=== PATIENT | female | born 1970 | race Caucasian/White ===

== ENCOUNTER → 2021-09-03 13:50 | Outpatient (BNVA) | payer SELFPAY | PROVIDERS: PCP Nurse Practitioner Family; Visit Provider Nurse Practitioner Family | DX: J45.909 Unspecified asthma, uncomplicated (principal); R06.02 Shortness of breath; R60.9 Edema, unspecified | CPT/HCPCS: 71046; 80053; 80061; 83880; 84443 ==

== ENCOUNTER → 2022-01-08 08:04 | Outpatient (BNVA) | payer MEDICAID, SELFPAY | PROVIDERS: PCP Nurse Practitioner Family; Visit Provider Nurse Practitioner Family | DX: I10 Essential (primary) hypertension (principal); E03.9 Hypothyroidism, unspecified; J45.909 Unspecified asthma, uncomplicated; E06.3 Autoimmune thyroiditis; E78.2 Mixed hyperlipidemia; R60.9 Edema, unspecified; H10.9 Unspecified conjunctivitis; J44.9 Chronic obstructive pulmonary disease, unspecified; R05.9 Cough, unspecified; N81.89 Other female genital prolapse; N39.3 Stress incontinence (female) (male) | CPT/HCPCS: 80053; 80061; 84443; 85025 ==

== ENCOUNTER → 2022-02-10 12:23 | Outpatient (BNVA) | payer MEDICAID, SELFPAY | PROVIDERS: PCP Nurse Practitioner Family; Visit Provider Nurse Practitioner Family | DX: I10 Essential (primary) hypertension (principal); E03.9 Hypothyroidism, unspecified; R53.83 Other fatigue; R73.9 Hyperglycemia, unspecified; M25.50 Pain in unspecified joint; M79.10 Myalgia, unspecified site; E06.3 Autoimmune thyroiditis; R05.9 Cough, unspecified; R40.0 Somnolence; G45.9 Transient cerebral ischemic attack, unspecified; W19.XXXA Unspecified fall, initial encounter; Y92.009 Unspecified place in unspecified non-institutional (private) residence as the place of occurrence of the external cause; G47.33 Obstructive sleep apnea (adult) (pediatric); E66.01 Morbid (severe) obesity due to excess calories | CPT/HCPCS: 80053; 82306; 82607; 83036; 84443; 85651; 86038; 86140; 86200 ==

== ENCOUNTER 2022-04-17 12:29 | Outpatient (CLI) | payer MEDICAID, SELFPAY ==
--- NOTE | 2022-04-17 12:00 | CT_ITS ---
WS: [id number] CT HEAD TECHNIQUE: Noncontrast CT of the head obtained from the skullbase to the vertex. CLINICAL INFORMATION: HX TIA, slurred speech, frequent fall at home somulence COMPARISON: None. DLP: 1145.[address] scans at [facility] use at least one of these dose optimization techniques: automated e xposure control; mA and/or kV adjustment per patient size (includes targeted exams where dose is matc hed to clinical indication); or iterative reconstruction. FINDINGS: No evidence of intracranial hemorrhage or mass effect. Ventricular system and basal cisterns are isaac nt. No extra-axial fluid collections. No evidence of mass or mass effect. Normal whiting-white different iation. Paranasal sinuses and mastoid air cells are well aerated. .Normal visualized soft tissues. CT/CT head wo con* [id number] IMPRESSION: 1. No evidence of intracranial hemorrhage or mass effect. 2. Normal whiting-white differentiation. 3. No acute intracranial findings.
== END 2022-04-17 12:30 | disposition home or self-care (01) ==
LOC: RAD 12:30
PROVIDERS: PCP Nurse Practitioner Family; Visit Provider Nurse Practitioner Family
DX: G45.9 Transient cerebral ischemic attack, unspecified (principal); R40.0 Somnolence; W19.XXXA Unspecified fall, initial encounter; L03.90 Cellulitis, unspecified; I10 Essential (primary) hypertension; R60.9 Edema, unspecified; E03.9 Hypothyroidism, unspecified
CPT/HCPCS: 70450; 80053; 83880; 84443

== ENCOUNTER 2022-04-24 09:31 | Outpatient (CLI) | payer MEDICAID, SELFPAY ==
--- NOTE | 2022-04-24 09:30 | USCV_ITS ---
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
== END 2022-04-24 09:32 | disposition home or self-care (01) ==
PROVIDERS: PCP Nurse Practitioner Family; Visit Provider Nurse Practitioner Family
DX: R60.9 Edema, unspecified (principal); E66.9 Obesity, unspecified; I89.0 Lymphedema, not elsewhere classified; L03.90 Cellulitis, unspecified
CPT/HCPCS: 93922

== ENCOUNTER 2022-05-06 10:00 | Outpatient (CLI) | payer MEDICAID, SELFPAY | END 2022-05-06 10:01 | disposition home or self-care (01) | LOC: SLEEP 05-11 07:25 | PROVIDERS: PCP Nurse Practitioner Family; Visit Provider Nurse Practitioner Family | DX: G47.33 Obstructive sleep apnea (adult) (pediatric) (principal) | CPT/HCPCS: 94762 ==

== ENCOUNTER → 2022-06-17 10:51 | Outpatient (BNVA) | payer MEDICAID, SELFPAY | PROVIDERS: PCP Nurse Practitioner Family; Visit Provider Nurse Practitioner Family | DX: E03.9 Hypothyroidism, unspecified (principal); E78.2 Mixed hyperlipidemia; I10 Essential (primary) hypertension; R73.9 Hyperglycemia, unspecified | CPT/HCPCS: 80053; 80061; 83036; 84443 ==

== ENCOUNTER → 2022-09-22 13:47 | Outpatient (BNVA) | payer MEDICAID, SELFPAY | PROVIDERS: PCP Nurse Practitioner Family; Visit Provider Internal Medicine Pulmonary Disease | DX: J30.2 Other seasonal allergic rhinitis (principal); J44.1 Chronic obstructive pulmonary disease with (acute) exacerbation; J45.909 Unspecified asthma, uncomplicated; Z87.01 Personal history of pneumonia (recurrent); G47.33 Obstructive sleep apnea (adult) (pediatric); R53.1 Weakness; R06.02 Shortness of breath; J84.9 Interstitial pulmonary disease, unspecified | CPT/HCPCS: 36415; 82785; 85651; 86003; 86140; 86160; 86162; 86235; 86255; 86331; 86376; 86606; 86609 ==

== ENCOUNTER 2022-10-08 13:46 | Outpatient (CLI) | payer MEDICAID, SELFPAY ==
--- NOTE | 2022-10-08 14:00 | CT_ITS ---
WS: [id number] CT CHEST CT-HIGH RESOLUTION, NONCONTRAST. HISTORY: Interstitial lung disease. Technique: High-resolution chest CT is performed in inspiration, expiration, supine and prone positio thalia. All CT scans at [facility] use at least one of these dose optimization techniques: automated exposure control; mA and/or kV adjustment per patient size (includes targeted exams where dose is mat ched to clinical indication); or iterative reconstruction. DLP: 2156.45 mGy.cm COMPARISON: None. Findings: Bilateral mosaic attenuation throughout both lungs. Patchy areas of groundglass opacificati on. No dense areas of consolidation. No bronchiectasis or honeycombing. During expiration there is mi ld volume loss in the mosaic attenuation becomes more prominent. No pericardial or pleural effusion. Heart is enlarged. There is dilated pulmonary artery measuring up to 4.7 cm. Small mediastinal and hi lar lymph nodes. Number of lymph nodes is slightly increased than typically seen. Could be reactive i n etiology. Prior cholecystectomy. Hepatic steatosis. Enlarged heart. Prior cholecystectomy. CT/CT chest wo con [id number] Impression: 1. Groundglass opacifications throughout both lungs. Differential includes hyp ersensitivity pneumonitis, pulmonary edema and chronic PE. 2. Significantly enlarged pulmonary artery. Correlate for possible pulmonary h ypertension. 3. No pulmonary fibrosis.
== END 2022-10-08 13:47 | disposition home or self-care (01) ==
PROVIDERS: PCP Nurse Practitioner Family; Visit Provider Internal Medicine Pulmonary Disease
DX: J84.9 Interstitial pulmonary disease, unspecified (principal)
CPT/HCPCS: 71250

== ENCOUNTER 2022-10-20 08:00 | Day surgery (SDC) | payer MEDICAID, SELFPAY ==
[2022-10-16 16:12] VITALS: BMI 61.9
[2022-10-20] VITALS (13 sets, daily range): BP systolic 80–160; BP diastolic 63–99; PULSE 87–109; RESP 18–25; TEMP 36.2–36.4; O2SAT 89–99
[2022-10-20] MEDS: sodium chloride 0.9% 1,000 ML 30 ML IV (08:39)
[2022-10-20 09:13] LABS: OR HCG Qualitative Urine Negative (Negative)
--- NOTE | 2022-10-20 09:18 | W.PM.OPSUD ---
Surgery/Procedure H&P Update DATE OF PROCEDURE: October 20, 2022 DATE H&P PERFORMED: 09/22/22 H&P UPDATE INFORMATION: I have reviewed H&P completed within last 30 days, I have examined patient prior to procedure, No changes to prior documentation and Changes to prior documentation as noted here CHANGES TO PREVIOUS DOCUMENTATION: HRCT showed Groundglass opacifications throughout both lungs. Differential includes hypersensitivity pneumonitis, pulmonary edema and chronic PE. ? Significantly enlarged pulmonary artery. Correlate for possible pulmonary hypertension. ? No pulmonary fibrosis. ? PRIMARY INDICATION FOR PROCEDURE: bronchoscopy with bronchoalveolar lavage PLANNED PROCEDURE: Operation Date: 10/20/22 08:50 Proposed Procedures p Bronch 20285, 17733, 23826,R91.8(Not Applicable) - Karthik Seth DatarMD
--- NOTE | 2022-10-20 09:58 | ANES.PREANE2 ---
Pre-Anesthetic Assessment Height/Weight: Height 1.6 m Weight 158.757 kg Temp Pulse Resp BP Pulse Ox O2 Del Method 97.4 F L 87 20 H 160/99 89 L Room Air 10/20/22 08:14 10/20/22 08:14 10/20/22 08:14 10/20/22 08:14 10/20/22 08:14 10/20/22 08:14 Operation Date: 10/20/22 08:50 Proposed Procedures p Bronch 70548, 76220, 11225,R91.8(Not Applicable) - Karthik Seth DatarMD Familial anesthetic complications: none Was Beta Marcella taken within 24 hours: N/A Was Clonidine taken within 24 hours: N/A Last intake: Intake Last Liquid Date 10/19/22 Last Liquid Time 23:55 Last Solid Date 10/19/22 Last Solid Time 20:00 Social No alcohol and No tobacco (h/o smoking) occasionally smokes soha Exam alert, oriented x 3, clear to auscultation bilaterally and regular rate & rhythm Airway Submandibular: within normal limits Cervical ROM: within normal limits Mallampati: Class II Dentition: full Pulmonary Asthma, Chronic Obstructive Pulmonary Disease, Sleep Apnea and Shortness of Breath Interstitial lung dz Metabolic Morbid Obesity and Thyroid Disease Neuropsych Transient Ischemic Attack Anesthetic Plan ASA status: 3 Anesthesia: General Medications/Allergies Home Medications Medication Instructions Recorded Confirmed Last Taken Type thyroid (pork) 120 mg tablet 120 mg PO DAILY 90 days #90 tabs 04/20/22 10/16/22 10/20/22 Rx ([place] Thyroid) albuterol sulfate 2.5 mg/3 mL 2.5 mg (3 mL) inhalation Q4H #180 06/17/22 10/16/22 Unknown Rx (0.083 %) solution for nebulization mL albuterol sulfate 90 mcg/actuation 2 puff inhalation QID PRN 06/17/22 10/16/22 Unknown Rx aerosol inhaler (ProAir HFA) shortness of breath or wheezing #8.5 grams montelukast 10 mg tablet 10 mg PO DAILY 90 days #90 tabs 06/17/22 10/16/22 10/17/22 Rx (Singulair) cetirizine 10 mg capsule (Zyrtec) 10 mg PO DAILY PRN cough 09/22/22 10/16/22 10/18/22 History tiotropium bromide 18 mcg capsule 1 cap inhalation DAILY #60 09/22/22 10/16/22 10/20/22 Rx with inhalation device (Spiriva inhalations with HandiHaler) fluticasone 100 mcg-salmeterol 50 1 inh inhalation BID #60 ea 10/06/22 10/16/22 10/20/22 Rx mcg/dose blistr powdr for inhalation (Advair Diskus) Allergies Allergy/AdvReac Type Severity Reaction Status Date / Time Penicillins Allergy Severe ALGY-Difficulty Verified 10/16/22 16:09 Swallowing Sulfa (Sulfonamide Allergy Severe ALGY-Difficulty Verified 10/16/22 16:09 Antibiotics) Breathing zolpidem [From Ambien] Allergy Severe ALGY-Difficulty Verified 10/16/22 16:09 Swallowing levothyroxine sodium Allergy narcolepsy Verified 10/16/22 16:09 [From Synthroid] Current Medications Generic Name Dose Route Start Last Admin Trade Name Freq PRN Reason Stop Dose Admin Sodium Chloride 1,000 mls @ 30 mls/hr 10/20/22 08:15 10/20/22 08:39 Sodium Chloride 0.9% IV 10/21/22 08:14 30 mls/hr .Q24H JODY Administration PFSH Anesthesia Medical History (Updated 09/25/22 @ 18:16 by Karthik Beck MD) Asthma Former smoker (~2014) Magaly's disease History of pneumonia Lymphedema associated with obesity TIA (transient ischemic attack) Tilted uterus Family History Other CAD (coronary artery disease) CHF (congestive heart failure) Diabetes Hypertension Hypothyroidism Social History Smoking and tobacco status: former smoker Quit status (tobacco): has quit using tobacco Year quit tobacco: 2014 Former quit date comment: 0.5 ppd X 20 years Female Reproductive History Date of last menstrual period: 09/01/22 Data Anesthesia Cardiac Studies: No Data to Display
--- NOTE | 2022-10-20 10:16 | P.OP_ITS ---
Operative Report Date of procedure: October 20, 2022 Pre-op diagnosis: Suspected hypersensitivity pneumonitis Procedure done: Procedure : 79381 Dx Bronchoscope w/Washings or airway inspection 14460 Dx Bronchoscope w/BAL 86475 Bronchoscopy w/ therapeutic aspiration of the tracheobronchial tree (clearance of airway secretions, removal of mucus plugs) Surgeon: Karthik Beck MD [facility] Brief History: Ms. Alina olivares is a 52-year-old female with past medical history of COPD, TONIO, morbid obesity with BMI 62, hypertension, hypothyroidism, hyperlipidemia, Magaly's disease, ex-smoker [id number] history quit 2015 came to clinic for evaluation of shortness of breath on exertion. Patient previous chest x-rays in August 2021 showed chronic interstitial lung disease with reticular opacities-subsequently CT chest was performed recently 10/08/2022 which showed bilateral mosaic attenuation, patchy groundglass opacification, and so differential included hypersensitivity pneumonitis or pulmonary edema. There is significantly enlarged pulmonary artery which correlated for possible pulmonary hypertension. Today scheduled for bronchoscopy inspection of airways and obtaining BAL sample for cell count differential as well as rule out hypersensitivity pneumonitis and cultures Procedure: Procedure : 12128 Dx Bronchoscope w/Washings or airway inspection 83949 Dx Bronchoscope w/BAL 73630 Bronchoscopy w/ therapeutic aspiration of the tracheobronchial tree (clearance of airway secretions, removal of mucus plugs) Pre-Operative Diagnosis: Hypersensitivity pneumonitis Post-Operative Diagnosis: Awaiting results Indication: HRCT with bilateral mosaic attenuation throughout both lungs with patchy areas of groundglass opacification. Consent: Consents were obtained from patient and placed in the chart Time out: Performed by the procedure team and nursing staff. Vent support m aintained on Fio2 100. Anesthesia: Managed as per anesthesia. Patient underwent general anesthesia and endotracheal tube placement. Local anesthesia: The beverly in the right and left mainstem bronchi were anesthetized with 1% lidocaine, 6 mL. Summary of Significant Findings: -Bronchoscope passed through ET tube used for initial inspection (93492) and airway clearance. The scope was advanced through the ET tube. The lower trachea mucosa appeared normal, no endotracheal lesion was seen. The beverly was sharp. The beverly, the right and left mainstem bronchi are anesthetized with 1% li docaine. In a systematic manner bilateral bronchial tree was then examined. The bronchoscope was advanced into the left mainstem bronchus. The mucosa appeared normal with no endobronchial lesions. The left upper lobe, lingula and left lower lobe bronchi were examined up to the third subsegmental level and no abnormalities were identified. Mucosa appeared normal with no endobronchial lesion, active bleeding or mucous plug. There were copious clear secretions in lower lobe-which were suctioned right away 72460. The bronchoscope was then introduced into the right mainstem bronchus. The right upper lobe, right middle lobe and right lower lobe bronchi were examined up to the third subsegmental level and no abnormalities were identified. The mucosa appeared normal with no endobronchial lesions, active bleeding. There were copious secretions which were suctioned right away 31157. Bronchoscope was wedged in the medial segment of right middle lobe, 60 cc normal saline instilled and aspirated 25 cc bronchoalveolar lavage (65918). Bronchoscope was removed and procedure terminated. Estimated Blood Loss: None Specimens: Bronchoalveolar lavage (56858) from right middle lobe sent for cultures, fluid analysis, flow cytometry Complications:None; patient tolerated the procedure well. Disposition: Patient extubated and transferred to postop area. She is stable and discharged home. Surgeon: Karthik Beck MD, [facility] Pulmonary critical Care Medicine [facility]
[2022-10-20] MEDS: lidocaine 1% INJ 10 mL (per mL) XX (10:20)
[2022-10-20] MEDS: lidocaine 4% PF 5 mL INJ INHALATION (10:39)
[2022-10-20] MEDS: albuterol 2.5 mg/3 mL Neb INHALATION (10:39)
[2022-10-20 10:42] LABS: Cyto Order Verification No Order
[2022-10-20 11:40] LABS: Apprearance, Bronch Wash Bloody (CLEAR); Bronch Source Right Middle Lobe; Color, Bronc Wash Red
--- NOTE | 2022-10-20 11:41 | SUR.PHASEII ---
Dr. Lund discharge orders weren't saved, therefore chief underwriter is unable to print discharge paperwork. Dr. Beck aware, currently in a procedure and will complete discharge instructions when finished. pt is aware. pt is a/ox3. no distress, visiting in room with friend.
[2022-10-20 11:43] LABS: PATH Referral Yes
[2022-10-20 13:31] LABS: Total Cells Counted Bronch 200
--- NOTE | 2022-10-20 15:21 | ANE.PACU2 ---
Inpatient post-anesthesia follow up: Airway intact: Yes Vital signs: Temperature 97.2 F Pulse Rate 91 Respiratory Rate 20 Blood Pressure 128/79 Pulse Oximetry 93 Oxygen Delivery Me thod Room Air Oxygen Flow Rate 6 Fraction of Inspir ed Oxygen Hydration adequate: Yes Nausea and vomiting: No Pain level: 2 Mental status: Baseline
[2022-10-21 14:20] LABS: Lymphoma Profile (BBPL) See Report
[2022-10-24 17:00] LABS: Aspergillus AG,EIA NOT DETECTED; Aspergillus AG,EIA, Index <0.50
== END 2022-10-20 12:45 | disposition home or self-care (01) ==
PROVIDERS: Anesthesiology; PCP Nurse Practitioner Family; Visit Provider Internal Medicine Pulmonary Disease
PROC: 0BJ08ZZ Inspection of Tracheobronchial Tree, Via Natural or Artificial Opening Endoscopic (ICD-10-PCS; CPT 31622; principal; 2022-10-20 08:40)
DX: J84.9 Interstitial pulmonary disease, unspecified (principal); R91.8 Other nonspecific abnormal finding of lung field; J44.9 Chronic obstructive pulmonary disease, unspecified; G47.30 Sleep apnea, unspecified; E66.01 Morbid (severe) obesity due to excess calories; Z68.44 Body mass index [BMI] 60.0-69.9, adult; E03.9 Hypothyroidism, unspecified; Z87.891 Personal history of nicotine dependence
CPT/HCPCS: 31624; 31645; 80503; 81025; 84703; 87070; 87102; 87205; 87206; 87305; 88184; 88185; 89050; 94640; J2704; J3010; J3535; J7030; J7613

== ENCOUNTER → 2022-11-02 09:46 | Outpatient (BNVA) | payer MEDICAID, SELFPAY | PROVIDERS: PCP Nurse Practitioner Family; Visit Provider Nurse Practitioner Family | DX: J44.9 Chronic obstructive pulmonary disease, unspecified (principal); E78.2 Mixed hyperlipidemia; I10 Essential (primary) hypertension; E03.9 Hypothyroidism, unspecified; J45.909 Unspecified asthma, uncomplicated; R73.9 Hyperglycemia, unspecified; E06.3 Autoimmune thyroiditis; R60.9 Edema, unspecified | CPT/HCPCS: 80053; 80061; 83036; 84443 ==

== ENCOUNTER → 2022-12-09 11:31 | Outpatient (BNVA) | payer MEDICAID, SELFPAY | PROVIDERS: PCP Nurse Practitioner Family; Visit Provider Nurse Practitioner Family | DX: R05.9 Cough, unspecified (principal); J02.9 Acute pharyngitis, unspecified | CPT/HCPCS: 87071; 87400; 87426; 87880 ==

== ENCOUNTER 2022-12-22 18:17 | Inpatient (IN) | payer MEDICAID, SELFPAY ==
[2022-12-22 18:18] VITALS: BP 100/66; PULSE 101; RESP 21; TEMP 36.9; O2SAT 93; BMI 63.8
--- NOTE | 2022-12-22 18:23 | XRR_ITS ---
PROCEDURE INFORMATION: Exam: XR Chest Exam date and time: 12/22/2022 6:34 PM Age: 52 years old Clinical indication: Pain; Chest pressure; Additional info: Cp TECHNIQUE: Imaging protocol: Radiologic exam of the chest. Views: 1 view. COMPARISON: CT chest keely alex [id number] 10/08/2022 1:54 PM FINDINGS: Lungs: Interval development of soft tissue density in the right hilar region measuring approximately 5.3 x 3.8 cm concerning for a possible perihilar mass or lymphadenopathy. There is also interval development of opacification in the right upper lobe concerning for a postobstructive process. Pleural spaces: Interval development of a small right pleural effusion. No pneumothorax. Heart/Mediastinum: Stable moderate enlargement of the cardiac silhouette. Bones/joints: Unremarkable for age. XR/XR chest 1V portable [id number] IMPRESSION: 1. Interval development of soft tissue density in the right hilar region measuring approximately 5.3 x 3.8 cm concerning for a possible perihilar mass or lymphadenopathy. There is also interval development of opacification in the right upper lobe concerning for a postobstructive process. CT scan of the chest with contrast is recommended for further evaluation. 2. Interval development of a small right pleural effusion.
--- NOTE | 2022-12-22 19:22 | CTR_ITS ---
PROCEDURE INFORMATION: Exam: CTA Chest With Contrast Exam date and time: 12/22/2022 9:02 PM Age: 52 years old Clinical indication: Shortness of breath; Additional info: SOB TECHNIQUE: Imaging protocol: Computed tomographic angiography of the chest with contrast. Exam focused on the arteries. 3D rendering (Not supervised by radiologist): MIP and/or 3D reconstructed images were created by the technologist. Radiation optimization: All CT scans at this facility use at least one of these dose optimization techniques: automated exposure control; mA and/or kV adjustment per patient size (includes targeted exams where dose is matched to clinical indication); or iterative reconstruction. Contrast material: OMNI 350; Contrast volume: 100 ml; Contrast route: INTRAVENOUS (IV); REPORTING DATA: Count of CT and Cardiac NM exams in prior 12 months: This patient has received 2 known CTs and 0 known cardiac nuclear medicine studies in the 12 months prior to the current study. COMPARISON: CT chest wo con [id number] 10/08/2022 1:54 PM RADIATION DOSE METRICS: Total DLP (mGy-cm): 610 FINDINGS: Pulmonary arteries: Stable enlargement of the central pulmonary arteries, the main pulmonary artery measures 4.4 cm (series 6, image 178). Findings may suggest pulmonary hypertension. No filling defects in the pulmonary arteries to suggest pulmonary embolism. Aorta: Mild atherosclerotic changes in the visualized arteries. No evidence for aortic aneurysm or aortic dissection. Trachea: Tracheobronchial structures are patent. Lungs: Interval development of dense opacification with air bronchograms in the lower right upper lobe. No pulmonary parenchymal nodules or masses. Pleural spaces: Interval development of a trace right pleural effusion. No pneumothorax. Heart: Stable moderate enlargement of the heart. Esophagus: The esophagus is unremarkable. Mediastinal space: No mediastinal hematoma. No pneumomediastinum. No abnormal right hilar mass. Findings on the prior chest radiograph were likely due to alveolar airspace disease. Lymph nodes: Interval development of enlarged mediastinal lymph nodes. The largest pretracheal lymph node measures 2.4 cm in short axis (series 6, image 154). Liver: The visualized liver is unremarkable. Gallbladder and bile ducts: Patient has had a previous cholecystectomy. No biliary ductal dilatation. Pancreas: The pancreas is unremarkable. No pancreatic ductal dilatation. Spleen: The spleen is unremarkable. Adrenal glands: The right and left adrenal glands are unremarkable. Kidneys and ureters: The visualized right and left kidneys are unremarkable. Bones/joints: No acute fracture. No dislocation. Soft tissues: No acute abnormality in the extrathoracic soft tissues. CT/CT angio chest PE protcl [id number] IMPRESSION: 1. Interval development of dense opacification with air bronchograms in the lower right upper lobe. Findings are suspicious for pneumonia. Recommend followup chest imaging to insure resolution of these findings. 2. Interval development of a trace right pleural effusion. 3. No evidence for pulmonary embolism. 4. Interval development of mediastinal lymphadenopathy. This could be reactive in nature. However, followup imaging is recommended to ensure stability/resolution. 5. Incidental/nonacute findings are listed in the report.
[2022-12-22 19:36] VITALS: BP 148/74; PULSE 96; RESP 16; O2SAT 90
--- NOTE | 2022-12-22 19:41 | ED_ITS ---
HPI - Chest Pain General: Chief Complaint: Chest Pain Stated Complaint: chest pain Time Seen by Provider: 12/22/22 19:15 Source: patient Mode of arrival: ambulatory Limitations: no limitations History of Present Illness: 52-year-old female states over the last 2 days she has had cough along with shortness of breath she states she also had some sharp chest pains. States pain is mainly over the right side of her chest she denies any vomiting or diarrhea had some subjective fevers at home. Denies any worsening proving factors Associated symptoms: Reports dyspnea; Deny abdominal pain, fever(s), nausea or vomiting Review of Systems Const: Denies: fever(s), chills, body aches or change in appetite ENMT: Denies: throat pain or dental pain Card: Reports: chest pain Resp: Reports: dyspnea and productive cough GI: Denies: abdominal pain, nausea, vomiting or diarrhea : Denies: dysuria Musc: Denies: neck pain or back pain Skin/Breast: Denies: rash Neuro: Denies: headache(s) PFSH ED PFSH: Medical History Asthma Former smoker (~2014) Magaly's disease History of pneumonia Lymphedema associated with obesity TIA (transient ischemic attack) Tilted uterus Family History Other CAD (coronary artery disease) CHF (congestive heart failure) Diabetes Hypertension Hypothyroidism Social History Smoking and tobacco/nicotine status: former use of tobacco/nicotine Quit status (tobacco/nicotine): has quit using Year quit tobacco: 2014 Former quit date comment: 0.5 ppd X 20 years Physical Exam Const: COMMON NORMALS: patient oriented x3 GENERAL APPEARANCE: ill appearing HENMT: COMMON NORMALS: normocephalic and atraumatic HEAD & SCALP: normocephalic and atraumatic Eye: COMMON NORMALS: Equal, round and reactive pupils present and EOMs intact bilaterally PUPIL: Yes Equal, round and reactive pupils present Neck/C-Spine: COMMON NORMALS: full ROM and supple Chest: COMMONS NORMALS: normal inspection of the chest and normal palpation of entire chest wall Resp: COMMON NORMALS: No retractions and No use of accessory muscles AUSCULTATION: rales on the right Cardio: COMMON NORMALS: regular rate, regular rhythm and No murmurs present (Cardio) RATE: regular rate RHYTHM: regular rhythm GI: COMMON NORMALS: Normal to inspection, nondistended, normoactive bowel sounds present, Soft to palpation, non-tender and no masses PALPATION: Yes Soft to palpation Extremity: COMMON NORMALS: normal to inspection and full ROM Neuro: COMMON NORMALS: patient oriented x3, moves all extremities and no focal motor deficits Psych: COMMON NORMALS: mental status grossly normal, Normal thought process present and cooperative THOUGHT PROCESS: Normal thought process present Skin: COMMON NORMALS: no rashes or lesions noted and no wounds GENERAL SKIN EXAM: no rashes or lesions noted Course Vital Signs: Vital signs: Vital Signs Temperature 98.4 F 12/22/22 18:18 Pulse Rate 104 H 12/22/22 21:51 Respiratory Rate 16 12/22/22 21:51 Blood Pressure 125/79 12/22/22 21:51 Pulse Oximetry 92 12/22/22 21:51 Oxygen Delivery Me thod Room Air 12/22/22 18:18 MDM - Chest Pain Medical Decision Making Patient presents with cough along with chest pain she is found to have a large pneumonia on the right side on x-ray along with CT we will start IV antibiotics I spoke to the hospitalist will admit at this time. Medical Records I reviewed the patient's medical records. Lab Data I reviewed the patient's lab results. 12/22/22 19:20 12/22/22 19:20 Radiology Impressions Chest X-Ray 12/22/22 18:23 IMPRESSION: 1. Interval development of soft tissue density in the right hilar region measuring approximately 5.3 x 3.8 cm concerning for a possible perihilar mass or lymphadenopathy. There is also interval development of opacification in the right upper lobe concerning for a postobstructive process. CT scan of the chest with contrast is recommended for further evaluation. 2. Interval development of a small right pleural effusion. ADDENDUM: 12/22/221912 Urgent results were discussed with TALI Marquez on 12/22/2022 at 7:11 PM CDT. Chest CTA 12/22/22 19:22 IMPRESSION: 1. Interval development of dense opacification with air bronchograms in the lower right upper lobe. Findings are suspicious for pneumonia. Recommend followup chest imaging to insure resolution of these findings. 2. Interval development of a trace right pleural effusion. 3. No evidence for pulmonary embolism. 4. Interval development of mediastinal lymphadenopathy. This could be reactive in nature. However, followup imaging is recommended to ensure stability/resolution. 5. Incidental/nonacute findings are listed in the report. ADDENDUM: 12/22/222151 THIS REPORT CONTAINS FINDINGS THAT MAY BE CRITICAL TO PATIENT CARE. The findings were verbally communicated via telephone conference with TALI Marquez at 9:50 PM CDT on 12/22/2022. The findings were acknowledged and understood. Laboratory Results WBC 27.08 10^3/uL (3.29-11.43) H 12/22/22 19:20 RBC 4.74 10^6/uL (3.85-5.65) 12/22/22 19:20 Hgb 13.10 g/dL (11.27-16.99) 12/22/22 19:20 Hct 42.8 % (36-47) 12/22/22 19:20 MCV 90.3 fl (85-98) 12/22/22 19:20 MCH 27.6 pg (27-33) 12/22/22 19:20 MCHC 30.6 g/dL (30-55) 12/22/22 19:20 RDW 15.4 % (12.1-15.1) H 12/22/22 19:20 Plt Count 250 10^3/cmm (157-399) 12/22/22 19:20 MPV 9.6 fL (7.4-10.4) 12/22/22 19:20 Neut % (Auto) 81.7 % 12/22/22 19:20 Lymph % (Auto) 3.5 % 12/22/22 19:20 [place] % (Auto) 8.7 % 12/22/22 19:20 Eos % (Auto) 0.0 % 12/22/22 19:20 Baso % (Auto) 0.3 % 12/22/22 19:20 Neut # (Auto) 22.12 10^3/uL (1.8-7.7) H 12/22/22 19:20 Lymph # (Auto) 0.9 10^3/uL (0.8-4.8) 12/22/22 19:20 [place] # (Auto) 2.4 10^3/uL (0.2-0.9) H 12/22/22 19:20 Eos # (Auto) 0.0 10^3/uL (0.0-0.8) 12/22/22 19:20 Baso # (Auto) 0.1 10^3/uL (0.0-0.1) 12/22/22 19:20 Nucleated RBC % (auto) 0 % 12/22/22 19:20 Nucleated RBCs # 0.0 /100WBC 12/22/22 19:20 PT 18.30 SECONDS (12.1-14.9) H 12/22/22 19:20 INR 1.47 (0.8-1.2) H 12/22/22 19:20 Sodium 134 mmol/L (136-145) L 12/22/22 19:20 Potassium 4.2 mmol/L (3.5-5.1) 12/22/22 19:20 Chloride 97 mmol/L (98-107) L 12/22/22 19:20 Carbon Dioxide 27 mmol/L (22-29) 12/22/22 19:20 Anion Gap 14.2 (5-19) 12/22/22 19:20 BUN 12 mg/dL (6-20) 12/22/22 19:20 Creatinine 0.6 mg/dL (0.5-0.9) 12/22/22 19:20 GFR Calculation 105.0 mL/min (90-130) 12/22/22 19:20 Glucose 130 mg/dL (65-115) H 12/22/22 19:20 Calculated Osmolality 280 mOsm/kg (285-295) L 12/22/22 19:20 Calcium 8.7 mg/dL (8.5-10.5) 12/22/22 19:20 Total Bilirubin 2.5 mg/dL (0.15-1.2) H 12/22/22 19:20 AST 21 U/L (0-32) 12/22/22 19:20 ALT 18 U/L (0-33) 12/22/22 19:20 Alkaline Phosphatase 143 U/L (35-105) H 12/22/22 19:20 Troponin T Baseline 15 ng/L (0-10) H 12/22/22 19:20 Total Protein 6.2 g/dL (6.6-8.7) L 12/22/22 19:20 Albumin 3.5 g/dL (3.5-5.2) 12/22/22 19:20 Globulin 2.7 g/dL (1.3-4.6) 12/22/22 19:20 Lipase 61 U/L (13-60) H 12/22/22 19:20 All radiology interpretation(s) finalized by discharge EKG Data EKG 1: I personally reviewed and interpreted this EKG as follows: EKG interpretation date: 12/22/22 EKG interpretation time: 18:24 Interpretation: sinus tach hr [address] or t wave abnormalities qrs 81 qtc 386 Discharge Plan Discharge Patient Disposition: Admitted As Inpatient Clinical Impression: Pneumonia, Hypoxia Condition: Stable Prescriptions: No Action albuterol sulfate 2.5 mg /3 mL (0.083 %) solution for nebulization 2.5 mg inhalation Q4H Qty: 180 11RF albuterol sulfate [ProAir HFA] 90 mcg/actuation HFA aerosol inhaler 2 puff inhalation QID PRN (Reason: shortness of breath or wheezing) Qty: 8.5 11RF Zyrtec 10 mg capsule 10 mg PO DAILY PRN (Reason: cough) Spiriva with HandiHaler 18 mcg capsule, w/inhalation device 1 cap inhalation DAILY Qty: 60 6RF Rx Instructions: puncture 1 cap using device; one dose = 2 inhalations montelukast [Singulair] 10 mg tablet 10 mg PO DAILY 90 Days Qty: 90 1RF [place] Thyroid 120 mg tablet 120 mg PO DAILY 30 Days Qty: 30 4RF Paxlovid 300 mg (150 mg x 2)-100 mg tablets,dose pack See Rx Instructions PO .COMPLEX Qty: 30 0RF Rx Instructions: take TWO 150 mg tablets of nirmatrelvir with ONE 100 mg tablet of ritonavir twice daily for 5 days PO azithromycin 250 mg tablet See Rx Instructions PO .COMPLEX Qty: 6 0RF Rx Instructions: For 250 mg dose pack: take 500 mg today (day 1), then 250 mg for 4 days (days 2-5) PO methylprednisolone [Medrol ([place])] 4 mg tablets,dose pack See Rx Instructions PO PER PKG DIR Qty: 21 0RF Rx Instructions: PO PER PKG DIR Advair Diskus 250-50 mcg/dose blister with device 1 inh inhalation Q12H Qty: 60 3RF Referrals: Iris Zhou NP [Primary Care Provider] - Coding Level of Care Code ED Blanching Machine Operator for Chg Chey
[2022-12-22] MEDS: cefTRIAXone 1,000 MG in sodium chloride 0.9% (plus) 50 ML 100 MG IV (19:47)
[2022-12-22] MEDS: azithromycin 500 MG in sodium chloride 0.9% 250 ML 250 MG IV (19:51)
[2022-12-22 19:54] LABS: Basophils # 0.1 10^3/uL (0.0-0.1); Basophils % 0.3 %; Hematocrit 42.8 % (36-47); Lymphocytes # 0.9 10^3/uL (0.8-4.8); Lymphocytes % 3.5 %; Mean Corpuscular HGB Conc 30.6 g/dL (30-55); Mean Corpuscular Hemoglobin 27.6 pg (27-33); Mean Corpuscular Volume 90.3 fl (85-98); Mean Platelet Volume 9.6 fL (7.4-10.4); Monocytes # 2.4 10^3/uL (0.2-0.9); Monocytes % 8.7 %; Neutrophils # 22.12 10^3/uL (1.8-7.7); Neutrophils % 81.7 %; Nucleated Red Blood Cells % 0 %; Platelet Count 250 10^3/cmm (157-399); Red Blood Count 4.74 10^6/uL (3.85-5.65); Red Cell Distribution Width 15.4 % (12.1-15.1); White Blood Count 27.08 10^3/uL (3.29-11.43)
[2022-12-22 20:03] LABS: INR 1.47 (0.8-1.2)
[2022-12-22 20:09] LABS: Troponin(5th) Baseline 15 ng/L (0-10)
[2022-12-22 20:10] VITALS: BP 159/94; PULSE 102; RESP 16; O2SAT 96
[2022-12-22 20:11] LABS: Alanine Aminotransferase 18 U/L (0-33); Albumin Level 3.5 g/dL (3.5-5.2); Alkaline Phosphatase 143 U/L (35-105); Anion Gap 14.2 (5-19); Aspartate Amino Transferase 21 U/L (0-32); Blood Urea Nitrogen 12 mg/dL (6-20); Calcium 8.7 mg/dL (8.5-10.5); Carbon Dioxide 27 mmol/L (22-29); Chloride 97 mmol/L (98-107); Globulin 2.7 g/dL (1.3-4.6); Glucose 130 mg/dL (65-115); Lipase 61 U/L (13-60); Osmolality Calculated 280 mOsm/kg (285-295); Potassium 4.2 mmol/L (3.5-5.1); Sodium 134 mmol/L (136-145); Total Bilirubin 2.5 mg/dL (0.15-1.2); Total Protein 6.2 g/dL (6.6-8.7)
[2022-12-22 20:24] LABS: Slide Review Slide Review Perform
[2022-12-22] MEDS: iohexol 350 mg/mL 500 mL Btl (per mL) IV (21:15)
--- NOTE | 2022-12-22 21:15 | ECG_ITS ---
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 Measurements Intervals [place] Rate: 101 P: 37 VA: 163 QRS: 95 QRSD: 84 T: 34 QT: 314 QTc: 407 Interpretive Statements SINUS TACHYCARDIA BORDERLINE RIGHT AXIS DEVIATION [QRS AXIS > 90] LOW QRS VOLTAGE IN PRECORDIAL LEADS [QRS DEFLECTION < 1.0 mV IN CHEST LEADS] PATTERN CONSISTENT WITH PULMONARY DISEASE No previous ECG available for comparison Electronically Signed On 12-22-2022 22:08:03 CDT by Chiara Park M.D. [id number]
[2022-12-22 21:51] VITALS: BP 125/79; PULSE 104; RESP 16; O2SAT 92
[2022-12-22 21:52] LABS: Troponin 5 2HR 15.38 ng/L (0-10)
[2022-12-22 21:59] LABS: Troponin 5 2HR Delta 0.38 ABS# (0-10)
[2022-12-22 22:38] VITALS: BP 114/76; PULSE 107; RESP 16; TEMP 36.9; O2SAT 92
[2022-12-23] VITALS (16 sets, daily range): BP systolic 101–141; BP diastolic 71–86; PULSE 69–109; RESP 16–35; TEMP 36.6–37.7; O2SAT 89–96
--- NOTE | 2022-12-23 00:23 | ECG_ITS ---
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 Measurements Intervals [place] Rate: 106 P: 52 AL: 170 QRS: 90 QRSD: 89 T: 33 QT: 321 QTc: 427 Interpretive Statements SINUS TACHYCARDIA WITH FREQUENT VENTRICULAR PREMATURE COMPLEXES ABNORMAL RHYTHM ECG Compared to ECG 12/22/2022 21:15:15 Ventricular premature complex(es) now present Electronically Signed On 12-23-2022 19:42:27 CDT by Bethany Mari M.D. [id number]
[2022-12-23 01:11] LABS: Troponin 5 6HR 16.58 ng/L (0-10)
[2022-12-23 01:19] LABS: Troponin 5 6HR Delta 1.58 ng/L (0-12)
--- NOTE | 2022-12-23 01:27 | PM.HP ---
Providers/Chief Complaint Admitting Physician: Marisa Padron MD Primary Care Provider: Iris Zhou NP Chief Complaint: chest pain History of Present Illness Alina Pascual is a 52 year old female morbidly obese with history of severe asthma, possible sleep apnea, bilateral lower extremity lymphedema presented with complaint of shortness of breath chest pain and cough productive of dark green sputum mixed with blood. As per the patient she was tested positive for COVID-19 infection 2 weeks ago and was prescribed Medrol pack and Z-Troy at that time. She is usually short of breath at baseline limiting her routine activities, but shortness of breath is gradually worsening since last 2 weeks. This is associated with substernal chest pain associated with coughing green sputum mixed with blood. She denied any fever dizziness abdominal pain nausea vomiting or urinary complaints. Review of Systems Narrative: As per HPI Medications/Allergies Home Medications Medication Instructions Recorded Confirmed Last Taken Type albuterol sulfate 2.5 mg/3 mL 2.5 mg (3 mL) inhalation Q4H #180 06/17/22 12/09/22 Unknown Rx (0.083 %) solution for nebulization mL albuterol sulfate 90 mcg/actuation 2 puff inhalation QID PRN 06/17/22 12/09/22 Unknown Rx aerosol inhaler (ProAir HFA) shortness of breath or wheezing #8.5 grams cetirizine 10 mg capsule (Zyrtec) 10 mg PO DAILY PRN cough 09/22/22 12/09/22 10/18/22 History tiotropium bromide 18 mcg capsule 1 cap inhalation DAILY #60 09/22/22 12/09/22 10/20/22 Rx with inhalation device (Spiriva inhalations with HandiHaler) fluticasone 250 mcg-salmeterol 50 1 inh inhalation Q12H #60 ea 10/20/22 12/09/22 Unknown Rx mcg/dose blistr powdr for inhalation (Advair Diskus) montelukast 10 mg tablet 10 mg PO DAILY 90 days #90 tabs 11/02/22 12/09/22 Unknown Rx (Singulair) thyroid (pork) 120 mg tablet 120 mg PO DAILY 30 days #30 tabs 11/02/22 12/09/22 Unknown Rx ([place] Thyroid) azithromycin 250 mg tablet See Rx Instructions PO .COMPLEX #6 12/09/22 12/09/22 Unknown Rx tabs methylprednisolone 4 mg tablets in See Rx Instructions PO PER PKG DIR 12/09/22 12/09/22 Unknown Rx a dose pack (Medrol ([place])) #21 ea nirmatrelvir 300 mg (150 mg See Rx Instructions PO .COMPLEX 12/09/22 12/09/22 Unknown Rx x2)-ritonavir 100 mg tablet,dose #30 ea pack (Paxlovid) Allergies Allergy/AdvReac Type Severity Reaction Status Date / Time Penicillins Allergy Severe ALGY-Difficulty Verified 12/09/22 11:08 Swallowing Sulfa (Sulfonamide Allergy Severe ALGY-Difficulty Verified 12/09/22 11:08 Antibiotics) Breathing zolpidem [From Ambien] Allergy Severe ALGY-Difficulty Verified 12/09/22 11:08 Swallowing levothyroxine sodium Allergy narcolepsy Verified 12/09/22 11:08 [From Synthroid] PFSH Acute PFSH: Medical History Asthma Former smoker (~2014) Magaly's disease History of pneumonia Lymphedema associated with obesity TIA (transient ischemic attack) Tilted uterus Family History Other CAD (coronary artery disease) CHF (congestive heart failure) Diabetes Hypertension Hypothyroidism Social History Smoking and tobacco/nicotine status: former use of tobacco/nicotine Quit status (tobacco/nicotine): has quit using Year quit tobacco: 2014 Former quit date comment: 0.5 ppd X 20 years Vitals/I&O/Wt Last Vital Signs Temp 98.4 F 12/22/22 22:38 Pulse 102 H 12/23/22 00:46 Resp 16 12/22/22 22:38 BP 114/76 12/22/22 22:38 Pulse Ox 95 12/23/22 00:46 O2 Del Method Nasal Cannula 12/23/22 00:46 O2 Flow Rate 2 12/22/22 22:38 12/22/22 12/22/22 12/23/22 14:59 22:59 06:59 Intake Total 300 / 300 Balance 300 / 300 Weight last 48 hrs Weight 163.293 kg Physical Exam Narrative: She is alert awake oriented x3 in severe respiratory distress due to shortness of breath and coughing, but able to speak in full sentences, she is morbidly obese Chest decreased air entry bilateral mid and upper lobes lobes, absent breath sounds bilateral lower lobes, no wheezing present no rhonchi Cardiovascular normal heart sounds no murmurs Abdomen soft nontender nondistended normal bowel sounds Extremities bilateral 4+ nonpitting lower extremity edema present Data 12/22/22 19:20 12/22/22 19:20 Micro: Microbiology 12/22/22 19:44 Blood Culture - Preliminary Blood SPECIMEN COLLECTED 12/22/22 19:44 Blood Culture - Preliminary Blood SPECIMEN COLLECTED CXR: Radiologist's impression: 1. ? Interval development of soft tissue density in the right hilar region measuring approximately 5.3 x 3.8 cm concerning for a possible perihilar mass or lymphadenopathy. There is also interval development of opacification in the right upper lobe concerning for a postobstructive process. CT scan of the chest with contrast is recommended for further evaluation. 2. ? Interval development of a small right pleural effusion. CTA Chest: Radiologist's impression: IMPRESSION: 1. ? Interval development of dense opacification with air bronchograms in the lower right upper lobe. Findings are suspicious for pneumonia. Recommend followup chest imaging to insure resolution of these findings. 2. ? Interval development of a trace right pleural effusion. 3. ? No evidence for pulmonary embolism. 4. ? Interval development of mediastinal lymphadenopathy. This could be reactive in nature. However, followup imaging is recommended to ensure stability/resolution. 5. ? Incidental/nonacute findings are listed in the report. ? EKG 1: My Interpretation: Sinus tachycardia at 106 bpm Occasional PVCs No acute ST-T changes A&P Assessment and plan (1) Pneumonia: (2) Hypoxia: (3) COVID-19: (4) Asthma exacerbation: Plan 52 year old female morbidly obese with history of severe asthma, possible sleep apnea, bilateral lower extremity lymphedema presented with complaint of shortness of breath chest pain and cough productive of dark green sputum mixed with blood , leukocytosis 25 K, hypoxia with oxygen saturation in 80s and chest x-ray consistent with right upper lobe pneumonia Right upper lobe pneumonia, acute asthma exacerbation and COVID-19 infection. We will continue IV antibiotics, IV ceftriaxone 1 g daily IV azithromycin 500 mg daily IV methylprednisolone 80 mg every 8 hours Isolation precautions for COVID-19, repeat COVID-19 swab test DuoNebs every 6 hours Continue supplemental oxygen to keep saturations more than 90% Continue Spiriva Singulair P.o. Mucinex 600 mg twice a day IV morphine 2 mg every 4 hours as needed for chest pain P.o. Tylenol 650 mg every 6 hours as needed for pain/fever Resume home medications Carb consistent diet for now IV Pepcid 20 mg twice a day for stress ulcer prophylaxis Subcutaneous Lovenox 40 mg daily for DVT prophylaxis She is full code as per discussion. Attestations Medical Necessity Statement*: She needs continued hospitalization for more than 2 days for IV antibiotics for pneumonia and IV steroids nebulizer for acute exacerbation of asthma Time Spent in Patient Care: 35 minutes Coding Level of Care Code Critical Care >/= 30 minutes Diagnoses Pneumonia J18.9 Hypoxia R09.02 COVID-19 U07.1 Asthma exacerbation J45.901 Time Spent (min) 35
[2022-12-23] MEDS: enoxaparin 40 mg/0.4 mL Syringe SUBCUT (02:34)
[2022-12-23] MEDS: sodium chloride 0.9% 1,000 ML 75 ML IV (02:34)
[2022-12-23] MEDS: ipratropium-albuterol 3 mL Neb INHALATION (02:51)
[2022-12-23] MEDS: famotidine 20 mg/2 mL INJ IVP (02:56)
[2022-12-23 05:51] LABS: Adenovirus Not Detected (NOT DETECT); Chlamydia Pneumoniae Not Detected (NOT DETECT); Coronavirus 229E,HKU1,NL63,OC4 Not Detected (NOT DETECT); Human Metapneumovirus Not Detected (NOT DETECT); Human Rhinovirus/Enterovirus Not Detected (NOT DETECT); Influenza A Not Detected (NOT DETECT); Influenza A H1 Not Detected (NOT DETECT); Influenza A H1-2009 Not Detected (NOT DETECT); Influenza A H3 Not Detected (NOT DETECT); Influenza B Not Detected (NOT DETECT); Mycoplasma Pneumoniae Not Detected (NOT DETECT); Parainfluenza Virus Type 1 Not Detected (NOT DETECT); Parainfluenza Virus Type 2 Not Detected (NOT DETECT); Parainfluenza Virus Type 3 Not Detected (NOT DETECT); Parainfluenza Virus Type 4 Not Detected (NOT DETECT); Respiratory Syncytial Virus A Not Detected (NOT DETECT); Respiratory Syncytial Virus B Not Detected (NOT DETECT)
[2022-12-23 06:03] LABS: SARS-COV-2 Detected (NOT DETECT)
[2022-12-23] MEDS: guaiFENesin 600 mg Tablet PO ×2 (08:17→17:30)
[2022-12-23] MEDS: montelukast sodium 10 mg Tablet PO (08:17)
[2022-12-23] MEDS: thyroid 60 mg Tablet 120 MG PO (08:53)
[2022-12-23 09:02] LABS: ABG PCO2 55.1 mmHg (35-45); ABG PH Result 7.34 (7.35-7.45); Alveolar-Arterial Oxygen Gradi 9.9 mmHg (5-10); Blood Gas Allen Test Pos; Blood Gas Operator Identificat MONRO; Blood Gas Sample Site Brachial, left; Blood Gas Sample Type Arterial; Carboxyhemoglobin 2.7 %THgb (0.4-20.1); HCO3 ABG 29.9 mmol/L (22-26); HGB O2 Sat 87.3 % (95-100); Ionized Calcium Level - ABG 1.2 mmol/L (1.1-1.4); Methemoglobin 0.6 % (0.4-1.5); Oxygen Device NC; Oxygen Saturation ABG 90.2; PO2 ABG 56.4 mmHg (80.0-100.0); Potassium Level - ABG 4.2 mmol/L (3.5-5.0); Total Hemoglobin 13.1 g/dL (12-16)
--- NOTE | 2022-12-23 10:23 | P.MISC_ITS ---
Miscellaneous Note Note: Patient was pleasant and cooperative Was on 2 L However drowsy I requested ABG which showed low normal compensated pH I have requested RT to put her on BiPAP until noon and then recheck and reevaluate Patient was able to tell me that she suffered from lymphedema roughly around 1999 when she was hiking in [place] she has not been given the etiology for lymphedema She uses compression stockings at home For now I would use BiPAP Awake and alert Drowsy Currently on 2 L Morbidly obese Chronic lymphedema Start remdesivir and Decadron, continue BiPAP, patient is full code Please note she was diagnosed with COVID-19 2 weeks ago
[2022-12-23 11:09] LABS: Estmated Average Glucose 120; Hemoglobin A1C 5.8 % (4.0-6.0)
[2022-12-23 11:11] LABS: Glucose Point of Care 152 mg/dL (70-110)
[2022-12-23] MEDS: enoxaparin 30 mg/0.3 mL Syringe SUBCUT (15:58)
[2022-12-23 21:25] LABS: Glucose Point of Care 185 mg/dL (70-110)
[2022-12-23 21:25] LABS: Glucose Point of Care 144 mg/dL (70-110)
[2022-12-23] MEDS: cefTRIAXone 1,000 MG in sodium chloride 0.9% (plus) 50 ML 100 MG IV (23:21)
[2022-12-24] VITALS (13 sets, daily range): BP systolic 119–138; BP diastolic 75–83; PULSE 69–87; RESP 16–24; TEMP 36.5–36.8; O2SAT 90–98
[2022-12-24] MEDS: enoxaparin 30 mg/0.3 mL Syringe SUBCUT ×2 (01:38→17:48)
[2022-12-24] MEDS: LORazepam 2 mg/mL INJ 1 mL 0.5 MG IM (01:38)
[2022-12-24 05:06] LABS: Basophils % 0.3 %; Eosinophils # 0.1 10^3/uL (0.0-0.8); Eosinophils % 0.4 %; Hematocrit 39.5 % (36-47); Lymphocytes # 0.7 10^3/uL (0.8-4.8); Lymphocytes % 4.6 %; Mean Corpuscular HGB Conc 30.4 g/dL (30-55); Mean Corpuscular Hemoglobin 27.5 pg (27-33); Mean Corpuscular Volume 90.6 fl (85-98); Mean Platelet Volume 10.3 fL (7.4-10.4); Monocytes # 0.9 10^3/uL (0.2-0.9); Neutrophils % 87.2 %; Nucleated Red Blood Cells % 0 %; Platelet Count 237 10^3/cmm (157-399); Red Blood Count 4.36 10^6/uL (3.85-5.65); Red Cell Distribution Width 14.9 % (12.1-15.1); White Blood Count 15.13 10^3/uL (3.29-11.43)
[2022-12-24 05:34] LABS: Alanine Aminotransferase 22 U/L (0-33); Albumin Level 2.6 g/dL (3.5-5.2); Alkaline Phosphatase 86 U/L (35-105); Anion Gap 14.4 (5-19); Aspartate Amino Transferase 17 U/L (0-32); Blood Urea Nitrogen 17 mg/dL (6-20); Calcium 8.8 mg/dL (8.5-10.5); Carbon Dioxide 25 mmol/L (22-29); Chloride 98 mmol/L (98-107); Globulin 3.8 g/dL (1.3-4.6); Glomerular Filtration Rate 167.6 mL/min (90-130); Glucose 162 mg/dL (65-115); Magnesium 2.3 mg/dL (1.7-2.3); Osmolality Calculated 281 mOsm/kg (285-295); Potassium 4.4 mmol/L (3.5-5.1); Sodium 133 mmol/L (136-145); Total Bilirubin 0.4 mg/dL (0.15-1.2); Total Protein 6.4 g/dL (6.6-8.7)
[2022-12-24 05:37] LABS: ABG PCO2 50.5 mmHg (35-45); ABG PH Result 7.38 (7.35-7.45); Arterial Blood Gas Hematocrit 41.4 % (37-47); Base Excess ABG 3.6 mmol/L (-2.0-2.0); Blood Gas Allen Test Pos; Blood Gas Operator Identificat JB; Blood Gas Sample Site Radial, right; Blood Gas Sample Type Arterial; Blood Gas Tidal Volume 0.45; HCO3 ABG 29.8 mmol/L (22-26); Oxygen Device BIPAP; PO2 ABG 80.6 mmHg (80.0-100.0)
[2022-12-24 06:40] LABS: Glucose Point of Care 170 mg/dL (70-110)
[2022-12-24] MEDS: thyroid 60 mg Tablet 120 MG PO (09:45)
[2022-12-24] MEDS: guaiFENesin 600 mg Tablet PO ×2 (09:45→17:49)
[2022-12-24] MEDS: montelukast sodium 10 mg Tablet PO (09:46)
[2022-12-24] MEDS: dexamethasone 4 mg Tablet 6 MG PO (09:46)
--- NOTE | 2022-12-24 10:10 | P.PN_ITS ---
Subjective Subjective: Patient is on 3 L Had a bowel movement today Eating breakfast Patient stating that she had good night sleep She used BiPAP overnight Required Ativan as well Vitals/I&O/Wt Last Vital Signs Temp 97.7 F 12/24/22 07:34 Pulse 78 12/24/22 08:31 Resp 18 12/24/22 08:31 BP 133/83 12/24/22 07:34 Pulse Ox 95 12/24/22 08:31 O2 Del Method Nasal Cannula 12/24/22 08:31 O2 Flow Rate 2 12/24/22 08:31 FiO2 30 12/24/22 05:31 12/23/22 12/24/22 12/24/22 22:59 06:59 14:59 Intake Total 1480 / 1720 50 / 1770 360 / 360 Output Total 300 / 300 Balance 1480 / 1720 -250 / 1470 360 / 360 Weight last 48 hrs Weight 163.293 kg Physical Exam Narrative: Awake and alert Lymphedema of legs GCS 15 Currently on 3 L Pleasant and cooperative Complaining of right-sided pleuritic pain No acute distress S1, S2 Data 12/24/22 04:43 12/24/22 04:43 Micro: Microbiology 12/22/22 19:44 Blood Culture - Preliminary Blood NEGATIVE TO DATE 12/22/22 19:44 Blood Culture - Preliminary Blood NEGATIVE TO DATE A&P Assessment and plan (1) Pneumonia: (2) Hypoxia: (3) COVID-19: (4) Exertional shortness of breath: (5) Chronic interstitial lung disease: (6) Lymphedema: Plan Acute hypoxia with underlying interstitial lung disease and COPD Patient has untreated sleep apnea as well Will need sleep study outpatient Currently on 3 L Plan to discharge her tomorrow Decadron and remdesivir for COVID-19 No active fever She is getting antibiotics for superimposed bacterial infection as well Full code Patient is not diabetic She would definitely benefit from lymphedema wraps ABG reviewed from yesterday, patient required BiPAP overnight which showed significant improvement Continue IV ceftriaxone Her DVT prophylaxis has been changed to every 12 hours according to her BMI We will request physical therapy for lymphedema wraps Attestations Medical Necessity Statement*: Continue medical management current discharge tomorrow Coding Level of Care Code 35663 Moderate MDM includes number and complexity of problems actively addressed during encounter, amount and/or complexity of data reviewed/ordered and described risk of complication, morbidity or mortality of management as docu mented Diagnoses Pneumonia J18.9 Hypoxia R09.02 COVID-19 U07.1 Exertional shortness of breath R06.02 Chronic interstitial lung disease J84.9 Lymphedema I89.0
--- NOTE | 2022-12-24 10:22 | PC.CHAP ---
Pastoral Care Encounter/Spiritual Assessment Type of Contact [] Declined it network architect visit [] Patient/Family/Request visit [] Outpatient visit [] Follow-up visit [] Physician referral [] Code/Alert [x] Routine visit [] Staff referral [] Actively dying [] Patient sleeping [] Family support [] [] Out of room [] Palliative care [] [x] Receiving care in room [] Pre-surgical visit [] Trauma [] Long length of stay [] ICU visit [x] Other: Isalation Relational/Emotional Strength [] Patient feels connected with others/family/visitors/staff [] Distress [] Loneliness/isolation [] Abandonment Spirituality of Patient [] Person of Luly [] Attends Yarsanism of their Luly [] Believes in Prayer [] Reads Bible or Orthodox materials [] There are Spiritual issues to be addressed Associate Embalmer/Funeral Director Interventions [] Prayer [] Active listening [] Non-anxious presence [] Spiritual/emotional support [] Crisis/trauma care [] Spiritual counseling [] Bereavement support [] Provided bereavement packet [] Provided Bible/devotional materials [] Provided toy/stuffed animal, coloring book to patient or family member [] Provided Communion [] Anointing/[place] [] Salvation [] Completed spiritual assessment [] Other: Impact on Illness or Injury [] Angry [] Fearful [] Anxious [] Often cries [] Exhaustion [] Unable to work [] Unable to attend episcopalian [] Unable to walk/stand [] Unable to read [] Unable to drive [] Unable to eat/drink [] Unable to sleep [] Unable to be with family [] Patient intubated [] Other: Summary Isolation Time spent with patient
[2022-12-24 10:58] LABS: Glucose Point of Care 141 mg/dL (70-110)
[2022-12-24] MEDS: ketorolac 30 mg/mL INJ 15 MG IVP (12:54)
[2022-12-24 17:04] LABS: Glucose Point of Care 121 mg/dL (70-110)
[2022-12-24 20:12] LABS: Glucose Point of Care 150 mg/dL (70-110)
[2022-12-24] MEDS: cefTRIAXone 1,000 MG in sodium chloride 0.9% (plus) 50 ML 100 MG IV (23:14)
[2022-12-25] VITALS (9 sets, daily range): BP systolic 125–144; BP diastolic 63–85; PULSE 62–83; RESP 16–21; TEMP 36.5–36.6; O2SAT 90–98
[2022-12-25] MEDS: LORazepam 2 mg/mL INJ 1 mL 0.5 MG IM (01:10)
[2022-12-25] MEDS: enoxaparin 30 mg/0.3 mL Syringe SUBCUT (01:11)
[2022-12-25 05:43] LABS: Basophils % 0.3 %; Eosinophils # 0.1 10^3/uL (0.0-0.8); Eosinophils % 0.4 %; Hematocrit 40.9 % (36-47); Lymphocytes # 0.8 10^3/uL (0.8-4.8); Mean Corpuscular HGB Conc 30.1 g/dL (30-55); Mean Corpuscular Hemoglobin 27.4 pg (27-33); Mean Corpuscular Volume 91.1 fl (85-98); Mean Platelet Volume 9.9 fL (7.4-10.4); Monocytes # 1.1 10^3/uL (0.2-0.9); Monocytes % 8.4 %; Neutrophils # 11.19 10^3/uL (1.8-7.7); Neutrophils % 83.6 %; Nucleated Red Blood Cells % 0 %; Platelet Count 259 10^3/cmm (157-399); Red Blood Count 4.49 10^6/uL (3.85-5.65); White Blood Count 13.38 10^3/uL (3.29-11.43)
[2022-12-25 06:24] LABS: Glucose Point of Care 121 mg/dL (70-110)
[2022-12-25] MEDS: thyroid 60 mg Tablet 120 MG PO (07:41)
[2022-12-25] MEDS: dexamethasone 4 mg Tablet 6 MG PO (07:42)
[2022-12-25] MEDS: guaiFENesin 600 mg Tablet PO (07:42)
[2022-12-25] MEDS: montelukast sodium 10 mg Tablet PO (07:42)
--- NOTE | 2022-12-25 08:35 | PM.DCS ---
Discharge Providers Date of Admission: 12/23/22 01:45 Date of Discharge: December 25, 2022 Attending Provider at Admission: Marisa Padron MD Attending Provider at Discharge: Manoj Purdy MD Primary Care Provider: Iris Zhou NP Diagnoses at Discharge Discharge Diagnosis (1) Pneumonia: Status: Acute (2) Hypoxia: Status: Acute (3) COVID-19: Status: Acute (4) Exertional shortness of breath: Status: Acute (5) Chronic interstitial lung disease: Status: Acute (6) Lymphedema: Status: Acute Reason for Visit Reason for Visit: chest pain Hospital Course Hospital Course 52-year-old female who was diagnosed with COVID-19 2 weeks ago before her admission to the hospital, patient has untreated sleep apnea, she has history of lymphedema, she was admitted to the hospital for management evaluation of hypoxic respiratory failure, she required 2 to 3 L of oxygen however we were able to wean off to room air with use of ceftriaxone DuoNeb treatment steroids and remdesivir, she remained afebrile, no significant leukocytosis, at the time of discharge she does not need any inhalers she does use Spiriva and Advair prescribed by Dr. Beck, she is endorsing significant improvement with use of lymphedema wraps and motivated to use in future Physical Exam Narrative: Awake and alert GCS 15 Lymphedema of lower extremities No active signs of cellulitis Currently on room air Full code Pleasant and cooperative No active wheezing or crackles Discharge Data Studies Completed and Pending Completed Studies During Hospitalization Category Date Time Status CTA chest [CT angio chest PE protcl [id number]] Stat Cat Scan 12/22/22 19:22 Completed XR chest 1V portable [id number] Stat Exams 12/22/22 18:23 Completed Pending at discharge Category Date Time Status Blood Culture Stat Lab 12/22/22 19:44 Results Radiology Impressions Chest X-Ray 12/22/22 18:23 IMPRESSION: 1. Interval development of soft tissue density in the right hilar region measuring approximately 5.3 x 3.8 cm concerning for a possible perihilar mass or lymphadenopathy. There is also interval development of opacification in the right upper lobe concerning for a postobstructive process. CT scan of the chest with contrast is recommended for further evaluation. 2. Interval development of a small right pleural effusion. ADDENDUM: 10/17/23 1913 Urgent results were discussed with TALI Marquez on 12/22/2022 at 7:11 PM CDT. Chest CTA 12/22/22 19:22 IMPRESSION: 1. Interval development of dense opacification with air bronchograms in the lower right upper lobe. Findings are suspicious for pneumonia. Recommend followup chest imaging to insure resolution of these findings. 2. Interval development of a trace right pleural effusion. 3. No evidence for pulmonary embolism. 4. Interval development of mediastinal lymphadenopathy. This could be reactive in nature. However, followup imaging is recommended to ensure stability/resolution. 5. Incidental/nonacute findings are listed in the report. ADDENDUM: 12/22/22 [id number] THIS REPORT CONTAINS FINDINGS THAT MAY BE CRITICAL TO PATIENT CARE. The findings were verbally communicated via telephone conference with TALI Marquez at 9:50 PM CDT on 12/22/2022. The findings were acknowledged and understood. Laboratory Results WBC 13.38 10^3/uL (3.29-11.43) H 12/25/22 05:26 RBC 4.49 10^6/uL (3.85-5.65) 12/25/22 05:26 Hgb 12.30 g/dL (11.27-16.99) 12/25/22 05:26 Hct 40.9 % (36-47) 12/25/22 05:26 MCV 91.1 fl (85-98) 12/25/22 05:26 MCH 27.4 pg (27-33) 12/25/22 05:26 MCHC 30.1 g/dL (30-55) 12/25/22 05:26 RDW 15.0 % (12.1-15.1) 12/25/22 05:26 Plt Count 259 10^3/cmm (157-399) 12/25/22 05:26 MPV 9.9 fL (7.4-10.4) 12/25/22 05:26 Neut % (Auto) 83.6 % 12/25/22 05:26 Lymph % (Auto) 6.0 % 12/25/22 05:26 Glynn % (Auto) 8.4 % 12/25/22 05:26 Eos % (Auto) 0.4 % 12/25/22 05:26 Baso % (Auto) 0.3 % 12/25/22 05:26 Neut # (Auto) 11.19 10^3/uL (1.8-7.7) H 12/25/22 05:26 Lymph # (Auto) 0.8 10^3/uL (0.8-4.8) 12/25/22 05:26 Glynn # (Auto) 1.1 10^3/uL (0.2-0.9) H 12/25/22 05:26 Eos # (Auto) 0.1 10^3/uL (0.0-0.8) 12/25/22 05:26 Baso # (Auto) 0.0 10^3/uL (0.0-0.1) 12/25/22 05:26 Nucleated RBC % (auto) 0 % 12/25/22 05: Nucleated RBCs # 0.0 /100WBC 12/25/22 05:26 PT 18.30 SECONDS (12.1-14.9) H 12/22/22 19:20 INR 1.47 (0.8-1.2) H 12/22/22 19:20 Specimen Type Arterial 12/24/22 05:23 Sample Site Radial, right 12/24/22 05:23 ABG pH 7.38 (7.35-7.45) 12/24/22 05:23 ABG pCO2 50.5 mmHg (35-45) H 12/24/22 05:23 ABG pO2 80.6 mmHg (80.0-100.0) 12/24/22 05:23 ABG HCO3 29.8 mmol/L (22-26) H 12/24/22 05:23 ABG O2 Saturation 90.2 12/23/22 08:50 ABG Base Excess 3.6 mmol/L (-2.0-2.0) H 12/24/22 05:23 Glen Test Pos 12/24/22 05:23 A-a O2 Gradient 9.9 mmHg (5-10) 12/23/22 08:50 Hematocrit 41.4 % (37-47) 12/24/22 05:23 Hgb O2 Saturation 87.3 % (95-100) L 12/23/22 08:50 Carboxyhemoglobin 2.7 %THgb (0.4-20.1) 12/23/22 08:50 Methemoglobin 0.6 % (0.4-1.5) 12/23/22 08:50 Total Hemoglobin 13.1 g/dL (12-16) 12/23/22 08:50 Sodium 134.0 mmol/L (131-143) 12/23/22 08:50 Potassium 4.2 mmol/L (3.5-5.0) 12/23/22 08:50 Glucose 153.0 mg/dL (70-115) H 12/23/22 08:50 Ionized Calcium 1.2 mmol/L (1.1-1.4) 12/23/22 08:50 O2 Delivery Device Bipap 12/24/22 05:23 O2 Liters/Min 2.0 % 12/23/22 08:50 FiO2 30.0 % 12/24/22 05:23 Tidal Volume 0.45 12/24/22 05:23 PEEP 10.0 cmH20 12/24/22 05:23 [employer] ID Mustapha 12/24/22 05:23 Sodium 133 mmol/L (136-145) L 12/24/22 04:43 Potassium 4.4 mmol/L (3.5-5.1) 12/24/22 04:43 Chloride 98 mmol/L (98-107) 12/24/22 04:43 Carbon Dioxide 25 mmol/L (22-29) 12/24/22 04:43 Anion Gap 14.4 (5-19) 12/24/22 04:43 BUN 17 mg/dL (6-20) 12/24/22 04:43 Creatinine 0.4 mg/dL (0.5-0.9) L 12/24/22 04:43 GFR Calculation 167.6 mL/min (90-130) H 12/24/22 04:43 Glucose 162 mg/dL (65-115) H 12/24/22 04:43 POC Glucose 121 mg/dL (70-110) H 12/25/22 06:16 Estimat Average Glucose 120 12/23/22 00:45 Hemoglobin A1c 5.8 % (4.0-6.0) 12/23/22 00:45 Calculated Osmolality 281 mOsm/kg (285-295) L 12/24/22 04:43 Calcium 8.8 mg/dL (8.5-10.5) 12/24/22 04:43 Magnesium 2.3 mg/dL (1.7-2.3) 12/24/22 04:43 Total Bilirubin 0.4 mg/dL (0.15-1.2) 12/24/22 04:43 AST 17 U/L (0-32) 12/24/22 04:43 ALT 22 U/L (0-33) 12/24/22 04:43 Alkaline Phosphatase 86 U/L (35-105) 12/24/22 04:43 Troponin T Baseline 15 ng/L (0-10) H 12/22/22 19:20 Troponin T 120 Minute 15.38 ng/L (0-10) H 12/22/22 21:31 Delta Troponin T 0.38 ABS# (0-10) 12/22/22 21:31 Troponin T Hi Sens 6Hr 16.58 ng/L (0-10) H 12/23/22 00:45 Troponin T Hi Sens 6Hr Delta 1.58 ng/L (0-12) 12/23/22 00:45 Total Protein 6.4 g/dL (6.6-8.7) L 12/24/22 04:43 Albumin 2.6 g/dL (3.5-5.2) L 12/24/22 04:43 Globulin 3.8 g/dL (1.3-4.6) 12/24/22 04:43 Lipase 61 U/L (13-60) H 12/22/22 19:20 Nasal Influ A H1 2008 PCR Not detected (NOT DETECT) 12/23/22 02:15 Adenovirus (PCR) Not detected (NOT DETECT) 12/23/22 02:15 C. pneumoniae DNA (PCR) Not detected (NOT DETECT) 12/23/22 02:15 Coronavirus 229E (PCR) Not detected (NOT DETECT) 12/23/22 02:15 Human Metapneumovir PCR Not detected (NOT DETECT) 12/23/22 02:15 Influenza A (H1) PCR Not detected (NOT DETECT) 12/23/22 02:15 Influenza A (H3) PCR Not detected (NOT DETECT) 12/23/22 02:15 Influenza Type A (PCR) Not detected (NOT DETECT) 12/23/22 02:15 Influenza Type B (PCR) Not detected (NOT DETECT) 12/23/22 02:15 M. pneumoniae (PCR) Not detected (NOT DETECT) 12/23/22 02:15 Parainfluenza 1 (PCR) Not detected (NOT DETECT) 12/23/22 02:15 Parainfluenza 2 (PCR) Not detected (NOT DETECT) 12/23/22 02:15 Parainfluenza 3 (PCR) Not detected (NOT DETECT) 12/23/22 02:15 Parainfluenza 4 (PCR) Not detected (NOT DETECT) 12/23/22 02:15 RSV Type A (PCR) Not detected (NOT DETECT) 12/23/22 02:15 RSV Type B (PCR) Not detected (NOT DETECT) 12/23/22 02:15 Entero/Rhino (PCR) Not detected (NOT DETECT) 12/23/22 02:15 SARS-CoV-2 (PCR) Detected (NOT DETECT) A 12/23/22 02:15 Vitals Last Vital Signs Temp 97.9 F 12/25/22 07:57 Pulse 79 12/25/22 07:57 Resp 17 12/25/22 07:57 BP 144/63 12/25/22 07:57 Pulse Ox 92 12/25/22 07:57 O2 Del Method BiPAP 12/25/22 04:00 O2 Flow Rate 3 12/24/22 23:26 FiO2 30 12/25/22 05:19 Discharge Plan Discharge Patient Disposition: Home Condition: Stable Prescriptions: New (DME) compression socks, x-large Misc See Rx Instructions .Route Qty: 2 0RF Rx Instructions: As directed furosemide [Lasix] 20 mg tablet 20 mg PO DAILY PRN (Reason: Weight gain greater than 3 pounds in 1 day) Qty: 30 0RF levofloxacin 750 mg tablet 750 mg PO DAILY 5 Days Qty: 5 0RF potassium chloride 10 mEq tablet extended release 10 meq PO DAILY Qty: 30 0RF Rx Instructions: Only take with Lasix Continued albuterol sulfate 2.5 mg /3 mL (0.083 %) solution for nebulization 2.5 mg inhalation Q4H Qty: 180 11RF albuterol sulfate [ProAir HFA] 90 mcg/actuation HFA aerosol inhaler 2 puff inhalation QID PRN (Reason: shortness of breath or wheezing) Qty: 8.5 11RF Zyrtec 10 mg capsule 10 mg PO DAILY PRN (Reason: cough) Spiriva with HandiHaler 18 mcg capsule, w/inhalation device 1 cap inhalation DAILY Qty: 60 6RF Rx Instructions: puncture 1 cap using device; one dose = 2 inhalations montelukast [Singulair] 10 mg tablet 10 mg PO DAILY 90 Days Qty: 90 1RF [place] Thyroid 120 mg tablet 120 mg PO DAILY 30 Days Qty: 30 4RF fluticasone propion-salmeterol [Advair Diskus] 250-50 mcg/dose blister with device 1 inh inhalation Q12H Qty: 60 3RF Discharge Orders: Discharge Order (Routine); Ordered 12/25/22 Ordered By: Manoj Purdy Other Ambulatory Orders: Occupational Therapy Eval and Treat Outpatient (Order) Timeframe: 1 Month Facility: [facility] - Location: Occupational Therapy Ordered By: Manoj Purdy Sleep Study/Titration (Routine) Timeframe: 1 Week Facility: [facility] - Location: [facility] Ordered By: Manoj Purdy Referrals: Iris Zhou NP [Primary Care Provider] - Patient Instructions: Opioid Safety Discharge Attestations Time Spent in Discharge Care*: greater than 30 min Quality Metrics Clinical Quality Measures [ No reported AMI, CVA or VTE this stay] Coding Level of Care Code Acute Code for g Fwd Diagnoses Pneumonia J18.9 Hypoxia R09.02 COVID-19 U07.1 Exertional shortness of breath R06.02 Chronic interstitial lung disease J84.9 Lymphedema I89.0
[2022-12-25 11:51] LABS: Glucose Point of Care 106 mg/dL (70-110)
== END 2022-12-25 12:15 | disposition home or self-care (01) | DRG 177 ==
LOC: ER 21:57 → MEDSURG 12-23 02:26
PROVIDERS: Admitting Provider Internal Medicine; Emergency Provider Emergency Medicine; PCP Nurse Practitioner Family; Visit Provider Internal Medicine
DX: U07.1 COVID-19 (principal); J18.9 Pneumonia, unspecified organism; Z68.44 Body mass index [BMI] 60.0-69.9, adult; J44.0 Chronic obstructive pulmonary disease with (acute) lower respiratory infection; J45.901 Unspecified asthma with (acute) exacerbation; G47.30 Sleep apnea, unspecified; I89.0 Lymphedema, not elsewhere classified; E66.01 Morbid (severe) obesity due to excess calories; Z87.891 Personal history of nicotine dependence; Z86.73 Personal history of transient ischemic attack (TIA), and cerebral infarction without residual deficits
CPT/HCPCS: 36415; 36416; 36600; 71045; 71275; 80051; 80053; 82330; 82803; 82805; 82962; 83036; 83690; 83735; 84484; 85025; 85610; 87040; 87486; 87581; 87633; 93005; 94640; 94660; 94664; 94760; 94762; 96365; 96367; 96372; 97124; 97167; 99285; J0456; J0696; J1650; J1885; J2060; J2930; J3490; J7030; J7050; J8540; Q9967

== ENCOUNTER → 2023-01-14 11:30 | Outpatient (BNVA) | payer MEDICAID, SELFPAY | PROVIDERS: PCP Nurse Practitioner Family; Visit Provider Family Medicine | DX: R06.00 Dyspnea, unspecified (principal); R06.01 Orthopnea | CPT/HCPCS: 71045 ==

== ENCOUNTER 2023-01-16 11:41 | Inpatient (IN) | payer MEDICAID, SELFPAY ==
[2023-01-16] VITALS (12 sets, daily range): BP systolic 116–195; BP diastolic 87–100; PULSE 83–97; RESP 16–24; TEMP 36.6–37.2; O2SAT 91–97; BMI 61.9
--- NOTE | 2023-01-16 12:35 | XRR_ITS ---
PROCEDURE INFORMATION: Exam: XR Chest Exam date and time: 01/16/2023 12:44 PM Age: 52 years old Clinical indication: Shortness of breath; Additional info: SOB TECHNIQUE: Imaging protocol: Radiologic exam of the chest. Views: 1 view. COMPARISON: CR XR chest 1V [id number] 01/14/2023 11:36 AM FINDINGS: Lungs: Unremarkable. No consolidation. Pleural spaces: Unremarkable. No pleural effusion. No pneumothorax. Heart/Mediastinum: Prominent right pulmonary artery stable since prior. otherwise no additional abnormalities. No cardiomegaly. Bones/joints: Unremarkable. Other findings: This finding is normal variation. XR/XR chest 1V portable [id number] IMPRESSION: 1. No acute cardiac or pulmonary disease. 2. Stable prominent right pulmonary artery.
[2023-01-16 13:09] LABS: Basophils % 0.6 %; Eosinophils # 0.5 10^3/uL (0.0-0.8); Eosinophils % 7.1 %; Hematocrit 46.3 % (36-47); Lymphocytes # 1.1 10^3/uL (0.8-4.8); Lymphocytes % 15.1 %; Mean Corpuscular HGB Conc 29.4 g/dL (30-55); Mean Corpuscular Hemoglobin 27.7 pg (27-33); Mean Corpuscular Volume 94.3 fl (85-98); Mean Platelet Volume 9.2 fL (7.4-10.4); Monocytes # 0.9 10^3/uL (0.2-0.9); Monocytes % 12.6 %; Neutrophils # 4.53 10^3/uL (1.8-7.7); Neutrophils % 63.8 %; Nucleated Red Blood Cells % 0 %; Platelet Count 196 10^3/cmm (157-399); Red Blood Count 4.91 10^6/uL (3.85-5.65); Red Cell Distribution Width 16.2 % (12.1-15.1); White Blood Count 7.09 10^3/uL (3.29-11.43)
[2023-01-16 13:23] LABS: D Dimer 1.22 ug/mLFEU (0-0.59)
[2023-01-16 13:37] LABS: Alanine Aminotransferase 11 U/L (0-33); Albumin Level 3.6 g/dL (3.5-5.2); Alkaline Phosphatase 73 U/L (35-105); Aspartate Amino Transferase 15 U/L (0-32); Blood Urea Nitrogen 12 mg/dL (6-20); Calcium 8.7 mg/dL (8.5-10.5); Carbon Dioxide 29 mmol/L (22-29); Chloride 101 mmol/L (98-107); Globulin 3.1 g/dL (1.3-4.6); Glomerular Filtration Rate 129.6 mL/min (90-130); Glucose 112 mg/dL (65-115); NT Pro B Type Natriuretic Pept 198 pg/mL (0-125); Osmolality Calculated 285 mOsm/kg (285-295); Sodium 137 mmol/L (136-145); Total Bilirubin 0.3 mg/dL (0.15-1.2); Total Protein 6.7 g/dL (6.6-8.7)
--- NOTE | 2023-01-16 14:28 | CTR_ITS ---
PROCEDURE INFORMATION: Exam: CTA Chest With Contrast Exam date and time: 01/16/2023 2:55 PM Age: 52 years old Clinical indication: Shortness of breath; Additional info: SOB with elevated d-dimer TECHNIQUE: Imaging protocol: Computed tomographic angiography of the chest with contrast. Exam focused on the arteries. 3D rendering (Not supervised by radiologist): MIP and/or 3D reconstructed images were created by the technologist. Radiation optimization: All CT scans at this facility use at least one of these dose optimization techniques: automated exposure control; mA and/or kV adjustment per patient size (includes targeted exams where dose is matched to clinical indication); or iterative reconstruction. Contrast material: OMNI 350; Contrast volume: 100 ml; Contrast route: INTRAVENOUS (IV); REPORTING DATA: Count of CT and Cardiac NM exams in prior 12 months: This patient has received 3 known CTs and 0 known cardiac nuclear medicine studies in the 12 months prior to the current study. COMPARISON: CT angio chest PE protcl [id number] 12/22/2022 9:02 PM RADIATION DOSE METRICS: Total DLP (mGy-cm): 581.31 FINDINGS: Pulmonary arteries: Normal. No pulmonary emboli. Aorta: Unremarkable. No aortic aneurysm. No aortic dissection. Lungs: There is scattered ground-glass type interstitial densities throughout both lungs with a large volume in the right lung. Prior exam showed a right upper lobe parenchymal density which is no longer visible. No consolidation. No masses. Pleural spaces: Right lower lobe pleural thickening No pneumothorax. No pleural effusion. Heart: Negative for right heart strain. No cardiomegaly. No pericardial effusion. Lymph nodes: Stable Multiple enlarged mediastinal lymph nodes. Bones/joints: Severe osteoarthritis of the dorsolumbar spine. No acute fracture. Soft tissues: Cholecystectomy CT/CT angio chest PE protcl [id number] IMPRESSION: 1. Negative for pulmonary embolism. 2. Negative for right heart strain. 3. Stable mediastinal enlarged lymph nodes. 4. Stable dorsolumbar spine osteoarthritis. 5. Right upper lobe parenchymal density on prior examination is no longer visualized. 6. Severe dorsolumbar spine osteoarthritis. 7. Cholecystectomy 8. Negative for thoracic aortic aneurysm or dissection
[2023-01-16] MEDS: iohexol 350 mg/mL 500 mL Btl (per mL) IV (15:01)
--- NOTE | 2023-01-16 16:55 | ED_ITS ---
HPI - SOB/Dyspnea General: Chief Complaint: Shortness of Breath/Dyspnea Stated Complaint: sob Time Seen by Provider: 01/16/23 12:34 History of Present Illness: HPI Narrative: 52-year-old female with complex medical history including asthma, COPD, thyroid disorder, chronic lymphedema and TIA. Patient presents emergency room with shortness of breath since Wednesday of last week. Patient was seen and evaluated by physician and had x-ray done that showed possible vascular congestion. He was started on Lasix. Patient reveals she took the Lasix as recommended but noticed increased difficulty breathing. Patient revealed some cough and described the cough as nonproductive cough. Patient further reveals that about 2 weeks ago she was admitted for pneumonia for 3 days and a week prior patient was diagnosed with COVID. Patient denies any sick contact or recent foreign travel. Denies any coughing up blood or vomiting blood. Again patient with chronically swelling bilateral legs and chronic leg pain. Associated symptoms: Deny chest congestion, fever(s) or hemoptysis Review of Systems General: Reports: 10 or more systems reviewed and unremarkable except in HPI and below Const: Denies: fever(s), chills, body aches, change in weight, fatigue, malaise or night sweats Card: Reports: swelling of feet/ankles (Chronic lymphedema) Resp: Reports: dyspnea and non-productive cough; Denies: wheezing, stridor, pain on inspiration, change in phlegm color, hemoptysis or chest congestion Skin/Breast: Reports: erythema (Extremity) and skin swelling (Both legs.) [facility] ED PFSH: Medical History Arthralgia Asthma Cellulitis Chronic interstitial lung disease COPD (chronic obstructive pulmonary disease) COVID-19 Dyspnea Elevated brain natriuretic peptide (BNP) level Exertional shortness of breath Former smoker (~2014) Magaly's disease History of pneumonia Hyperglycemia Hypoxia Lymphedema associated with obesity Mixed hyperlipidemia Myalgia Obesity, morbid, BMI 50 or higher Open wound of left lower extremity Orthopnea 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 Pulmonary edema SOB (shortness of breath) Stiffness of joints of both hands Stress incontinence TIA (transient ischemic attack) Tilted uterus Family History Other CAD (coronary artery disease) CHF (congestive heart failure) Diabetes Former smoker Hypertension Hypothyroidism Social History Smoking and tobacco/nicotine status: former use of tobacco/nicotine Quit status (tobacco/nicotine): has quit using Year quit tobacco: 2014 Former quit date comment: 0.5 ppd X 20 years Physical Exam Const: COMMON NORMALS: no acute distress, average body habitus, patient oriented x3, no limitations, healthy appearing, alert and well nourished HENMT: COMMON NORMALS: normocephalic, atraumatic, hearing grossly normal bilaterally, external ears normal, EAC's normal, TM's normal bilaterally, Normal external nose present, Normal nasal mucous membranes and turbinates present, moist oral mucous membranes, oropharynx normal, dentition normal and gingiva normal HEAD & SCALP: normocephalic and atraumatic NOSE: Normal external nose present and Normal nasal mucous membranes and turbinates present APPLICATIONS DEVELOPER AL EAR: Yes external ears normal EXTERNAL AUDITORY CANAL: EAC's normal TYMPANIC MEMBRANE: TM's normal bilaterally Neck/C-Spine: COMMON NORMALS: full ROM, no lymphadenopathy, supple, no meningeal signs, no JVD, Thyroid normal and No carotid bruits THYROID: Thyroid normal Resp: EFFORT & INSPECTION: Yes tachypneic, No respiratory distress, No decreased respiratory effort, No labored, No grunting, No stridor, No retractions, No uses accessory muscles and No paradoxical thoraco-abdominal movements AUSCULTATION: no crackles, no rales, no rhonchi, no wheezes and diminished lung sounds Cardio: COMMON NORMALS: no JVD, regular rate, regular rhythm, S1 normal heart sound present, S2 normal heart sound present, No gallops present (Cardio), No clicks present (Cardio), No murmurs present (Cardio), No rub (Cardio) and Per ipheral pulses 2+ throughout JUGULAR VENOUS DISTENTION: no JVD PALPATION: normal PMI RATE: regular rate RHYTHM: regular rhythm HEART SOUNDS: S1 normal heart sound present and S2 normal heart sound present PERIPHERAL PULSES: Peripheral pulses 2+ throughout Extremity: OTHER: Severely swelling lower extremities. Diffuse redness consistent with chronic stasis dermatitis. Patient with diffuse tenderness upon palpation no localized tenderness. No palpable cords. Neuro: COMMON NORMALS: patient oriented x3 SENSORIUM/ORIENTATION: Yes alert MENINGEAL SIGNS: Yes no meningeal signs Skin: OTHER: Lower extremity with skin changes consistent with chronic stasis dermatitis. Course Reevaluation(s): Reevaluation #1: Upon reassessment patient was sleeping this make but stable without any acute distress. Consultations: Consultation #1: I discussed patient with Dr. Zhou the hospitalist. Patient accepted for observation. Vital Signs: Vital signs: Vital Signs Temperature 97.7 F 01/17/23 08:00 Pulse Rate 85 01/17/23 11:48 Respiratory Rate 18 01/17/23 11:48 Blood Pressure 148/92 01/17/23 08:00 Pulse Oximetry 94 01/17/23 11:48 Oxygen Delivery Me thod Nasal Cannula 01/17/23 11:48 Oxygen Flow Rate 3 01/17/23 11:48 Fraction of Inspir ed Oxygen 45 01/17/23 02:31 MDM - SOB/Dyspnea Medical Decision Making Patient made comfortable emergency room. Patient extensive work-up with CBC, CMP, D-dimer, BNP and CT scan. I discussed the CT scan with the patient. Discussed patient with the hospitalist. Will admit for further evaluation and treatment. Differential Diagnosis Likely acute exacerbation of chronic obstructive airways disease, congestive heart failure, community acquired pneumonia, asthma with exacerbation and pulmonary embolism Lab Data 01/16/23 12:49 01/17/23 02:28 Labs/Radiology: Radiology Impressions Chest X-Ray 01/16/23 12:35 IMPRESSION: 1. No acute cardiac or pulmonary disease. 2. Stable prominent right pulmonary artery. Chest CTA 01/16/23 14:28 IMPRESSION: 1. Negative for pulmonary embolism. 2. Negative for right heart strain. 3. Stable mediastinal enlarged lymph nodes. 4. Stable dorsolumbar spine osteoarthritis. 5. Right upper lobe parenchymal density on prior examination is no longer visualized. 6. Severe dorsolumbar spine osteoarthritis. 7. Cholecystectomy 8. Negative for thoracic aortic aneurysm or dissection Laboratory Results WBC 7.09 10^3/uL (3.29-11.43) 01/16/23 12:49 RBC 4.91 10^6/uL (3.85-5.65) 01/16/23 12:49 Hgb 13.60 g/dL (11.27-16.99) 01/16/23 12:49 Hct 46.3 % (36-47) 01/16/23 12:49 MCV 94.3 fl (85-98) 01/16/23 12:49 MCH 27.7 pg (27-33) 01/16/23 12:49 MCHC 29.4 g/dL (30-55) L 01/16/23 12:49 RDW 16.2 % (12.1-15.1) H 01/16/23 12:49 Plt Count 196 10^3/cmm (157-399) 01/16/23 12:49 MPV 9.2 fL (7.4-10.4) 01/16/23 12:49 Neut % (Auto) 63.8 % 01/16/23 12:49 Lymph % (Auto) 15.1 % 01/16/23 12:49 [place] % (Auto) 12.6 % 01/16/23 12:49 Eos % (Auto) 7.1 % 01/16/23 12:49 Baso % (Auto) 0.6 % 01/16/23 12:49 Neut # (Auto) 4.53 10^3/uL (1.8-7.7) 01/16/23 12:49 Lymph # (Auto) 1.1 10^3/uL (0.8-4.8) 01/16/23 12:49 [place] # (Auto) 0.9 10^3/uL (0.2-0.9) 01/16/23 12:49 Eos # (Auto) 0.5 10^3/uL (0.0-0.8) 01/16/23 12:49 Baso # (Auto) 0.0 10^3/uL (0.0-0.1) 01/16/23 12:49 Nucleated RBC % (auto) 0 % 01/16/23 12:49 Nucleated RBCs # 0.0 /100WBC 01/16/23 12:49 D-Dimer 1.22 ug/mLFEU (0-0.59) H 01/16/23 12:49 Specimen Type Arterial 01/16/23 17:10 Sample Site Brachial, right 01/16/23 17:10 ABG pH 7.40 (7.35-7.45) 01/16/23 17:10 ABG pCO2 48.2 mmHg (35-45) H 01/16/23 17:10 ABG pO2 61.2 mmHg (80.0-100.0) L 01/16/23 17:10 ABG PO2/FiO2 Ratio 0 01/16/23 17:10 ABG HCO3 29.6 mmol/L (22-26) H 01/16/23 17:10 ABG O2 Saturation 93.2 01/16/23 17:10 ABG Base Excess 3.9 mmol/L (-2.0-2.0) H 01/16/23 17:10 Glen Test N/a 01/16/23 17:10 A-a O2 Gradient 4.0 mmHg (5-10) L 01/16/23 17:10 Hematocrit 40.5 % (37-47) 01/16/23 17:10 Hgb O2 Saturation 91.0 % (95-100) L 01/16/23 17:10 Carboxyhemoglobin 2.0 %THgb (0.4-20.1) 01/16/23 17:10 Methemoglobin 0.3 % (0.4-1.5) L 01/16/23 17:10 Total Hemoglobin 13.2 g/dL (12-16) 01/16/23 17:10 Sodium 139.0 mmol/L (131-143) 01/16/23 17:10 Potassium 3.8 mmol/L (3.5-5.0) 01/16/23 17:10 Glucose 90.0 mg/dL (70-115) 01/16/23 17:10 Ionized Calcium 1.2 mmol/L (1.1-1.4) 01/16/23 17:10 O2 Delivery Device Room air 01/16/23 17:10 FiO2 21.0 % 01/16/23 17:10 Packaging Operator ID [email or web address] 01/16/23 17:10 Sodium 137 mmol/L (136-145) 01/16/23 12:49 Potassium 4.0 mmol/L (3.5-5.1) 01/16/23 12:49 Chloride 101 mmol/L (98-107) 01/16/23 12:49 Carbon Dioxide 29 mmol/L (22-29) 01/16/23 12:49 Anion Gap 11.0 (5-19) 01/16/23 12:49 BUN 12 mg/dL (6-20) 01/16/23 12:49 Creatinine 0.5 mg/dL (0.5-0.9) 01/16/23 12:49 GFR Calculation 129.6 mL/min (90-130) 01/16/23 12:49 Glucose 112 mg/dL (65-115) 01/16/23 12:49 Calculated Osmolality 285 mOsm/kg (285-295) 01/16/23 12:49 Calcium 8.7 mg/dL (8.5-10.5) 01/16/23 12:49 Total Bilirubin 0.3 mg/dL (0.15-1.2) 01/16/23 12:49 AST 15 U/L (0-32) 01/16/23 12:49 ALT 11 U/L (0-33) 01/16/23 12:49 Alkaline Phosphatase 73 U/L (35-105) 01/16/23 12:49 C-Reactive Protein 15.8 mg/L (0.0-4.9) H 01/16/23 12:49 NT-Pro-B Natriuret Pep 198 pg/mL (0-125) H 01/16/23 12:49 Total Protein 6.7 g/dL (6.6-8.7) 01/16/23 12:49 Albumin 3.6 g/dL (3.5-5.2) 01/16/23 12:49 Globulin 3.1 g/dL (1.3-4.6) 01/16/23 12:49 Procalcitonin 0.04 ng/mL (0-0.5) 01/16/23 12:49 XR interpretation done by ED provider, pending radiology final review Discharge Plan Discharge Patient Disposition: Placed in Observation Admit Provider: James Zhou Clinical Impression: Dyspnea, Obesity, morbid, BMI 50 or higher, Lymphedema, Hypoxia Coding Level of Care Code ED Senior [employer] Developer for Mehreeng Chey
[2023-01-16 17:21] LABS: ABG PCO2 48.2 mmHg (35-45); Arterial Blood Gas Hematocrit 40.5 % (37-47); Base Excess ABG 3.9 mmol/L (-2.0-2.0); Blood Gas Operator Identificat AMH; Blood Gas Sample Site Brachial, right; Blood Gas Sample Type Arterial; HCO3 ABG 29.6 mmol/L (22-26); Ionized Calcium Level - ABG 1.2 mmol/L (1.1-1.4); Methemoglobin 0.3 % (0.4-1.5); Oxygen Device ROOM AIR; Oxygen Saturation ABG 93.2; PO2 ABG 61.2 mmHg (80.0-100.0); PO2 FiO2 Ratio Arterial Blood 0; Potassium Level - ABG 3.8 mmol/L (3.5-5.0); Total Hemoglobin 13.2 g/dL (12-16)
--- NOTE | 2023-01-16 17:42 | PM.HP ---
Providers/Chief Complaint Admitting Physician: James Zhou MD Primary Care Provider: Iris Zhou NP Chief Complaint: sob History of Present Illness Alina Pascual is a 52 year old female with a past medical history significant for lymphedema, asthma, tobacco use disorder in remission, untreated sleep apnea, and hyperlipidemia who presents to the emergency department with shortness of breath. Of note, patient was admitted from around 12/22 to 12/25 for pneumonia complicated by hypoxia following COVID-19 infection. Patient reports she improved with this admission and did great for a about a week after discharge. She developed recurrent symptoms on Wednesday with shortness of breath followed by dizziness / lightheadedness for the past couple of days. She was seen in primary care clinic on 01/14 for dyspnea and prescribed Lasix due to concern for pulmonary edema. Patient reports excellent urinary output following Lasix but no change in respiratory symptoms. She reports exertion worsens symptoms; rest improves. Denies fevers. Endorses associated chills and wheezing. Patient follows with Dr Beck. She has plans for pulmonary function testing which have been delayed due to acute illnesses. She also plans on having a sleep study performed to facilitate obtaining BiPAP. She notes she felt much better after using the hospital BIPAP during the prior admission. Spouse is bedside and very supportive. He notes her oxygen level drops when she sleeps. Review of Systems Narrative: A complete review of systems was obtained and is negative except as stated in HPI. Medications/Allergies Home Medications Medication Instructions Recorded Confirmed Last Taken Type albuterol sulfate 2.5 mg/3 mL 2.5 mg (3 mL) inhalation Q4H #180 06/17/22 01/16/23 Unknown Rx (0.083 %) solution for nebulization mL albuterol sulfate 90 mcg/actuation 2 puff inhalation QID PRN 06/17/22 01/16/23 Unknown Rx aerosol inhaler (ProAir HFA) shortness of breath or wheezing #8.5 grams cetirizine 10 mg capsule (Zyrtec) 10 mg PO DAILY PRN cough 09/22/22 01/16/23 01/16/23 History tiotropium bromide 18 mcg capsule 1 cap inhalation DAILY #60 09/22/22 01/16/23 01/16/23 Rx with inhalation device (Spiriva inhalations with HandiHaler) fluticasone 250 mcg-salmeterol 50 1 inh inhalation Q12H #60 ea 10/20/22 01/16/23 01/16/23 Rx mcg/dose blistr powdr for inhalation (Advair Diskus) thyroid (pork) 120 mg tablet 120 mg PO DAILY 30 days #30 tabs 11/02/22 01/16/23 01/16/23 Rx ([place] Thyroid) compression socks, x-large #2 ea 12/25/22 01/16/23 Unknown Rx potassium chloride 10 mEq 10 meq PO DAILY #60 tabs 01/14/23 01/16/23 01/16/23 Rx tablet,extended release furosemide 20 mg tablet (Lasix) 40 mg PO DAILY 01/16/23 01/16/23 01/16/23 History Allergies Allergy/AdvReac Type Severity Reaction Status Date / Time Penicillins Allergy Severe ALGY-Difficulty Verified 01/16/23 14:13 Swallowing Sulfa (Sulfonamide Allergy Severe ALGY-Difficulty Verified 01/16/23 14:13 Antibiotics) Breathing zolpidem [From Ambien] Allergy Severe ALGY-Difficulty Verified 01/16/23 14:13 Swallowing levothyroxine sodium Allergy narcolepsy Verified 01/16/23 14:13 [From Synthroid] PFSH Acute PFSH: Medical History Arthralgia Asthma Cellulitis Chronic interstitial lung disease COPD (chronic obstructive pulmonary disease) COVID-19 Dyspnea Elevated brain natriuretic peptide (BNP) level Exertional shortness of breath Former smoker (~2014) Magaly's disease History of pneumonia Hyperglycemia Hypoxia Lymphedema associated with obesity Mixed hyperlipidemia Myalgia Obesity, morbid, BMI 50 or higher Open wound of left lower extremity Orthopnea 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 Pulmonary edema SOB (shortness of breath) Stiffness of joints of both hands Stress incontinence TIA (transient ischemic attack) Tilted uterus Family History Other CAD (coronary artery disease) CHF (congestive heart failure) Diabetes Former smoker Hypertension Hypothyroidism Social History Smoking and tobacco/nicotine status: former use of tobacco/nicotine Quit status (tobacco/nicotine): has quit using Year quit tobacco: 2014 Former quit date comment: 0.5 ppd X 20 years Vitals/I&O/Wt Last Vital Signs Temp 98.9 F 01/16/23 11:52 Pulse 88 01/16/23 11:52 Resp 16 01/16/23 11:52 BP 116/87 01/16/23 11:52 Pulse Ox 95 01/16/23 11:52 O2 Del Method Room Air 01/16/23 11:52 Weight last 48 hrs Weight 158.757 kg Physical Exam Narrative: General: Patient is awake and alert. Very pleasant. Head: Normocephalic. Atraumatic. EOM intact. Neck: No JVD. Cardiovascular: RRR. No gallops. No murmurs. Lungs: Breath sounds are mildly coarse. Air movement overall is moderate. Very faint end expiratory wheezing. No respiratory distress. Tachypnea with increased work of breathing when speaking. Skin: No jaundice. No rashes. Abdomen: Normal bowel sounds, abdomen soft and nontender. Genito Urinary: Genital exam not performed since complaints not related. Rectal: Rectal exam not performed since no symptoms indicated blood loss. Extremities: No cyanosis or clubbing. Lymphedema of bilateral lower extremities. Musculoskeletal: No erythematous joints. Neurological: Moves all 4 extremities. No myoclonus. Data 01/16/23 12:49 01/16/23 12:49 A&P Assessment and plan (1) Asthma: Acute asthma exacerbation CT imaging reviewed, bilateral ground glass opacities noted Check for viral illness w/ respiratory pathogen panel Start steroids Hold home inhaler regimen Start breathing treatments w/ pulmicort and scheduled DuoNebs Check CRP, procal Supplemental oxygen as needed Hold further diuresis for now Telemetry w/ continuous pulse oximetry (2) Lymphedema: Patient reports positive response to wraps previously (3) Hypothyroidism: Continue home thyroid replacement (4) HTN (hypertension): Monitor BP (5) TONIO (obstructive sleep apnea): She will need to complete outpt sleep study, patient is aware Ok with BiPAP while admitted Plan DVT ppx: Lovenox Code: Full Attestations Medical Necessity Statement*: Patient presents w/ shortness of breath, found to have hypoxia with asthma exacerbation with expected hospitalization not to cross two midnights for viral pathogen testing, steroid initiation, breathing treatments, supplemental oxygen, and supportive. Coding Level of Care Code Acute Code for Chg Fwd Diagnoses Asthma J45.909 Lymphedema I89.0 Hypothyroidism E03.9 HTN (hypertension) I10 TONIO (obstructive sleep apnea) G47.33
[2023-01-16] MEDS: cloNIDine 0.1 mg Tablet PO (19:58)
[2023-01-16 21:03] LABS: C Reactive Protein 15.8 mg/L (0.0-4.9)
[2023-01-16 21:10] LABS: Procalcitonin 0.04 ng/mL (0-0.5)
[2023-01-16] MEDS: ipratropium-albuterol 3 mL Neb INHALATION (21:47)
[2023-01-16] MEDS: budesonide 0.5 mg/2 mL Neb INHALATION (21:47)
[2023-01-16] MEDS: enoxaparin 40 mg/0.4 mL Syringe SUBCUT (22:57)
[2023-01-17] VITALS (16 sets, daily range): BP systolic 146–160; BP diastolic 82–92; PULSE 72–116; RESP 14–26; TEMP 36.2–36.5; O2SAT 93–97
[2023-01-17 02:59] LABS: Adenovirus Not Detected (NOT DETECT); Chlamydia Pneumoniae Not Detected (NOT DETECT); Coronavirus 229E,HKU1,NL63,OC4 Not Detected (NOT DETECT); Human Metapneumovirus Not Detected (NOT DETECT); Human Rhinovirus/Enterovirus Not Detected (NOT DETECT); Influenza A Not Detected (NOT DETECT); Influenza A H1 Not Detected (NOT DETECT); Influenza A H1-2009 Not Detected (NOT DETECT); Influenza A H3 Not Detected (NOT DETECT); Influenza B Not Detected (NOT DETECT); Mycoplasma Pneumoniae Not Detected (NOT DETECT); Parainfluenza Virus Type 1 Not Detected (NOT DETECT); Parainfluenza Virus Type 2 Not Detected (NOT DETECT); Parainfluenza Virus Type 3 Not Detected (NOT DETECT); Parainfluenza Virus Type 4 Not Detected (NOT DETECT); Respiratory Syncytial Virus A Not Detected (NOT DETECT); Respiratory Syncytial Virus B Not Detected (NOT DETECT); SARS-COV-2 Not Detected (NOT DETECT)
[2023-01-17 05:08] LABS: Anion Gap 14.2 (5-19); Blood Urea Nitrogen 12 mg/dL (6-20); Carbon Dioxide 27 mmol/L (22-29); Chloride 102 mmol/L (98-107); Glomerular Filtration Rate 129.6 mL/min (90-130); Glucose 141 mg/dL (65-115); Magnesium 2.4 mg/dL (1.7-2.3); Osmolality Calculated 290 mOsm/kg (285-295); Potassium 4.2 mmol/L (3.5-5.1); Sodium 139 mmol/L (136-145)
[2023-01-17] MEDS: ipratropium-albuterol 3 mL Neb INHALATION ×4 (07:39→20:35)
[2023-01-17] MEDS: budesonide 0.5 mg/2 mL Neb INHALATION ×2 (07:40→20:35)
[2023-01-17] MEDS: thyroid 60 mg Tablet 120 MG PO (09:05)
--- NOTE | 2023-01-17 09:52 | USCV_ITS ---
Alina Pascual Age: 52 Gender: F : 1970 Exam Date: 01/17/2023 17:02 Ordering Phys: James Zhou MD Technologist: Jorge Hooper Exam Location: [facility] – [place] Indication: HYPOXIA BP: 146 / 89 HR: 73 Rhythm: Sinus Technical Quality: Adequate MEASUREMENTS (Male / Female) Normal Values 2D ECHO LVOT Diameter 2.0 cm LV Ejection Fraction MOD 2C 77.0 % LV Ejection Fraction 2C AL 76.8 % LA Diameter 4.5 cm LA Width 3.5 cm LA Height 4.7 cm RA Width 3.3 cm RA Height 4.9 cm Aorta at Sinotubular Diameter 2.5 cm IVC Diameter 2.6 cm M-MODE Aortic Annulus Diameter 2.7 cm LA Ao Ratio MM 1.8 MV E Point Septal Separation 0.6 cm DOPPLER AV Peak Velocity 161.0 cm/s LVOT Peak Velocity 90.0 cm/s AV Area Cont Eq vti 2.3 cm squared AV Area Cont Eq pk 1.8 cm squared MV Peak Velocity 153.0 cm/s MV Area PHT 4.6 cm squared Mitral E to A Ratio 0.9 MV E' Velocity 62.0 cm/s Mitral E to MV E' Ratio 10.8 Mitral E to LV E' Lateral Ratio 10.2 Mitral E to LV E' Septal Ratio 11.6 TR Peak Velocity 199.3 cm/s TR Peak Gradient 15.9 mmHg TR Mean Velocity 141.5 cm/s TR Mean Gradient 8.5 mmHg TR Velocity Time Integral 41.9 cm Right Atrial Pressure 8.0 mmHg Pulmonary Artery Systolic Pressu 23.9 mmHg PV Peak Velocity 110.0 cm/s RV Acceleration Time 0.1 s RV Ejection Time 0.3 s RV AcT/ET 0.4 FINDINGS Left Ventricle Normal left ventricular size and systolic function, EF 70 %. No regional wall motion abnormalities. Grade I/IV diastolic dysfunction (abnormal relaxation filling pattern), normal to mildly elevated filling pressures. Right Ventricle The right ventricle is normal in size and function. Right Atrium The right atrium is normal in size. Left Atrium Mildly increased left atrial size. Mitral Valve No gross abnormalities noted Aortic Valve No gross abnormalities noted Tricuspid Valve Trace tricuspid valve regurgitation. Pulmonic Valve Pulmonic valve not well visualized. Pericardium Normal pericardium without effusion. Aorta Normal ascending aorta dimension. IVC Dilated IVC with normal respiratory variation. CONCLUSIONS Normal left ventricular size and systolic function, EF 70 %. No regional wall motion abnormalities. Grade I/IV diastolic dysfunction (abnormal relaxation filling pattern), normal to mildly elevated filling . Mildly increased left atrial size. Trace tricuspid valve regurgitation. Estimated pulmonary artery peak systolic pressure 23 mm of Hg. There is no pericardial effusion. No similar previous studies are available for comparison Dr Bethany Mari MD [facility] (Electronically Signed) Final Date: 18 January 2023 12:22 S
--- NOTE | 2023-01-17 15:09 | PM.PN ---
Subjective Subjective: Patient required BiPAP overnight, 16/8/0.45. This morning, she endorses continued shortness of breath. Reports the oxygen via [place] significantly improves her symptoms. She states with the oxygen off, she becomes extremely symptomatic quickly. She notes some difficulty with the BiPAP mask and notes insomnia with breathing difficulties. Reports she was treated with either xanax or ativan with positive response last time. Agreeable to trial tonight. Vitals/I&O/Wt Last Vital Signs Temp 97.6 F 01/17/23 12:00 Pulse 85 01/17/23 12:00 Resp 20 H 01/17/23 12:00 BP 146/89 01/17/23 12:00 Pulse Ox 93 01/17/23 12:00 O2 Del Method Nasal Cannula 01/17/23 11:48 O2 Flow Rate 3 01/17/23 11:48 FiO2 45 01/17/23 02:31 01/17/23 01/17/23 01/17/23 06:59 14:59 22:59 Intake Total 481.92 / 483.20 240.96 / 240.96 Balance 481.92 / 483.20 240.96 / 240.96 Weight last 48 hrs Weight 158.757 kg Physical Exam Narrative: General: Patient is awake. Sitting on edge of bed. Appears fatigue, but very pleasant. Difficulty talking in full sentences due to respiratory status. Head: Normocephalic. Atraumatic. EOM intact. Neck: No JVD. Cardiovascular: RRR. No gallops. Lungs: Breath sounds are remain coarse. Air movement overall is still moderate. Very faint end expiratory wheezing. Tachypnea with increased work of breathing when speaking. Skin: No jaundice. No rashes. Abdomen: Normal bowel sounds, abdomen soft and nontender. Extremities: No cyanosis or clubbing. Lymphedema of bilateral lower extremities. Musculoskeletal: No erythematous joints. Neurological: Moves all 4 extremities. No myoclonus. Data 01/16/23 12:49 01/17/23 02:28 A&P Assessment and plan (1) Asthma: Acute asthma exacerbation c/b acute hypoxic respiratory failure Required BiPAP overnight Respiratory pathogen panel is negative Continue IV steroids Continue nebulizing treatments w/ pulmicort and scheduled DuoNebs Suspected viral insult, no evidence of bacterial infection Continue supplemental oxygen Restart oral Lasix for neg negative I&O goal Transthoracic echocardiogram to evaluate cardiac function and screen for pHTN Telemetry w/ continuous pulse oximetry Follows with child day care provider, Datar (2) Lymphedema: Patient reports positive response to wraps previously, consult pending (3) Hypothyroidism: Continue home thyroid replacement (4) HTN (hypertension): Monitor BP (5) TONIO (obstructive sleep apnea): She will need to complete outpt sleep study, patient is aware Continue BiPAP while sleeping, anxiolytic ordered Plan DVT ppx: Lovenox Code: Full Attestations Medical Necessity Statement*: Patient remains in persistent respiratory failure secondary to asthma with radiographic bilateral ground glass opacities throughout lung sanchez consistent with inflammation suspected secondary to possibly viral, edema or other pathology requiring ongoing supplemental oxygen support, IV steroids, breathing treatments, echocardiogram, and supportive care. Coding Level of Care Code Acute Code for g Fwd Diagnoses Asthma J45.909 Lymphedema I89.0 Hypothyroidism E03.9 HTN (hypertension) I10 TONIO (obstructive sleep apnea) G47.33
[2023-01-17] MEDS: enoxaparin 40 mg/0.4 mL Syringe SUBCUT (20:20)
[2023-01-17] MEDS: ALPRAZolam 0.5 mg Tablet PO (22:43)
[2023-01-18] VITALS (14 sets, daily range): BP systolic 131–161; BP diastolic 69–94; PULSE 66–91; RESP 17–25; TEMP 36.3–36.9; O2SAT 86–97
[2023-01-18 04:40] LABS: Basophils % 0.1 %; Hematocrit 43.7 % (36-47); Lymphocytes # 0.7 10^3/uL (0.8-4.8); Mean Corpuscular HGB Conc 29.5 g/dL (30-55); Mean Corpuscular Hemoglobin 27.3 pg (27-33); Mean Corpuscular Volume 92.4 fl (85-98); Mean Platelet Volume 9.5 fL (7.4-10.4); Monocytes # 0.5 10^3/uL (0.2-0.9); Monocytes % 3.6 %; Neutrophils % 90.2 %; Nucleated Red Blood Cells % 0 %; Platelet Count 287 10^3/cmm (157-399); Red Blood Count 4.73 10^6/uL (3.85-5.65); Red Cell Distribution Width 15.7 % (12.1-15.1); White Blood Count 13.98 10^3/uL (3.29-11.43)
[2023-01-18 05:15] LABS: Albumin Level 3.7 g/dL (3.5-5.2); Anion Gap 13.4 (5-19); Blood Urea Nitrogen 12 mg/dL (6-20); Calcium 8.8 mg/dL (8.5-10.5); Carbon Dioxide 28 mmol/L (22-29); Chloride 104 mmol/L (98-107); Glucose 144 mg/dL (65-115); Phosphorus 3.6 mg/dL (2.5-4.5); Potassium 4.4 mmol/L (3.5-5.1); Sodium 141 mmol/L (136-145)
[2023-01-18] MEDS: ipratropium-albuterol 3 mL Neb INHALATION ×3 (08:02→15:33)
[2023-01-18] MEDS: budesonide 0.5 mg/2 mL Neb INHALATION (08:02)
[2023-01-18] MEDS: FUROsemide 40 mg Tablet PO (09:12)
[2023-01-18] MEDS: thyroid 60 mg Tablet 120 MG PO (09:12)
--- NOTE | 2023-01-18 12:42 | P.DS_ITS ---
Discharge Providers Date of Admission: 01/17/23 15:07 Date of Discharge: January 18, 2023 Attending Provider at Admission: James Zhou MD Attending Provider at Discharge: Manoj Purdy MD Primary Care Provider: Iris Zhou NP Diagnoses at Discharge Discharge Diagnosis (1) Asthma: Status: Acute (2) Lymphedema: Status: Acute (3) Hypothyroidism: Status: Acute (4) HTN (hypertension): Status: Acute (5) TONIO (obstructive sleep apnea): Status: Acute Reason for Visit Reason for Visit: sob Hospital Course Hospital Course 52-year-old female who was recently discharged from the hospital after management of COVID-19 related sequelae, she did not qualify for oxygen last t soy, she was given outpatient sleep study referral, presented back with chief plaint of dyspnea on exertion this time she is requiring 2 L of oxygen and qualified for 2 L as well with home oxygen evaluation, echo showing diastolic dysfunction likely related to underlying sleep apnea, patient is happy with the progress related to lymphedema and compression wraps. She does not have any signs of PE, right upper lobe parenchymal density improving, patient carries history of asthma she was given steroids along antibiotics during this admission which seem to improved her symptoms of wheezing. She does have Spiriva and Advair at home, she will need pulmonary function test to differentiate restrictive versus obstructive disease. Physical Exam 2 Narrative: Morbidly obese Lymphedema Currently on 2 L GCS 15 Pleasant Nonfocal neuro exam Discharge Data Studies Completed and Pending Completed Studies During Hospitalization Category Date Time Status CTA chest [CT angio chest PE protcl [id number]] Stat Cat Scan 01/16/23 14:28 Completed XR chest 1V portable [id number] Stat Exams 01/16/23 12:35 Completed CV. echo complete* [id number] Routine Ultrasound 01/17/23 09:52 Completed Radiology Impressions Chest X-Ray 01/16/23 12:35 IMPRESSION: 1. No acute cardiac or pulmonary disease. 2. Stable prominent right pulmonary artery. Chest CTA 01/16/23 14:28 IMPRESSION: 1. Negative for pulmonary embolism. 2. Negative for right heart strain. 3. Stable mediastinal enlarged lymph nodes. 4. Stable dorsolumbar spine osteoarthritis. 5. Right upper lobe parenchymal density on prior examination is no longer visualized. 6. Severe dorsolumbar spine osteoarthritis. 7. Cholecystectomy 8. Negative for thoracic aortic aneurysm or dissection Laboratory Results WBC 13.98 10^3/uL (3.29-11.43) H 01/18/23 03:27 RBC 4.73 10^6/uL (3.85-5.65) 01/18/23 03:27 Hgb 12.90 g/dL (11.27-16.99) 01/18/23 03:27 Hct 43.7 % (36-47) 01/18/23 03:27 MCV 92.4 fl (85-98) 01/18/23 03:27 MCH 27.3 pg (27-33) 01/18/23 03:27 MCHC 29.5 g/dL (30-55) L 01/18/23 03:27 RDW 15.7 % (12.1-15.1) H 01/18/23 03:27 Plt Count 287 10^3/cmm (157-399) 01/18/23 03:27 MPV 9.5 fL (7.4-10.4) 01/18/23 03:27 Neut % (Auto) 90.2 % 01/18/23 03:27 Lymph % (Auto) 5.0 % 01/18/23 03:27 Boyle % (Auto) 3.6 % 01/18/23 03:27 Eos % (Auto) 0.0 % 01/18/23 03:27 Baso % (Auto) 0.1 % 01/18/23 03:27 Neut # (Auto) 12.60 10^3/uL (1.8-7.7) H 01/18/23 03:27 Lymph # (Auto) 0.7 10^3/uL (0.8-4.8) L 01/18/23 03:27 Boyle # (Auto) 0.5 10^3/uL (0.2-0.9) 01/18/23 03:27 Eos # (Auto) 0.0 10^3/uL (0.0-0.8) 01/18/23 03:27 Baso # (Auto) 0.0 10^3/uL (0.0-0.1) 01/18/23 03:27 Nucleated RBC % (auto) 0 % 01/18/23 03:27 Nucleated RBCs # 0.0 /100WBC 01/18/23 03:27 D-Dimer 1.22 ug/mLFEU (0-0.59) H 01/16/23 12:49 Specimen Type Arterial 01/16/23 17:10 Sample Site Brachial, right 01/16/23 17:10 ABG pH 7.40 (7.35-7.45) 01/16/23 17:10 ABG pCO2 48.2 mmHg (35-45) H 01/16/23 17:10 ABG pO2 61.2 mmHg (80.0-100.0) L 01/16/23 17:10 ABG PO2/FiO2 Ratio 0 01/16/23 17:10 ABG HCO3 29.6 mmol/L (22-26) H 01/16/23 17:10 ABG O2 Saturation 93.2 01/16/23 17:10 ABG Base Excess 3.9 mmol/L (-2.0-2.0) H 01/16/23 17:10 Glen Test N/a 01/16/23 17:10 A-a O2 Gradient 4.0 mmHg (5-10) L 01/16/23 17:10 Hematocrit 40.5 % (37-47) 01/16/23 17:10 Hgb O2 Saturation 91.0 % (95-100) L 01/16/23 17:10 Carboxyhemoglobin 2.0 %THgb (0.4-20.1) 01/16/23 17:10 Methemoglobin 0.3 % (0.4-1.5) L 01/16/23 17:10 Total Hemoglobin 13.2 g/dL (12-16) 01/16/23 17:10 Sodium 139.0 mmol/L (131-143) 01/16/23 17:10 Potassium 3.8 mmol/L (3.5-5.0) 01/16/23 17:10 Glucose 90.0 mg/dL (70-115) 01/16/23 17:10 Ionized Calcium 1.2 mmol/L (1.1-1.4) 01/16/23 17:10 O2 Delivery Device Room air 01/16/23 17:10 FiO2 21.0 % 01/16/23 17:10 [employer] ID Amh 01/16/23 17:10 Sodium 141 mmol/L (136-145) 01/18/23 03:27 Potassium 4.4 mmol/L (3.5-5.1) 01/18/23 03:27 Chloride 104 mmol/L (98-107) 01/18/23 03:27 Carbon Dioxide 28 mmol/L (22-29) 01/18/23 03:27 Anion Gap 13.4 (5-19) 01/18/23 03:27 BUN 12 mg/dL (6-20) 01/18/23 03:27 Creatinine 0.6 mg/dL (0.5-0.9) 01/18/23 03:27 GFR Calculation 105.0 mL/min (90-130) 01/18/23 03:27 Glucose 144 mg/dL (65-115) H 01/18/23 03:27 Calculated Osmolality 290 mOsm/kg (285-295) 01/17/23 02:28 Calcium 8.8 mg/dL (8.5-10.5) 01/18/23 03:27 Phosphorus 3.6 mg/dL (2.5-4.5) 01/18/23 03:27 Magnesium 2.4 mg/dL (1.7-2.3) H 01/17/23 02:28 Total Bilirubin 0.3 mg/dL (0.15-1.2) 01/16/23 12:49 AST 15 U/L (0-32) 01/16/23 12:49 ALT 11 U/L (0-33) 01/16/23 12:49 Alkaline Phosphatase 73 U/L (35-105) 01/16/23 12:49 C-Reactive Protein 15.8 mg/L (0.0-4.9) H 01/16/23 12:49 NT-Pro-B Natriuret Pep 198 pg/mL (0-125) H 01/16/23 12:49 Total Protein 6.7 g/dL (6.6-8.7) 01/16/23 12:49 Albumin 3.7 g/dL (3.5-5.2) 01/18/23 03:27 Globulin 3.1 g/dL (1.3-4.6) 01/16/23 12:49 Procalcitonin 0.04 ng/mL (0-0.5) 01/16/23 12:49 Nasal Influ A H1 2008 PCR Not detected (NOT DETECT) 01/17/23 00:41 Adenovirus (PCR) Not detected (NOT DETECT) 01/17/23 00:41 C. pneumoniae DNA (PCR) Not detected (NOT DETECT) 01/17/23 00:41 Coronavirus 229E (PCR) Not detected (NOT DETECT) 01/17/23 00:41 Human Metapneumovir PCR Not detected (NOT DETECT) 01/17/23 00:41 Influenza A (H1) PCR Not detected (NOT DETECT) 01/17/23 00:41 Influenza A (H3) PCR Not detected (NOT DETECT) 01/17/23 00:41 Influenza Type A (PCR) Not detected (NOT DETECT) 01/17/23 00:41 Influenza Type B (PCR) Not detected (NOT DETECT) 01/17/23 00:41 M. pneumoniae (PCR) Not detected (NOT DETECT) 01/17/23 00:41 Parainfluenza 1 (PCR) Not detected (NOT DETECT) 01/17/23 00:41 Parainfluenza 2 (PCR) Not detected (NOT DETECT) 01/17/23 00:41 Parainfluenza 3 (PCR) Not detected (NOT DETECT) 01/17/23 00:41 Parainfluenza 4 (PCR) Not detected (NOT DETECT) 01/17/23 00:41 RSV Type A (PCR) Not detected (NOT DETECT) 01/17/23 00:41 RSV Type B (PCR) Not detected (NOT DETECT) 01/17/23 00:41 Entero/Rhino (PCR) Not detected (NOT DETECT) 01/17/23 00:41 SARS-CoV-2 (PCR) Not detected (NOT DETECT) 01/17/23 00:41 Vitals Last Vital Signs Temp 98.2 F 01/18/23 11:27 Pulse 77 01/18/23 11:27 Resp 18 01/18/23 11:27 BP 161/94 01/18/23 11:27 Pulse Ox 94 01/18/23 11:27 O2 Del Method Nasal Cannula 01/18/23 11:27 O2 Flow Rate 2 01/18/23 11:02 FiO2 35 01/18/23 03:45 Discharge Plan Discharge Patient Disposition: Home Condition: Stable Prescriptions: New methylprednisolone [Medrol ([place])] 4 mg tablets,dose pack See Rx Instructions .ROUTE .COMPLEX Qty: 21 0RF Rx Instructions: orally per package directions Continued albuterol sulfate 2.5 mg /3 mL (0.083 %) solution for nebulization 2.5 mg inhalation Q4H Qty: 180 11RF albuterol sulfate [ProAir HFA] 90 mcg/actuation HFA aerosol inhaler 2 puff inhalation QID PRN (Reason: shortness of breath or wheezing) Qty: 8.5 11RF Zyrtec 10 mg capsule 10 mg PO DAILY PRN (Reason: cough) Spiriva with HandiHaler 18 mcg capsule, w/inhalation device 1 cap inhalation DAILY Qty: 60 6RF Rx Instructions: puncture 1 cap using device; one dose = 2 inhalations potassium chloride 10 mEq tablet extended release 10 meq PO DAILY Qty: 60 2RF Rx Instructions: Only take with Lasix [place] Thyroid 120 mg tablet 120 mg PO DAILY 30 Days Qty: 30 4RF (DME) compression socks, x-large Misc See Rx Instructions .Route Qty: 2 0RF Rx Instructions: As directed Lasix 20 mg tablet 40 mg PO DAILY fluticasone propion-salmeterol [Advair Diskus] 250-50 mcg/dose blister with device 1 inh inhalation Q12H Qty: 60 3RF Discharge Orders: Discharge Order (Routine); Ordered 01/18/23 Ordered By: Manoj Purdy Referrals: Iris Zhou NP [Primary Care Provider] - DatarKarthik MD [Physician] - 7-10 days (Need pulmonary function test) Discharge Diet: Cardiac Discharge Activity: Increase activity as tolerated Patient Instructions: Opioid Safety Discharge Attestations Time Spent in Discharge Care*: greater than 30 min Quality Metrics Clinical Quality Measures [ No reported AMI, CVA or VTE this stay] Coding Level of Care Code Acute Code for Chg Fwd Diagnoses Asthma J45.909 Lymphedema I89.0 Hypothyroidism E03.9 HTN (hypertension) I10 TONIO (obstructive sleep apnea) G47.33
== END 2023-01-18 17:00 | disposition home or self-care (01) | DRG 202 ==
LOC: ER 16:58 → MEDSURG 18:24
PROVIDERS: Admitting Provider Internal Medicine; Emergency Provider Family Medicine; PCP Nurse Practitioner Family; Visit Provider Internal Medicine
DX: J45.901 Unspecified asthma with (acute) exacerbation (principal); J96.01 Acute respiratory failure with hypoxia; Z68.44 Body mass index [BMI] 60.0-69.9, adult; Z87.891 Personal history of nicotine dependence; I89.0 Lymphedema, not elsewhere classified; Z86.73 Personal history of transient ischemic attack (TIA), and cerebral infarction without residual deficits; Z86.16 Personal history of COVID-19; E78.2 Mixed hyperlipidemia; E66.01 Morbid (severe) obesity due to excess calories; G47.33 Obstructive sleep apnea (adult) (pediatric); E03.9 Hypothyroidism, unspecified; I10 Essential (primary) hypertension
CPT/HCPCS: 36415; 36600; 71045; 71275; 80048; 80051; 80053; 80069; 82330; 82805; 83735; 83880; 84145; 85025; 85378; 86140; 87486; 87581; 87633; 93306; 94640; 94660; 94664; 94760; 96372; 96374; 97167; 99285; G0378; J1650; J2930; J7626; Q9967

== ENCOUNTER → 2023-02-01 16:58 | Outpatient (BNVA) | payer MEDICAID, SELFPAY | PROVIDERS: PCP Nurse Practitioner Family; Visit Provider Nurse Practitioner Family | DX: J06.9 Acute upper respiratory infection, unspecified (principal) | CPT/HCPCS: 80053 ==

== ENCOUNTER 2023-03-19 08:06 | Outpatient (CLI) | payer MEDICAID, SELFPAY ==
--- NOTE | 2023-03-19 08:10 | MR_ITS ---
WS: [id number] MRI CERVICAL SPINE NONCONTRAST HISTORY: FALL AT HOME COMPARISON: None available. Technique: Multiplanar, multisequence noncontrast imaging of the cervical spine. There is significant motion artifact on numerous sequences. Straightening and reversal the normal cervical lordosis centered at C6. Disc spaces are all narrowed and desiccated. No signal abnormalities noted within the cervical cord. No intra displacement. No marrow edema or fra cture is identified although the mild amount of motion is causing some limitation. Craniocervical junction, C1 and C2 relationship, odontoid process and soft tissues are normal. C2-C3: Small foraminal osteophytes. Indeterminate for edema surrounding the LEFT facet joint. C3-C4: Osteophytic ridging. Mild central and bilateral foraminal stenosis. There is marrow edema in t he LEFT pedicle. C4-C5: Osteophytic ridging. Mild central and bilateral foraminal stenosis. C5-C6: Osteophytic ridging and disc bulging. Mild central and foraminal stenosis. C6-C7: Annular disc bulging with a central broad-based disc protrusion and osteophytes. Moderate to s evere central and bilateral foraminal stenosis. C7-T1: Mild central and bilateral foraminal stenosis. Paraspinal soft tissues are very difficult to evaluate with this amount of motion. I do believe there is some soft tissue injury of synovitis on the LEFT at C2-3 and C3-4. IMPRESSION: 1. Study is significantly compromised by motion artifact. 2. Multilevel areas of central and foraminal stenosis. Most significant stenosis is at C6-7. 3. C6-7: Broad-based central disc protrusion with osteophytes. Moderate to severe central and bilate ral foraminal stenosis. 4. C3-4, C4-5, C5-6 and C7-T1. Mild central and bilateral foraminal stenosis. 5. Marrow edema and soft tissue edema involving the LEFT facets and facet joints of C2-3 and C3-4. 6. Study is compromised by motion artifact and body habitus. If neck pain continues consider evaluat ion by CT to evaluate for an occult fracture.
== END 2023-03-19 08:07 | disposition home or self-care (01) ==
LOC: RAD 08:06
PROVIDERS: PCP Nurse Practitioner Family; Visit Provider Nurse Practitioner Family
DX: R32 Unspecified urinary incontinence (principal); R20.0 Anesthesia of skin; R20.2 Paresthesia of skin; W19.XXXA Unspecified fall, initial encounter; X58.XXXA Exposure to other specified factors, initial encounter; Y92.009 Unspecified place in unspecified non-institutional (private) residence as the place of occurrence of the external cause; M48.02 Spinal stenosis, cervical region; M48.03 Spinal stenosis, cervicothoracic region; M50.123 Cervical disc disorder at C6-C7 level with radiculopathy
CPT/HCPCS: 72141

== ENCOUNTER 2023-03-25 13:25 | Outpatient (CLI) | payer MEDICAID, SELFPAY ==
--- NOTE | 2023-03-25 13:30 | CT_ITS ---
WS: [id number] CT LUMBAR SPINE, noncontrast. HISTORY: fall at home, numbness bilateral feet, back pain, weaknesss TECHNIQUE: Contiguous 2.0 mm axial imaging are performed. Sagittal and coronal reformats are submitte d and reviewed. All CT scans at [facility] use at least one of these dose optimization techni ques: automated exposure control; mA and/or kV adjustment per patient size (includes targeted exams w here dose is matched to clinical indication); or iterative reconstruction. IV contrast: None DLP: 1886.52 mGy.cm COMPARISON: None available. Normal posterior lumbar alignment. Severe disc space narrowing with desiccation and vacuum disc pheno andrea at L5-S1. No fractures. No pars defects. L1-2: Normal. L2-3: Normal. L3-4: Mild osteophytic ridging and disc bulging. Mild facet arthritis. Mild LEFT foraminal narrowing. L4-5: Significant artifact from patient's body habitus. Mild central and bilateral foraminal stenosis . L5-S1: Mild facet joint arthritis encroaching upon the central canal and subarticular recesses. Mild central, bilateral subarticular recess and at least moderate foraminal stenosis due to disc, osteophy te and facet disease. There are few scattered small retroperitoneal lymph nodes. IMPRESSION: 1. No acute lumbar spine fracture. 2. Advanced disc disease at L5-S1 with vacuum disc phenomenon. 3. L5-S1: There is at least mild central and bilateral subarticular recess stenosis. Moderate bilate ral foraminal stenosis. 4. L4-5: Mild central and bilateral foraminal stenosis.
== END 2023-03-25 13:26 | disposition home or self-care (01) ==
LOC: RAD 13:25
PROVIDERS: PCP Nurse Practitioner Family; Visit Provider Nurse Practitioner Family
DX: R20.0 Anesthesia of skin (principal); M51.9 Unspecified thoracic, thoracolumbar and lumbosacral intervertebral disc disorder; M48.07 Spinal stenosis, lumbosacral region; R20.2 Paresthesia of skin; R53.1 Weakness; W19.XXXA Unspecified fall, initial encounter; Y92.009 Unspecified place in unspecified non-institutional (private) residence as the place of occurrence of the external cause; R26.81 Unsteadiness on feet; R32 Unspecified urinary incontinence
CPT/HCPCS: 72131

== ENCOUNTER 2023-04-14 20:00 | Outpatient (CLI) | payer MEDICAID, SELFPAY | END 2023-04-14 20:01 | disposition home or self-care (01) | LOC: SLEEP 04-15 05:51 | PROVIDERS: PCP Nurse Practitioner Family; Visit Provider Internal Medicine | DX: G47.33 Obstructive sleep apnea (adult) (pediatric) (principal); R09.02 Hypoxemia | CPT/HCPCS: 95811 ==

== ENCOUNTER 2023-09-27 20:27 | Emergency (ER) | payer MEDICAID, SELFPAY ==
[2023-09-27 20:33] VITALS: BP 149/85; PULSE 99; RESP 20; TEMP 37.3; O2SAT 93
[2023-09-27 22:39] VITALS: BP 149/98; PULSE 97; O2SAT 97
--- NOTE | 2023-09-27 22:39 | USR_ITS ---
PROCEDURE INFORMATION: Exam: US Duplex Right Lower Extremity Veins, Limited Exam date and time: 09/27/2023 10:55 PM Age: 53 years old Clinical indication: Pain; Leg, lower; Right; Patient HX: Morbid obesity 5ft 3 in, 370 lbs, with chronic, blistering, gaiter zone pigmentation. It is impossible to turn this patient in order to attempt visualization of the peroneal veins. ; Additional info: Atraumatic sudden pain TECHNIQUE: Imaging protocol: Real-time duplex ultrasound of the right extremity with 2-D whiting scale, color Doppler flow and spectral waveform analysis including responses to compression and other maneuvers (when performed) with image documentation. Limited exam was focused on the right lower extremity veins. COMPARISON: No relevant prior studies available. FINDINGS: Right deep veins: Unremarkable. The common femoral, femoral, proximal profunda femoral and popliteal veins are patent without thrombus. Normal Doppler waveforms. Normal compressibility and/or augmentation response. Superficial veins: Greater saphenous vein at the saphenofemoral junction is patent without thrombus. Soft tissues: Unremarkable. US/[place] [id number] IMPRESSION: No evidence of deep vein thrombosis.
--- NOTE | 2023-09-27 22:40 | CTR_ITS ---
PROCEDURE INFORMATION: Exam: CTA Chest With Contrast Exam date and time: 09/27/2023 11:47 PM Age: 53 years old Clinical indication: Shortness of breath; Patient HX: SOB with hypoxia; Additional info: Shortness of breath, needs o2 TECHNIQUE: Imaging protocol: Computed tomographic angiography of the chest with contrast. Exam focused on the arteries. 3D rendering (Not supervised by radiologist): MIP and/or 3D reconstructed images were created by the technologist. Radiation optimization: All CT scans at this facility use at least one of these dose optimization techniques: automated exposure control; mA and/or kV adjustment per patient size (includes targeted exams where dose is matched to clinical indication); or iterative reconstruction. Contrast material: OMNI 350; Contrast volume: 81 ml; Contrast route: INTRAVENOUS (IV); COMPARISON: CT angio chest PE protcl [id number] 01/16/2023 2:55 PM RADIATION DOSE METRICS: Total DLP (mGy-cm): 549.33 FINDINGS: Pulmonary arteries: Enlarged pulmonary artery trunk measures 4.3 cm transverse diameter. Attenuation coefficient in the main pulmonary artery is 165 Hounsfield units, suboptimal. No large or central emboli are demonstrated. Small or peripheral emboli cannot be excluded. Proximal main pulmonary artery branches are dilated. Aorta: Normal caliber thoracic aorta with typical branching pattern. No evidence of acute aortic dissection. Thyroid: Homogeneous thyroid. Lungs: There is mosaic attenuation throughout both lungs. Pleural spaces: Unremarkable. No pneumothorax. No pleural effusion. Heart: Moderate four-chamber cardiomegaly. Coronary arteries: No significant coronary artery calcification. Lymph nodes: Unremarkable. No enlarged lymph nodes. Adrenal glands: Thickened adrenals without discrete mass. Bones/joints: Mild spinal degenerative change with patent spinal canal. No acute fracture. Soft tissues: Unremarkable. CT/CT angio chest PE protcl [id number] IMPRESSION: 1. No large or central pulmonary embolism. Suboptimal contrast bolus limits assessment for small or peripheral emboli. If there is strong clinical suspicion of acute PE, and patient's renal function is adequate, consider repeat injection. Alternatively, V/Q scan may be helpful. 2. Persistent enlargement the pulmonary artery tree suggest chronic PA hypertension. 3. There is mosaic attenuation throughout both lungs which is similar to prior exam over 6 months ago, likely reflecting chronic air trapping. Changes of chronic pulmonary embolism are not excluded, especially given features chronic PA hypertension. Pulmonary medicine consultation may be helpful.
--- NOTE | 2023-09-27 23:08 | ED_ITS ---
HPI - Extremity Problem 2 General: Chief complaint: Extremity Problem,Nontraumatic Stated complaint: Right leg injury Time Seen by Provider: 09/27/23 22:25 Source: patient Mode of arrival: ambulatory Limitations: no limitations History of Present Illness: Patient is a 53-year-old female with history of COPD and lymphedema who presents to the emergency department complaining of atraumatic right lower extremity pain beginning a couple hours prior to arrival. Patient states she was sitting when the pain happened, and is so excruciating that any palpation of the right lower extremity below the knee causes her 10/10 pain. She denies any history of clotting. She uses oxygen as needed at night. She is also noting increasing shortness of breath, dizziness, and lightheadedness that began today with the leg pain as well. No injury reported. She has severe lymphedema bilaterally, states there are no skin color changes from baseline. Her left lower extremity is without complaints at this time. She does not see physical therapy or any other specialist for her lymphedema. Currently she is 93% on 2 L of oxygen at time of examination. MD Complaint: extremity pain Onset (ago): hour(s) Pain Consistency: constant Location: right and lower extremity Severity scale (1-10): 10 Quality: sharp Associated symptoms: Deny chest pain, fever(s) or rash Review of Systems 2 General: Reports: 10 or more systems reviewed and unremarkable except in HPI and below Const: Denies: fever(s) or chills Card: Reports: lightheadedness; Denies: chest pain or palpitations Resp: Reports: dyspnea; Denies: productive cough GI: Denies: abdominal pain, nausea, vomiting or diarrhea : Denies: flank pain Musc: Reports: extremity pain and extremity swelling (Chronic bilaterally); Denies: neck pain, back pain, joint pain, joint swelling, joint redness, joint warmth or muscle weakness Skin/Breast: Denies: rash Neuro: Reports: dizziness; Denies: headache(s), numbness in extremities or weakness in extremities PFSH ED 2 PFSH: Medical History Cellulitis Arthritis of both knees Hypoxia Obesity, morbid, BMI 50 or higher Dyspnea Lymphedema Pulmonary edema Dyspnea Obesity, morbid, BMI 50 or higher Hypoxia COVID-19 Stiffness of joints of both hands Exertional shortness of breath Chronic interstitial lung disease Open wound of left lower extremity Elevated brain natriuretic peptide (BNP) level Myalgia Arthralgia Hyperglycemia Stress incontinence 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 COPD (chronic obstructive pulmonary disease) Mixed hyperlipidemia TONIO (obstructive sleep apnea) Orthopnea SOB (shortness of breath) HTN (hypertension) Hypothyroidism Former smoker (~2014) Tilted uterus History of pneumonia TIA (transient ischemic attack) Lymphedema associated with obesity Magaly's disease Asthma Family History Other CAD (coronary artery disease) Congestive heart failure (CHF) Diabetes Former smoker Hypertension Hypothyroidism Social History Smoking and tobacco/nicotine status: former use of tobacco/nicotine Quit status (tobacco/nicotine): has quit using Year quit tobacco: 2014 Former quit date comment: 0.5 ppd X 20 years Physical Exam 2 Const: COMMON NORMALS: patient oriented x3, no limitations and alert G ENERAL APPEARANCE: cooperative, in distress, anxious and appears older than stated age NUTRITIONAL APPEARANCE: obese morbidly obese HENMT: COMMON NORMALS: normocephalic and atraumatic HEAD & SCALP: n ormocephalic and atraumatic Eye: COMMON NORMALS: EOMs intact bilaterally and conjunctivae normal C ONJUNCTIVA: Yes conjunctivae normal Neck/C-Spine: COMMON NORMALS: full ROM Resp: COMMON NORMALS: normal respiratory effort, No retractions, No use of accessory muscles and clear to auscultation bilaterally AUSCULTATION: clear to auscultation bilaterally Cardio: COMMON NORMALS: regular rate, regular rhythm, S1 normal heart sound present, S2 normal heart sound present and No murmurs present (Cardio) RATE: regular rate RHYTHM: regular rhythm HEART SOUNDS: S1 normal heart sound present and S2 normal heart sound present GI: COMMON NORMALS: Soft to palpation and non-tender INSPECTION: Yes central obesity PALPATION: Yes Soft to palpation Extremity: NARRATIVE EXTREMITY EXAM: Severe bilateral lymphedema noted. Moderate to severe reproducible tenderness to palpation diffusely throughout the right lower extremity below the knee. Chronic venous stasis changes. Pulses difficult to palpate due lymphedema. No asymmetric color changes noted between the right and left lower extremity. Neuro: COMMON NORMALS: patient oriented x3, moves all extremities, no focal motor deficits and no sensory deficits noted SENSORIUM/ORIENTATION: Yes alert Psych: COMMON NORMALS: mental status grossly normal Course 2 Vital Signs: Vital signs: Vital Signs Temperature 99.2 F 09/27/23 20:33 Pulse Rate 97 09/28/23 04:23 Respiratory Rate 22 H 09/28/23 01:20 Blood Pressure 127/108 09/28/23 04:23 Pulse Oximetry 92 09/28/23 04:23 Oxygen Delivery Me thod Room Air 09/27/23 20:33 MDM - Extremity (Nontraumatic) Medical Decision Making Patient presented for acute onset of right lower extremity pain. History of severe lymphedema, does not do any conservative therapies or see physical therapy. She did seem to be in distress on examination due to the pain, physical examination did reveal her to be diffusely tender to palpation below the right knee. However bilaterally her legs did appear the same without any differences in color or temperature. Pulses equally difficult to palpate bilaterally. Ultrasound do not demonstrate any signs of a clot. She did report some shortness of breath associated with dizziness and lightheadedness earlier in the day, and a CTA was obtained that further ruled out blood clot. I do believe her pain to be of origin from her lymphedema, and she is instructed to follow-up with primary care for potential referral to physical therapy. In addition she is to start wearing compression stockings and also alternate Tylenol and ibuprofen. Reasons to return were discussed in thorough detail. Patient discharged home at this time. Care of patient discussed with Dr. Fajardo. Lab Data 09/27/23 23:38 09/27/23 23:38 Radiology Impressions Venous Duplex 09/27/23 22:39 IMPRESSION: No evidence of deep vein thrombosis. Chest CTA 09/27/23 22:40 IMPRESSION: 1. No large or central pulmonary embolism. Suboptimal contrast bolus limits assessment for small or peripheral emboli. If there is strong clinical suspicion of acute PE, and patient's renal function is adequate, consider repeat injection. Alternatively, V/Q scan may be helpful. 2. Persistent enlargement the pulmonary artery tree suggest chronic PA hypertension. 3. There is mosaic attenuation throughout both lungs which is similar to prior exam over 6 months ago, likely reflecting chronic air trapping. Changes of chronic pulmonary embolism are not excluded, especially given features chronic PA hypertension. Pulmonary medicine consultation may be helpful. Laboratory Results WBC 16.17 10^3/uL (3.29-11.43) H 09/27/23 23:38 RBC 5.83 10^6/uL (3.85-5.65) H 09/27/23 23:38 Hgb 15.50 g/dL (11.27-16.99) 09/27/23 23:38 Hct 51.9 % (36-47) H 09/27/23 23:38 MCV 89.0 fl (85-98) 09/27/23 23:38 MCH 26.6 pg (27-33) L 09/27/23 23:38 MCHC 29.9 g/dL (30-55) L 09/27/23 23:38 RDW 16.7 % (12.1-15.1) H 09/27/23 23:38 Plt Count 237 10^3/cmm (157-399) 09/27/23 23:38 MPV 8.7 fL (7.4-10.4) 09/27/23 23:38 Neut % (Auto) 90.4 % 09/27/23 23:38 Lymph % (Auto) 3.8 % 09/27/23 23:38 [place] % (Auto) 4.6 % 09/27/23 23:38 Eos % (Auto) 0.4 % 09/27/23 23:38 Baso % (Auto) 0.2 % 09/27/23 23:38 Neut # (Auto) 14.61 10^3/uL (1.8-7.7) H 09/27/23 23:38 Lymph # (Auto) 0.6 10^3/uL (0.8-4.8) L 09/27/23 23:38 [place] # (Auto) 0.8 10^3/uL (0.2-0.9) 09/27/23 23:38 Eos # (Auto) 0.1 10^3/uL (0.0-0.8) 09/27/23 23:38 Baso # (Auto) 0.0 10^3/uL (0.0-0.1) 09/27/23 23:38 Nucleated RBC % (auto) 0 % 09/27/23 23:38 Nucleated RBCs # 0.0 /100WBC 09/27/23 23:38 Sodium 136 mmol/L (136-145) 09/27/23 23:38 Potassium 4.0 mmol/L (3.5-5.1) 09/27/23 23:38 Chloride 96 mmol/L (98-107) L 09/27/23 23:38 Carbon Dioxide 28 mmol/L (22-29) 09/27/23 23:38 Anion Gap 16.0 (5-19) 09/27/23 23:38 BUN 11 mg/dL (6-20) 09/27/23 23:38 Creatinine 0.5 mg/dL (0.5-0.9) 09/27/23 23:38 GFR Calculation 129.1 mL/min (90-130) 09/27/23 23:38 Glucose 128 mg/dL (65-115) H 09/27/23 23:38 Calculated Osmolality 283 mOsm/kg (285-295) L 09/27/23 23:38 Calcium 8.8 mg/dL (8.5-10.5) 09/27/23 23:38 Total Bilirubin 0.8 mg/dL (0.15-1.2) 09/27/23 23:38 AST 16 U/L (0-32) 09/27/23 23:38 ALT 20 U/L (0-33) 09/27/23 23:38 Alkaline Phosphatase 83 U/L (35-105) 09/27/23 23:38 Total Protein 7.9 g/dL (6.6-8.7) 09/27/23 23:38 Albumin 4.1 g/dL (3.5-5.2) 09/27/23 23:38 Globulin 3.8 g/dL (1.3-4.6) 09/27/23 23:38 All radiology interpretation(s) finalized by discharge Discharge Plan Discharge Patient Disposition: Home Clinical Impression: Lymphedema Condition: Stable Prescriptions: No Action albuterol sulfate 2.5 mg /3 mL (0.083 %) solution for nebulization 2.5 mg inhalation Q4H Qty: 180 11RF albuterol sulfate [ProAir HFA] 90 mcg/actuation HFA aerosol inhaler 2 puff inhalation QID PRN (Reason: shortness of breath or wheezing) Qty: 8.5 11RF Zyrtec 10 mg capsule 10 mg PO DAILY PRN (Reason: cough) Spiriva with HandiHaler 18 mcg capsule, w/inhalation device 1 cap inhalation DAILY Qty: 60 6RF Rx Instructions: puncture 1 cap using device; one dose = 2 inhalations fluticasone propion-salmeterol [Advair Diskus] 500-50 mcg/dose blister with device 1 inh inhalation BID Qty: 60 6RF fluticasone propionate [Flonase Allergy Relief] 50 mcg/actuation spray,suspension 2 spray intranasal DAILY Qty: 16 6RF Rx Instructions: administer into each nostril potassium chloride 10 mEq tablet extended release 10 meq PO DAILY Qty: 60 2RF Rx Instructions: Only take with Lasix doxycycline hyclate 100 mg capsule 100 mg PO BID Qty: 20 0RF (DME) AUTO TITRATING BIPAP WITH 2 L O2 BLED IN 6-16CM SETTING See Rx Instructions .Route .MEDSUPPLY Qty: 1 0RF Rx Instructions: PROVIDE SUPPLIES NEEDED. thyroid (pork) [[place] Thyroid] 120 mg tablet 120 mg PO DAILY 30 Days Qty: 30 4RF (DME) compression socks, x-large Misc See Rx Instructions .Route Qty: 2 0RF Rx Instructions: As directed Lasix 20 mg tablet 40 mg PO DAILY Discharge Orders: Discharge ED (Routine); Ordered 09/28/23 Ordered By: Mendoza Morrison Referrals: Iris Zhou NP [Primary Care Provider] - Discharge Diet: Usual diet Discharge Activity: Increase activity as tolerated Patient Instructions: Lymphedema (ED) Activity Restrictions/Additional Instructions: Compression stockings. Tylenol and ibuprofen. Follow-up with primary care, potential referral to physical therapy. Return with any new or concerning symptoms you may have. Your ultrasound today was negative for any clots. Coding Level of Care Code ED Pharmacy Informatics Manager for [facility]
[2023-09-27 23:44] LABS: Basophils % 0.2 %; Eosinophils # 0.1 10^3/uL (0.0-0.8); Eosinophils % 0.4 %; Hematocrit 51.9 % (36-47); Lymphocytes # 0.6 10^3/uL (0.8-4.8); Lymphocytes % 3.8 %; Mean Corpuscular HGB Conc 29.9 g/dL (30-55); Mean Corpuscular Hemoglobin 26.6 pg (27-33); Mean Platelet Volume 8.7 fL (7.4-10.4); Monocytes # 0.8 10^3/uL (0.2-0.9); Monocytes % 4.6 %; Neutrophils # 14.61 10^3/uL (1.8-7.7); Neutrophils % 90.4 %; Nucleated Red Blood Cells % 0 %; Platelet Count 237 10^3/cmm (157-399); Red Blood Count 5.83 10^6/uL (3.85-5.65); Red Cell Distribution Width 16.7 % (12.1-15.1); White Blood Count 16.17 10^3/uL (3.29-11.43)
[2023-09-27 23:55] LABS: Alanine Aminotransferase 20 U/L (0-33); Albumin Level 4.1 g/dL (3.5-5.2); Alkaline Phosphatase 83 U/L (35-105); Aspartate Amino Transferase 16 U/L (0-32); Blood Urea Nitrogen 11 mg/dL (6-20); Calcium 8.8 mg/dL (8.5-10.5); Carbon Dioxide 28 mmol/L (22-29); Chloride 96 mmol/L (98-107); Creatinine Clr Calc Pharmacy 202.4825; Globulin 3.8 g/dL (1.3-4.6); Glomerular Filtration Rate 129.1 mL/min (90-130); Glucose 128 mg/dL (65-115); Osmolality Calculated 283 mOsm/kg (285-295); Sodium 136 mmol/L (136-145); Total Bilirubin 0.8 mg/dL (0.15-1.2); Total Protein 7.9 g/dL (6.6-8.7)
[2023-09-28] VITALS (7 sets, daily range): BP systolic 122–166; BP diastolic 72–108; PULSE 97–107; RESP 22; O2SAT 91–96
[2023-09-28] MEDS: iohexol 350 mg/mL 500 mL Btl (per mL) IV
[2023-09-28] MEDS: HYDROcodone-acetaminophen 5-325 mg Tablet 1 TAB PO (01:37)
== END 2023-09-28 04:43 | disposition home or self-care (01) ==
PROVIDERS: Emergency Provider Physician Assistant; PCP Nurse Practitioner Family
DX: I89.0 Lymphedema, not elsewhere classified (principal); M79.604 Pain in right leg; J44.9 Chronic obstructive pulmonary disease, unspecified; I10 Essential (primary) hypertension; Z87.891 Personal history of nicotine dependence
CPT/HCPCS: 71275; 80053; 85025; 93971; 99285; Q9967

== ENCOUNTER → 2023-09-30 15:29 | Outpatient (BNVA) | payer SELFPAY | PROVIDERS: PCP Nurse Practitioner Family; Visit Provider Nurse Practitioner Family | DX: L03.115 Cellulitis of right lower limb (principal); M79.604 Pain in right leg; M79.89 Other specified soft tissue disorders; E03.9 Hypothyroidism, unspecified; E06.3 Autoimmune thyroiditis; J44.9 Chronic obstructive pulmonary disease, unspecified; J45.909 Unspecified asthma, uncomplicated; I10 Essential (primary) hypertension; E78.2 Mixed hyperlipidemia; I89.0 Lymphedema, not elsewhere classified; E66.01 Morbid (severe) obesity due to excess calories; R60.1 Generalized edema | CPT/HCPCS: 80053; 80061; 83036; 83880; 84443; 85025 ==

== ENCOUNTER 2023-12-31 13:37 | Inpatient (IN) | payer SELFPAY ==
[2023-12-31] VITALS (10 sets, daily range): BP systolic 89–138; BP diastolic 59–77; PULSE 91–111; RESP 16–20; TEMP 36.9–38.1; O2SAT 90–97; BMI 63.3
--- NOTE | 2023-12-31 15:49 | ED_ITS ---
Documented by User: DAWOOD Humphreys 01/03/24 09:20 HPI - Abdominal Pain 2 General: Chief Complaint: Abdominal Pain Stated Complaint: Fall - Stomach blisters and pain Time Seen by Provider: 12/31/23 15:08 Source: patient Mode of arrival: wheelchair Limitations: no limitations History of Present Illness: Patient is a 53-year-old female here with a complaint of right flank/back pain as well as worsening lymphedema to her abdomen and weeping skin/blistering to her abdomen. She states she has noticed flank pain over the past few days. She has since noticed decreased urine output and dark-colored urine. She is not having any dysuria or fevers. She states she has known severe lymphedema. She states she has not been able to wrap her legs recently. She states she has never had this significant of lymphedema to her abdomen before. She feels like the skin is red and weeping. Does state she accidentally rolled out of bed before the symptoms started. Thinks this was from rolling onto dirty carpet. MD elicited complaint: abdominal pain Associated Symptoms: Denies change in bowel habits, chills, diarrhea, dysuria, fever(s), nausea and vomiting Related Data Home Medications Medication Instructions Recorded Confirmed furosemide 20 mg tablet (Lasix) 40 mg PO DAILY 01/16/23 12/31/23 albuterol sulfate 2.5 mg/3 mL 2.5 mg inhalation Q4-5H PRN sob 12/31/23 12/31/23 (0.083 %) solution for nebulization compression socks, x-large 12/31/23 12/31/23 Previous Rx's Medication Instructions Recorded potassium chloride 10 mEq 10 meq PO DAILY #60 tabs 01/14/23 tablet,extended release AUTO TITRATING BIPAP WITH 2 L O2 #1 ea 05/17/23 BLED IN 6-16CM SETTING albuterol sulfate 90 mcg/actuation 2 puff inhalation QID PRN 09/30/23 aerosol inhaler shortness of breath or wheezing #8.5 grams duloxetine 30 mg capsule,delayed 30 mg PO DAILY 30 days #30 caps 11/19/23 release thyroid (pork) 120 mg tablet 120 mg PO DAILY 30 days #30 tabs 11/19/23 ([place] Thyroid) Allergies Allergy/AdvReac Type Severity Reaction Status Date / Time Penicillins Allergy Severe ALGY-Difficulty Verified 12/31/23 14:05 Swallowing Sulfa (Sulfonamide Allergy Severe ALGY-Difficulty Verified 12/31/23 14:05 Antibiotics) Breathing zolpidem [From Ambien] Allergy Severe ALGY-Difficulty Verified 12/31/23 14:05 Swallowing levothyroxine sodium Allergy narcolepsy Verified 12/31/23 14:05 [From Synthroid] Review of Systems 2 Const: Denies: fever(s), chills, body aches, fatigue or malaise Card: Denies: chest pain Resp: Denies: dyspnea GI: Reports: abdominal pain; Denies: nausea, vomiting, diarrhea or change in bowel habits : Reports: flank pain, oliguria and other (dark urine); Denies: difficulty voiding, dysuria, urinary frequency or urinary urgency Musc: Reports: back pain (R flank) and extremity swelling (chronic bilateral LE lymphedema) Skin/Breast: Reports: erythema (abdomen) Neuro: Denies: headache(s) PFSH ED 2 PFSH: Medical History Cellulitis Arthritis of both knees Hypoxia Obesity, morbid, BMI 50 or higher Dyspnea Lymphedema Pulmonary edema Dyspnea Obesity, morbid, BMI 50 or higher Hypoxia COVID-19 Stiffness of joints of both hands Exertional shortness of breath Chronic interstitial lung disease Open wound of left lower extremity Elevated brain natriuretic peptide (BNP) level Myalgia Arthralgia Hyperglycemia Stress incontinence 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 COPD (chronic obstructive pulmonary disease) Mixed hyperlipidemia TONIO (obstructive sleep apnea) Orthopnea SOB (shortness of breath) HTN (hypertension) Hypothyroidism Former smoker (~2014) Tilted uterus History of pneumonia TIA (transient ischemic attack) Lymphedema associated with obesity Magaly's disease Asthma Surgical History History of bronchoscopy Family History Other CAD (coronary artery disease) Congestive heart failure (CHF) Diabetes Former smoker Hypertension Hypothyroidism Social History Smoking and tobacco/nicotine status: never used tobacco/nicotine Quit status (tobacco/nicotine): has quit using Year quit tobacco: 2014 Former quit date comment: 0.5 ppd X 20 years Physical Exam 2 Const: COMMON NORMALS: no acute distress, patient oriented x3, no limitations, alert and well nourished GENERAL APPEARANCE: cooperative NUTRITIONAL APPEARANCE: obese morbidly obese (BMI 63.3) ORIENTATION/CONSCIOUSNESS: Yes awake, Yes oriented to person, Yes oriented to place and Yes oriented to time Neck/C-Spine: COMMON NORMALS: no JVD GENERAL: Yes normal visual inspection Chest: COMMONS NORMALS: normal inspection of the chest Resp: COMMON NORMALS: normal respiratory effort and clear to auscultation bilaterally AUSCULTATION: clear to auscultation bilaterally Cardio: COMMON NORMALS: no JVD, regular rate and regular rhythm RATE: r egular rate RHYTHM: regular rhythm GI: AUSCULTATION: Yes normoactive bowel sounds OTHER: lymphadema noted to her pannus/abdomen with overlying erythema/warmth and skin weeping : BLADDER/KIDNEY EXAM: Yes CVA tenderness on the right Back/Pelvis: COMMON NORMALS: thoracic and lumbar spine normal to inspection and no thoracic nor lumbar tenderness GENERAL BACK: Yes CVA tenderness Extremity: NARRATIVE EXTREMITY EXAM: stage III severe lymphedema to bilateral LEs-these are at baseline per patient with no overlying acute/cellulitic change; all of her skin changes at this time are chronic Neuro: COMMON NORMALS: patient oriented x3 SENSORIUM/ORIENTATION: Yes alert, Yes oriented to person, Yes oriented to place and Yes oriented to time Course 2 ED course: Care transferred to Jerel Morrison PA-C at shift change. All labs/UA currently have not been drawn/collected. ES Vital Signs: Vital signs: Vital Signs Temperature 97.9 F 01/03/24 08:00 Pulse Rate 87 01/03/24 08:00 Respiratory Rate 17 01/03/24 08:00 Blood Pressure 107/70 01/03/24 08:00 Pulse Oximetry 93 01/03/24 08:00 Oxygen Delivery Me thod Nasal Cannula 01/03/24 08:00 Oxygen Flow Rate 2 01/03/24 00:00 Fraction of Inspir ed Oxygen 21 12/31/23 22:18 MDM - Abdominal Pain Lab Data 01/03/24 06:48 01/03/24 06:48 Labs/Radiology: Radiology Impressions Renal Ultrasound 01/02/24 10:48 IMPRESSION: Unremarkable ultrasound of the kidneys. Laboratory Results WBC 19.74 10^3/uL (3.29-11.43) H 01/01/24 02:55 RBC 4.26 10^6/uL (3.85-5.65) 01/01/24 02:55 Hgb 11.60 g/dL (11.27-16.99) 01/01/24 02:55 Hct 38.5 % (36-47) 01/01/24 02:55 MCV 90.4 fl (85-98) 01/01/24 02:55 MCH 27.2 pg (27-33) 01/01/24 02:55 MCHC 30.1 g/dL (30-55) 01/01/24 02:55 RDW 15.9 % (12.1-15.1) H 01/01/24 02:55 Plt Count 269 10^3/cmm (157-399) 01/01/24 02:55 MPV 9.4 fL (7.4-10.4) 01/01/24 02:55 Neut % (Auto) 85.8 % 01/01/24 02:55 Lymph % (Auto) 4.5 % 01/01/24 02:55 Castro % (Auto) 6.4 % 01/01/24 02:55 Eos % (Auto) 0.1 % 01/01/24 02:55 Baso % (Auto) 0.4 % 01/01/24 02:55 Neut # (Auto) 16.94 10^3/uL (1.8-7.7) H 01/01/24 02:55 Lymph # (Auto) 0.9 10^3/uL (0.8-4.8) 01/01/24 02:55 [place] # (Auto) 1.3 10^3/uL (0.2-0.9) H 01/01/24 02:55 Eos # (Auto) 0.0 10^3/uL (0.0-0.8) 01/01/24 02:55 Baso # (Auto) 0.1 10^3/uL (0.0-0.1) 01/01/24 02:55 Nucleated RBC % (auto) 0 % 01/01/24 02:55 Nucleated RBCs # 0.0 /100WBC 01/01/24 02:55 Sodium 135 mmol/L (136-145) L 01/01/24 02:55 Potassium 3.7 mmol/L (3.5-5.1) 01/01/24 02:55 Chloride 97 mmol/L (98-107) L 01/01/24 02:55 Carbon Dioxide 32 mmol/L (22-29) H 01/01/24 02:55 Anion Gap 9.7 (5-19) 01/01/24 02:55 BUN 7 mg/dL (6-20) 01/01/24 02:55 Creatinine 0.5 mg/dL (0.5-0.9) 01/01/24 02:55 GFR Calculation 129.1 mL/min (90-130) 01/01/24 02:55 Glucose 181 mg/dL (65-115) H 01/01/24 02:55 Calculated Osmolality 283 mOsm/kg (285-295) L 01/01/24 02:55 Lactic Acid 1.1 mmol/L (0.5-2.2) 12/31/23 17: Calcium 7.9 mg/dL (8.5-10.5) L 01/01/24 02:55 Phosphorus 3.8 mg/dL (2.5-4.5) 01/01/24 02:55 Magnesium 2.0 mg/dL (1.7-2.3) 01/01/24 02:55 Total Bilirubin 0.8 mg/dL (0.15-1.2) 12/31/23 17:26 AST 15 U/L (0-32) 12/31/23 17:26 ALT 20 U/L (0-33) 12/31/23 17:26 Alkaline Phosphatase 128 U/L (35-105) H 12/31/23 17:26 C-Reactive Protein 223.7 mg/L (0.0-4.9) H 12/31/23 17:26 Total Protein 6.5 g/dL (6.6-8.7) L 12/31/23 17:26 Albumin 2.9 g/dL (3.5-5.2) L 12/31/23 17:26 Globulin 3.6 g/dL (1.3-4.6) 12/31/23 17:26 Lipase 13 U/L (13-60) 12/31/23 17:26 Procalcitonin 0.40 ng/mL (0-0.5) 12/31/23 17:26 Urine Color Dark yellow (Yellow) A 12/31/23 18:46 Urine Appearance Cloudy (CLEAR) A 12/31/23 18:46 Urine pH 6.0 (5-7) 12/31/23 18:46 Ur Specific [place] 1.021 (1.005-1.030) 12/31/23 18:46 Urine Protein 1+ (Negative) A 12/31/23 18:46 Urine Glucose (UA) Negative (Normal) 12/31/23 18:46 Urine Ketones Trace (Negative) 12/31/23 18:46 Urine Blood Negative (Negative) 12/31/23 18:46 Urine Nitrate Negative (Negative) 12/31/23 18:46 Urine Bilirubin Negative (Negative) 12/31/23 18:46 Urine Urobilinogen 2.0 mg/dL (Negative) H 12/31/23 18:46 Ur Leukocyte Esterase Trace (Negative) A 12/31/23 18:46 Urine RBC 0-2 /hpf (0-2) 12/31/23 18:46 Urine WBC 0-5 /hpf (0-5) 12/31/23 18:46 Ur Squamous Epith Cells 6-10 /hpf (0-5) 12/31/23 18:46 Amorphous Sediment Not Reportable 12/31/23 18:46 Urine Bacteria Trace /hpf (NONE) 12/31/23 18:46 Hyaline Casts 9.07 /lpf 12/31/23 18:46 Urine Mucus 1+ /hpf 12/31/23 18:46 Nasal MRSA (PCR) Mrsa detected (Not Detecte) A 12/31/23 21:48 Discharge Plan Discharge Patient Disposition: Placed in Observation Admit Provider: James Zhou Clinical Impression: Cellulitis Qualifiers: Site of cellulitis: trunk Site of cellulitis of trunk: abdominal wall Qualified Code(s): L03.311 - Cellulitis of abdominal wall Sign Out Sign Out Data: Patient Sign Out occurred on 12/31/23 at 17:07. Patient's care was discussed, and care was transferred from DAWOOD Humphreys to DAWOOD Carter. Coding Level of Care Code ED [facility] for [facility] Fwd Documented by User: DAWODO Carter 12/31/23 22:22 HPI - Abdominal Pain 2 General: Chief Complaint: Abdominal Pain Stated Complaint: Fall - Stomach blisters and pain Time Seen by Provider: 12/31/23 15:08 Related Data Home Medications Medication Instructions Recorded Confirmed furosemide 20 mg tablet (Lasix) 40 mg PO DAILY 01/16/23 12/31/23 albuterol sulfate 2.5 mg/3 mL 2.5 mg inhalation Q4-5H PRN sob 12/31/23 12/31/23 (0.083 %) solution for nebulization compression socks, x-large 12/31/23 12/31/23 Previous Rx's Medication Instructions Recorded potassium chloride 10 mEq 10 meq PO DAILY #60 tabs 01/14/23 tablet,extended release AUTO TITRATING BIPAP WITH 2 L O2 #1 ea 05/17/23 BLED IN 6-16CM SETTING albuterol sulfate 90 mcg/actuation 2 puff inhalation QID PRN 09/30/23 aerosol inhaler shortness of breath or wheezing #8.5 grams duloxetine 30 mg capsule,delayed 30 mg PO DAILY 30 days #30 caps 11/19/23 release thyroid (pork) 120 mg tablet 120 mg PO DAILY 30 days #30 tabs 11/19/23 ([place] Thyroid) Allergies Allergy/AdvReac Type Severity Reaction Status Date / Time Penicillins Allergy Severe ALGY-Difficulty Verified 12/31/23 14:05 Swallowing Sulfa (Sulfonamide Allergy Severe ALGY-Difficulty Verified 12/31/23 14:05 Antibiotics) Breathing zolpidem [From Ambien] Allergy Severe ALGY-Difficulty Verified 12/31/23 14:05 Swallowing levothyroxine sodium Allergy narcolepsy Verified 12/31/23 14:05 [From Synthroid] [facility] ED 2 PFSH: Medical History Cellulitis Arthritis of both knees Hypoxia Obesity, morbid, BMI 50 or higher Dyspnea Lymphedema Pulmonary edema Dyspnea Obesity, morbid, BMI 50 or higher Hypoxia COVID-19 Stiffness of joints of both hands Exertional shortness of breath Chronic interstitial lung disease Open wound of left lower extremity Elevated brain natriuretic peptide (BNP) level Myalgia Arthralgia Hyperglycemia Stress incontinence 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 COPD (chronic obstructive pulmonary disease) Mixed hyperlipidemia TONIO (obstructive sleep apnea) Orthopnea SOB (shortness of breath) HTN (hypertension) Hypothyroidism Former smoker (~2014) Tilted uterus History of pneumonia TIA (transient ischemic attack) Lymphedema associated with obesity Magaly's disease Asthma Surgical History History of bronchoscopy Family History Other CAD (coronary artery disease) Congestive heart failure (CHF) Diabetes Former smoker Hypertension Hypothyroidism Social History Smoking and tobacco/nicotine status: never used tobacco/nicotine Quit status (tobacco/nicotine): has quit using Year quit tobacco: 2014 Former quit date comment: 0.5 ppd X 20 years Course 2 Vital Signs: Vital signs: Vital Signs Temperature 97.9 F 01/03/24 08:00 Pulse Rate 87 01/03/24 08:00 Respiratory Rate 17 01/03/24 08:00 Blood Pressure 107/70 01/03/24 08:00 Pulse Oximetry 93 01/03/24 08:00 Oxygen Delivery Wi thod Nasal Cannula 01/03/24 08:00 Oxygen Flow Rate 2 01/03/24 00:00 Fraction of Inspir ed Oxygen 21 12/31/23 22:18 MDM - Abdominal Pain Medical Decision Making Care of patient transferred to [place] by mid shift provider. Patient presented with complaints of potential infection to her pannus, and has multiple comorbidities. Also was reporting some flank pain and dark urine. Her urine did not show any signs of blood or infection. However her white count elevated to 17, CRP elevated at 223, however normal lactic. Discussed with the patient, she is requesting she come in for IV antibiotics. She was started on IV clinda here in the emergency department as well as fluids, Dr. Zhou kindly agrees to accept the patient for observation for overnight antibiotics. Patient informed of this plan and all other questions and concerns addressed. Dr. Bonilla putting in admit orders at this time. Lab Data 01/03/24 06:48 01/03/24 06:48 Labs/Radiology: Radiology Impressions Renal Ultrasound 01/02/24 10:48 IMPRESSION: Unremarkable ultrasound of the kidneys. Laboratory Results WBC 19.74 10^3/uL (3.29-11.43) H 01/01/24 02:55 RBC 4.26 10^6/uL (3.85-5.65) 01/01/24 02:55 Hgb 11.60 g/dL (11.27-16.99) 01/01/24 02:55 Hct 38.5 % (36-47) 01/01/24 02:55 MCV 90.4 fl (85-98) 01/01/24 02:55 MCH 27.2 pg (27-33) 01/01/24 02:55 MCHC 30.1 g/dL (30-55) 01/01/24 02:55 RDW 15.9 % (12.1-15.1) H 01/01/24 02:55 Plt Count 269 10^3/cmm (157-399) 01/01/24 02:55 MPV 9.4 fL (7.4-10.4) 01/01/24 02:55 Neut % (Auto) 85.8 % 01/01/24 02:55 Lymph % (Auto) 4.5 % 01/01/24 02:55 Castro % (Auto) 6.4 % 01/01/24 02:55 Eos % (Auto) 0.1 % 01/01/24 02:55 Baso % (Auto) 0.4 % 01/01/24 02:55 Neut # (Auto) 16.94 10^3/uL (1.8-7.7) H 01/01/24 02:55 Lymph # (Auto) 0.9 10^3/uL (0.8-4.8) 01/01/24 02:55 [place] # (Auto) 1.3 10^3/uL (0.2-0.9) H 01/01/24 02:55 Eos # (Auto) 0.0 10^3/uL (0.0-0.8) 01/01/24 02:55 Baso # (Auto) 0.1 10^3/uL (0.0-0.1) 01/01/24 02:55 Nucleated RBC % (auto) 0 % 01/01/24 02:55 Nucleated RBCs # 0.0 /100WBC 01/01/24 02:55 Sodium 135 mmol/L (136-145) L 01/01/24 02:55 Potassium 3.7 mmol/L (3.5-5.1) 01/01/24 02:55 Chloride 97 mmol/L (98-107) L 01/01/24 02:55 Carbon Dioxide 32 mmol/L (22-29) H 01/01/24 02:55 Anion Gap 9.7 (5-19) 01/01/24 02:55 BUN 7 mg/dL (6-20) 01/01/24 02:55 Creatinine 0.5 mg/dL (0.5-0.9) 01/01/24 02:55 GFR Calculation 129.1 mL/min (90-130) 01/01/24 02:55 Glucose 181 mg/dL (65-115) H 01/01/24 02:55 Calculated Osmolality 283 mOsm/kg (285-295) L 01/01/24 02:55 Lactic Acid 1.1 mmol/L (0.5-2.2) 12/31/23 17: Calcium 7.9 mg/dL (8.5-10.5) L 01/01/24 02:55 Phosphorus 3.8 mg/dL (2.5-4.5) 01/01/24 02:55 Magnesium 2.0 mg/dL (1.7-2.3) 01/01/24 02:55 Total Bilirubin 0.8 mg/dL (0.15-1.2) 12/31/23 17:26 AST 15 U/L (0-32) 12/31/23 17:26 ALT 20 U/L (0-33) 12/31/23 17:26 Alkaline Phosphatase 128 U/L (35-105) H 12/31/23 17:26 C-Reactive Protein 223.7 mg/L (0.0-4.9) H 12/31/23 17:26 Total Protein 6.5 g/dL (6.6-8.7) L 12/31/23 17:26 Albumin 2.9 g/dL (3.5-5.2) L 12/31/23 17:26 Globulin 3.6 g/dL (1.3-4.6) 12/31/23 17: Lipase 13 U/L (13-60) 12/31/23 17: Procalcitonin 0.40 ng/mL (0-0.5) 12/31/23 17:26 Urine Color Dark yellow (Yellow) A 12/31/23 18:46 Urine Appearance Cloudy (CLEAR) A 12/31/23 18:46 Urine pH 6.0 (5-7) 12/31/23 18:46 Ur Specific [place] 1.021 (1.005-1.030) 12/31/23 18:46 Urine Protein 1+ (Negative) A 12/31/23 18:46 Urine Glucose (UA) Negative (Normal) 12/31/23 18:46 Urine Ketones Trace (Negative) 12/31/23 18:46 Urine Blood Negative (Negative) 12/31/23 18:46 Urine Nitrate Negative (Negative) 12/31/23 18:46 Urine Bilirubin Negative (Negative) 12/31/23 18:46 Urine Urobilinogen 2.0 mg/dL (Negative) H 12/31/23 18:46 Ur Leukocyte Esterase Trace (Negative) A 12/31/23 18:46 Urine RBC 0-2 /hpf (0-2) 12/31/23 18:46 Urine WBC 0-5 /hpf (0-5) 12/31/23 18:46 Ur Squamous Epith Cells 6-10 /hpf (0-5) 12/31/23 18:46 Amorphous Sediment Not Reportable 12/31/23 18:46 Urine Bacteria Trace /hpf (NONE) 12/31/23 18:46 Hyaline Casts 9.07 /lpf 12/31/23 18:46 Urine Mucus 1+ /hpf 12/31/23 18:46 Nasal MRSA (PCR) Mrsa detected (Not Detecte) A 12/31/23 21:48 No radiology studies performed this visit Discharge Plan Discharge Patient Disposition: Placed in Observation Admit Provider: James Zhou Clinical Impression: Cellulitis Qualifiers: Site of cellulitis: trunk Site of cellulitis of trunk: abdominal wall Qualified Code(s): L03.311 - Cellulitis of abdominal wall Sign Out Sign Out Data: Patient Sign Out occurred on 12/31/23 at 17:07. Patient's care was discussed, and care was transferred from DAWOOD Humphreys to DAWOOD Carter. Coding Level of Care Code ED [facility] for Rogelio Guerrier
[2023-12-31] MEDS: morphine 4 mg/mL SDV 1 mL IVP ×2 (16:40→23:16)
[2023-12-31] MEDS: ondansetron 2 mg/ML SDV 2 mL 4 MG IVP (16:40)
[2023-12-31 17:36] LABS: Basophils # 0.1 10^3/uL (0.0-0.1); Basophils % 0.5 %; Eosinophils % 0.2 %; Hematocrit 40.8 % (36-47); Lymphocytes # 0.9 10^3/uL (0.8-4.8); Mean Corpuscular HGB Conc 30.9 g/dL (30-55); Mean Corpuscular Hemoglobin 27.6 pg (27-33); Mean Corpuscular Volume 89.5 fl (85-98); Mean Platelet Volume 8.8 fL (7.4-10.4); Monocytes # 1.3 10^3/uL (0.2-0.9); Monocytes % 7.1 %; Neutrophils # 14.79 10^3/uL (1.8-7.7); Neutrophils % 83.9 %; Nucleated Red Blood Cells % 0 %; Platelet Count 292 10^3/cmm (157-399); Red Blood Count 4.56 10^6/uL (3.85-5.65); White Blood Count 17.64 10^3/uL (3.29-11.43)
[2023-12-31 17:55] LABS: Lactic Sepsis W/Reflex 1.1 mmol/L (0.5-2.2)
[2023-12-31 17:58] LABS: Alanine Aminotransferase 20 U/L (0-33); Albumin Level 2.9 g/dL (3.5-5.2); Alkaline Phosphatase 128 U/L (35-105); Anion Gap 11.7 (5-19); Aspartate Amino Transferase 15 U/L (0-32); Blood Urea Nitrogen 8 mg/dL (6-20); C Reactive Protein 223.7 mg/L (0.0-4.9); Calcium 8.1 mg/dL (8.5-10.5); Carbon Dioxide 33 mmol/L (22-29); Chloride 96 mmol/L (98-107); Creatinine Clr Calc Pharmacy 199.8737; Globulin 3.6 g/dL (1.3-4.6); Glomerular Filtration Rate 129.1 mL/min (90-130); Glucose 138 mg/dL (65-115); Lipase 13 U/L (13-60); Osmolality Calculated 285 mOsm/kg (285-295); Potassium 3.7 mmol/L (3.5-5.1); Sodium 137 mmol/L (136-145); Total Bilirubin 0.8 mg/dL (0.15-1.2); Total Protein 6.5 g/dL (6.6-8.7)
[2023-12-31] MEDS: sodium chloride 0.9% 1,000 ML 999 ML IV (19:02)
[2023-12-31] MEDS: clindamycin 600 MG/50 ML PREMIX 100 MG IV (19:02)
[2023-12-31 19:29] LABS: Bilirubin Urine Negative (Negative); Blood Urine Negative (Negative); Glucose Urine UA Negative (Normal); Ketones Urine Trace (Negative); Leukocyte Esterase Urine Trace (Negative); Nitrate Urine Negative (Negative); Protein Urine 1+ (Negative); Specific Gravity, Urine 1.021 (1.005-1.030); Urine Appearance Cloudy (CLEAR); Urine Color Dark Yellow (Yellow)
[2023-12-31 19:33] LABS: Add Urine Microscopic? YES; Bacteria Urine Trace /hpf; Hyaline Casts Urine 9.07 /lpf; RBC Urine 0-2 /hpf (0-2); Universal Test for UA Present (0); WBC Urine 0-5 /hpf (0-5)
[2023-12-31 19:46] LABS: Add Urine Culture? No; Mucus Urine 1+ /hpf
--- NOTE | 2023-12-31 20:09 | P.HP_ITS ---
Providers/Chief Complaint 2 Primary Care Provider: Iris Zhou NP Chief Complaint: Fall - Stomach blisters and pain History of Present Illness Alina Pascual is a very pleasant 53 year old female with a past medical history significant for lymphedema, chronic interstitial lung disease, COPD, obstructive sleep apnea, hypertension, hypothyroidism, and multiple other comorbidities who presents to the emergency department with diffuse abdominal and back pain. Patient endorses associated symptoms of erythema, warmth, swelling and pain to abdominal pannus area. She reports symptom onset about 2 days ago. She describes the pain is severe rating initially 7 out of 10. She received morphine prior to my evaluation which she reports improved the pain. She denies fevers but endorses associated chills. The pain has limited her mobility somewhat. In the emergency department, patient was found to be tachycardic. Labs revealed leukocytosis with elevated CRP. Patient started on clindamycin. Review of Systems 2 Narrative: A complete review of systems was obtained and is negative except as stated in HPI. Medications/Allergies Home Medications Medication Instructions Recorded Confirmed Last Taken Type cetirizine 10 mg capsule (Zyrtec) 10 mg PO DAILY PRN cough 09/22/22 11/19/23 01/16/23 History tiotropium bromide 18 mcg capsule 1 cap inhalation DAILY #60 09/22/22 11/19/23 01/16/23 Rx with inhalation device (Spiriva inhalations with HandiHaler) compression socks, x-large #2 ea 12/25/22 11/19/23 Unknown Rx potassium chloride 10 mEq 10 meq PO DAILY #60 tabs 01/14/23 11/19/23 01/16/23 Rx tablet,extended release furosemide 20 mg tablet (Lasix) 40 mg PO DAILY 01/16/23 11/19/23 01/16/23 History AUTO TITRATING BIPAP WITH 2 L O2 #1 ea 05/17/23 11/19/23 Unknown Rx BLED IN 6-16CM SETTING albuterol sulfate 2.5 mg/3 mL 2.5 mg (3 mL) inhalation Q4H #180 09/30/23 11/19/23 Unknown Rx (0.083 %) solution for nebulization mL albuterol sulfate 90 mcg/actuation 2 puff inhalation QID PRN 09/30/23 11/19/23 Unknown Rx aerosol inhaler shortness of breath or wheezing #8.5 grams fluticasone 500 mcg-salmeterol 50 1 inh inhalation BID #60 ea 09/30/23 11/19/23 Unknown Rx mcg/dose blistr powdr for inhalation (Advair Diskus) hydrocodone 7.5 mg-ibuprofen 200 1 tab PO TID PRN pain 7 days #21 10/01/23 11/19/23 Unknown Rx mg tablet tabs duloxetine 30 mg capsule,delayed 30 mg PO DAILY 30 days #30 caps 11/19/23 11/19/23 Unknown Rx release thyroid (pork) 120 mg tablet 120 mg PO DAILY 30 days #30 tabs 11/19/23 11/19/23 Unknown Rx ([place] Thyroid) Allergies Allergy/AdvReac Type Severity Reaction Status Date / Time Penicillins Allergy Severe ALGY-Difficulty Verified 12/31/23 14:05 Swallowing Sulfa (Sulfonamide Allergy Severe ALGY-Difficulty Verified 12/31/23 14:05 Antibiotics) Breathing zolpidem [From Ambien] Allergy Severe ALGY-Difficulty Verified 12/31/23 14:05 Swallowing levothyroxine sodium Allergy narcolepsy Verified 12/31/23 14:05 [From Synthroid] PFSH Acute 2 PFSH: Medical History Cellulitis Arthritis of both knees Hypoxia Obesity, morbid, BMI 50 or higher Dyspnea Lymphedema Pulmonary edema Dyspnea Obesity, morbid, BMI 50 or higher Hypoxia COVID-19 Stiffness of joints of both hands Exertional shortness of breath Chronic interstitial lung disease Open wound of left lower extremity Elevated brain natriuretic peptide (BNP) level Myalgia Arthralgia Hyperglycemia Stress incontinence 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 COPD (chronic obstructive pulmonary disease) Mixed hyperlipidemia TONIO (obstructive sleep apnea) Orthopnea SOB (shortness of breath) HTN (hypertension) Hypothyroidism Former smoker (~2014) Tilted uterus History of pneumonia TIA (transient ischemic attack) Lymphedema associated with obesity Magaly's disease Asthma Surgical History History of bronchoscopy Family History Other CAD (coronary artery disease) Congestive heart failure (CHF) Diabetes Former smoker Hypertension Hypothyroidism Social History Smoking and tobacco/nicotine status: never used tobacco/nicotine Quit status (tobacco/nicotine): has quit using Year quit tobacco: 2014 Former quit date comment: 0.5 ppd X 20 years Vitals/I&O/Wt Last Vital Signs Temp 98.4 F 12/31/23 13:56 Pulse 111 H 12/31/23 18:00 Resp 17 12/31/23 16:44 BP 109/66 12/31/23 18:00 Pulse Ox 94 12/31/23 18:00 O2 Del Method Nasal Cannula 12/31/23 18:00 O2 Flow Rate 2 12/31/23 18:00 Weight last 48 hrs Weight 164.654 kg Physical Exam 2 Narrative: General: Patient is awake and alert. Appears fatigued but pleasant. Conversational. Head: Normocephalic. Atraumatic. EOM intact. Neck: No JVD. Cardiovascular: Regular rhythm. No gallops. No murmurs. Tachycardic. Chronic lymphedema bilateral lower extremities. Lungs: Breath sounds slightly diminished bilateral bases, no use of accessory muscles, no crackles or wheezes. On nasal cannula support. Skin: No jaundice. There is marked erythema of lower abdomen associated with multiple small ulcerations, erythema, swelling, warmth, and tenderness to palpation. Abdomen: Normal bowel sounds, abdomen soft. Tender to palpation due to severe cellulitis. Genito Urinary: Genital exam not performed since complaints not related. Rectal: Rectal exam not performed since no symptoms indicated blood loss. Extremities: No cyanosis or clubbing. Musculoskeletal: No erythematous joints. Neurological: Moves all 4 extremities. No myoclonus. Data 12/31/23 17:26 12/31/23 17:26 A&P Assessment and plan (1) Sepsis: Sepsis with source of abdominal wall cellulitis SIRS: Tachycardic, leukocytosis Blood cultures x 2 Lactic acid reviewed Status post 1 L IV fluid bolus in ED, hold off on further IV fluids due to severe lymphedema in lower extremities Continuous telemetry monitoring Strict I's and O's Daily weights Continue broad-spectrum antibiotics with IV clindamycin Screen for MRSA with nasal MRSA screen Request nursing to mile cellulitis lines to monitor progression and response to treatment (2) Abdominal wall cellulitis: Severe abdominal wall cellulitis Management as noted above (3) Recurrent severe major depressive disorder with anxiety: Continue home Cymbalta (4) Chronic interstitial lung disease: Chronic lung disease with chronic hypoxic respiratory failure Continue with formulary alternatives of home medications (5) Lymphedema: Chronic lymphedema bilateral lower extremities Continue home Lasix and potassium supplements Plan DVT prophylaxis: Lovenox CODE STATUS: Full code Attestations 2 Medical Necessity Statement*: The patient presents with severe abdominal pain, found to have sepsis secondary to severe cellulitis of abdominal wall with expected hospitalization not to cross 2 midnights for IV antibiotics and supportive care. Coding Level of Care Code Acute Code for [facility] Fwd Diagnoses Sepsis A41.9 Abdominal wall cellulitis L03.311 Recurrent severe major depressive disorder with anxiety F33.2; F41.9 Chronic interstitial lung disease J84.9 Lymphedema I89.0
[2023-12-31] MEDS: ipratropium-albuterol 3 mL Neb INHALATION (21:25)
[2023-12-31] MEDS: duloxetine 30 mg Capsule PO (23:16)
[2023-12-31] MEDS: enoxaparin 40 mg/0.4 mL Syringe SUBCUT (23:16)
[2023-12-31 23:40] LABS: MRSA PCR OZH (swab) MRSA Detected (Not Detecte)
[2024-01-01] VITALS (18 sets, daily range): BP systolic 112–164; BP diastolic 58–90; PULSE 96–117; RESP 16–21; TEMP 36.6–38.3; O2SAT 91–97
[2024-01-01] MEDS: ipratropium-albuterol 3 mL Neb INHALATION ×5 (01:00→19:38)
[2024-01-01] MEDS: clindamycin 900 MG/50 ML PREMIX 100 MG IV ×3 (02:56→18:17)
[2024-01-01 03:55] LABS: Basophils # 0.1 10^3/uL (0.0-0.1); Basophils % 0.4 %; Eosinophils % 0.1 %; Hematocrit 38.5 % (36-47); Lymphocytes # 0.9 10^3/uL (0.8-4.8); Lymphocytes % 4.5 %; Mean Corpuscular HGB Conc 30.1 g/dL (30-55); Mean Corpuscular Hemoglobin 27.2 pg (27-33); Mean Corpuscular Volume 90.4 fl (85-98); Mean Platelet Volume 9.4 fL (7.4-10.4); Monocytes # 1.3 10^3/uL (0.2-0.9); Monocytes % 6.4 %; Neutrophils # 16.94 10^3/uL (1.8-7.7); Neutrophils % 85.8 %; Nucleated Red Blood Cells % 0 %; Platelet Count 269 10^3/cmm (157-399); Red Blood Count 4.26 10^6/uL (3.85-5.65); Red Cell Distribution Width 15.9 % (12.1-15.1); White Blood Count 19.74 10^3/uL (3.29-11.43)
[2024-01-01 04:19] LABS: Anion Gap 9.7 (5-19); Blood Urea Nitrogen 7 mg/dL (6-20); Calcium 7.9 mg/dL (8.5-10.5); Carbon Dioxide 32 mmol/L (22-29); Chloride 97 mmol/L (98-107); Glomerular Filtration Rate 129.1 mL/min (90-130); Glucose 181 mg/dL (65-115); Osmolality Calculated 283 mOsm/kg (285-295); Phosphorus 3.8 mg/dL (2.5-4.5); Potassium 3.7 mmol/L (3.5-5.1); Sodium 135 mmol/L (136-145)
[2024-01-01] MEDS: potassium chloride ER 10 mEq Tablet PO (09:28)
[2024-01-01] MEDS: FUROsemide 20 mg Tablet 40 MG PO (09:28)
[2024-01-01] MEDS: thyroid 60 mg Tablet 120 MG PO (09:28)
[2024-01-01] MEDS: enoxaparin 40 mg/0.4 mL Syringe SUBCUT ×2 (09:29→22:05)
[2024-01-01] MEDS: HYDROcodone-acetaminophen 10-325 mg Tablet 1 TAB PO ×2 (09:49→22:04)
[2024-01-01] MEDS: budesonide 0.5 mg/2 mL Neb INHALATION ×2 (10:13→19:38)
[2024-01-01] MEDS: gabapentin 100 mg Capsule PO ×2 (12:07→23:43)
[2024-01-01] MEDS: acyclovir 800 mg Tablet PO ×3 (15:21→22:04)
--- NOTE | 2024-01-01 17:06 | P.PN_ITS ---
Subjective 2 Subjective: - Patient was seen this morning -She reports that vesicular lesions on h er pannus that had ruptured and scaled over before she fell approximately a few days before it happened -She tells me that a few days ago, she h ad fell forward, onto the carpet, she tells me that it was a dirty carpet, and she developed erythema, swelling over her pannus -Since then she has felt vesicular lesio ns, that have ruptured, and at times have scaled over -Did not has a history of shingles but d oes report severe burning and pain over that location Vitals/I&O/Wt Last Vital Signs Temp 97.8 F 01/01/24 11:31 Pulse 100 01/01/24 16:00 Resp 17 01/01/24 16:00 BP 114/90 01/01/24 16:00 Pulse Ox 97 01/01/24 16:00 O2 Del Method Nasal Cannula 01/01/24 16:00 O2 Flow Rate 2 01/01/24 16:00 FiO2 21 12/31/23 22:18 01/01/24 01/01/24 01/01/24 06:59 14:59 22:59 Intake Total 1050 / 1100 530 / 530 Balance 1050 / 1100 530 / 530 Weight last 48 hrs Weight 170.641 kg Weight 170.641 kg Weight 164.654 kg Weight 164.654 kg Physical Exam 2 Const: COMMON NORMALS: no acute distress and patient oriented x3 Resp: COMMON NORMALS: normal respiratory effort, No retractions, No use of accessory muscles and clear to auscultation bilaterally AUSCULTATION: clear to auscultation bilaterally Cardio: COMMON NORMALS: regular rate, regular rhythm, S1 normal heart sound present and S2 normal heart sound present RATE: regular rate RHYTHM: r egular rhythm HEART SOUNDS: S1 normal heart sound present and S2 normal heart sound present GI: COMMON NORMALS: Normal to inspection, nondistended, normoactive bowel sounds present OTHER: On examination, pannus, dermatomal distribution has vesicular lesions, some have scaled over, with surrounding significant erythema, swelling, tenderness to palpation, with a burning sensation reported Extremity: COMMON NORMALS: no pedal edema Neuro: COMMON NORMALS: patient oriented x3 Psych: COMMON NORMALS: mental status grossly normal Data 01/01/24 02:55 01/01/24 02:55 Micro: Microbiology 12/31/23 20:52 Blood Culture - Preliminary Blood SPECIMEN COLLECTED 12/31/23 17:26 Blood Culture - Preliminary Blood SPECIMEN COLLECTED A&P Assessment and plan (1) Sepsis: Sepsis with source of abdominal wall cellulitis, shingles SIRS: Tachycardic, leukocytosis Blood cultures x 2 Lactic acid reviewed Status post 1 L IV fluid bolus in ED, hold off on further IV fluids due to severe lymphedema in lower extremities Continuous telemetry monitoring Strict I's and O's Daily weights Continue broad-spectrum antibiotics with IV clindamycin Screen for MRSA with nasal MRSA screen Request nursing to mile cellulitis lines to monitor progression and response to treatment (2) Abdominal wall cellulitis: Severe abdominal wall cellulitis Management as noted above (3) Recurrent severe major depressive disorder with anxiety: Continue home Cymbalta (4) Chronic interstitial lung disease: Chronic lung disease with chronic hypoxic respiratory failure Continue with formulary alternatives of home medications (5) Lymphedema: Chronic lymphedema bilateral lower extremities Continue home Lasix and potassium supplements (6) Shingles rash: - Appears to be shingles outbreak in a dermatomal fashion across pannus -Will order VZV test -Start acyclovir -Continue IV antibiotics for secondary bacterial infection -Monitor daily -Isolation precautions -Start gabapentin for neuropathic pain Plan DVT prophylaxis: Lovenox CODE STATUS: Full code Attestations 2 Medical Necessity Statement*: Patient requires hospitalization for cellulitis of pannus, shingles Diagnoses Sepsis A41.9 Abdominal wall cellulitis L03.311 Recurrent severe major depressive disorder with anxiety F33.2; F41.9 Chronic interstitial lung disease J84.9 Lymphedema I89.0 Shingles rash B02.9
[2024-01-01] MEDS: duloxetine 30 mg Capsule PO (22:05)
[2024-01-01] MEDS: morphine 4 mg/mL SDV 1 mL IVP (23:43)
[2024-01-02] VITALS (14 sets, daily range): BP systolic 108–137; BP diastolic 53–84; PULSE 67–102; RESP 14–18; TEMP 36.4–37.4; O2SAT 91–97
[2024-01-02] MEDS: ipratropium-albuterol 3 mL Neb INHALATION ×5 (00:33→20:58)
[2024-01-02] MEDS: clindamycin 900 MG/50 ML PREMIX 100 MG IV (02:31)
[2024-01-02 04:15] LABS: Basophils # 0.1 10^3/uL (0.0-0.1); Basophils % 0.3 %; Eosinophils # 0.1 10^3/uL (0.0-0.8); Eosinophils % 0.3 %; Hematocrit 37.1 % (36-47); Lymphocytes # 1.1 10^3/uL (0.8-4.8); Lymphocytes % 4.5 %; Mean Corpuscular HGB Conc 29.6 g/dL (30-55); Mean Corpuscular Hemoglobin 26.6 pg (27-33); Mean Corpuscular Volume 89.6 fl (85-98); Mean Platelet Volume 9.1 fL (7.4-10.4); Monocytes # 1.6 10^3/uL (0.2-0.9); Monocytes % 6.6 %; Neutrophils # 20.97 10^3/uL (1.8-7.7); Neutrophils % 85.9 %; Nucleated Red Blood Cells % 0 %; Platelet Count 289 10^3/cmm (157-399); Red Blood Count 4.14 10^6/uL (3.85-5.65); Red Cell Distribution Width 15.9 % (12.1-15.1)
[2024-01-02 04:37] LABS: Alanine Aminotransferase 14 U/L (0-33); Albumin Level 2.4 g/dL (3.5-5.2); Alkaline Phosphatase 165 U/L (35-105); Anion Gap 10.9 (5-19); Aspartate Amino Transferase 13 U/L (0-32); Blood Urea Nitrogen 7 mg/dL (6-20); Calcium 7.6 mg/dL (8.5-10.5); Carbon Dioxide 31 mmol/L (22-29); Chloride 93 mmol/L (98-107); Creatinine Clr Calc Pharmacy 255.9913; Globulin 3.8 g/dL (1.3-4.6); Glucose 131 mg/dL (65-115); Osmolality Calculated 272 mOsm/kg (285-295); Potassium 3.9 mmol/L (3.5-5.1); Sodium 131 mmol/L (136-145); Total Bilirubin 0.9 mg/dL (0.15-1.2); Total Protein 6.2 g/dL (6.6-8.7)
[2024-01-02] MEDS: HYDROcodone-acetaminophen 10-325 mg Tablet 1 TAB PO ×2 (06:36→17:38)
[2024-01-02] MEDS: acyclovir 800 mg Tablet PO ×5 (06:36→23:01)
[2024-01-02] MEDS: budesonide 0.5 mg/2 mL Neb INHALATION ×2 (07:49→20:58)
[2024-01-02] MEDS: enoxaparin 40 mg/0.4 mL Syringe SUBCUT ×2 (09:32→21:42)
[2024-01-02] MEDS: thyroid 60 mg Tablet 120 MG PO (09:33)
[2024-01-02] MEDS: potassium chloride ER 10 mEq Tablet PO (09:34)
[2024-01-02] MEDS: sennosides-docusate Tablet 2 TAB PO ×2 (09:34→17:36)
[2024-01-02] MEDS: FUROsemide 20 mg Tablet 40 MG PO (09:34)
[2024-01-02] MEDS: linezolid premix 600 MG/300 ML PREMIX 300 MG IV ×2 (09:46→22:59)
[2024-01-02] MEDS: aztreonam 1,000 MG in sodium chloride 0.9% (plus) 50 ML 100 MG IV ×2 (09:47→21:44)
--- NOTE | 2024-01-02 10:48 | USR_ITS ---
PROCEDURE INFORMATION: Exam: US Retroperitoneal, Complete, Kidneys and Bladder Exam date and time: 01/02/2024 2:04 PM Age: 53 years old Clinical indication: Abdominal pain; Flank; Right; Additional info: Flank pain, will scan when patient is done eating. CR TECHNIQUE: Imaging protocol: Real-time ultrasound of the retroperitoneum with image documentation. Complete exam focused on the bilateral kidneys and urinary bladder. COMPARISON: CT angio chest PE protcl [id number] 09/27/2023 11:47 PM FINDINGS: Right kidney: Right kidney measures 13.1 cm in length. No evident stones. No hydronephrosis. Left kidney: Left kidney measures 11.6 cm in length. No evident stones. No hydronephrosis. Urinary bladder: Suboptimal visualization of the bladder. US/US renal BI* [id number] IMPRESSION: Unremarkable ultrasound of the kidneys.
[2024-01-02] MEDS: sodium chloride 0.9% 1,000 ML 50 ML IV (11:22)
[2024-01-02] MEDS: gabapentin 100 mg Capsule PO (12:05)
[2024-01-02 12:13] LABS: Bilirubin Urine Negative (Negative); Blood Urine Negative (Negative); Glucose Urine UA Negative (Normal); Ketones Urine Negative (Negative); Leukocyte Esterase Urine Negative (Negative); Nitrate Urine Negative (Negative); Protein Urine Negative (Negative); Specific Gravity, Urine 1.011 (1.005-1.030); Urine Appearance Clear (CLEAR); Urine Color Yellow (Yellow)
[2024-01-02 12:28] LABS: Add Urine Microscopic? YES; Bacteria Urine 1+ /hpf; RBC Urine 0-4 /hpf (0-2); Squamous Epithelial Cell Urine 15-25 /hpf (0-5); UA Manual Slide Review YES
--- NOTE | 2024-01-02 16:42 | P.PN_ITS ---
Subjective 2 Subjective: Patient was seen this morning, she reports that she had right-sided flank pain this morning, with complaints of dysuria, no fevers, no chills, cough, but she continues to have pain and tenderness over her area of cellulitis and shingles rash over her pannus, Vitals/I&O/Wt Last Vital Signs Temp 98.2 F 01/02/24 07:38 Pulse 95 01/02/24 16:00 Resp 18 01/02/24 16:00 BP 137/82 01/02/24 07:38 Pulse Ox 91 01/02/24 16:00 O2 Del Method Room Air 01/02/24 16:00 O2 Flow Rate 2 01/02/24 00:36 FiO2 21 12/31/23 22:18 01/02/24 01/02/24 01/02/24 06:59 14:59 22:59 Intake Total 770 / 1710 950 / 950 Output Total 900 / 900 790 / 790 Balance -130 / 810 160 / 160 Weight last 48 hrs Weight 173.924 kg Weight 170.641 kg Weight 170.641 kg Weight 164.654 kg Physical Exam 2 Const: COMMON NORMALS: no acute distress and patient oriented x3 Resp: COMMON NORMALS: normal respiratory effort, No retractions, No use of accessory muscles and clear to auscultation bilaterally AUSCULTATION: clear to auscultation bilaterally Cardio: COMMON NORMALS: regular rate, regular rhythm, S1 normal heart sound present and S2 normal heart sound present RATE: regular rate RHYTHM: r egular rhythm HEART SOUNDS: S1 normal heart sound present and S2 normal heart sound present GI: COMMON NORMALS: Normal to inspection, nondistended, normoactive bowel sounds present Extremity: COMMON NORMALS: no pedal edema Neuro: COMMON NORMALS: patient oriented x3 Psych: COMMON NORMALS: mental status grossly normal Skin: NARRATIVE SKIN EXAM: Pannus, erythema, within marked border, vesicular lesions, most of them have ruptured, and are scaled over Data 01/02/24 03:30 01/02/24 03:30 Micro: Microbiology 12/31/23 20:52 Blood Culture - Preliminary Blood NEGATIVE TO DATE 12/31/23 17:26 Blood Culture - Preliminary Blood NEGATIVE TO DATE A&P Assessment and plan (1) Sepsis: Sepsis with source of abdominal wall cellulitis, shingles SIRS: Tachycardic, leukocytosis Blood cultures x 2 Lactic acid reviewed Status post 1 L IV fluid bolus in ED, hold off on further IV fluids due to severe lymphedema in lower extremities Continuous telemetry monitoring Strict I's and O's Daily weights Given that her white blood cell count has increased on clindamycin she has not appropriate responded, I am going to broaden antibiotic coverage to Zyvox, aztreonam Screen for MRSA with nasal MRSA screen Request nursing to mile cellulitis lines to monitor progression and response to treatment (2) Abdominal wall cellulitis: Severe abdominal wall cellulitis Management as noted above (3) Recurrent severe major depressive disorder with anxiety: Continue home Cymbalta (4) Chronic interstitial lung disease: Chronic lung disease with chronic hypoxic respiratory failure Continue with formulary alternatives of home medications (5) Lymphedema: Chronic lymphedema bilateral lower extremities Continue home Lasix and potassium supplements (6) Shingles rash: - Appears to be shingles outbreak in a dermatomal fashion across pannus -Will order VZV test -acyclovir -Continue IV antibiotics for secondary bacterial infection -Monitor daily -Isolation precautions -Start gabapentin for neuropathic pain Plan DVT prophylaxis: Lovenox CODE STATUS: Full code Right flank pain, obtain UA, renal ultrasound Attestations 2 Medical Necessity Statement*: Patient requires hospitalization for cellulitis of her pannus, shingles outbreak, has not responded to cellulitis increasing white count to 24,000, continue pain, tenderness over the location we will broaden antibiotic coverage, right-sided flank pain will rule out UTI order UA, renal ultrasound Diagnoses Sepsis A41.9 Abdominal wall cellulitis L03.311 Recurrent severe major depressive disorder with anxiety F33.2; F41.9 Chronic interstitial lung disease J84.9 Lymphedema I89.0 Shingles rash B02.9
[2024-01-02] MEDS: morphine 4 mg/mL SDV 1 mL IVP (21:30)
[2024-01-02] MEDS: duloxetine 30 mg Capsule PO (21:31)
[2024-01-03] VITALS (15 sets, daily range): BP systolic 107–121; BP diastolic 66–74; PULSE 81–102; RESP 17–20; TEMP 36.6–37.3; O2SAT 93–97
[2024-01-03] MEDS: HYDROcodone-acetaminophen 10-325 mg Tablet 1 TAB PO ×3 (00:39→21:38)
[2024-01-03] MEDS: gabapentin 100 mg Capsule PO ×3 (00:39→23:42)
[2024-01-03] MEDS: acyclovir 800 mg Tablet PO ×5 (05:11→21:32)
[2024-01-03 07:01] LABS: Basophils # 0.1 10^3/uL (0.0-0.1); Basophils % 0.3 %; Eosinophils # 0.2 10^3/uL (0.0-0.8); Eosinophils % 0.9 %; Hematocrit 35.7 % (36-47); Lymphocytes # 0.9 10^3/uL (0.8-4.8); Lymphocytes % 4.3 %; Mean Corpuscular HGB Conc 29.4 g/dL (30-55); Mean Corpuscular Hemoglobin 26.6 pg (27-33); Mean Corpuscular Volume 90.6 fl (85-98); Mean Platelet Volume 8.8 fL (7.4-10.4); Monocytes # 1.5 10^3/uL (0.2-0.9); Monocytes % 7.4 %; Neutrophils # 17.62 10^3/uL (1.8-7.7); Neutrophils % 85.5 %; Nucleated Red Blood Cells % 0 %; Platelet Count 294 10^3/cmm (157-399); Red Blood Count 3.94 10^6/uL (3.85-5.65); Red Cell Distribution Width 15.7 % (12.1-15.1); White Blood Count 20.62 10^3/uL (3.29-11.43)
[2024-01-03 07:24] LABS: Alanine Aminotransferase 12 U/L (0-33); Albumin Level 2.2 g/dL (3.5-5.2); Alkaline Phosphatase 103 U/L (35-105); Anion Gap 9.9 (5-19); Aspartate Amino Transferase 10 U/L (0-32); Blood Urea Nitrogen 5 mg/dL (6-20); C Reactive Protein 242.3 mg/L (0.0-4.9); Calcium 7.6 mg/dL (8.5-10.5); Carbon Dioxide 32 mmol/L (22-29); Chloride 92 mmol/L (98-107); Creatinine Clr Calc Pharmacy 345.7943; Globulin 4.1 g/dL (1.3-4.6); Glomerular Filtration Rate 232.7 mL/min (90-130); Glucose 115 mg/dL (65-115); Osmolality Calculated 268 mOsm/kg (285-295); Potassium 3.9 mmol/L (3.5-5.1); Sodium 130 mmol/L (136-145); Total Bilirubin 0.5 mg/dL (0.15-1.2); Total Protein 6.3 g/dL (6.6-8.7)
[2024-01-03] MEDS: sodium chloride 0.9% 1,000 ML 50 ML IV (08:34)
[2024-01-03] MEDS: ipratropium-albuterol 3 mL Neb INHALATION ×3 (08:45→20:31)
[2024-01-03] MEDS: budesonide 0.5 mg/2 mL Neb INHALATION ×2 (08:45→20:31)
[2024-01-03] MEDS: aztreonam 1,000 MG in sodium chloride 0.9% (plus) 50 ML 100 MG IV ×2 (10:33→20:45)
[2024-01-03] MEDS: FUROsemide 20 mg Tablet 40 MG PO (10:33)
[2024-01-03] MEDS: potassium chloride ER 10 mEq Tablet PO (10:33)
[2024-01-03] MEDS: thyroid 60 mg Tablet 120 MG PO (10:34)
[2024-01-03] MEDS: sennosides-docusate Tablet 2 TAB PO ×2 (10:34→17:53)
[2024-01-03] MEDS: enoxaparin 40 mg/0.4 mL Syringe SUBCUT ×2 (10:58→21:32)
[2024-01-03] MEDS: linezolid premix 600 MG/300 ML PREMIX 300 MG IV ×2 (11:57→21:32)
--- NOTE | 2024-01-03 12:41 | CT_ITS ---
WS: [id number] CT ABDOMEN AND PELVIS WITH CONTRAST HISTORY: cellultis pannus, riht flank pain TECHNIQUE: Imaging performed of the abdomen and pelvis with IV contrast. Single phase imaging of the abdomen. Coronal and sagittal reformats are submitted. All CT scans at [facility] use at [address] one of these dose optimization techniques: automated exposure control; mA and/or kV adjustment per patient size (includes targeted exams where dose is matched to clinical indication); or iterative re construction. IV CONTRAST: Omnipaque 350; 100 mL IV. Oral contrast: Yes. DLP: 2577.59 mGy.cm COMPARISON: None available. Lower thorax: Lung bases are clear. Heart is normal size. No hiatal hernia. Liver/biliary system: Moderate hepatic enlargement. No mass. No duct dilatation. Gallbladder: Status post cholecystectomy. Pancreas: Normal size pancreas and pancreatic duct. No adjacent inflammation. Spleen: Normal size spleen. No mass or infarct. Adrenal glands: Normal. Right kidney: Normal. Left kidney: Normal. Aorta: Normal. Lymphadenopathy: There is small central mesenteric lymph nodes but no adenopathy. Free fluid: None. GI tract: No obstruction. No colitis. Normal appendix. Moderate diverticular disease in the sigmoid c olon. No free air identified. Abdominal wall: Marked soft tissue infiltration bilaterally throughout the abdominal wall extending i nto the pelvis. There is no fluid collection which is localized to no contained air. This is consiste nt with diffuse cellulitis of the pannus. There are a few foci of air which are probably related to s ubcutaneous injection sites. Ventral wall hernia contains fat only. Pelvis: No free fluid or adenopathy within the pelvis. Bones: Unremarkable. CT/CT abdomen pelvis w con* [id number] IMPRESSION: 1. Diffuse cellulitis throughout the pannus extending abdomen and pelvis. No f ocal fluid collection. No abscess. 2. Sigmoid diverticulosis without acute diverticulitis. 3. Normal appendix. 4. No renal obstruction. 5. Prior cholecystectomy. 6. Hepatomegaly.
--- NOTE | 2024-01-03 15:39 | P.PN_ITS ---
Subjective 2 Subjective: Patient was seen this morning, she does complain of right flank pain, pain in her pannus, she says that the area of erythema is spreading, no fevers, no chills, no cough, no diarrhea, she also reports that her urine looks a bit darker Vitals/I&O/Wt Last Vital Signs Temp 98.1 F 01/03/24 11:57 Pulse 90 01/03/24 15:37 Resp 18 01/03/24 15:30 BP 109/70 01/03/24 11:57 Pulse Ox 93 01/03/24 15:30 O2 Del Method Nasal Cannula 01/03/24 15:30 O2 Flow Rate 2 01/03/24 15:30 FiO2 21 12/31/23 22:18 01/03/24 01/03/24 01/03/24 06:59 14:59 22:59 Intake Total 1632 / 3422 1355.833 / 1355.833 Output Total 800 / 2190 650 / 650 Balance 832 / 1232 705.833 / 705.833 Weight last 48 hrs Weight 173.907 kg Weight 173.924 kg Physical Exam 2 Const: COMMON NORMALS: no acute distress and patient oriented x3 Resp: COMMON NORMALS: normal respiratory effort, No retractions, No use of accessory muscles and clear to auscultation bilaterally AUSCULTATION: clear to auscultation bilaterally Cardio: COMMON NORMALS: regular rate, regular rhythm, S1 normal heart sound present and S2 normal heart sound present RATE: regular rate RHYTHM: r egular rhythm HEART SOUNDS: S1 normal heart sound present and S2 normal heart sound present GI: COMMON NORMALS: Normal to inspection, nondistended, normoactive bowel sounds present, non-tender and no masses Extremity: COMMON NORMALS: no pedal edema Neuro: COMMON NORMALS: patient oriented x3 Psych: COMMON NORMALS: mental status grossly normal Skin: NARRATIVE SKIN EXAM: Cellulitis, diffuse throughout the pannus, now extending to bilateral flanks, areas marked, although the area around the pannus has improved ? Area of shingles around the pannus dermatomal fashion has crusted over Data 01/03/24 06:48 01/03/24 06:48 A&P Assessment and plan (1) Sepsis: Sepsis with source of abdominal wall cellulitis, shingles SIRS: Tachycardic, leukocytosis Blood cultures x 2, so far negative Developing hyponatremia serum sodium 130 continue normal saline at 50 cc an hour Continuous telemetry monitoring Strict I's and O's Daily weights Given that her white blood cell count has increased on clindamycin she has not appropriate responded, antibiotic therapy was broadened broaden antibiotic coverage to Zyvox, aztreonam Screen for MRSA with nasal MRSA screen Request nursing to mile cellulitis lines to monitor progression and response to treatment (2) Abdominal wall cellulitis: Severe abdominal wall cellulitis Management as noted above (3) Recurrent severe major depressive disorder with anxiety: Continue home Cymbalta (4) Chronic interstitial lung disease: Chronic lung disease with chronic hypoxic respiratory failure Continue with formulary alternatives of home medications (5) Lymphedema: Chronic lymphedema bilateral lower extremities Continue home Lasix and potassium supplements (6) Shingles rash: - Appears to be shingles outbreak in a dermatomal fashion across pannus -Will order VZV test -acyclovir -Continue IV antibiotics for secondary bacterial infection -Monitor daily -Isolation precautions -Start gabapentin for neuropathic pain Plan Hyponatremia serum sodium 130, monitor DVT prophylaxis: Lovenox CODE STATUS: Full code Plan for today continue IV antibiotics, monitor clinically, continue IV fluids due to hyponatremia, CT scan abdomen pelvis, repeat BMP this afternoon monitor for hyponatremia Attestations 2 Medical Necessity Statement*: Patient requires hospitalization of cellulitis of abdominal wall, pannus, flank Diagnoses Sepsis A41.9 Abdominal wall cellulitis L03.311 Recurrent severe major depressive disorder with anxiety F33.2; F41.9 Chronic interstitial lung disease J84.9 Lymphedema I89.0 Shingles rash B02.9
[2024-01-03] MEDS: acetaminophen 325 mg Tablet 650 MG PO (16:55)
[2024-01-03 20:25] LABS: Blood Urea Nitrogen 6 mg/dL (6-20); Calcium 7.7 mg/dL (8.5-10.5); Carbon Dioxide 33 mmol/L (22-29); Chloride 94 mmol/L (98-107); Creatinine Clr Calc Pharmacy 259.3457; Glucose 142 mg/dL (65-115); Osmolality Calculated 278 mOsm/kg (285-295); Sodium 134 mmol/L (136-145)
[2024-01-03] MEDS: duloxetine 30 mg Capsule PO (20:45)
[2024-01-04] VITALS (14 sets, daily range): BP systolic 112–139; BP diastolic 64–89; PULSE 81–96; RESP 16–20; TEMP 36.7–36.9; O2SAT 91–98
[2024-01-04 00:48] LABS: Bacillus cereus group Not Detected (NOT DETECT); Bacillus subtillis group Not Detected (NOT DETECT); Corynebacterium Not Detected (NOT DETECT); Cutibacterium acnes (P.acnes) Not Detected (NOT DETECT); Enterococcus Not Detected (NOT DETECT); Enterococcus faecalis Not Detected (NOT DETECT); Enterococcus faecium Not Detected (NOT DETECT); Lactobacillus species Not Detected (NOT DETECT); Listeria Not Detected (NOT DETECT); Listeria monocytogenes Not Detected (NOT DETECT); Micrococcus Not Detected (NOT DETECT); Pan Candida Not Detected (NOT DETECT); Pan Gram-Negative Not Detected (NOT DETECT); Staphylococcus epidermidis Not Detected (NOT DETECT); Staphylococcus lugdunensis Not Detected (NOT DETECT); Staphylococcus species Not Detected (NOT DETECT); Streptococcus agalactiae Not Detected (NOT DETECT); Streptococcus anginosus group Not Detected (NOT DETECT); Streptococcus pneumoniae Not Detected (NOT DETECT); Streptococcus pyogenes Not Detected (NOT DETECT); Streptococcus species Not Detected (NOT DETECT)
[2024-01-04] MEDS: acyclovir 800 mg Tablet PO ×5 (05:27→21:55)
[2024-01-04 05:45] LABS: Basophils % 0.3 %; Eosinophils # 0.2 10^3/uL (0.0-0.8); Eosinophils % 1.4 %; Hematocrit 36.3 % (36-47); Lymphocytes # 0.8 10^3/uL (0.8-4.8); Lymphocytes % 6.1 %; Mean Corpuscular HGB Conc 29.2 g/dL (30-55); Mean Corpuscular Hemoglobin 26.6 pg (27-33); Mean Platelet Volume 9.1 fL (7.4-10.4); Monocytes # 1.1 10^3/uL (0.2-0.9); Monocytes % 8.3 %; Neutrophils # 10.94 10^3/uL (1.8-7.7); Neutrophils % 82.3 %; Nucleated Red Blood Cells % 0 %; Platelet Count 341 10^3/cmm (157-399); Red Blood Count 3.99 10^6/uL (3.85-5.65); Red Cell Distribution Width 15.8 % (12.1-15.1)
[2024-01-04 06:09] LABS: Alanine Aminotransferase 13 U/L (0-33); Albumin Level 2.4 g/dL (3.5-5.2); Alkaline Phosphatase 105 U/L (35-105); Blood Urea Nitrogen 5 mg/dL (6-20); Calcium 7.6 mg/dL (8.5-10.5); Carbon Dioxide 35 mmol/L (22-29); Chloride 95 mmol/L (98-107); Creatinine Clr Calc Pharmacy 259.5789; Globulin 4.2 g/dL (1.3-4.6); Glucose 98 mg/dL (65-115); Osmolality Calculated 279 mOsm/kg (285-295); Sodium 136 mmol/L (136-145); Total Bilirubin 0.3 mg/dL (0.15-1.2); Total Protein 6.6 g/dL (6.6-8.7)
[2024-01-04 06:12] LABS: C Reactive Protein 170.8 mg/L (0.0-4.9)
[2024-01-04 06:13] LABS: Anion Gap 10.3 (5-19); Aspartate Amino Transferase 14 U/L (0-32); Potassium 4.3 mmol/L (3.5-5.1)
[2024-01-04] MEDS: ipratropium-albuterol 3 mL Neb INHALATION ×4 (08:26→20:29)
[2024-01-04] MEDS: budesonide 0.5 mg/2 mL Neb INHALATION ×2 (08:26→20:29)
[2024-01-04] MEDS: FUROsemide 20 mg Tablet 40 MG PO (09:15)
[2024-01-04] MEDS: sennosides-docusate Tablet 2 TAB PO (09:16)
[2024-01-04] MEDS: potassium chloride ER 10 mEq Tablet PO (09:16)
[2024-01-04] MEDS: aztreonam 1,000 MG in sodium chloride 0.9% (plus) 50 ML 100 MG IV ×2 (09:17→20:51)
[2024-01-04] MEDS: thyroid 60 mg Tablet 120 MG PO (09:17)
--- NOTE | 2024-01-04 09:34 | PC.CHAP ---
Pastoral Care Encounter/Spiritual Assessment Type of Contact [] Declined county extension agent visit [] Patient/Family/Request visit [] Outpatient visit [] Follow-up visit [] Physician referral [] Code/Alert [] Routine visit [] Staff referral [] Actively dying [] Patient sleeping [] Family support [] [] Out of room [] Palliative care [] [] Receiving care in room [] Pre-surgical visit [] Trauma [] Long length of stay [] ICU visit [x] Other:Contact precautions. No visit. Relational/Emotional Strength [] Patient feels connected with others/family/visitors/staff [] Distress [] Loneliness/isolation [] Abandonment Spirituality of Patient [] Person of Luly [] Attends Gnosticist of their Luly [] Believes in Prayer [] Reads Bible or Jainism materials [] There are Spiritual issues to be addressed Manager Books Interventions [] Prayer [] Active listening [] Non-anxious presence [] Spiritual/emotional support [] Crisis/trauma care [] Spiritual counseling [] Bereavement support [] Provided bereavement packet [] Provided Bible/devotional materials [] Provided toy/stuffed animal, coloring book to patient or family member [] Provided Communion [] Anointing/[place] [] Salvation [] Completed spiritual assessment [] Other: Impact on Illness or Injury [] Angry [] Fearful [] Anxious [] Often cries [] Exhaustion [] Unable to work [] Unable to attend oriental orthodox [] Unable to walk/stand [] Unable to read [] Unable to drive [] Unable to eat/drink [] Unable to sleep [] Unable to be with family [] Patient intubated [] Other: Summary Time spent with patient
[2024-01-04] MEDS: enoxaparin 40 mg/0.4 mL Syringe SUBCUT ×2 (09:58→21:55)
[2024-01-04] MEDS: linezolid premix 600 MG/300 ML PREMIX 300 MG IV ×2 (09:59→21:56)
[2024-01-04] MEDS: gabapentin 100 mg Capsule PO ×2 (12:02→23:48)
--- NOTE | 2024-01-04 16:12 | P.PN_ITS ---
Subjective 2 Subjective: Patient was seen this morning, she is alert awake, following all commands, she tells me that the cellulitis is more dense on her flanks, but around her pannus it has improved but continues to persist, around her flanks she reports more warmth, erythema, no nausea, no vomiting, no fevers, no chills, we discussed 1 out of 4 blood cultures were positive for gram-positive bacilli, I think it is likely contamination but will continue to monitor continue IV antibiotics, she is agreement, repeat blood cultures ordered Vitals/I&O/Wt Last Vital Signs Temp 98.2 F 01/04/24 15:49 Pulse 90 01/04/24 15:49 Resp 20 H 01/04/24 15:49 BP 112/72 01/04/24 15:49 Pulse Ox 91 01/04/24 15:49 O2 Del Method Nasal Cannula 01/04/24 15:49 O2 Flow Rate 2 01/04/24 15:40 FiO2 21 12/31/23 22:18 01/04/24 01/04/24 01/04/24 06:59 14:59 22:59 Intake Total 1619.167 / 3870.000 1430 / 1430 Output Total 400 / 2000 500 / 500 Balance 1219.167 / 8294.514 7433 / 1430 -500 / 930 Weight last 48 hrs Weight 174.134 kg Weight 173.907 kg Physical Exam 2 Const: COMMON NORMALS: no acute distress and patient oriented x3 Resp: COMMON NORMALS: normal respiratory effort, No retractions, No use of accessory muscles and clear to auscultation bilaterally AUSCULTATION: clear to auscultation bilaterally Cardio: COMMON NORMALS: regular rate, regular rhythm, S1 normal heart sound present and S2 normal heart sound present RATE: regular rate RHYTHM: r egular rhythm HEART SOUNDS: S1 normal heart sound present and S2 normal heart sound present GI: COMMON NORMALS: Normal to inspection, nondistended, normoactive bowel sounds present and non-tender Extremity: COMMON NORMALS: no pedal edema Neuro: COMMON NORMALS: patient oriented x3 Psych: COMMON NORMALS: mental status grossly normal Skin: NARRATIVE SKIN EXAM: Area of erythema, around pannus, bilateral flanks, persist, but improved around the pannus area, some warmth around bilateral flanks, His pannus, area of vesicular lesions have crusted over Data 01/04/24 05:24 01/04/24 05:24 Micro: Microbiology 01/04/24 10:38 Blood Culture - Preliminary Blood SPECIMEN COLLECTED 01/04/24 10:32 Blood Culture - Preliminary Blood SPECIMEN COLLECTED 12/31/23 20:52 Blood Culture - Preliminary Blood A&P Assessment and plan (1) Sepsis: Sepsis with source of abdominal wall cellulitis, shingles CT scan shows CT/CT abdomen pelvis w con* [id number] IMPRESSION: 1. Diffuse cellulitis throughout the pannus extending abdomen and pelvis. No focal fluid collection. No abscess. 2. Sigmoid diverticulosis without acute diverticulitis. 3. Normal appendix. 4. No renal obstruction. 5. Prior cholecystectomy. 6. Hepatomegaly. SIRS: Tachycardic, leukocytosis Continuous telemetry monitoring Strict I's and O's Daily weights Given that her white blood cell count has increased on clindamycin she has not appropriate responded, antibiotic therapy was broadened broaden antibiotic coverage to Zyvox, aztreonam Screen for MRSA with nasal MRSA screen Request nursing to mile cellulitis lines to monitor progression and response to treatment (2) Abdominal wall cellulitis: Severe abdominal wall cellulitis Management as noted above (3) Recurrent severe major depressive disorder with anxiety: Continue home Cymbalta (4) Chronic interstitial lung disease: Chronic lung disease with chronic hypoxic respiratory failure Continue with formulary alternatives of home medications (5) Lymphedema: Chronic lymphedema bilateral lower extremities Continue home Lasix and potassium supplements (6) Shingles rash: - Appears to be shingles outbreak in a dermatomal fashion across pannus -acyclovir -Continue IV antibiotics for secondary bacterial infection -Monitor daily -Isolation precautions -Start gabapentin for neuropathic pain (7) Gram-positive bacteremia: ? 1 out of 4 blood cultures positive for gram-positive bacilli ? Likely contamination ? Repeat blood cultures ordered ? Will follow clinical status Plan Hyponatremia serum sodium 130, monitor DVT prophylaxis: Lovenox CODE STATUS: Full code Plan for today continue IV antibiotics, monitor clinically, continue IV fluids due to hyponatremia, CT scan abdomen pelvis, repeat BMP this afternoon monitor for hyponatremia Attestations 2 Medical Necessity Statement*: Patient requires hospitalization for pannus cellulitis, bilateral flank cellulitis, with shingles Diagnoses Sepsis A41.9 Abdominal wall cellulitis L03.311 Recurrent severe major depressive disorder with anxiety F33.2; F41.9 Chronic interstitial lung disease J84.9 Lymphedema I89.0 Shingles rash B02.9 Gram-positive bacteremia R78.81
[2024-01-04] MEDS: HYDROcodone-acetaminophen 10-325 mg Tablet 1 TAB PO ×2 (17:00→21:55)
[2024-01-04] MEDS: duloxetine 30 mg Capsule PO (20:51)
[2024-01-05] VITALS (9 sets, daily range): BP systolic 118–148; BP diastolic 68–89; PULSE 83–94; RESP 16–20; TEMP 36.4–37.2; O2SAT 90–97
[2024-01-05] MEDS: morphine 4 mg/mL SDV 1 mL IVP (00:40)
[2024-01-05] MEDS: acyclovir 800 mg Tablet PO ×2 (05:42→09:31)
[2024-01-05] MEDS: HYDROcodone-acetaminophen 10-325 mg Tablet 1 TAB PO (05:42)
[2024-01-05 06:39] LABS: Basophils # 0.1 10^3/uL (0.0-0.1); Basophils % 0.6 %; Eosinophils # 0.2 10^3/uL (0.0-0.8); Eosinophils % 1.7 %; Hematocrit 35.8 % (36-47); Lymphocytes # 0.9 10^3/uL (0.8-4.8); Lymphocytes % 10.4 %; Mean Corpuscular HGB Conc 29.3 g/dL (30-55); Mean Corpuscular Hemoglobin 26.9 pg (27-33); Mean Corpuscular Volume 91.8 fl (85-98); Mean Platelet Volume 8.9 fL (7.4-10.4); Monocytes # 0.9 10^3/uL (0.2-0.9); Monocytes % 9.8 %; Neutrophils % 75.4 %; Nucleated Red Blood Cells % 0 %; Platelet Count 314 10^3/cmm (157-399); Red Cell Distribution Width 16.2 % (12.1-15.1); White Blood Count 8.75 10^3/uL (3.29-11.43)
[2024-01-05 07:01] LABS: Anion Gap 7.9 (5-19); Blood Urea Nitrogen 5 mg/dL (6-20); Calcium 7.6 mg/dL (8.5-10.5); Carbon Dioxide 36 mmol/L (22-29); Chloride 94 mmol/L (98-107); Creatinine Clr Calc Pharmacy 345.9189; Glomerular Filtration Rate 232.7 mL/min (90-130); Glucose 109 mg/dL (65-115); Osmolality Calculated 276 mOsm/kg (285-295); Potassium 3.9 mmol/L (3.5-5.1); Sodium 134 mmol/L (136-145)
[2024-01-05] MEDS: aztreonam 1,000 MG in sodium chloride 0.9% (plus) 50 ML 100 MG IV (08:00)
[2024-01-05] MEDS: FUROsemide 20 mg Tablet 40 MG PO (08:03)
[2024-01-05] MEDS: sennosides-docusate Tablet 2 TAB PO (08:04)
[2024-01-05] MEDS: potassium chloride ER 10 mEq Tablet PO (08:04)
[2024-01-05] MEDS: thyroid 60 mg Tablet 120 MG PO (08:05)
[2024-01-05] MEDS: ipratropium-albuterol 3 mL Neb INHALATION ×2 (08:44→11:36)
[2024-01-05] MEDS: budesonide 0.5 mg/2 mL Neb INHALATION (08:44)
[2024-01-05] MEDS: linezolid premix 600 MG/300 ML PREMIX 300 MG IV (09:31)
[2024-01-05] MEDS: enoxaparin 40 mg/0.4 mL Syringe SUBCUT (09:37)
[2024-01-05] MEDS: gabapentin 100 mg Capsule PO (12:44)
--- NOTE | 2024-01-05 12:48 | P.DS_ITS ---
Discharge Providers Date of Admission: 01/01/24 17:42 Date of Discharge: January 05, 2024 Attending Provider at Admission: James Zhou MD Attending Provider at Discharge: Felice Goldberg MD Primary Care Provider: Iris Zhou NP Diagnoses at Discharge Discharge Diagnosis (1) Sepsis: Status: Acute (2) Abdominal wall cellulitis: Status: Acute (3) Recurrent severe major depressive disorder with anxiety: Status: Acute (4) Chronic interstitial lung disease: Status: Acute (5) Lymphedema: Status: Acute (6) Shingles rash: Status: Acute (7) Gram-positive bacteremia: Status: Acute Reason for Visit Reason for Visit: Fall - Stomach blisters and pain Hospital Course Hospital Course This is a 53-year-old female, who presents [facility] for her lymphedema, chronic interstitial lung disease, COPD, obstructive sleep apnea, hypertension, hypothyroidism, who presents to [facility] for cellulitis Patient was admitted to [facility] for cellulitis, with management of IV clindamycin, due to persistence of rash despite IV antibiotic therapy, increasing leukocytosis, increasing CRP, and spreading of rash, her antibiotic coverage was broadened to Zyvox and aztreonam. She responded well to broad- spectrum antibiotic therapy, leukocytosis improved remained afebrile area of cellulitis has significantly improved. Will discharge patient on 7 remaining days of Zyvox and Flagyl, with close follow-up with primary care provider as outpatient Patient has shingles-like rash in her pannus region, dermatomal fashion, vesicular lesions, with areas that have crusted over, she was also managed for a shingles rash. She received p.o. acyclovir, gabapentin for herpetic neuralgia, hydrocodone for pain. Overall she is clinically proved most lesions have crusted over, will discharge her on acyclovir, gabapentin, hydrocodone to be used sparingly for pain. For hydrocodone, do not drive or operate machinery or drink while taking medication. Patient was advised: - For your shingles rash, please keep area covered, clean and dry ? Please avoid children under the age of 11 years old, children are not vaccinated, or nursing females ? Take antibiotics as prescribed Follow-up with primary care provider Concerns for gram-positive bacteremia ? 1 out of 4 blood cultures positive for gram-positive bacilli, likely contamination ? Repeat blood cultures remain no growth so far ? She is clinically improving ? Advised patient if she has any systemic symptoms, fevers, chills please come back to the hospital Physical Exam Const: COMMON NORMALS: no acute distress and patient oriented x3 Resp: COMMON NORMALS: normal respiratory effort, No retractions, No use of accessory muscles and clear to auscultation bilaterally AUSCULTATION: clear to auscultation bilaterally Cardio: COMMON NORMALS: regular rate, regular rhythm, S1 normal heart sound present and S2 normal heart sound present RATE: regular rate RHYTHM: regular rhythm HEART SOUNDS: S1 normal heart sound present and S2 normal heart sound present GI: COMMON NORMALS: Normal to inspection, nondistended, normoactive bowel sounds present and non-tender Extremity: COMMON NORMALS: no pedal edema Neuro: COMMON NORMALS: patient oriented x3 Psych: COMMON NORMALS: mental status grossly normal Skin: NARRATIVE SKIN EXAM: Bilateral flanks, significantly Area of cellulitis, throughout pannus, bilateral flanks, has regressed from marked borders, no significant warmth, or tenderness, no palpable abscess Discharge Data Studies Completed and Pending Completed Studies During Hospitalization Category Date Time Status CT abdomen pelvis w con* [id number] Stat Cat Scan 01/03/24 12:41 Completed US renal BI* [id number] Routine Ultrasound 01/02/24 10:48 Completed Pending at discharge Category Date Time Status Basic Metabolic Panel AM LABS Lab 01/06/24 04:00 Ordered Basic Metabolic Panel AM LABS Lab 01/07/24 04:00 Ordered Blood Culture Stat Lab 12/31/23 20:52 Results Blood Culture Stat Lab 01/04/24 10:38 Results C Reactive Protein AM LABS Lab 01/06/24 04:00 Ordered Complete Blood Count w/Auto AM LABS Lab 01/06/24 04:00 Ordered Complete Blood Count w/Auto AM LABS Lab 01/07/24 04:00 Ordered Varicella Zoster IGG&IGM Stat Lab 01/01/24 02:55 Received Radiology Impressions Renal Ultrasound 01/02/24 10:48 IMPRESSION: Unremarkable ultrasound of the kidneys. Abdomen/Pelvis CT 01/03/24 12:41 IMPRESSION: 1. Diffuse cellulitis throughout the pannus extending abdomen and pelvis. No focal fluid collection. No abscess. 2. Sigmoid diverticulosis without acute diverticulitis. 3. Normal appendix. 4. No renal obstruction. 5. Prior cholecystectomy. 6. Hepatomegaly. Laboratory Results WBC 8.75 10^3/uL (3.29-11.43) 01/05/24 06:14 Corrected WBC Cancelled 01/03/24 04:24 RBC 3.90 10^6/uL (3.85-5.65) 01/05/24 06:14 Hgb 10.50 g/dL (11.27-16.99) L 01/05/24 06:14 Hct 35.8 % (36-47) L 01/05/24 06:14 MCV 91.8 fl (85-98) 01/05/24 06:14 MCH 26.9 pg (27-33) L 01/05/24 06:14 MCHC 29.3 g/dL (30-55) L 01/05/24 06:14 RDW 16.2 % (12.1-15.1) H 01/05/24 06:14 Plt Count 314 10^3/cmm (157-399) 01/05/24 06:14 MPV 8.9 fL (7.4-10.4) 01/05/24 06:14 Gran % Cancelled 01/03/24 04:24 Neut % (Auto) 75.4 % 01/05/24 06:14 Lymph % (Auto) 10.4 % 01/05/24 06:14 [place] % (Auto) 9.8 % 01/05/24 06:14 Eos % (Auto) 1.7 % 01/05/24 06:14 Baso % (Auto) 0.6 % 01/05/24 06:14 Neut # (Auto) 6.60 10^3/uL (1.8-7.7) 01/05/24 06:14 Lymph # (Auto) 0.9 10^3/uL (0.8-4.8) 01/05/24 06:14 [place] # (Auto) 0.9 10^3/uL (0.2-0.9) 01/05/24 06:14 Eos # (Auto) 0.2 10^3/uL (0.0-0.8) 01/05/24 06:14 Baso # (Auto) 0.1 10^3/uL (0.0-0.1) 01/05/24 06:14 Absolute Gran (auto) Cancelled 01/03/24 04:24 Nucleated RBC % (auto) 0 % 01/05/24 06:14 Nucleated RBCs # 0.0 /100WBC 01/05/24 06:14 Sodium 134 mmol/L (136-145) L 01/05/24 06:14 Potassium 3.9 mmol/L (3.5-5.1) 01/05/24 06:14 Chloride 94 mmol/L (98-107) L 01/05/24 06:14 Carbon Dioxide 36 mmol/L (22-29) H 01/05/24 06:14 Anion Gap 7.9 (5-19) 01/05/24 06:14 BUN 5 mg/dL (6-20) L 01/05/24 06:14 Creatinine 0.3 mg/dL (0.5-0.9) L 01/05/24 06:14 GFR Calculation 232.7 mL/min (90-130) H 01/05/24 06:14 Glucose 109 mg/dL (65-115) 01/05/24 06:14 Calculated Osmolality 276 mOsm/kg (285-295) L 01/05/24 06:14 Lactic Acid 1.1 mmol/L (0.5-2.2) 12/31/23 17:26 Calcium 7.6 mg/dL (8.5-10.5) L 01/05/24 06:14 Phosphorus 3.8 mg/dL (2.5-4.5) 01/01/24 02:55 Magnesium 2.0 mg/dL (1.7-2.3) 01/01/24 02:55 Total Bilirubin 0.3 mg/dL (0.15-1.2) 01/04/24 05:24 AST 14 U/L (0-32) 01/04/24 05:24 ALT 13 U/L (0-33) 01/04/24 05:24 Alkaline Phosphatase 105 U/L (35-105) 01/04/24 05:24 C-Reactive Protein 117.0 mg/L (0.0-4.9) H 01/05/24 06:14 Total Protein 6.6 g/dL (6.6-8.7) 01/04/24 05:24 Albumin 2.4 g/dL (3.5-5.2) L 01/04/24 05:24 Globulin 4.2 g/dL (1.3-4.6) 01/04/24 05:24 Lipase 13 U/L (13-60) 12/31/23 17: Procalcitonin 0.40 ng/mL (0-0.5) 12/31/23 17:26 Urine Color Yellow (Yellow) 01/02/24 12:00 Urine Appearance Clear (CLEAR) 01/02/24 12:00 Urine pH 6.0 (5-7) 01/02/24 12:00 Ur Specific [place] 1.011 (1.005-1.030) 01/02/24 12:00 Urine Protein Negative (Negative) 01/02/24 12:00 Urine Glucose (UA) Negative (Normal) 01/02/24 12:00 Urine Ketones Negative (Negative) 01/02/24 12:00 Urine Blood Negative (Negative) 01/02/24 12:00 Urine Nitrate Negative (Negative) 01/02/24 12:00 Urine Bilirubin Negative (Negative) 01/02/24 12:00 Urine Urobilinogen 2.0 mg/dL (Negative) H 01/02/24 12:00 Ur Leukocyte Esterase Negative (Negative) 01/02/24 12:00 Urine RBC 0-4 /hpf (0-2) H 01/02/24 12:00 Urine WBC 5-10 /hpf (0-5) H 01/02/24 12:00 Ur Squamous Epith Cells 15-25 /hpf (0-5) H 01/02/24 12:00 Amorphous Sediment Not Reportable 01/02/24 12:00 Urine Bacteria 1+ /hpf (NONE) H 01/02/24 12:00 Hyaline Casts 9.07 /lpf 12/31/23 18:46 Urine Mucus 1+ /hpf 12/31/23 18:46 Nasal MRSA (PCR) Mrsa detected (Not Detecte) A 12/31/23 21:48 Vitals Last Vital Signs Temp 98.3 F 01/05/24 12:00 Pulse 85 01/05/24 12:00 Resp 20 H 01/05/24 12:00 BP 131/77 01/05/24 12:00 Pulse Ox 97 01/05/24 12:00 O2 Del Method Nasal Cannula 01/05/24 12:00 O2 Flow Rate 2 01/05/24 11:39 FiO2 21 12/31/23 22:18 Discharge Plan Discharge Patient Disposition: Home Condition: Stable Prescriptions: New hydrocodone-acetaminophen 10-325 mg Tablet 1 tab PO Q12H PRN (Reason: Moderate pain) 3 Days Qty: 6 0RF acyclovir 800 mg Tablet 800 mg PO 5XD 3 Days Qty: 15 0RF gabapentin 100 mg Capsule 100 mg PO Q12H 3 Days Qty: 6 0RF linezolid [Zyvox] 600 mg tablet 600 mg PO BID 7 Days Qty: 14 0RF metronidazole 500 mg tablet 500 mg PO Q8H 7 Days Qty: 21 0RF nystatin 100,000 unit/gram powder 1 applic topical BID 7 Days Qty: 60 0RF Continued potassium chloride 10 mEq tablet extended release 10 meq PO DAILY Qty: 60 2RF Rx Instructions: Only take with Lasix duloxetine 30 mg capsule,delayed release(DR/EC) 30 mg PO DAILY 30 Days Qty: 30 11RF thyroid (pork) [[place] Thyroid] 120 mg tablet 120 mg PO DAILY 30 Days Qty: 30 5RF albuterol sulfate 90 mcg/actuation HFA aerosol inhaler 2 puff inhalation QID PRN (Reason: shortness of breath or wheezing) Qty: 8.5 11RF (DME) AUTO TITRATING BIPAP WITH 2 L O2 BLED IN 6-16CM SETTING See Rx Instructions .Route .MEDSUPPLY Qty: 1 0RF Rx Instructions: PROVIDE SUPPLIES NEEDED. furosemide [Lasix] 20 mg tablet 40 mg PO DAILY albuterol sulfate 2.5 mg /3 mL (0.083 %) solution for nebulization 2.5 mg inhalation Q4-5H PRN (Reason: sob) (DME) compression socks, x-large Misc See Rx Instructions .ROUTE Rx Instructions: As directed Discharge Orders: Discharge Order (Routine); Ordered 01/05/24 Ordered By: Felice Goldberg Referrals: Iris Zhou NP [Primary Care Provider] - 1-3 days Discharge Diet: Cardiac Discharge Activity: Resume usual activity Patient Instructions: Shingles (DC), Opioid Safety, Pain Management Activity Restrictions/Additional Instructions: - For your shingles rash, please keep area covered, clean and dry ? Please avoid children under the age of 11 years old, children are not vaccinated, or nursing females ? Take antibiotics as prescribed Follow-up with primary care provider ? For hydrocodone, please use sparingly, do not drive or operate machinery or drink while taking medication Discharge Attestations Time Spent in Discharge Care*: greater than 30 min Quality Metrics Clinical Quality Measures [ No reported AMI, CVA or VTE this stay] Coding Level of Care Code 12482 Total time (in minutes) for Discharge: 45 Diagnoses Sepsis A41.9 Abdominal wall cellulitis L03.311 Recurrent severe major depressive disorder with anxiety F33.2; F41.9 Chronic interstitial lung disease J84.9 Lymphedema I89.0 Shingles rash B02.9 Gram-positive bacteremia R78.81
== END 2024-01-05 14:50 | disposition home or self-care (01) | DRG 872 ==
LOC: ER 20:09 → MEDSURG 01-01 07:57
PROVIDERS: Emergency Medicine; Admitting Provider Internal Medicine; Emergency Provider Physician Assistant; PCP Nurse Practitioner Family; Visit Provider Family Medicine
DX: A41.9 Sepsis, unspecified organism (principal); L03.311 Cellulitis of abdominal wall; Z68.44 Body mass index [BMI] 60.0-69.9, adult; B02.29 Other postherpetic nervous system involvement; J44.9 Chronic obstructive pulmonary disease, unspecified; G47.33 Obstructive sleep apnea (adult) (pediatric); I10 Essential (primary) hypertension; E03.9 Hypothyroidism, unspecified; F41.8 Other specified anxiety disorders; E66.01 Morbid (severe) obesity due to excess calories; M17.0 Bilateral primary osteoarthritis of knee; R09.02 Hypoxemia; E78.2 Mixed hyperlipidemia; E06.3 Autoimmune thyroiditis; I89.0 Lymphedema, not elsewhere classified; B02.9 Zoster without complications; R30.0 Dysuria; Z79.51 Long term (current) use of inhaled steroids; Z91.81 History of falling; Z86.16 Personal history of COVID-19; Z86.73 Personal history of transient ischemic attack (TIA), and cerebral infarction without residual deficits; Z87.01 Personal history of pneumonia (recurrent); Z87.891 Personal history of nicotine dependence
CPT/HCPCS: 36415; 74177; 76770; 80048; 80053; 81001; 83605; 83690; 83735; 84100; 84145; 85025; 86140; 86787; 87040; 87205; 94640; 94660; 96365; 96372; 96375; 99285; G0378; J1650; J2020; J2270; J2405; J3490; J7030; J7626; J8499

== ENCOUNTER 2024-03-06 03:15 | Emergency (ER) | payer SELFPAY ==
--- NOTE | 2024-03-06 03:17 | ECG_ITS ---
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 Measurements Intervals [place] Rate: 91 P: 78 MT: 185 QRS: 89 QRSD: 86 T: 62 QT: 343 QTc: 423 Interpretive Statements SINUS RHYTHM Compared to ECG 12/22/2022 23:52:21 Sinus tachycardia no longer present Ventricular premature complex(es) no longer present Electronically Signed On 03-06-2024 16:49:00 [employer] by Sebastien Coleman M.D. [email or web address]
--- NOTE | 2024-03-06 03:23 | XRR_ITS ---
PROCEDURE INFORMATION: Exam: XR Chest Exam date and time: 03/06/2024 3:49 AM Age: 53 years old Clinical indication: Shortness of breath; Prior surgery; Surgery date: 6+ months; Surgery type: Gb; Patient HX: C/O SOB; Additional info: Dyspnea TECHNIQUE: Imaging protocol: Radiologic exam of the chest. Views: 1 view. COMPARISON: CT angio chest PE protcl [id number] 09/27/2023 11:47 PM FINDINGS: Lungs: Mild COPD. No focal pneumonia. Pleural spaces: Unremarkable. No pleural effusion. No pneumothorax. Heart/Mediastinum: The heart is large. Large pulmonary arteries do suggest pulmonary hypertension. Advanced diffuse vascular calcification noted. Bones/joints: Unremarkable. XR/XR chest 1V portable [id number] IMPRESSION: 1. No definite acute finding. 2. Large heart and other chronic findings again seen including evidence of pulmonary hypertension, similar to 09/27/[address]
[2024-03-06 03:30] VITALS: BP 149/94; PULSE 98; RESP 22; TEMP 36.2; O2SAT 90; BMI 61.2
[2024-03-06 04:24] LABS: Basophils % 0.4 %; Eosinophils # 0.2 10^3/uL (0.0-0.8); Eosinophils % 3.2 %; Hematocrit 39.9 % (36-47); Lymphocytes # 0.6 10^3/uL (0.8-4.8); Mean Corpuscular HGB Conc 29.8 g/dL (30-55); Mean Corpuscular Hemoglobin 28.2 pg (27-33); Mean Corpuscular Volume 94.5 fl (85-98); Mean Platelet Volume 8.9 fL (7.4-10.4); Monocytes # 0.8 10^3/uL (0.2-0.9); Monocytes % 11.1 %; Neutrophils # 5.83 10^3/uL (1.8-7.7); Neutrophils % 76.6 %; Nucleated Red Blood Cells % 0 %; Platelet Count 233 10^3/cmm (157-399); Red Blood Count 4.22 10^6/uL (3.85-5.65); Red Cell Distribution Width 15.7 % (12.1-15.1)
--- NOTE | 2024-03-06 04:25 | ED_ITS ---
HPI - SOB/Dyspnea 2 General: Chief Complaint: Shortness of Breath/Dyspnea Stated Complaint: SOB Time Seen by Provider: 03/06/24 03:16 History of Present Illness: HPI Narrative: Patient presents to the ER with increasing shortness of breath over the last several days. With increased severity tonight. Patient wears 2 L of oxygen as needed mainly only when she sleeps. However she has been wearing it as well as taking breathing treatments all day today with no significant relief. Patient did take an additional dose of 40 mg of Lasix a day for a total of 80 today to see if it helped but it did not. Patient is on 40 mg daily. Patient does have a history of chronic interstitial lung disease, morbid obesity, pulmonary edema, lymphedema, Patient has been around sick contacts. When the the patient stood up and position herself on the cot her pulse ox was 74% on room air. Patient was immediately placed on 4 L of oxygen which increased her pulse ox to the mid 90s. Related Data Home Medications Medication Instructions Recorded Confirmed furosemide 20 mg tablet (Lasix) 40 mg PO DAILY 01/16/23 01/20/24 albuterol sulfate 2.5 mg/3 mL 2.5 mg inhalation Q4-5H PRN sob 12/31/23 01/20/24 (0.083 %) solution for nebulization compression socks, x-large 12/31/23 01/20/24 Previous Rx's Medication Instructions Recorded potassium chloride 10 mEq 10 meq PO DAILY #60 tabs 01/14/23 tablet,extended release albuterol sulfate 90 mcg/actuation 2 puff inhalation QID PRN 09/30/23 aerosol inhaler shortness of breath or wheezing #8.5 grams duloxetine 30 mg capsule,delayed 30 mg PO DAILY 30 days #30 caps 11/19/23 release thyroid (pork) 120 mg tablet 120 mg PO DAILY 30 days #30 tabs 11/19/23 ([place] Thyroid) AUTO TITRATING BIPAP WITH 2 L O2 #1 ea 01/12/24 BLED IN 6-16CM SETTING clindamycin HCl 300 mg capsule 300 mg PO TID #30 caps 01/12/24 fluconazole 150 mg tablet 150 mg PO Q3D 2 doses #2 tabs 01/20/24 promethazine-DM 6.25 mg-15 mg/5 mL 5 - 10 ml PO Q6H PRN cough #240 mL 01/20/24 oral syrup ipratropium 0.5 mg-albuterol 3 mg 3 ml inhalation QID #180 mL 03/06/24 (2.5 mg base)/3 mL nebulization soln prednisone 50 mg tablet 50 mg PO DAILY #5 tabs 03/06/24 Allergies Allergy/AdvReac Type Severity Reaction Status Date / Time Penicillins Allergy Severe ALGY-Difficulty Verified 01/20/24 13:47 Swallowing Sulfa (Sulfonamide Allergy Severe ALGY-Difficulty Verified 01/20/24 13:47 Antibiotics) Breathing zolpidem [From Ambien] Allergy Severe ALGY-Difficulty Verified 01/20/24 13:47 Swallowing levothyroxine sodium Allergy narcolepsy Verified 01/20/24 13:47 [From Synthroid] Review of Systems 2 General: Reports: 10 or more systems reviewed and unremarkable except in HPI and below PFSH ED 2 PFSH: Medical History Obesity hypoventilation syndrome Cellulitis Arthritis of both knees Hypoxia Obesity, morbid, BMI 50 or higher Dyspnea Lymphedema Pulmonary edema Dyspnea Obesity, morbid, BMI 50 or higher Hypoxia COVID-19 Stiffness of joints of both hands Exertional shortness of breath Chronic interstitial lung disease Open wound of left lower extremity Elevated brain natriuretic peptide (BNP) level Myalgia Arthralgia Hyperglycemia Stress incontinence 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 COPD (chronic obstructive pulmonary disease) Mixed hyperlipidemia TONIO (obstructive sleep apnea) Orthopnea SOB (shortness of breath) HTN (hypertension) Hypothyroidism Former smoker (~2014) Tilted uterus History of pneumonia TIA (transient ischemic attack) Lymphedema associated with obesity Magaly's disease Asthma Surgical History History of bronchoscopy Family History Other CAD (coronary artery disease) Congestive heart failure (CHF) Diabetes Former smoker Hypertension Hypothyroidism Social History Smoking and tobacco/nicotine status: never used tobacco/nicotine Quit status (tobacco/nicotine): has quit using Year quit tobacco: 2014 Former quit date comment: 0.5 ppd X 20 years Physical Exam 2 Const: COMMON NORMALS: patient oriented x3, no limitations, alert and well nourished HENMT: COMMON NORMALS: normocephalic, atraumatic, hearing grossly normal bilaterally, external ears normal, Normal external nose present and moist oral mucous membranes HEAD & SCALP: normocephalic and atraumatic NOSE: Normal external nose present EXTERNAL EAR: Yes external ears normal Eye: COMMON NORMALS: Equal, round and reactive pupils present, EOMs intact bilaterally, conjunctivae normal and no scleral icterus CONJUNCTIVA: Yes conjunctivae normal PUPIL: Yes Equal, round and reactive pupils present Neck/C-Spine: COMMON NORMALS: full ROM, no lymphadenopathy, supple, no meningeal signs, no JVD and Thyroid normal THYROID: Thyroid normal Chest: COMMONS NORMALS: normal inspection of the chest and normal palpation of entire chest wall Resp: COMMON NORMALS: normal respiratory effort, No retractions, No use of accessory muscles and clear to auscultation bilaterally (Decreased breath sounds bilaterally) AUSCULTATION: clear to auscultation bilaterally (Decreased breath sounds bilaterally) Cardio: COMMON NORMALS: no JVD, regular rate, regular rhythm, S1 normal heart sound present, S2 normal heart sound present, No gallops present (Cardio), No clicks present (Cardio), No murmurs present (Cardio) and No rub (Cardio) R ATE: regular rate RHYTHM: regular rhythm HEART SOUNDS: S1 normal heart sound present and S2 normal heart sound present GI: COMMON NORMALS: Normal to inspection, nondistended, normoactive bowel sounds present, Soft to palpation, non-tender, No hepatosplenomegaly present and no masses PALPATION: Yes Soft to palpation and Yes No hepatosplenomegaly present Extremity: NARRATIVE EXTREMITY EXAM: Lymph edema noted to bilateral lower extremities Neuro: COMMON NORMALS: patient oriented x3 SENSORIUM/ORIENTATION: Yes alert MENINGEAL SIGNS: Yes no meningeal signs Course 2 Vital Signs: Vital signs: Vital Signs Temperature 97.2 F L 03/06/24 03:30 Pulse Rate 84 03/06/24 04:58 Respiratory Rate 20 H 03/06/24 04:51 Blood Pressure 149/94 03/06/24 03:30 Pulse Oximetry 97 03/06/24 04:58 Oxygen Delivery Me thod Nasal Cannula 03/06/24 04:58 Oxygen Flow Rate 4 03/06/24 04:58 MDM - SOB/Dyspnea Medical Decision Making Labs discussed with the patient as well as x-ray and ABG, no acute findings really on any of those. Patient says she did benefit from turning her oxygen up to 4 L and a DuoNeb. She says DuoNeb works better than her albuterol at home. We will prescribe her DuoNeb. And we suggest that she find a supervisor [employer] to follow-up with. Medical Records I reviewed the patient's medical records. Lab Data I reviewed the patient's lab results. 03/06/24 04:17 03/06/24 04:17 Labs/Radiology: Radiology Impressions Chest X-Ray 03/06/24 03:23 IMPRESSION: 1. No definite acute finding. 2. Large heart and other chronic findings again seen including evidence of pulmonary hypertension, similar to 09/27/[address] Laboratory Results WBC 7.60 10^3/uL (3.29-11.43) 03/06/24 04:17 RBC 4.22 10^6/uL (3.85-5.65) 03/06/24 04:17 Hgb 11.90 g/dL (11.27-16.99) 03/06/24 04:17 Hct 39.9 % (36-47) 03/06/24 04:17 MCV 94.5 fl (85-98) 03/06/24 04:17 MCH 28.2 pg (27-33) 03/06/24 04:17 MCHC 29.8 g/dL (30-55) L 03/06/24 04:17 RDW 15.7 % (12.1-15.1) H 03/06/24 04:17 Plt Count 233 10^3/cmm (157-399) 03/06/24 04:17 MPV 8.9 fL (7.4-10.4) 03/06/24 04:17 Neut % (Auto) 76.6 % 03/06/24 04:17 Lymph % (Auto) 8.0 % 03/06/24 04:17 Wise % (Auto) 11.1 % 03/06/24 04:17 Eos % (Auto) 3.2 % 03/06/24 04:17 Baso % (Auto) 0.4 % 03/06/24 04:17 Neut # (Auto) 5.83 10^3/uL (1.8-7.7) 03/06/24 04:17 Lymph # (Auto) 0.6 10^3/uL (0.8-4.8) L 03/06/24 04:17 Wise # (Auto) 0.8 10^3/uL (0.2-0.9) 03/06/24 04:17 Eos # (Auto) 0.2 10^3/uL (0.0-0.8) 03/06/24 04:17 Baso # (Auto) 0.0 10^3/uL (0.0-0.1) 03/06/24 04:17 Nucleated RBC % (auto) 0 % 03/06/24 04:17 Nucleated RBCs # 0.0 /100WBC 03/06/24 04:17 Specimen Type Arterial 03/06/24 03:24 Sample Site Radial, right 03/06/24 03:24 ABG pH 7.36 (7.35-7.45) 03/06/24 03:24 ABG pCO2 59.2 mmHg (35-45) H 03/06/24 03:24 ABG pO2 85.2 mmHg (80.0-100.0) 03/06/24 03:24 ABG HCO3 33.5 mmol/L (22-26) H 03/06/24 03:24 ABG O2 Saturation 97.1 03/06/24 03:24 ABG Base Excess 6.4 mmol/L (-2.0-2.0) H 03/06/24 03:24 Glen Test Pos 03/06/24 03:24 A-a O2 Gradient Not Reportable 03/06/24 03:24 Hematocrit 36.4 % (37-47) L 03/06/24 03:24 Hgb O2 Saturation 94.8 % (95-100) L 03/06/24 03:24 Carboxyhemoglobin 1.6 %THgb (0.4-20.1) 03/06/24 03:24 Methemoglobin 0.7 % (0.4-1.5) 03/06/24 03:24 Total Hemoglobin 11.9 g/dL (12-16) L 03/06/24 03:24 Sodium 140.0 mmol/L (131-143) 03/06/24 03:24 Potassium 3.6 mmol/L (3.5-5.0) 03/06/24 03:24 Glucose 124.0 mg/dL (70-115) H 03/06/24 03:24 Ionized Calcium 1.2 mmol/L (1.1-1.4) 03/06/24 03:24 O2 Delivery Device Nc 03/06/24 03:24 O2 Liters/Min 4.0 % 03/06/24 03:24 Securities Settlement Processor ID [id number] 03/06/24 03:24 Sodium 139 mmol/L (136-145) 03/06/24 04:17 Potassium 3.9 mmol/L (3.5-5.1) 03/06/24 04:17 Chloride 99 mmol/L (98-107) 03/06/24 04:17 Carbon Dioxide 32 mmol/L (22-29) H 03/06/24 04:17 Anion Gap 11.9 (5-19) 03/06/24 04:17 BUN 10 mg/dL (6-20) 03/06/24 04:17 Creatinine 0.4 mg/dL (0.5-0.9) L 03/06/24 04:17 GFR Calculation 167.0 mL/min (90-130) H 03/06/24 04:17 Glucose 120 mg/dL (65-115) H 03/06/24 04:17 Calculated Osmolality 288 mOsm/kg (285-295) 03/06/24 04:17 Calcium 8.8 mg/dL (8.5-10.5) 03/06/24 04:17 Magnesium 1.9 mg/dL (1.7-2.3) 03/06/24 04:17 Total Bilirubin 0.5 mg/dL (0.15-1.2) 03/06/24 04:17 AST 17 U/L (0-32) 03/06/24 04:17 ALT 22 U/L (0-33) 03/06/24 04:17 Alkaline Phosphatase 84 U/L (35-105) 03/06/24 04:17 Troponin T Baseline 7 ng/L (0-10) 03/06/24 04:17 NT-Pro-B Natriuret Pep 157 pg/mL (0-125) H 03/06/24 04:17 Total Protein 7.1 g/dL (6.6-8.7) 03/06/24 04:17 Albumin 4.0 g/dL (3.5-5.2) 03/06/24 04:17 Globulin 3.1 g/dL (1.3-4.6) 03/06/24 04:17 Coronavirus (PCR) Negative (Negative) 03/06/24 04:10 Influenza A (PCR) Negative (Negative) 03/06/24 04:10 Influenza Type B (PCR) Negative (Negative) 03/06/24 04:10 RSV (PCR) Negative (Negative) 03/06/24 04:10 All radiology interpretation(s) finalized by discharge Discharge Plan Discharge Patient Disposition: Home Clinical Impression: COPD with acute exacerbation Condition: Stable Prescriptions: New ipratropium-albuterol 0.5 mg-3 mg(2.5 mg base)/3 mL solution for nebulization 3 ml inhalation QID Qty: 180 0RF prednisone 50 mg tablet 50 mg PO DAILY Qty: 5 0RF No Action potassium chloride 10 mEq tablet extended release 10 meq PO DAILY Qty: 60 2RF Rx Instructions: Only take with Lasix duloxetine 30 mg capsule,delayed release(DR/EC) 30 mg PO DAILY 30 Days Qty: 30 11RF thyroid (pork) [[place] Thyroid] 120 mg tablet 120 mg PO DAILY 30 Days Qty: 30 5RF fluconazole 150 mg tablet 150 mg PO Q3D Qty: 2 0RF Rx Instructions: may repeat second dose 72 hrs after first dose if symptoms persist promethazine-DM 6.25-15 mg/5 mL syrup 5 - 10 ml PO Q6H PRN (Reason: cough) Qty: 240 0RF albuterol sulfate 90 mcg/actuation HFA aerosol inhaler 2 puff inhalation QID PRN (Reason: shortness of breath or wheezing) Qty: 8.5 11RF clindamycin HCl 300 mg capsule 300 mg PO TID Qty: 30 0RF (DME) AUTO TITRATING BIPAP WITH 2 L O2 BLED IN 6-16CM SETTING See Rx Instructions .Route .MEDSUPPLY Qty: 1 0RF Rx Instructions: PROVIDE SUPPLIES NEEDED. furosemide [Lasix] 20 mg tablet 40 mg PO DAILY albuterol sulfate 2.5 mg /3 mL (0.083 %) solution for nebulization 2.5 mg inhalation Q4-5H PRN (Reason: sob) (DME) compression socks, x-large Misc See Rx Instructions .Route Rx Instructions: As directed Discharge Orders: Discharge ED (Routine); Ordered 03/06/24 Ordered By: Sean Fajardo Referrals: Vicky Fernandez FNP-C [Primary Care Provider] - 1 week Patient Instructions: COPD (Chronic Obstructive Pulmonary Disease) (ED) Activity Restrictions/Additional Instructions: DuoNeb and prednisone's have been called into your pharmacy. Please pick these up and take these as directed. Please increase your oxygen to 4 L per nasal cannula as needed. Please follow-up with your supervisor [employer]. Thank you for choosing [facility] for your healthcare needs today. Please realize that you were seen in the emergency department and that we are providing you with an emergency medical screening exam and this may not be a complete and all exclusive of all testing and/or medical workup we may need to determine your element or severity of your illness. It is very important that you follow-up as instructed with your primary care provider or specialist for the additional evaluation and to discuss your medical treatment plan. You may return to the emergency department should you have concerns or if your condition changes or worsens in any way. Coding Level of Care Code ED Facility Operations Manager for Rogelio Guerrier
[2024-03-06] MEDS: ipratropium-albuterol 3 mL Neb INHALATION ×2 (04:50→06:16)
[2024-03-06 04:51] VITALS: PULSE 85; RESP 20; O2SAT 94
[2024-03-06 04:58] VITALS: PULSE 84; O2SAT 97
[2024-03-06 04:58] LABS: Covid PCR NEGATIVE (Negative); Influenza A NEGATIVE (Negative); Influenza B NEGATIVE (Negative); Respiratory Syncytial Virus Ce NEGATIVE (Negative)
[2024-03-06 05:02] LABS: Troponin(5th) Baseline 7 ng/L (0-10)
[2024-03-06 05:22] LABS: Alanine Aminotransferase 22 U/L (0-33); Alkaline Phosphatase 84 U/L (35-105); Anion Gap 11.9 (5-19); Aspartate Amino Transferase 17 U/L (0-32); Blood Urea Nitrogen 10 mg/dL (6-20); Calcium 8.8 mg/dL (8.5-10.5); Carbon Dioxide 32 mmol/L (22-29); Chloride 99 mmol/L (98-107); Creatinine Clr Calc Pharmacy 244.2517; Globulin 3.1 g/dL (1.3-4.6); Glucose 120 mg/dL (65-115); Magnesium 1.9 mg/dL (1.7-2.3); NT Pro B Type Natriuretic Pept 157 pg/mL (0-125); Osmolality Calculated 288 mOsm/kg (285-295); Potassium 3.9 mmol/L (3.5-5.1); Sodium 139 mmol/L (136-145); Total Bilirubin 0.5 mg/dL (0.15-1.2); Total Protein 7.1 g/dL (6.6-8.7)
[2024-03-06 05:25] LABS: ABG PCO2 59.2 mmHg (35-45); ABG PH Result 7.36 (7.35-7.45); Arterial Blood Gas Hematocrit 36.4 % (37-47); Base Excess ABG 6.4 mmol/L (-2.0-2.0); Blood Gas Allen Test Pos; Blood Gas Operator Identificat 600455; Blood Gas Sample Site Radial, right; Blood Gas Sample Type Arterial; Carboxyhemoglobin 1.6 %THgb (0.4-20.1); HCO3 ABG 33.5 mmol/L (22-26); HGB O2 Sat 94.8 % (95-100); Ionized Calcium Level - ABG 1.2 mmol/L (1.1-1.4); Methemoglobin 0.7 % (0.4-1.5); Oxygen Device NC; Oxygen Saturation ABG 97.1; PO2 ABG 85.2 mmHg (80.0-100.0); Potassium Level - ABG 3.6 mmol/L (3.5-5.0); Total Hemoglobin 11.9 g/dL (12-16)
[2024-03-06 06:17] VITALS: PULSE 90; RESP 22; O2SAT 94
[2024-03-06 06:24] VITALS: PULSE 92; RESP 22; O2SAT 93
[2024-03-06 07:01] VITALS: BP 153/79; PULSE 87; O2SAT 92
== END 2024-03-06 07:02 | disposition home or self-care (01) ==
PROVIDERS: Emergency Provider Emergency Medicine; PCP Nurse Practitioner Family
DX: J44.1 Chronic obstructive pulmonary disease with (acute) exacerbation (principal); Z11.52 Encounter for screening for COVID-19; Z87.891 Personal history of nicotine dependence; Z86.73 Personal history of transient ischemic attack (TIA), and cerebral infarction without residual deficits; I10 Essential (primary) hypertension
CPT/HCPCS: 36415; 71045; 80051; 80053; 82330; 82805; 83735; 83880; 84484; 85025; 87637; 93005; 94640; 99285

== ENCOUNTER 2024-05-23 18:36 | Observation (INO) | payer OTHER, SELFPAY ==
[2024-05-23] VITALS (12 sets, daily range): BP systolic 127–158; BP diastolic 75–103; PULSE 85–98; RESP 12–20; TEMP 37.1; O2SAT 90–99; BMI 69.7
--- NOTE | 2024-05-23 18:59 | XRR_ITS ---
PROCEDURE INFORMATION: Exam: XR Chest Exam date and time: 05/23/2024 7:24 PM Age: 53 years old Clinical indication: Shortness of breath TECHNIQUE: Imaging protocol: Radiologic exam of the chest. Views: 1 view. COMPARISON: CR XR chest 1V portable [id number] 03/06/2024 3:49 AM FINDINGS: Lungs: Subtle opacities in the right lung base laterally. Pleural spaces: Unremarkable. No pleural effusion. No pneumothorax. Heart/Mediastinum: Unremarkable. No cardiomegaly. Bones/joints: Abnormal widening of the right acromioclavicular joint measuring up to 9 mm (normal 5 mm or less). This is similar to the prior examination. XR/XR chest 1V portable [id number] IMPRESSION: Subtle opacities in the right lung base laterally.
--- NOTE | 2024-05-23 19:27 | ECG_ITS ---
[employer] Test Date: 2024-05-23 Pat Name: Alina Pascual Department: Room: Gender: Female [employer] Worker: : 1970 Requested By: Terry Vickers Order Number: [id number] Montes De Oca MD: Bethany Mari M.D. Measurements Intervals [place] Rate: 80 P: 75 [place]: 182 QRS: 88 QRSD: 77 T: 54 QT: 359 QTc: 414 Interpretive Statements SINUS RHYTHM POSSIBLE LEFT ATRIAL ENLARGEMENT [-0.1mV P-WAVE IN V1/V2] Compared to ECG 03/06/2024 03:27:06 No significant changes Electronically Signed On 05-24-2024 22:17:03 CDT by Bethany Mari M.D. [email or web address]
--- NOTE | 2024-05-23 19:29 | W.ED.GENADLT ---
HPI - General Adult General: Chief complaint: General Medical Stated complaint: Dripping Fluid Time Seen by Provider: 05/23/24 19:10 Source: patient and family Mode of arrival: wheelchair Limitations: no limitations History of Present Illness: This patient made her way to the emergency department because she is concerned about increasing lymphedema as well as drainage of clear fluid and some redness of the skin of her lower abdomen and of her legs. She denies any known objective fevers but states she has had chills and sweats. She has a history of chronic lymphedema of the lower extremities which has been present approximately 5 to 6 years. This was contributed to possible side effect of her COVID but this is certainly just the patient's opinion. She states that she is also had more fatigue over the past several days. She stated she has had some issues with urinary frequency without urgency. She states she had a urinary accident during sleep the other day. She states she has been eating and drinking but has had to drink decreased appetite. She denies any cough. She does have a history of COPD and was an ex-smoker and does wear her oxygen most of the time at 2 L/min for the last several months. She also has a history of sleep apnea but does not use CPAP at night. No known exposure to infectious disease otherwise. Associated symptoms: Reports rash; Deny chest pain, headache(s), nausea, palpitations or vomiting Related Data Home Medications ?Medication ?Instructions ?Recorded ?Confirmed furosemide 20 mg tablet (Lasix) 40 mg PO DAILY 01/16/23 01/20/24 albuterol sulfate 2.5 mg/3 mL 2.5 mg inhalation Q4-5H PRN sob 12/31/23 01/20/24 (0.083 %) solution for nebulization compression socks, x-large 12/31/23 01/20/24 Previous Rx's ?Medication ?Instructions ?Recorded potassium chloride 10 mEq 10 meq PO DAILY #60 tabs 01/14/23 tablet,extended release albuterol sulfate 90 mcg/actuation 2 puff inhalation QID PRN 09/30/23 aerosol inhaler shortness of breath or wheezing #8.5 grams duloxetine 30 mg capsule,delayed 30 mg PO DAILY 30 days #30 caps 11/19/23 release thyroid (pork) 120 mg tablet 120 mg PO DAILY 30 days #30 tabs 11/19/23 (Jarreau Thyroid) AUTO TITRATING BIPAP WITH 2 L O2 #1 ea 01/12/24 BLED IN 6-16CM SETTING clindamycin HCl 300 mg capsule 300 mg PO TID #30 caps 01/12/24 fluconazole 150 mg tablet 150 mg PO Q3D 2 doses #2 tabs 01/20/24 promethazine-DM 6.25 mg-15 mg/5 mL 5 - 10 ml PO Q6H PRN cough #240 mL 01/20/24 oral syrup ipratropium 0.5 mg-albuterol 3 mg 3 ml inhalation QID #180 mL 03/06/24 (2.5 mg base)/3 mL nebulization soln prednisone 50 mg tablet 50 mg PO DAILY #5 tabs 03/06/24 Allergies Allergy/AdvReac Type Severity Reaction Status Date / Time Penicillins Allergy Severe ALGY-Difficulty Verified 05/23/24 18:49 Swallowing Sulfa (Sulfonamide Allergy Severe ALGY-Difficulty Verified 05/23/24 18:49 Antibiotics) Breathing zolpidem (From Ambien) Allergy Severe ALGY-Difficulty Verified 05/23/24 18:49 Swallowing levothyroxine sodium (From Allergy narcolepsy Verified 05/23/24 18:49 Synthroid) Review of Systems Const: Reports: chills and body aches Eyes: Denies: change in vision ENMT: Denies: throat pain, odynophagia, nasal discharge or nasal congestion Card: Denies: chest pain, palpitations or irregular heart rhythm Resp: Denies: productive cough, non-productive cough or wheezing GI: Denies: nausea, vomiting or diarrhea : Reports: urinary frequency; Denies: flank pain or urinary urgency Musc: Reports: extremity pain and extremity swelling; Denies: neck pain Skin/Breast: Reports: rash and erythema Neuro: Denies: headache(s), numbness in extremities or weakness in extremities Psych: Denies: anxiety or depression PFSH ED PFSH: Medical History Obesity hypoventilation syndrome Cellulitis Arthritis of both knees Hypoxia Obesity, morbid, BMI 50 or higher Dyspnea Lymphedema Pulmonary edema Dyspnea Obesity, morbid, BMI 50 or higher Hypoxia COVID-19 Stiffness of joints of both hands Exertional shortness of breath Chronic interstitial lung disease Open wound of left lower extremity Elevated brain natriuretic peptide (BNP) level Myalgia Arthralgia Hyperglycemia Stress incontinence 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 COPD (chronic obstructive pulmonary disease) Mixed hyperlipidemia TONIO (obstructive sleep apnea) Orthopnea SOB (shortness of breath) HTN (hypertension) Hypothyroidism Former smoker (~2014) Tilted uterus History of pneumonia TIA (transient ischemic attack) Lymphedema associated with obesity Magaly's disease Asthma Surgical History History of bronchoscopy Family History Other CAD (coronary artery disease) Congestive heart failure (CHF) Diabetes Former smoker Hypertension Hypothyroidism Social History Smoking and tobacco/nicotine status: never used tobacco/nicotine Quit status (tobacco/nicotine): has quit using Year quit tobacco: 2014 Former quit date comment: 0.5 ppd X 20 years Physical Exam Narrative: EXAM NARRATIVE: The patient is alert and appears to be in no acute distress. Const: COMMON NORMALS: no acute distress, patient oriented x3 and alert GENERAL APPEARANCE: cooperative NUTRITIONAL APPEARANCE: obese HENMT: COMMON NORMALS: Normal nasal mucous membranes and turbinates present, moist oral mucous membranes and oropharynx normal NOSE: Normal nasal mucous membranes and turbinates present Eye: COMMON NORMALS: Equal, round and reactive pupils present and conjunctivae normal CONJUNCTIVA: Yes conjunctivae normal PUPIL: Yes Equal, round and reactive pupils present Neck/C-Spine: COMMON NORMALS: full ROM, no JVD, Thyroid normal and No carotid bruits THYROID: Thyroid normal Chest: COMMONS NORMALS: normal inspection of the chest Resp: COMMON NORMALS: normal respiratory effort, No retractions, No use of accessory muscles and clear to auscultation bilaterally AUSCULTATION: clear to auscultation bilaterally Cardio: COMMON NORMALS: no JVD, regular rate and Peripheral pulses 2+ throughout RATE: regular rate HEART SOUNDS: Murmur heart sound present (3/6) systolic PERIPHERAL PULSES: Peripheral pulses 2+ throughout GI: OTHER: She has central obesity with a marked abdominal wall pannus. The skin of the pannus and the intertriginous areas are markedly erythematous. There is no skin breakdown noted during my examination. There is no true intra-abdominal tenderness but there is tenderness of the soft tissues of the abdominal pannus Back/Pelvis: COMMON NORMALS: thoracic and lumbar spine normal to inspection and no thoracic nor lumbar tenderness Extremity: NARRATIVE EXTREMITY EXAM: She has marked edema both lower extremities. She has some erythema and some bullae on the skin of the lower extremities. The bullae are all unruptured. There is no fissuring of the intertriginous areas of the feet. There does not appear to be any lymphangitis of the lower extremities. Neuro: COMMON NORMALS: patient oriented x3, moves all extremities, no focal motor deficits and no sensory deficits noted SENSORIUM/ORIENTATION: Yes alert CRANIAL NERVES: Yes CN normal except as noted Psych: COMMON NORMALS: mental status grossly normal Skin: NARRATIVE SKIN EXAM: Erythema with bullae of the both lower extremities as well as erythema of the skin of the abdominal wall pannus Course Reevaluation(s): Reevaluation #1: I reviewed current findings with the patient and spouse. She has findings consistent with panniculitis and we discussed IV loading dose of antibiotics and continued oral antibiotics as [address] her in observation and continuing IV antibiotics and ensuring that she is going to respond appropriately. She is uncomfortable with the former and would prefer the latter. I think it is certainly not unreasonable given her prior history of MRSA as well as her concomitant COPD and oxygen requirement. She certainly does not report represents sepsis or other overwhelming infection or neck necrotizing fasciitis etc. at this time. Time: 21:29 Consultations: Consultation #1: Discussed Dr. Purdy who agreed to place her in observation for continued care and reevaluation. Time: 21:29 Vital Signs: Vital signs: Vital Signs Temperature 98.8 F 05/23/24 18:38 Pulse Rate 85 05/23/24 20:00 Respiratory Rate 12 05/23/24 20:00 Blood Pressure 158/103 05/23/24 20:00 Pulse Oximetry 97 05/23/24 20:00 Oxygen Delivery Me thod Room Air 05/23/24 18:38 MDM - General Adult Medical Decision Making Patient presented as noted in the HPI. The patient is here because she has had increasing redness pain and discomfort in her tissue and skin around her pannus on her abdomen. She has a history of lymphedema as noted in her HPI and prior evaluations. She has had subjective malaise and chills but no documented fevers. She also has an oxygen dependent history of COPD. Clinical evaluation was notable for significant erythema and nonruptured bullae and localized tenderness of the skin of her pannus extending down into her lower abdomen and upper legs. There is also involvement of the thickened skin over both lower extremities. Ancillary evaluation was obtained to evaluate for potential issues such as necrotizing fasciitis, abscess formation etc. Imaging was reassuring and her laboratories were also somewhat reassuring she did have an elevation in her CRP but not a marked elevation. At this point we will continue with a loading dose of IV vancomycin and review with hospitalist regarding a period of observation to ensure response to treatment. Medical Records I reviewed the patient's medical records. Prior history of MRSA infection last fall. Lab Data I reviewed the patient's lab results. 05/23/24 19:18 05/23/24 19:18 Radiology Impressions Chest X-Ray 05/23/24 18:59 IMPRESSION: Subtle opacities in the right lung base laterally. Abdomen/Pelvis CT 05/23/24 19:30 IMPRESSION: 1. Diffuse fat stranding in the abdominal pannus with diffuse skin thickening. No loculated fluid collection to suggest abscess. Findings consistent with panniculitis. 2. No bowel obstruction or inflammatory process associated with the bowel. 3. No free air or significant free fluid in the abdomen or pelvis. 4. No evidence of appendicitis. Laboratory Results WBC 9.51 10^3/uL (3.29-11.43) 05/23/24 19:18 RBC 4.51 10^6/uL (3.85-5.65) 05/23/24:18 Hgb 12.00 g/dL (11.27-16.99) 05/23/24:18 Hct 41.7 % (36-47) 05/23/24 19:18 MCV 92.5 fl (85-98) 05/23/24 19:18 MCH 26.6 pg (27-33) L 05/23/24 19:18 MCHC 28.8 g/dL (30-55) L 05/23/24 19:18 RDW 15.1 % (12.1-15.1) 05/23/24 19:18 Plt Count 344 10^3/cmm (157-399) 05/23/24:18 MPV 8.6 fL (7.4-10.4) 05/23/24 19:18 Neut % (Auto) 72.9 % 05/23/24 19:18 Lymph % (Auto) 14.7 % 05/23/24 19:18 [place] % (Auto) 9.4 % 05/23/24 19:18 Eos % (Auto) 1.3 % 05/23/24 19:18 Baso % (Auto) 0.4 % 05/23/24 19:18 Neut # (Auto) 6.94 10^3/uL (1.8-7.7) 05/23/24 19:18 Lymph # (Auto) 1.4 10^3/uL (0.8-4.8) 05/23/24 19:18 [place] # (Auto) 0.9 10^3/uL (0.2-0.9) 05/23/24 19:18 Eos # (Auto) 0.1 10^3/uL (0.0-0.8) 05/23/24 19:18 Baso # (Auto) 0.0 10^3/uL (0.0-0.1) 05/23/24 19:18 Nucleated RBC % (auto) 0.2 % 05/23/24 19:18 Nucleated RBCs # 0.0 /100WBC 05/23/24 19:18 Sodium 140 mmol/L (136-145) 05/23/24 19:18 Potassium 4.4 mmol/L (3.5-5.1) 05/23/24 19:18 Chloride 98 mmol/L (98-107) 05/23/24 19:18 Carbon Dioxide 33 mmol/L (22-29) H 05/23/24 19:18 Anion Gap 13.4 (5-19) 05/23/24 19:18 BUN 12 mg/dL (6-20) 05/23/24 19:18 Creatinine 0.4 mg/dL (0.5-0.9) L 05/23/24 19:18 GFR Calculation 167.0 mL/min (90-130) H 05/23/24 19:18 Glucose 96 mg/dL (65-115) 05/23/24 19:18 Calculated Osmolality 290 mOsm/kg (285-295) 05/23/24 19:18 Calcium 8.9 mg/dL (8.5-10.5) 05/23/24 19:18 Total Bilirubin 0.4 mg/dL (0.15-1.2) 05/23/24 19:18 AST 20 U/L (0-32) 05/23/24 19:18 ALT 41 U/L (0-33) H 05/23/24 19:18 Alkaline Phosphatase 81 U/L (35-105) 05/23/24 19:18 C-Reactive Protein 13.5 mg/L (0.0-4.9) H 05/23/24 19:18 NT-Pro-B Natriuret Pep 442 pg/mL (0-125) H 05/23/24 19:18 Total Protein 7.2 g/dL (6.6-8.7) 05/23/24 19:18 Albumin 3.8 g/dL (3.5-5.2) 05/23/24 19:18 Globulin 3.4 g/dL (1.3-4.6) 05/23/24 19:18 Urine Color Yellow (Yellow) 05/23/24 19:46 Urine Appearance Clear (CLEAR) 05/23/24 19:46 Urine pH 7.0 (5-7) 05/23/24 19:46 Ur Specific [place] 1.018 (1.005-1.030) 05/23/24 19:46 Urine Protein Negative (Negative) 05/23/24 19:46 Urine Glucose (UA) Negative (Normal) 05/23/24 19:46 Urine Ketones Negative (Negative) 05/23/24 19:46 Urine Blood Negative (Negative) 05/23/24 19:46 Urine Nitrate Negative (Negative) 05/23/24 19:46 Urine Bilirubin Negative (Negative) 05/23/24 19:46 Urine Urobilinogen 1.0 mg/dL (Negative) 05/23/24 19:46 Ur Leukocyte Esterase Negative (Negative) 05/23/24 19:46 Urine RBC 0-2 /hpf (0-2) 05/23/24 19:46 Urine WBC 0-5 /hpf (0-5) 05/23/24 19:46 Ur Squamous Epith Cells 0-5 /hpf (0-5) 05/23/24 19:46 Amorphous Sediment Not Reportable 05/23/24 19:46 Urine Bacteria None seen /hpf (NONE) 05/23/24 19:46 Hyaline Casts 0.81 /lpf 05/23/24 19:46 All radiology interpretation(s) finalized by discharge EKG Data EKG 1: I personally reviewed and interpreted this EKG as follows: Interpretation: Contemporaneous review of resting EKG reveals ventricular rate of 80 bpm. Normal [place] interval, QRS duration, axis. She has slight enlargement of P waves suggestive of left atrial enlargement. No other acute ST-T wave changes or other ischemic changes at this time. Computer generated interpretation: Chest X-Ray 05/23/24 18:59 IMPRESSION: Subtle opacities in the right lung base laterally. Abdomen/Pelvis CT 05/23/24 19:30 IMPRESSION: 1. Diffuse fat stranding in the abdominal pannus with diffuse skin thickening. No loculated fluid collection to suggest abscess. Findings consistent with panniculitis. 2. No bowel obstruction or inflammatory process associated with the bowel. 3. No free air or significant free fluid in the abdomen or pelvis. 4. No evidence of appendicitis. Discharge Plan Discharge Condition: Stable Prescriptions: No Action potassium chloride 10 mEq tablet extended release 10 meq PO DAILY Qty: 60 2RF Rx Instructions: Only take with Lasix duloxetine 30 mg capsule,delayed release(DR/EC) 30 mg PO DAILY 30 Days Qty: 30 11RF thyroid (pork) [Jarreau Thyroid] 120 mg tablet 120 mg PO DAILY 30 Days Qty: 30 5RF fluconazole 150 mg tablet 150 mg PO Q3D Qty: 2 0RF Rx Instructions: may repeat second dose 72 hrs after first dose if symptoms persist promethazine-DM 6.25-15 mg/5 mL syrup 5 - 10 ml PO Q6H PRN (Reason: cough) Qty: 240 0RF albuterol sulfate 90 mcg/actuation HFA aerosol inhaler 2 puff inhalation QID PRN (Reason: shortness of breath or wheezing) Qty: 8.5 11RF clindamycin HCl 300 mg capsule 300 mg PO TID Qty: 30 0RF (DME) AUTO TITRATING BIPAP WITH 2 L O2 BLED IN 6-16CM SETTING See Rx Instructions .Route .MEDSUPPLY Qty: 1 0RF Rx Instructions: PROVIDE SUPPLIES NEEDED. furosemide [Lasix] 20 mg tablet 40 mg PO DAILY albuterol sulfate 2.5 mg /3 mL (0.083 %) solution for nebulization 2.5 mg inhalation Q4-5H PRN (Reason: sob) (DME) compression socks, x-large Misc See Rx Instructions .Route Rx Instructions: As directed ipratropium-albuterol 0.5 mg-3 mg(2.5 mg base)/3 mL solution for nebulization 3 ml inhalation QID Qty: 180 0RF prednisone 50 mg tablet 50 mg PO DAILY Qty: 5 0RF Referrals: Vicky Fernandez FNP-C [Primary Care Provider] - Print Language: [place] Coding Level of Care Code ED Mini Lab Operator for Rogelio Guerrier
--- NOTE | 2024-05-23 19:30 | CTR_ITS ---
PROCEDURE INFORMATION: Exam: CT Abdomen And Pelvis With Contrast Exam date and time: 05/23/2024 8:35 PM Age: 53 years old Clinical indication: Mass, lump, or swelling; Llq; Prior surgery; Surgery date: 6+ months; Surgery type: Gb; Additional info: Concern re soft tissue of panus infection TECHNIQUE: Imaging protocol: Computed tomography of the abdomen and pelvis with contrast. Radiation optimization: All CT scans at this facility use at least one of these dose optimization techniques: automated exposure control; mA and/or kV adjustment per patient size (includes targeted exams where dose is matched to clinical indication); or iterative reconstruction. Contrast material: OMNIPAQUE 350; Contrast volume: 100 ml; Contrast route: INTRAVENOUS (IV); COMPARISON: CT abdomen pelvis w con* [id number] 01/03/2024 1:38 PM RADIATION DOSE METRICS: Total DLP (mGy-cm): 2427.83 FINDINGS: Lungs: Geographic regions of low attenuation of the lung parenchyma in the visualized lung bases which can be seen in the setting of air trapping secondary to small airways disease. Liver: Normal. No mass. Gallbladder and biliary ducts: The gallbladder is absent. Pancreas: Normal. No ductal dilation. Spleen: Normal. No splenomegaly. Adrenal glands: Normal. No mass. Kidneys and ureters: Normal. No hydronephrosis. Stomach and bowel: Unremarkable. No obstruction. No mucosal thickening. Appendix: No evidence of appendicitis. Intraperitoneal space: Unremarkable. No free air. No significant fluid collection. Vasculature: Unremarkable. No abdominal aortic aneurysm. Lymph nodes: Unremarkable. No enlarged lymph nodes. Urinary bladder: There is a Heard catheter in the bladder. The bladder is decompressed. Reproductive: Unremarkable as visualized. Bones/joints: Unremarkable. No acute fracture. Soft tissues: Diffuse fat stranding in the abdominal pannus with diffuse skin thickening. No loculated fluid collection to suggest abscess. Question panniculitis. Correlate clinically. Fat containing umbilical hernia measuring 16 mm at the neck. CT/CT abdomen pelvis w con* [id number] IMPRESSION: 1. Diffuse fat stranding in the abdominal pannus with diffuse skin thickening. No loculated fluid collection to suggest abscess. Findings consistent with panniculitis. 2. No bowel obstruction or inflammatory process associated with the bowel. 3. No free air or significant free fluid in the abdomen or pelvis. 4. No evidence of appendicitis.
[2024-05-23 19:33] LABS: Basophils % 0.4 %; Eosinophils # 0.1 10^3/uL (0.0-0.8); Eosinophils % 1.3 %; Hematocrit 41.7 % (36-47); Lymphocytes # 1.4 10^3/uL (0.8-4.8); Lymphocytes % 14.7 %; Mean Corpuscular HGB Conc 28.8 g/dL (30-55); Mean Corpuscular Hemoglobin 26.6 pg (27-33); Mean Corpuscular Volume 92.5 fl (85-98); Mean Platelet Volume 8.6 fL (7.4-10.4); Monocytes # 0.9 10^3/uL (0.2-0.9); Monocytes % 9.4 %; Neutrophils # 6.94 10^3/uL (1.8-7.7); Neutrophils % 72.9 %; Nucleated Red Blood Cells % 0.2 %; Platelet Count 344 10^3/cmm (157-399); Red Blood Count 4.51 10^6/uL (3.85-5.65); Red Cell Distribution Width 15.1 % (12.1-15.1); White Blood Count 9.51 10^3/uL (3.29-11.43)
[2024-05-23 19:59] LABS: Bilirubin Urine Negative (Negative); Blood Urine Negative (Negative); Glucose Urine UA Negative (Normal); Ketones Urine Negative (Negative); Leukocyte Esterase Urine Negative (Negative); Nitrate Urine Negative (Negative); Protein Urine Negative (Negative); Specific Gravity, Urine 1.018 (1.005-1.030); Urine Appearance Clear (CLEAR); Urine Color Yellow (Yellow)
[2024-05-23 19:59] LABS: Alanine Aminotransferase 41 U/L (0-33); Albumin Level 3.8 g/dL (3.5-5.2); Alkaline Phosphatase 81 U/L (35-105); Anion Gap 13.4 (5-19); Aspartate Amino Transferase 20 U/L (0-32); Blood Urea Nitrogen 12 mg/dL (6-20); C Reactive Protein 13.5 mg/L (0.0-4.9); Calcium 8.9 mg/dL (8.5-10.5); Carbon Dioxide 33 mmol/L (22-29); Chloride 98 mmol/L (98-107); Creatinine Clr Calc Pharmacy 267.0797; Globulin 3.4 g/dL (1.3-4.6); Glucose 96 mg/dL (65-115); NT Pro B Type Natriuretic Pept 442 pg/mL (0-125); Osmolality Calculated 290 mOsm/kg (285-295); Potassium 4.4 mmol/L (3.5-5.1); Sodium 140 mmol/L (136-145); Total Bilirubin 0.4 mg/dL (0.15-1.2); Total Protein 7.2 g/dL (6.6-8.7)
[2024-05-23 20:01] LABS: Add Urine Microscopic? YES; Bacteria Urine None Seen /hpf; Hyaline Casts Urine 0.81 /lpf; RBC Urine 0-2 /hpf (0-2); Squamous Epithelial Cell Urine 0-5 /hpf (0-5); WBC Urine 0-5 /hpf (0-5)
[2024-05-23] MEDS: iohexol 350 mg/mL 500 mL Btl (per mL) IV (20:42)
[2024-05-23] MEDS: vancomycin 2,000 MG/400 ML PIGGYBACK 200 MG IV (21:34)
--- NOTE | 2024-05-23 21:35 | P.HP_ITS ---
Providers/Chief Complaint 2 Primary Care Provider: TUCKER Wasserman Chief Complaint: ABD Leaking Fluid History of Present Illness Alina Pascual is a 53 year old female with history of lymphedema, hypothyroidism, morbid obesity, present to the hospital for redness and swelling of abdominal wall. Patient is stating that in last 2 to 3 days she has been noticing that her abdominal wall has been very red, tender to touch, she has been noticing excessive drainage as well to the point of fluid drops dripping from her pannus. She is endorsing subjective fever, chills but not endorsing nausea vomiting, chest pain or shortness of breath. Endorsing diarrhea. In the past she was treated with clindamycin. Patient has history of MRSA nares. Patient is stating that dripping of fluid was so much that she thought toilet was leaking but when she carefully checked she noticed her abdominal wall had a lot of fluid accumulation that was causing leakage of fluid. She is afebrile in the hospital, no leukocytosis, no sign of sepsis: CT scan abdominal wall showed cellulitis No abscess Nonpurulent cellulitis of clinical exam She has been given IV antibiotics in the ER I have put her on IV clindamycin she has allergies/anaphylactic reaction to penicillins Patient is not diabetic, walks independently, contemplating bariatric surgery Review of Systems 2 Const: Reports: chills Eyes: Denies: change in vision ENMT: Denies: throat pain Card: Reports: swelling of feet/ankles Resp: Denies: dyspnea Skin/Breast: Reports: rash and skin swelling Medications/Allergies Home Medications ?Medication ?Instructions ?Recorded ?Confirmed ?Last Taken ?Type potassium chloride 10 mEq 10 meq PO DAILY #60 tabs 11/2801/20/24 12/30/23 Rx tablet,extended release furosemide 20 mg tablet (Lasix) 40 mg PO DAILY 3 01/20/24 12/30/23 History albuterol sulfate 90 mcg/actuation 2 puff inhalation Q ID PRN 09/30/23 01/20/24 12/29/23 Rx aerosol inhaler shortness of breath or wheez ing #8.5 grams duloxetine 30 mg capsule,delayed 30 mg PO DAILY 30 day s #30 caps 11/19/23 01/20/24 12/30/23 Rx release thyroid (pork) 120 mg tablet 120 mg PO DAILY 30 days # 30 tabs 11/19/23 01/20/24 12/30/23 Rx ([place] Thyroid) albuterol sulfate 2.5 mg/3 mL 2.5 mg inhalation Q4-5H PRN sob 12/31/23 01/20/24 12/24/23 History (0.083 %) solution for nebulization compression socks, x-large 12/31/23 01/20/24 Unknown History AUTO TITRATING BIPAP WITH 2 L O2 #1 ea 01/12/24 Unknown Rx BLED IN 6-16CM SETTING clindamycin HCl 300 mg capsule 300 mg PO TID #30 caps 01/12/24 01/20/24 Unknown Rx fluconazole 150 mg tablet 150 mg PO Q3D 2 doses #2 tab s 01/20/24 01/20/24 Unknown Rx promethazine-DM 6.25 mg-15 mg/5 mL 5 - 10 ml PO Q6H CO N cough #240 mL 01/20/24 01/20/24 Unknown Rx oral syrup ipratropium 0.5 mg-albuterol 3 mg 3 ml inhalation QID #180 mL 03/06/24 Unknown Rx (2.5 mg base)/3 mL nebulization soln prednisone 50 mg tablet 50 mg PO DAILY #5 tabs 03/06 Unknown Rx Allergies Allergy/AdvReac Type Severity Reaction Status Date / Time Penicillins Allergy Severe ALGY-Difficulty Verified 05/23/24 18:49 Swallowing Sulfa (Sulfonamide Allergy Severe ALGY-Difficulty Verified 05/23/24 18:49 Antibiotics) Breathing zolpidem (From Ambien) Allergy Severe ALGY-Difficulty Verified 05/23/24 18:49 Swallowing levothyroxine sodium (From Allergy narcolepsy Verified 05/23/24 18:49 Synthroid) PFSH Acute 2 PFSH: Medical History Obesity hypoventilation syndrome Cellulitis Arthritis of both knees Hypoxia Obesity, morbid, BMI 50 or higher Dyspnea Lymphedema Pulmonary edema Dyspnea Obesity, morbid, BMI 50 or higher Hypoxia COVID-19 Stiffness of joints of both hands Exertional shortness of breath Chronic interstitial lung disease Open wound of left lower extremity Elevated brain natriuretic peptide (BNP) level Myalgia Arthralgia Hyperglycemia Stress incontinence 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 COPD (chronic obstructive pulmonary disease) Mixed hyperlipidemia TONIO (obstructive sleep apnea) Orthopnea SOB (shortness of breath) HTN (hypertension) Hypothyroidism Former smoker (~2014) Tilted uterus History of pneumonia TIA (transient ischemic attack) Lymphedema associated with obesity Magaly's disease Asthma Surgical History History of bronchoscopy Family History Other CAD (coronary artery disease) Congestive heart failure (CHF) Diabetes Former smoker Hypertension Hypothyroidism Social History Smoking and tobacco/nicotine status: never used tobacco/nicotine Quit status (tobacco/nicotine): has quit using Year quit tobacco: 2014 Former quit date comment: 0.5 ppd X 20 years Vitals/I&O/Wt Last Vital Signs Temp 98.8 F 05/23/24 18:38 Pulse 85 05/23/24 20:00 Resp 12 05/23/24 20:00 BP 158/103 05/23/24 20:00 Pulse Ox 97 05/23/24 20:00 O2 Del Method Room Air 05/23/24 18:38 Weight last 48 hrs Weight 181.437 kg Physical Exam 2 Narrative: Patient laying supine Currently on room air Hemodynamically stable GCS 15 Nonfocal Intertrigo abdominal fold Keratosis abdominal wall pannus Lymphedema of lower extremity Abdominal wall pannus with nonpurulent cellulitis Not too much drainage noted during clinical exam today Heard catheter in place S1, S2 Urinary Catheter Management: Heard: Cath Placed During This Visit: yes Urinary Catheter Date of Insertion: 05/23/24 Urinary Catheter Time of Insertion: 19:57 Data 05/23/24 19:18 05/23/24 19:18 A&P Assessment and plan (1) HTN (hypertension): (2) Magaly's disease: (3) Obesity, morbid, BMI 50 or higher: (4) Urinary incontinence: (5) Abdominal wall cellulitis: (6) Stasis edema with ulcer of both lower extremities: (7) Sleep apnea syndrome: Qualifiers: Sleep apnea type: obstructive Qualified Code(s): G47.33 - Obstructive sleep apnea (adult) (pediatric) (8) Lymphedema: Plan Panniculitis No active sign of sepsis Patient has listed allergy anaphylactic reaction to penicillin Will use IV clindamycin Can be transition to p.o. regimen after 24 hours, no active fever or sign of sepsis Nonpurulent cellulitis Patient is not headache Lymphedema: Using compression wraps No active signs of cellulitis of lower extremity DVT prophylaxis as per her BMI will be 70 mg every 24 hours Opioids along bowel regimen Continue Lasix for lower extremity swelling Continue levothyroxine Morbidly obese: Patient is contemplating bariatric surgery she has not tried Ozempic or Mounjaro for weight loss, she may benefit from endocrinology outpatient referral Hypertension: We do not have appropriate cuff size for her arm that is why we are getting falsely high readings at this point monitor blood pressure for now PDMP PDMP Reviewed: Not Reviewed Attestations 2 Medical Necessity Statement*: Anticipated discharge within 24 to 48 hours Diagnoses HTN (hypertension) I10 Magaly's disease E06.3 Obesity, morbid, BMI 50 or higher E66.01 Urinary incontinence R32 Abdominal wall cellulitis L03.311 Stasis edema with ulcer of both lower extremities I87.313; L97.919; L97.929 Obstructive sleep apnea syndrome G47.33 Sleep apnea type: obstructive Lymphedema I89.0
[2024-05-23 22:20] LABS: Procalcitonin 0.07 ng/mL (0-0.5)
[2024-05-23 22:34] LABS: Estmated Average Glucose 120; Hemoglobin A1C 5.8 % (4.0-6.0)
[2024-05-23] MEDS: enoxaparin 80 mg/0.8 mL Syringe 70 MG SUBCUT (23:03)
[2024-05-23] MEDS: clindamycin 900 MG/50 ML PREMIX 100 MG IV (23:11)
[2024-05-24] VITALS (14 sets, daily range): BP systolic 117–138; BP diastolic 68–84; PULSE 70–94; RESP 15–24; TEMP 36.3–37; O2SAT 92–98; BMI 73.7
[2024-05-24] MEDS: morphine IR 15 mg Tablet PO ×2 (01:22→19:40)
[2024-05-24 05:44] LABS: Basophils % 0.5 %; Eosinophils # 0.1 10^3/uL (0.0-0.8); Eosinophils % 2.1 %; Hematocrit 35.8 % (36-47); Lymphocytes % 15.1 %; Mean Corpuscular HGB Conc 29.3 g/dL (30-55); Mean Corpuscular Hemoglobin 27.6 pg (27-33); Monocytes # 0.7 10^3/uL (0.2-0.9); Monocytes % 9.9 %; Neutrophils # 4.73 10^3/uL (1.8-7.7); Neutrophils % 71.2 %; Nucleated Red Blood Cells % 0 %; Platelet Count 267 10^3/cmm (157-399); Red Blood Count 3.81 10^6/uL (3.85-5.65); Red Cell Distribution Width 15.4 % (12.1-15.1); White Blood Count 6.64 10^3/uL (3.29-11.43)
[2024-05-24] MEDS: clindamycin 900 MG/50 ML PREMIX 100 MG IV ×3 (06:08→21:19)
[2024-05-24 06:09] LABS: Blood Urea Nitrogen 10 mg/dL (6-20); C Reactive Protein 9.6 mg/L (0.0-4.9); Calcium 8.3 mg/dL (8.5-10.5); Carbon Dioxide 33 mmol/L (22-29); Chloride 99 mmol/L (98-107); Creatinine Clr Calc Pharmacy 277.7952; Glucose 90 mg/dL (65-115); Magnesium 2.1 mg/dL (1.7-2.3); Osmolality Calculated 289 mOsm/kg (285-295); Sodium 140 mmol/L (136-145)
[2024-05-24] MEDS: duloxetine 30 mg Capsule PO (08:00)
[2024-05-24] MEDS: thyroid 60 mg Tablet 120 MG PO (08:00)
[2024-05-24] MEDS: FUROsemide 20 mg Tablet 40 MG PO (08:00)
[2024-05-24] MEDS: sennosides-docusate Tablet 2 TAB PO ×2 (08:02→18:14)
--- NOTE | 2024-05-24 09:07 | PC.NURSE ---
Patient refused the lisinopril 20 mg. Stated she did not take any thing for blood pressure and feels it is not necessary. Refused lisinopril last night as well by night nurse.
--- NOTE | 2024-05-24 09:43 | PC.CHAP ---
Pastoral Care Encounter/Spiritual Assessment Type of Contact [] Declined public space attendant visit [] Patient/Family/Request visit [] Outpatient visit [] Follow-up visit [] Physician referral [] Code/Alert [x] Routine visit [] Staff referral [] Actively dying [] Patient sleeping [] Family support [] [] Out of room [] Palliative care [] [] Receiving care in room [] Pre-surgical visit [] Trauma [] Long length of stay [] ICU visit [] Other: Relational/Emotional Strength [x] Patient feels connected with others/family/visitors/staff [] Distress [] Loneliness/isolation [] Abandonment Spirituality of Patient [x] Person of Luly [] Attends Islam of their Luly [x] Believes in Prayer [] Reads Bible or Taoist materials [x] There are Spiritual issues to be addressed Forest [employer]ist Interventions [x] Prayer [x] Active listening [x] Non-anxious presence [x] Spiritual/emotional support [] Crisis/trauma care [x] Spiritual counseling [] Bereavement support [] Provided bereavement packet [x] Provided Bible/devotional materials [] Provided toy/stuffed animal, coloring book to patient or family member [] Provided Communion [] Anointing/Kendalia [] Salvation x[] Completed spiritual assessment [] Other: Impact on Illness or Injury [] Angry [] Fearful [] Anxious [] Often cries [] Exhaustion [] Unable to work [] Unable to attend roman catholic [] Unable to walk/stand [] Unable to read [] Unable to drive [] Unable to eat/drink [] Unable to sleep [] Unable to be with family [] Patient intubated [] Other: Summary Time spent with patient 15 min
--- NOTE | 2024-05-24 10:04 | PC.PHAR ---
I spoke to Pharmacies listed on last fills and removed medications that hadn't been filled in the last 90 days.
--- NOTE | 2024-05-24 15:20 | P.PN_ITS ---
Subjective 2 Subjective: seen today resting comfortably in bed Vitals/I&O/Wt Last Vital Signs Temp 98.0 F 05/24/24 11:33 Pulse 94 05/24/24 11:33 Resp 18 05/24/24 11:33 BP 128/81 05/24/24 11:33 Pulse Ox 92 05/24/24 11:33 O2 Del Method Nasal Cannula 05/24/24 11:33 O2 Flow Rate 2 05/24/24 08:00 FiO2 40 05/24/24 07:40 05/24/24 05/24/24 05/24/24 06:59 14:59 22:59 Intake Total 700 / 700 290 / 290 Output Total 1250 / 1250 2900 / 2900 Balance -550 / -550 -2610 / -2610 Weight last 48 hrs Weight 191.87 kg Weight 191.87 kg Weight 191.87 kg Weight 181.437 kg Weight 181.437 kg Physical Exam 2 Narrative: Patient laying supine Currently on room air Hemodynamically stable GCS 15 Nonfocal Intertrigo abdominal fold Keratosis abdominal wall pannus Lymphedema of lower extremity Abdominal wall pannus with nonpurulent cellulitis Not too much drainage noted during clinical exam today Heard catheter in place S1, S2 Urinary Catheter Management: Heard: Cath Placed During This Visit: yes Reason for Continuing Indwelling Catheter: Accurate Measurement of Urinary Output in Critically Ill Patients Urinary Catheter Date of Insertion: 05/23/24 Urinary Catheter Time of Insertion: 19:57 Data 05/24/24 05:10 05/24/24 05:10 Micro: Microbiology 05/23/24 19:18 Blood Culture - Preliminary Blood SPECIMEN COLLECTED 05/23/24 21:37 Blood Culture - Preliminary Blood SPECIMEN COLLECTED A&P Assessment and plan (1) HTN (hypertension): (2) Magaly's disease: (3) Obesity, morbid, BMI 50 or higher: (4) Urinary incontinence: (5) Abdominal wall cellulitis: (6) Stasis edema with ulcer of both lower extremities: (7) Sleep apnea syndrome: Qualifiers: Sleep apnea type: obstructive Qualified Code(s): G47.33 - Obstructive sleep apnea (adult) (pediatric) (8) Lymphedema: Plan Panniculitis No active sign of sepsis Patient has listed allergy anaphylactic reaction to penicillin Will use IV clindamycin Can be transition to p.o. regimen after 24 hours, no active fever or sign of sepsis Nonpurulent cellulitis Patient is not headache Lymphedema: Using compression wraps No active signs of cellulitis of lower extremity DVT prophylaxis as per her BMI will be 70 mg every 24 hours Opioids along bowel regimen Continue Lasix for lower extremity swelling Continue levothyroxine Morbidly obese: Patient is contemplating bariatric surgery she has not tried Ozempic or Mounjaro for weight loss, she may benefit from endocrinology outpatient referral Hypertension: We do not have appropriate cuff size for her arm that is why we are getting falsely high readings at this point monitor blood pressure for now 05/24/2024 continue mgmt as per A&P plan to dc in am PDMP PDMP Reviewed: Not Reviewed Attestations 2 Medical Necessity Statement*: Anticipated discharge within 24 to 48 hours Diagnoses HTN (hypertension) I10 Magaly's disease E06.3 Obesity, morbid, BMI 50 or higher E66.01 Urinary incontinence R32 Abdominal wall cellulitis L03.311 Stasis edema with ulcer of both lower extremities I87.313; L97.919; L97.929 Obstructive sleep apnea syndrome G47.33 Sleep apnea type: obstructive Lymphedema I89.0
[2024-05-24] MEDS: enoxaparin 80 mg/0.8 mL Syringe 70 MG SUBCUT (21:18)
[2024-05-25] VITALS (12 sets, daily range): BP systolic 111–125; BP diastolic 67–78; PULSE 77–87; RESP 15–18; TEMP 36.4–36.9; O2SAT 93–98
[2024-05-25 03:44] LABS: Bacillus cereus group Not Detected (NOT DETECT); Bacillus subtillis group Not Detected (NOT DETECT); Corynebacterium Detected (NOT DETECT); Cutibacterium acnes (P.acnes) Not Detected (NOT DETECT); Enterococcus Not Detected (NOT DETECT); Enterococcus faecalis Not Detected (NOT DETECT); Enterococcus faecium Not Detected (NOT DETECT); Lactobacillus species Not Detected (NOT DETECT); Listeria Not Detected (NOT DETECT); Listeria monocytogenes Not Detected (NOT DETECT); Micrococcus Not Detected (NOT DETECT); Pan Candida Not Detected (NOT DETECT); Pan Gram-Negative Not Detected (NOT DETECT); Staphylococcus epidermidis Not Detected (NOT DETECT); Staphylococcus lugdunensis Not Detected (NOT DETECT); Staphylococcus species Not Detected (NOT DETECT); Streptococcus agalactiae Not Detected (NOT DETECT); Streptococcus anginosus group Not Detected (NOT DETECT); Streptococcus pneumoniae Not Detected (NOT DETECT); Streptococcus pyogenes Not Detected (NOT DETECT); Streptococcus species Not Detected (NOT DETECT)
[2024-05-25] MEDS: clindamycin 900 MG/50 ML PREMIX 100 MG IV (05:40)
[2024-05-25 05:48] LABS: Basophils % 0.5 %; Eosinophils # 0.2 10^3/uL (0.0-0.8); Eosinophils % 2.7 %; Hematocrit 39.5 % (36-47); Lymphocytes # 0.6 10^3/uL (0.8-4.8); Lymphocytes % 10.6 %; Mean Corpuscular HGB Conc 28.1 g/dL (30-55); Mean Corpuscular Hemoglobin 26.6 pg (27-33); Mean Corpuscular Volume 94.7 fl (85-98); Mean Platelet Volume 8.7 fL (7.4-10.4); Monocytes # 0.5 10^3/uL (0.2-0.9); Monocytes % 8.5 %; Neutrophils # 4.46 10^3/uL (1.8-7.7); Nucleated Red Blood Cells % 0 %; Platelet Count 254 10^3/cmm (157-399); Red Blood Count 4.17 10^6/uL (3.85-5.65); Red Cell Distribution Width 15.1 % (12.1-15.1); White Blood Count 5.87 10^3/uL (3.29-11.43)
[2024-05-25 06:03] LABS: Anion Gap 9.9 (5-19); Blood Urea Nitrogen 9 mg/dL (6-20); Calcium 8.4 mg/dL (8.5-10.5); Carbon Dioxide 35 mmol/L (22-29); Chloride 95 mmol/L (98-107); Glucose 91 mg/dL (65-115); Magnesium 2.1 mg/dL (1.7-2.3); Osmolality Calculated 280 mOsm/kg (285-295); Potassium 3.9 mmol/L (3.5-5.1); Sodium 136 mmol/L (136-145)
--- NOTE | 2024-05-25 06:33 | CT_ITS ---
WS: [id number] CT HEAD NONCONTRAST HISTORY: pain and difficult movement to left leg TECHNIQUE: Contiguous axial imaging performed through the brain. Bone and soft tissue windows. Sagittal and coronal reformats reviewed. All CT scans at [facility] use at least one of these dose optimization techniques: automated exposure control; mA and/or kV adjustment per patient size (includes targeted exams where dose is matched to clinical indication); or iterative reconstruction. DLP: 1110.70 mGy.cm COMPARISON: 04/17/2022 No acute intracranial hemorrhage, midline shift or mass effect. No atrophy or prior infarcts or herniation. Similar appearance to the brain as 04/17/2022. No interval infarct or hemorrhage. No edema. Ventricles: Normal size with no hydrocephalus. No inferior displacement the cerebellar tonsils. Paranasal sinuses: As visualized are clear. Mastoid air cells: Well pneumatized. Calvarium and scalp: Skull is intact with no soft tissue edema or swelling. CT/CT head wo con* [id number] IMPRESSION: Negative head CT.
[2024-05-25] MEDS: FUROsemide 20 mg Tablet 40 MG PO (09:04)
[2024-05-25] MEDS: sennosides-docusate Tablet 2 TAB PO (09:04)
[2024-05-25] MEDS: thyroid 60 mg Tablet 120 MG PO (09:04)
[2024-05-25] MEDS: duloxetine 30 mg Capsule PO (09:04)
[2024-05-25] MEDS: morphine IR 15 mg Tablet PO ×2 (09:07→22:22)
[2024-05-25] MEDS: vancomycin 3,000 MG/600 ML PIGGYBACK 200 MG IV (10:30)
--- NOTE | 2024-05-25 12:50 | P.PN_ITS ---
Subjective 2 Subjective: seen this am blood culture positive for corynebacterium AFEBRILE Vitals/I&O/Wt Last Vital Signs Temp 98.0 F 05/25/24 11:08 Pulse 79 05/25/24 11:08 Resp 15 05/25/24 11:08 BP 114/70 05/25/24 11:08 Pulse Ox 94 05/25/24 11:08 O2 Del Method Nasal Cannula 05/25/24 11:08 O2 Flow Rate 2 05/25/24 11:08 FiO2 35 05/24/24 15:20 05/24/24 05/25/24 05/25/24 22:59 06:59 14:59 Intake Total 840 / 1130 50 / 1180 240 / 240 Output Total 600 / 3500 1500 / 5000 Balance 240 / -2370 -1450 / -3820 240 / 240 Weight last 48 hrs Weight 192.232 kg Weight 191.87 kg Weight 191.87 kg Weight 191.87 kg Weight 181.437 kg Weight 181.437 kg Physical Exam 2 Narrative: Patient laying supine Currently on room air Hemodynamically stable GCS 15 Nonfocal Intertrigo abdominal fold Keratosis abdominal wall pannus Lymphedema of lower extremity Abdominal wall pannus with nonpurulent cellulitis NO DRAINAGE noted during clinical exam today Heard catheter in place S1, S2 Urinary Catheter Management: Heard: Cath Placed During This Visit: yes Reason for Continuing Indwelling Catheter: Other Urinary Catheter Date of Insertion: 05/23/24 Urinary Catheter Time of Insertion: 19:57 Data 05/25/24 04:53 05/25/24 04:53 Micro: Microbiology 05/25/24 10:10 Blood Culture - Preliminary Blood SPECIMEN COLLECTED 05/25/24 09:28 Blood Culture - Preliminary Blood SPECIMEN COLLECTED 05/23/24 21:37 Blood Culture - Preliminary Blood Corynebacterium species 05/23/24 19:18 Blood Culture - Preliminary Blood NEGATIVE TO DATE A&P Assessment and plan (1) HTN (hypertension): (2) Magaly's disease: (3) Obesity, morbid, BMI 50 or higher: (4) Urinary incontinence: (5) Abdominal wall cellulitis: (6) Stasis edema with ulcer of both lower extremities: (7) Sleep apnea syndrome: Qualifiers: Sleep apnea type: obstructive Qualified Code(s): G47.33 - Obstructive sleep apnea (adult) (pediatric) (8) Lymphedema: Plan Panniculitis No active sign of sepsis Patient has listed allergy anaphylactic reaction to penicillin Will use IV clindamycin Can be transition to p.o. regimen after 24 hours, no active fever or sign of sepsis Nonpurulent cellulitis Patient is not headache Lymphedema: Using compression wraps No active signs of cellulitis of lower extremity DVT prophylaxis as per her BMI will be 70 mg every 24 hours Opioids along bowel regimen Continue Lasix for lower extremity swelling Continue levothyroxine Morbidly obese: Patient is contemplating bariatric surgery she has not tried Ozempic or Mounjaro for weight loss, she may benefit from endocrinology outpatient referral Hypertension: We do not have appropriate cuff size for her arm that is why we are getting falsely high readings at this point monitor blood pressure for now 05/24/2024 Blood culture 1 out of 4 bottles positive for corynebacterium. Will repeat blood cultures today. Most likely above is a contaminant since it is 1 bottle so far. If more than 1 bottle does turn positive we will need to consult ID for further guidance. Patient will need sleep study as an outpatient. Stop IV clindamycin Placed on IV Vanco. PDMP PDMP Reviewed: Not Reviewed Attestations 2 Medical Necessity Statement*: has positive blood culture, will need hospitalization till culture results Diagnoses HTN (hypertension) I10 Magaly's disease E06.3 Obesity, morbid, BMI 50 or higher E66.01 Urinary incontinence R32 Abdominal wall cellulitis L03.311 Stasis edema with ulcer of both lower extremities I87.313; L97.919; L97.929 Obstructive sleep apnea syndrome G47.33 Sleep apnea type: obstructive Lymphedema I89.0
--- NOTE | 2024-05-25 14:40 | PHA.VACGOAL ---
Vancomycin Goal - Goal Vancomycin Goal:: 15-20 mg/L Vancomycin Indication:: Other - Therapy Day of therpy:: Day []of [] . Actual body weight (kg): 192.232 kg - Data Labs: WBC 5.87 10^3/uL (3.29-11.43) 05/25/24 04:53 RBC 4.17 10^6/uL (3.85-5.65) 05/25/24 04:53 Hgb 11.10 g/dL (11.27-16.99) L 05/25/24 04:53 Hct 39.5 % (36-47) 05/25/24 04:53 MCV 94.7 fl (85-98) 05/25/24 04:53 MCH 26.6 pg (27-33) L 05/25/24 04:53 MCHC 28.1 g/dL (30-55) L 05/25/24 04:53 RDW 15.1 % (12.1-15.1) 05/25/24 04:53 Sodium 136 mmol/L (136-145) 05/25/24 04:53 Potassium 3.9 mmol/L (3.5-5.1) 05/25/24 04:53 Chloride 95 mmol/L (98-107) L 05/25/24 04:53 Carbon Dioxide 35 mmol/L (22-29) H 05/25/24 04:53 Anion Gap 9.9 (5-19) 05/25/24 04:53 BUN 9 mg/dL (6-20) 05/25/24 04:53 Creatinine 0.4 mg/dL (0.5-0.9) L 05/25/24 04:53 GFR Calculation 167.0 mL/min (90-130) H 05/25/24 04:53 Treatment plan:: new consult Regimen:: New start vancomycin. No prior history of vancomycin found. 3000 mg load dose ordered. Started on maintenance dose of 1500 mg q8h per population based pharmacokinetic nomogram.
[2024-05-25] MEDS: enoxaparin 80 mg/0.8 mL Syringe 70 MG SUBCUT (22:21)
[2024-05-25] MEDS: vancomycin 1,500 MG/300 ML PIGGYBACK 200 MG IV (22:22)
[2024-05-26] VITALS (7 sets, daily range): BP systolic 103–161; BP diastolic 57–81; PULSE 73–95; RESP 16; TEMP 36.8–37.1; O2SAT 88–95
[2024-05-26] MEDS: vancomycin 1,500 MG/300 ML PIGGYBACK 200 MG IV ×2 (05:22→12:52)
[2024-05-26 05:52] LABS: Basophils % 0.7 %; Eosinophils # 0.2 10^3/uL (0.0-0.8); Eosinophils % 2.9 %; Hematocrit 39.3 % (36-47); Lymphocytes # 0.7 10^3/uL (0.8-4.8); Lymphocytes % 11.8 %; Mean Corpuscular Hemoglobin 27.3 pg (27-33); Mean Corpuscular Volume 94.2 fl (85-98); Mean Platelet Volume 8.6 fL (7.4-10.4); Monocytes # 0.5 10^3/uL (0.2-0.9); Neutrophils # 4.37 10^3/uL (1.8-7.7); Neutrophils % 74.6 %; Nucleated Red Blood Cells % 0 %; Platelet Count 253 10^3/cmm (157-399); Red Blood Count 4.17 10^6/uL (3.85-5.65); Red Cell Distribution Width 15.3 % (12.1-15.1); White Blood Count 5.86 10^3/uL (3.29-11.43)
[2024-05-26 06:02] LABS: Anion Gap 6.8 (5-19); Blood Urea Nitrogen 7 mg/dL (6-20); Calcium 8.4 mg/dL (8.5-10.5); Carbon Dioxide 39 mmol/L (22-29); Chloride 94 mmol/L (98-107); Creatinine Clr Calc Pharmacy 272.0641; Glucose 108 mg/dL (65-115); Magnesium 2.2 mg/dL (1.7-2.3); Osmolality Calculated 281 mOsm/kg (285-295); Potassium 3.8 mmol/L (3.5-5.1); Sodium 136 mmol/L (136-145)
--- NOTE | 2024-05-26 08:52 | CTR_ITS ---
PROCEDURE INFORMATION: Exam: CT Lumbar Spine Without Contrast Exam date and time: 05/26/2024 9:35 AM Age: 53 years old Clinical indication: Low back pain; Pain in both legs left is worse; Additional info: Left leg weakness TECHNIQUE: Imaging protocol: Computed tomography of the lumbar spine without contrast. Radiation optimization: All CT scans at this facility use at least one of these dose optimization techniques: automated exposure control; mA and/or kV adjustment per patient size (includes targeted exams where dose is matched to clinical indication); or iterative reconstruction. COMPARISON: CT lumbar spine 03/25/2023 RADIATION DOSE METRICS: Total DLP (mGy-cm): 1334.89 FINDINGS: No fracture or other acute osseous abnormality of the lumbar spine is identified. Lumbar vertebral body heights are preserved. Degenerative disc disease and facet DJD are present at the lower lumbar levels. There are variable degrees of relatively mild mass effect on thecal sac. Bilateral L5 foraminal narrowing is present, perhaps slightly greater on left than right. Please note that assessment is suboptimal due to degradation of the image quality related to patient's large body habitus. No spondylolysis or spondylolisthesis. No obvious acute abnormality of the psoas muscles. There are a few mildly prominent retroperitoneal lymph nodes of doubtful significance given stability compared to 03/25/[address]/CT lumbar spine wo con* [id number] IMPRESSION: Chronic lower lumbar degenerative disc disease and facet DJD. No acute abnormality detected.
[2024-05-26] MEDS: duloxetine 30 mg Capsule PO (09:59)
[2024-05-26] MEDS: sennosides-docusate Tablet 2 TAB PO (09:59)
[2024-05-26] MEDS: FUROsemide 20 mg Tablet 40 MG PO (09:59)
[2024-05-26] MEDS: thyroid 60 mg Tablet 120 MG PO (09:59)
[2024-05-26] MEDS: cefdinir 300 MG CAPSULE PO (12:51)
--- NOTE | 2024-05-26 14:03 | P.DS_ITS ---
Discharge Providers Date of Admission: 05/23/24 21:32 Date of Discharge: May 26, 2024 Attending Provider at Admission: Manoj Purdy MD Attending Provider at Discharge: Norma Shelton MD Primary Care Provider: TUCKER Wasserman Diagnoses at Discharge Discharge Diagnosis (1) HTN (hypertension): Status: Acute (2) Magaly's disease: Status: Acute (3) Obesity, morbid, BMI 50 or higher: Status: Acute (4) Urinary incontinence: Status: Acute (5) Abdominal wall cellulitis: Status: Resolved (6) Stasis edema with ulcer of both lower extremities: Status: Acute (7) Sleep apnea syndrome: Status: Acute Qualifiers: Sleep apnea type: obstructive Qualified Code(s): G47.33 - Obstructive sleep apnea (adult) (pediatric) (8) Lymphedema: Status: Acute Reason for Visit Reason for Visit: ABD Leaking Fluid Hospital Course Hospital Course Patient presented to the hospital with panniculitis and had drainage at pannus fold area. He was kept on IV clindamycin and switched over to IV vancomycin going forward. Drainage cellulitis improved. She had no signs of sepsis. 1 out of 4 bottles positive for corynebacterium most likely thought to be a contaminant. Repeat cultures negative. Patient was discharged home on cefdinir. Trial dose of cefdinir was given in the hospital and she tolerated well. She was also sent home on doxycycline. She complained of left leg pain and was seen by physical therapy as well. She may have had evidence of sciatica. CT lumbar spine was performed which showed chronic lower lumbar degenerative disc disease and facet DJD no acute abnormality detected. Variable degrees of relatively mild mass effect on thecal sac bilateral L5 foraminal narrowing present perhaps slightly greater on the left than right. Discussed with Dr. Bettencourt over the phone to refer patient to him to see as an outpatient. Dr. Bettencourt will see in clinic. Will send on prednisone taper at this time. Patient agreeable to the plan above. She will be discharged home in stable condition. Physical Exam Narrative: Patient laying supine Currently on room air Hemodynamically stable GCS 15 Nonfocal Intertrigo abdominal fold Keratosis abdominal wall pannus Lymphedema of lower extremity Abdominal wall pannus with nonpurulent cellulitis NO DRAINAGE noted during clinical exam today Heard catheter in place S1, S2 Urinary Catheter Management: Heard: Cath Placed During This Visit: yes Reason for Continuing Indwelling Catheter: Other Urinary Catheter Date of Insertion: 05/23/24 Urinary Catheter Time of Insertion: 19:57 Discharge Data Studies Completed and Pending Completed Studies During Hospitalization Category Date Time Status CT abdomen pelvis w con* [id number] Stat Cat Scan 05/23/24 19:[address] head wo con* [id number] Urgent Cat Scan 05/25/24 06:[address] lumbar spine wo con* [id number] Urgent Cat Scan 05/26/24 08:52 Completed XR chest 1V portable [id number] Stat Exams 05/23/24 18:59 Completed Pending at discharge Category Date Time Status Blood Culture Stat Lab 05/23/24 19:18 Results Blood Culture Stat Lab 05/25/24 10:10 Results Vancomycin Trough Timed Lab 05/26/24 20:30 Ordered Radiology Impressions Chest X-Ray 05/23/24 18:59 IMPRESSION: Subtle opacities in the right lung base laterally. Abdomen/Pelvis CT 05/23/24 19:30 IMPRESSION: 1. Diffuse fat stranding in the abdominal pannus with diffuse skin thickening. No loculated fluid collection to suggest abscess. Findings consistent with panniculitis. 2. No bowel obstruction or inflammatory process associated with the bowel. 3. No free air or significant free fluid in the abdomen or pelvis. 4. No evidence of appendicitis. Head CT 05/25/24 06:33 IMPRESSION: Negative head CT. Lumbar Spine CT 05/26/24 08:52 IMPRESSION: Chronic lower lumbar degenerative disc disease and facet DJD. No acute abnormality detected. Laboratory Results WBC 5.86 10^3/uL (3.29-11.43) 05/26/24 05:13 RBC 4.17 10^6/uL (3.85-5.65) 05/26/24 05:13 Hgb 11.40 g/dL (11.27-16.99) 05/26/24 05:13 Hct 39.3 % (36-47) 05/26/24 05:13 MCV 94.2 fl (85-98) 05/26/24 05:13 MCH 27.3 pg (27-33) 05/26/24 05:13 MCHC 29.0 g/dL (30-55) L 05/26/24 05:13 RDW 15.3 % (12.1-15.1) H 05/26/24 05:13 Plt Count 253 10^3/cmm (157-399) 05/26/24 05:13 MPV 8.6 fL (7.4-10.4) 05/26/24 05:13 Neut % (Auto) 74.6 % 05/26/24 05:13 Lymph % (Auto) 11.8 % 05/26/24 05:13 [place] % (Auto) 9.0 % 05/26/24 05:13 Eos % (Auto) 2.9 % 05/26/24 05:13 Baso % (Auto) 0.7 % 05/26/24 05:13 Neut # (Auto) 4.37 10^3/uL (1.8-7.7) 05/26/24 05:13 Lymph # (Auto) 0.7 10^3/uL (0.8-4.8) L 05/26/24 05:13 [place] # (Auto) 0.5 10^3/uL (0.2-0.9) 05/26/24 05:13 Eos # (Auto) 0.2 10^3/uL (0.0-0.8) 05/26/24 05:13 Baso # (Auto) 0.0 10^3/uL (0.0-0.1) 05/26/24 05:13 Nucleated RBC % (auto) 0 % 05/26/24 05:13 Nucleated RBCs # 0.0 /100WBC 05/26/24 05:13 Sodium 136 mmol/L (136-145) 05/26/24 05:13 Potassium 3.8 mmol/L (3.5-5.1) 05/26/24 05:13 Chloride 94 mmol/L (98-107) L 05/26/24 05:13 Carbon Dioxide 39 mmol/L (22-29) H 05/26/24 05:13 Anion Gap 6.8 (5-19) 05/26/24 05:13 BUN 7 mg/dL (6-20) 05/26/24 05:13 Creatinine 0.4 mg/dL (0.5-0.9) L 05/26/24 05:13 GFR Calculation 167.0 mL/min (90-130) H 05/26/24 05:13 Glucose 108 mg/dL (65-115) 05/26/24 05:13 Estimat Average Glucose 120 05/23/24 19:18 Hemoglobin A1c 5.8 % (4.0-6.0) 05/23/24 19:18 Calculated Osmolality 281 mOsm/kg (285-295) L 05/26/24 05:13 Calcium 8.4 mg/dL (8.5-10.5) L 05/26/24 05:13 Magnesium 2.2 mg/dL (1.7-2.3) 05/26/24 05:13 Total Bilirubin 0.4 mg/dL (0.15-1.2) 05/23/24 19:18 AST 20 U/L (0-32) 05/23/24 19:18 ALT 41 U/L (0-33) H 05/23/24 19:18 Alkaline Phosphatase 81 U/L (35-105) 05/23/24 19:18 C-Reactive Protein 9.6 mg/L (0.0-4.9) H 05/24/24 05:10 NT-Pro-B Natriuret Pep 442 pg/mL (0-125) H 05/23/24 19:18 Total Protein 7.2 g/dL (6.6-8.7) 05/23/24 19:18 Albumin 3.8 g/dL (3.5-5.2) 05/23/24 19:18 Globulin 3.4 g/dL (1.3-4.6) 05/23/24 19:18 Procalcitonin 0.07 ng/mL (0-0.5) 05/23/24 19:18 Urine Color Yellow (Yellow) 05/23/24 19:46 Urine Appearance Clear (CLEAR) 05/23/24 19:46 Urine pH 7.0 (5-7) 05/23/24 19:46 Ur Specific [place] 1.018 (1.005-1.030) 05/23/24 19:46 Urine Protein Negative (Negative) 05/23/24 19:46 Urine Glucose (UA) Negative (Normal) 05/23/24 19:46 Urine Ketones Negative (Negative) 05/23/24 19:46 Urine Blood Negative (Negative) 05/23/24 19:46 Urine Nitrate Negative (Negative) 05/23/24 19:46 Urine Bilirubin Negative (Negative) 05/23/24 19:46 Urine Urobilinogen 1.0 mg/dL (Negative) 05/23/24 19:46 Ur Leukocyte Esterase Negative (Negative) 05/23/24 19:46 Urine RBC 0-2 /hpf (0-2) 05/23/24 19:46 Urine WBC 0-5 /hpf (0-5) 05/23/24 19:46 Ur Squamous Epith Cells 0-5 /hpf (0-5) 05/23/24 19:46 Amorphous Sediment Not Reportable 05/23/24 19:46 Urine Bacteria None seen /hpf (NONE) 05/23/24 19:46 Hyaline Casts 0.81 /lpf 05/23/24 19:46 Vitals Last Vital Signs Temp 98.3 F 05/26/24 11:26 Pulse 76 05/26/24 11:26 Resp 16 05/26/24 11:26 BP 103/57 05/26/24 11:26 Pulse Ox 88 L 05/26/24 12:56 O2 Del Method Nasal Cannula 05/26/24 11:26 O2 Flow Rate 2 05/26/24 12:56 FiO2 30 05/25/24 19:33 Discharge Plan Discharge Patient Disposition: Home Condition: Stable Prescriptions: New prednisone 20 mg tablet See Rx Instructions .ROUTE .COMPLEX Qty: 20 0RF Rx Instructions: 60 mg x 3 days 40 mg x 3 days 20 mg x 3 days 10 mg x 3 days cefdinir 300 mg capsule 300 mg PO BID 7 Days Qty: 14 0RF doxycycline hyclate 100 mg tablet 100 mg PO BID 7 Days Qty: 14 0RF Continued duloxetine 30 mg capsule,delayed release(DR/EC) 30 mg PO DAILY 30 Days Qty: 30 11RF thyroid (pork) [[place] Thyroid] 120 mg tablet 120 mg PO DAILY 30 Days Qty: 30 5RF (DME) AUTO TITRATING BIPAP WITH 2 L O2 BLED IN 6-16CM SETTING See Rx Instructions .Route .MEDSUPPLY Qty: 1 0RF Rx Instructions: PROVIDE SUPPLIES NEEDED. (DME) compression socks, x-large Misc See Rx Instructions .Route Rx Instructions: As directed ipratropium-albuterol 0.5 mg-3 mg(2.5 mg base)/3 mL solution for nebulization 3 ml inhalation QID Qty: 180 0RF Discharge Orders: Discharge Order (Routine); Ordered 05/26/24 Ordered By: Norma Shelton Other Ambulatory Orders: DME: Oxygen (Order) Location: None Selected Ordered By: Norma Shelton Referrals: rolan hammer [Other] - 2 weeks (Obesity Treatment We have notified your physician's clinic of the need for a follow-up appointment to be scheduled. If you have not heard from them within the next 2 business days, please call them directly. ) Anatoly Bettencourt DO [Physician] - 2 weeks (We have notified your physician's clinic of the need for a follow-up appointment to be scheduled. If you have not heard from them within the next 2 business days, please call them directly. ) Vicky Fernandez FNP-C [Primary Care Provider] - 4-7 days (We have notified your physician's clinic of the need for a follow-up appointment to be scheduled. If you have not heard from them within the next 2 business days, please call them directly. ) Discharge Diet: Cardiac Discharge Activity: Resume usual activity Patient Instructions: Back Pain, Doxycycline (By mouth), Prednisone (By mouth), Cefdinir (By mouth), Lymphedema, Opioid Safety Discharge Attestations Time Spent in Discharge Care*: greater than 30 min Quality Metrics Clinical Quality Measures [ No reported AMI, CVA or VTE this stay] Coding Level of Care Code Acute Code for Chg Fwd Diagnoses HTN (hypertension) I10 Magaly's disease E06.3 Obesity, morbid, BMI 50 or higher E66.01 Urinary incontinence R32 Abdominal wall cellulitis L03.311 Stasis edema with ulcer of both lower extremities I87.313; L97.919; L97.929 Obstructive sleep apnea syndrome G47.33 Sleep apnea type: obstructive Lymphedema I89.0
--- NOTE | 2024-05-26 15:10 | PC.NURSE ---
Attempts to call HOME for pt oxygen delivery. No answer.
--- NOTE | 2024-05-26 15:12 | PC.NURSE ---
Removed neal catheter. Intact. Voided after removal.
--- NOTE | 2024-05-26 15:52 | PC.NURSE ---
discharge delayed due to waiting on HOME oxygen delivery
== END 2024-05-26 17:16 | disposition home or self-care (01) ==
LOC: ER 19:29 → MEDSURG 22:49
PROVIDERS: Emergency Medicine; Admitting Provider Internal Medicine; Emergency Provider Emergency Medicine; PCP Nurse Practitioner Family; Visit Provider Internal Medicine
DX: M79.3 Panniculitis, unspecified (principal); L03.311 Cellulitis of abdominal wall; L97.919 Non-pressure chronic ulcer of unspecified part of right lower leg with unspecified severity; I87.313 Chronic venous hypertension (idiopathic) with ulcer of bilateral lower extremity; I10 Essential (primary) hypertension; E06.3 Autoimmune thyroiditis; E66.01 Morbid (severe) obesity due to excess calories; Z68.45 Body mass index [BMI] 70 or greater, adult; R32 Unspecified urinary incontinence; L97.929 Non-pressure chronic ulcer of unspecified part of left lower leg with unspecified severity; G47.33 Obstructive sleep apnea (adult) (pediatric); I89.0 Lymphedema, not elsewhere classified; M51.369 Other intervertebral disc degeneration, lumbar region without mention of lumbar back pain or lower extremity pain; M19.09 Primary osteoarthritis, other specified site; R19.7 Diarrhea, unspecified; Z86.73 Personal history of transient ischemic attack (TIA), and cerebral infarction without residual deficits; Z87.891 Personal history of nicotine dependence; R06.02 Shortness of breath; R06.01 Orthopnea; E78.2 Mixed hyperlipidemia; R73.9 Hyperglycemia, unspecified; J81.1 Chronic pulmonary edema; Z86.14 Personal history of Methicillin resistant Staphylococcus aureus infection
CPT/HCPCS: 36415; 51702; 70450; 71045; 72131; 74177; 80048; 80053; 81001; 83036; 83735; 83880; 84145; 85025; 86140; 87040; 87150; 87205; 93005; 94660; 94760; 96365; 96366; 96367; 96372; 97110; 97162; 99285; G0378; J1650; J3370; J3372; J3490; J9999

== ENCOUNTER 2024-06-06 13:09 | Observation (INO) | payer OTHER, MEDICAID, SELFPAY ==
[2024-06-06 13:27] VITALS: BP 137/84; PULSE 85; RESP 15; TEMP 36.7; O2SAT 96; BMI 70.7
[2024-06-06 13:48] LABS: Basophils % 0.3 %; Eosinophils # 0.2 10^3/uL (0.0-0.8); Eosinophils % 1.7 %; Hematocrit 42.9 % (36-47); Lymphocytes % 10.2 %; Mean Corpuscular HGB Conc 28.2 g/dL (30-55); Mean Corpuscular Hemoglobin 26.6 pg (27-33); Mean Corpuscular Volume 94.3 fl (85-98); Mean Platelet Volume 9.2 fL (7.4-10.4); Monocytes # 0.8 10^3/uL (0.2-0.9); Monocytes % 8.6 %; Neutrophils # 7.42 10^3/uL (1.8-7.7); Neutrophils % 78.4 %; Nucleated Red Blood Cells % 0 %; Platelet Count 231 10^3/cmm (157-399); Red Blood Count 4.55 10^6/uL (3.85-5.65); Red Cell Distribution Width 15.5 % (12.1-15.1); White Blood Count 9.47 10^3/uL (3.29-11.43)
[2024-06-06 14:01] LABS: Alanine Aminotransferase 27 U/L (0-33); Albumin Level 3.6 g/dL (3.5-5.2); Alkaline Phosphatase 68 U/L (35-105); Aspartate Amino Transferase 19 U/L (0-32); Blood Urea Nitrogen 12 mg/dL (6-20); Calcium 9.1 mg/dL (8.5-10.5); Carbon Dioxide 34 mmol/L (22-29); Chloride 98 mmol/L (98-107); Creatinine Clr Calc Pharmacy 213.2907; Globulin 3.2 g/dL (1.3-4.6); Glomerular Filtration Rate 129.1 mL/min (90-130); Glucose 85 mg/dL (65-115); Lipase 22 U/L (13-60); Osmolality Calculated 287 mOsm/kg (285-295); Sodium 139 mmol/L (136-145); Total Bilirubin 0.3 mg/dL (0.15-1.2); Total Protein 6.8 g/dL (6.6-8.7)
[2024-06-06 14:05] LABS: Anion Gap 11.5 (5-19); Potassium 4.5 mmol/L (3.5-5.1)
--- NOTE | 2024-06-06 14:52 | ED_ITS ---
HPI - Skin/Abscess/Foreign Bdy 2 General: Chief complaint: Skin/Abscess/Foreign Body Stated complaint: dr mchugh, fluid coming out of abd Time Seen by Provider: 06/06/24 14:29 Source: patient Mode of arrival: wheelchair Limitations: no limitations History of Present Illness: Patient is a 53-year-old female with a very extensive past medical history including severe lymphedema and super morbid obesity with a BMI of over 70 here with complaints of abdominal pannus tenderness, erythema, and significant weeping. Patient was just admitted to the hospital in mid May and discharged on 05/26 for same symptoms. While inpatient, she was receiving IV clindamycin and vancomycin for treatment of her panniculitis. Patient states she was discharged home on oral cefdinir and doxycycline which she finished yesterday. Patient felt like her symptoms were improving at time of discharge but over the past few days has noticed worsening symptoms again and drainage. She reportedly was seen by her primary care provider earlier today who recommended coming back to the emergency department for re-admission. Patient is not running fevers. Her vital signs are stable upon arrival. MD complaint: other (abdominal weeping) Onset (ago): day(s) Severity: moderate Relieving factors: other (was better after recent hospitalization) Exacerbating factors: none Associated symptoms: Deny chills, fever(s), nausea or vomiting Treatments prior to arrival: none Related Data Previous Rx's ?Medication ?Instructions ?Recorded duloxetine 30 mg capsule,delayed 30 mg PO DAILY 30 day s #30 caps 11/19/23 release thyroid (pork) 120 mg tablet 120 mg PO DAILY 30 days # 30 tabs 11/19/23 ([place] Thyroid) ipratropium 0.5 mg-albuterol 3 mg 3 ml inhalation QID #180 mL 03/06/24 (2.5 mg base)/3 mL nebulization soln Allergies Allergy/AdvReac Type Severity Reaction Status Date / Time Penicillins Allergy Severe ALGY-Difficulty Verified 06/06/24 11:23 Swallowing Sulfa (Sulfonamide Allergy Severe ALGY-Difficulty Verified 06/06/24 11:23 Antibiotics) Breathing zolpidem (From Ambien) Allergy Severe ALGY-Difficulty Verified 06/06/24 11:23 Swallowing gluten Allergy ADR-Gastrointestinal Verified 06/06/24 11:23 Upset levothyroxine sodium (From Allergy narcolepsy Verified 06/06/24 11:23 Synthroid) Review of Systems 2 Const: Denies: fever(s), chills, body aches, fatigue or malaise GI: Reports: abdominal pain; Denies: nausea, vomiting, diarrhea or change in bowel habits : Denies: flank pain, difficulty voiding, dysuria, urinary frequency, urinary urgency or urinary hesitancy Musc: Reports: extremity swelling (chronic LE) Neuro: Denies: headache(s) PFSH ED 2 PFSH: Medical History Obesity hypoventilation syndrome Cellulitis Arthritis of both knees Hypoxia Obesity, morbid, BMI 50 or higher Dyspnea Lymphedema Pulmonary edema Dyspnea Obesity, morbid, BMI 50 or higher Hypoxia COVID-19 Stiffness of joints of both hands Exertional shortness of breath Chronic interstitial lung disease Open wound of left lower extremity Elevated brain natriuretic peptide (BNP) level Myalgia Arthralgia Hyperglycemia Stress incontinence 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 COPD (chronic obstructive pulmonary disease) Mixed hyperlipidemia TONIO (obstructive sleep apnea) Orthopnea SOB (shortness of breath) HTN (hypertension) Hypothyroidism Former smoker (~2014) Tilted uterus History of pneumonia TIA (transient ischemic attack) Lymphedema associated with obesity Magaly's disease Asthma Surgical History History of bronchoscopy Family History Other CAD (coronary artery disease) Congestive heart failure (CHF) Diabetes Former smoker Hypertension Hypothyroidism Social History Smoking and tobacco/nicotine status: former use of tobacco/nicotine (quit 2013) Quit status (tobacco/nicotine): has quit using Year quit tobacco: 2014 Former quit date comment: 0.5 ppd X 20 years Physical Exam 2 Const: COMMON NORMALS: no acute distress, patient oriented x3, no limitations, alert and well nourished GENERAL APPEARANCE: cooperative NUTRITIONAL APPEARANCE: obese morbidly obese (super morbid obesity with a BMI of 70.7) Neck/C-Spine: COMMON NORMALS: full ROM, no lymphadenopathy, supple and no meningeal signs Resp: COMMON NORMALS: normal respiratory effort and clear to auscultation bilaterally AUSCULTATION: clear to auscultation bilaterally OTHER: chronically on 2L oxygen Cardio: COMMON NORMALS: regular rate and regular rhythm RATE: regular rate RHYTHM: regular rhythm GI: OTHER: pt has an extremely large abdominal wall pannus with lymphedema present and clear weeping; she has erythematous clearly demarcated rash to her intertriginous folds; she has faint erythema involving her entire pannus that appears more related to her lymphedema than to a cellulitis Extremity: GENERAL: Yes normal exam except as noted OTHER: stage III bilateral LE lymphedema with trophic/thick skin changes and fibrous/warty overgrowths Neuro: COMMON NORMALS: patient oriented x3, moves all extremities, no focal motor deficits and no sensory deficits noted SENSORIUM/ORIENTATION: Yes alert MENINGEAL SIGNS: Yes no meningeal signs Skin: COMMON NORMALS: no rashes or lesions noted GENERAL SKIN EXAM: no rashes or lesions noted Course 2 Consultations: Consultation #1: Dr. Fair-admit to obs Vital Signs: Vital signs: Vital Signs Temperature 98.0 F 06/06/24 13:27 Pulse Rate 85 06/06/24 13:27 Respiratory Rate 15 06/06/24 13:27 Blood Pressure 137/84 06/06/24 13:27 Pulse Oximetry 96 06/06/24 13:27 Oxygen Delivery Me thod Room Air 06/06/24 13:27 MDM - Skin/Abscess/Foreign Bdy Medicial Decision Making Patient is a 53-year-old female here with concerns of pannus redness, tenderness, and significant weeping. She was recently admitted to the hospital for identical symptoms. She was sent back to the emergency department by PCP. Patient's vital signs are stable. Her white count is normal. CRP is mildly elevated at 22.7. Clinically I question whether she has acute infection of her pannus versus normal/expected lymphedema symptoms. Patient just finished a 10- day course of cefdinir/doxycycline. I did speak to Dr. Fair who recommended. Patient needs to be enrolled in a strict physical therapy lymphedema program. Medical Records I reviewed the patient's medical records. Lab Data I reviewed the patient's lab results. 06/06/24 13:37 06/06/24 13:37 Laboratory Results WBC 9.47 10^3/uL (3.29-11.43) 06/06/24 13:37 RBC 4.55 10^6/uL (3.85-5.65) 06/06/24 13:37 Hgb 12.10 g/dL (11.27-16.99) 06/06/24 13:37 Hct 42.9 % (36-47) 06/06/24 13:37 MCV 94.3 fl (85-98) 06/06/24 13:37 MCH 26.6 pg (27-33) L 06/06/24 13:37 MCHC 28.2 g/dL (30-55) L 06/06/24 13:37 RDW 15.5 % (12.1-15.1) H 06/06/24 13:37 Plt Count 231 10^3/cmm (157-399) 06/06/24 13:37 MPV 9.2 fL (7.4-10.4) 06/06/24 13:37 Neut % (Auto) 78.4 % 06/06/24 13:37 Lymph % (Auto) 10.2 % 06/06/24 13:37 [place] % (Auto) 8.6 % 06/06/24 13:37 Eos % (Auto) 1.7 % 06/06/24 13:37 Baso % (Auto) 0.3 % 06/06/24 13:37 Neut # (Auto) 7.42 10^3/uL (1.8-7.7) 06/06/24 13:37 Lymph # (Auto) 1.0 10^3/uL (0.8-4.8) 06/06/24 13:37 [place] # (Auto) 0.8 10^3/uL (0.2-0.9) 06/06/24 13:37 Eos # (Auto) 0.2 10^3/uL (0.0-0.8) 06/06/24 13:37 Baso # (Auto) 0.0 10^3/uL (0.0-0.1) 06/06/24 13:37 Nucleated RBC % (auto) 0 % 06/06/24 13:37 Nucleated RBCs # 0.0 /100WBC 06/06/24 13:37 Sodium 139 mmol/L (136-145) 06/06/24 13:37 Potassium 4.5 mmol/L (3.5-5.1) 06/06/24 13:37 Chloride 98 mmol/L (98-107) 06/06/24 13:37 Carbon Dioxide 34 mmol/L (22-29) H 06/06/24 13:37 Anion Gap 11.5 (5-19) 06/06/24 13:37 BUN 12 mg/dL (6-20) 06/06/24 13:37 Creatinine 0.5 mg/dL (0.5-0.9) 06/06/24 13:37 GFR Calculation 129.1 mL/min (90-130) 06/06/24 13:37 Glucose 85 mg/dL (65-115) 06/06/24 13:37 Calculated Osmolality 287 mOsm/kg (285-295) 06/06/24 13:37 Calcium 9.1 mg/dL (8.5-10.5) 06/06/24 13:37 Total Bilirubin 0.3 mg/dL (0.15-1.2) 06/06/24 13:37 AST 19 U/L (0-32) 06/06/24 13:37 ALT 27 U/L (0-33) 06/06/24 13:37 Alkaline Phosphatase 68 U/L (35-105) 06/06/24 13:37 C-Reactive Protein 22.7 mg/L (0.0-4.9) H 06/06/24 13:37 Total Protein 6.8 g/dL (6.6-8.7) 06/06/24 13:37 Albumin 3.6 g/dL (3.5-5.2) 06/06/24 13:37 Globulin 3.2 g/dL (1.3-4.6) 06/06/24 13:37 Lipase 22 U/L (13-60) 06/06/24 13:37 No radiology studies performed this visit Discharge Plan Discharge Patient Disposition: Placed in Observation Clinical Impression: Lymphedema Condition: Stable Prescriptions: No Action duloxetine 30 mg capsule,delayed release(DR/EC) 30 mg PO DAILY 30 Days Qty: 30 11RF thyroid (pork) [[place] Thyroid] 120 mg tablet 120 mg PO DAILY 30 Days Qty: 30 5RF ipratropium-albuterol 0.5 mg-3 mg(2.5 mg base)/3 mL solution for nebulization 3 ml inhalation QID Qty: 180 0RF Referrals: Vicky Fernandez FNP-C [Primary Care Provider] - Print Language: Lithuanian Coding Level of Care Code ED Nursery Manager for Rogelio Guerrier
[2024-06-06 15:21] LABS: C Reactive Protein 22.7 mg/L (0.0-4.9)
[2024-06-06 16:29] VITALS: BP 130/76; PULSE 92; RESP 18; O2SAT 91
[2024-06-06 17:00] VITALS: BP 139/74; PULSE 97; RESP 16; O2SAT 91
[2024-06-06 17:30] VITALS: BP 139/74; PULSE 97; RESP 16; O2SAT 91
[2024-06-06 18:04] VITALS: BP 137/77; PULSE 95; RESP 17; TEMP 36.8; O2SAT 98
[2024-06-06 20:34] VITALS: BP 132/67; PULSE 93; RESP 18; TEMP 36.8; O2SAT 94
--- NOTE | 2024-06-06 20:47 | P.HP_ITS ---
Providers/Chief Complaint 2 Admitting Physician: Abena Fair MD Primary Care Provider: Vicky Fernandez, [facility] Chief Complaint: dr mchugh, fluid coming out of abd History of Present Illness Alina Pascual is a 53 year old female With a history of chronic lower extremity and abdominal wall lymphedema with a large pannus who is presenting to the hospital after recent discharge on May 26, 2024 when she was treated for panniculitis and treated with IV vancomycin, transition to cefdinir and doxycycline. She returned to the emergency room due to increased in swelling and drainage from her pannus. Pannus was closely inspected and as such no gross signs of cellulitis were found. She has been discharged recently on steroids taper and appears to have developed candidal intercrural infection in the interim. She endorses a generalized feeling of being unwell today. Patient states that she has been diagnosed to have a chronic venous reflux several years ago. She also has a history of DVT 20 years ago when she had her child. It was thought to be a provoked DVT and anticoagulation was not continued for the long-term. Presumably she may have suffered some damage from the DVT and developed venous reflux afterwards. She states about 5 to 6 years ago she had a venous procedure on the left leg to address the reflux however it was not successful. She tried lymphedema wraps in 2022 and noticed a huge difference however was unable to continue therapy with PT afterwards due to loss of insurance. She is interested in resuming lymphedema care again with therapy.. Review of Systems 2 General: Reports: 10 or more systems reviewed and unremarkable except in HPI and below Const: Denies: fever(s), chills or body aches Eyes: Denies: change in vision, blurry vision or photophobia ENMT: Reports: hoarseness; Denies: throat pain, enlarged tonsils, odynophagia or nasal congestion Card: Denies: chest pain, palpitations, irregular heart rhythm, edema, swelling of feet/ankles, lightheadedness, pre-syncope, dyspnea on exertion or orthopnea Resp: Denies: dyspnea, productive cough, non-productive cough, wheezing, stridor, pain on inspiration, change in phlegm color, hemoptysis or chest congestion GI: Denies: abdominal pain, nausea, vomiting, hematemesis, coffee ground emesis, dysphagia, heartburn, diarrhea, constipation, GI cramping, change in stool character, hematochezia or melena : Denies: flank pain, difficulty voiding, dysuria, urinary frequency, urinary urgency, urinary hesitancy or hematuria Musc: Denies: neck pain, back pain, extremity pain, joint swelling, joint warmth or deformity Neuro: Denies: headache(s), numbness in extremities, weakness in extremities, sensory changes, difficulty walking, frequent falls, dizziness, vertigo, behavioral changes, Slurred speech present or seizure-like activity Psych: Denies: anxiety, depression, suicidal ideation or homicidal ideation Endo: Denies: polyuria, polydipsia, tired all the time, cold intolerance or hot flashes Александр/Lymph: Denies: easy bruising or easy bleeding Medications/Allergies Home Medications ?Medication ?Instructions ?Recorded ?Confirmed ?Last Taken ?Type duloxetine 30 mg capsule,delayed 30 mg PO DAILY 30 day s #30 caps 11/19/23 06/06/24 12/30/23 Rx release thyroid (pork) 120 mg tablet 120 mg PO DAILY 30 days # 30 tabs 11/19/23 06/06/24 12/30/23 Rx ([place] Thyroid) ipratropium 0.5 mg-albuterol 3 mg 3 ml inhalation QID #180 mL 03/06/24 06/06/24 Unknown Rx (2.5 mg base)/3 mL nebulization soln clotrimazole 1 % topical cream 1 applic topical BID 30 days #30 06/07/24 Unknown Rx grams fluconazole 100 mg tablet 100 mg PO DAILY 7 days #7 ta bs 06/07/24 Unknown Rx furosemide 40 mg tablet 40 mg PO DAILY@0800 30 days #30 06/07/24 Unknown Rx tabs Allergies Allergy/AdvReac Type Severity Reaction Status Date / Time Penicillins Allergy Severe ALGY-Difficulty Verified 06/06/24 11:23 Swallowing Sulfa (Sulfonamide Allergy Severe ALGY-Difficulty Verified 06/06/24 11:23 Antibiotics) Breathing zolpidem (From Ambien) Allergy Severe ALGY-Difficulty Verified 06/06/24 11:23 Swallowing gluten Allergy ADR-Gastrointestinal Verified 06/06/24 11:23 Upset levothyroxine sodium (From Allergy narcolepsy Verified 06/06/24 11:23 Synthroid) PFSH Acute 2 PFSH: Medical History Obesity hypoventilation syndrome Cellulitis Arthritis of both knees Hypoxia Obesity, morbid, BMI 50 or higher Dyspnea Lymphedema Pulmonary edema Dyspnea Obesity, morbid, BMI 50 or higher Hypoxia COVID-19 Stiffness of joints of both hands Exertional shortness of breath Chronic interstitial lung disease Open wound of left lower extremity Elevated brain natriuretic peptide (BNP) level Myalgia Arthralgia Hyperglycemia Stress incontinence 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 COPD (chronic obstructive pulmonary disease) Mixed hyperlipidemia TONIO (obstructive sleep apnea) Orthopnea SOB (shortness of breath) HTN (hypertension) Hypothyroidism Former smoker (~2014) Tilted uterus History of pneumonia TIA (transient ischemic attack) Lymphedema associated with obesity Magaly's disease Asthma Surgical History History of bronchoscopy Family History Other CAD (coronary artery disease) Congestive heart failure (CHF) Diabetes Former smoker Hypertension Hypothyroidism Social History Smoking and tobacco/nicotine status: former use of tobacco/nicotine (quit 2013) Quit status (tobacco/nicotine): has quit using Year quit tobacco: 2014 Former quit date comment: 0.5 ppd X 20 years Vitals/I&O/Wt Last Vital Signs Temp 98.3 F 06/06/24 20:34 Pulse 93 06/06/24 20:34 Resp 18 06/06/24 20:34 BP 132/67 06/06/24 20:34 Pulse Ox 94 06/06/24 20:34 O2 Del Method Nasal Cannula 06/06/24 20:34 O2 Flow Rate 3 06/06/24 20:34 Weight last 48 hrs Weight 179.679 kg Weight 180.983 kg Physical Exam 2 Narrative: General: No acute distress, AO x3 HEENT: PERRLA, pupils bilaterally equal and reactive, pallors not present Chest: Normal vesicular breath sounds, no added sounds, equal good air entry bilaterally CVS: S1-S2 regular, no murmurs, no tachycardia, no gallops, no rubs Abdomen: Soft, nontender, no organomegaly, bowel sounds present Neuro: No focal deficits, no facial deformity, AO x3, power 5/5 in all limbs Data 06/07/24 06:22 06/07/24 06:22 Other Labs: Laboratory Results WBC 7.88 10^3/uL (3.29-11.43) 06/07/24 06:22 RBC 4.49 10^6/uL (3.85-5.65) 06/07/24 06:22 Hgb 12.00 g/dL (11.27-16.99) 06/07/24 06:22 Hct 43.4 % (36-47) 06/07/24 06:22 MCV 96.7 fl (85-98) 06/07/24 06:22 MCH 26.7 pg (27-33) L 06/07/24 06:22 MCHC 27.6 g/dL (30-55) L 06/07/24 06:22 RDW 15.9 % (12.1-15.1) H 06/07/24 06:22 Plt Count 234 10^3/cmm (157-399) 06/07/24 06:22 MPV 9.1 fL (7.4-10.4) 06/07/24 06:22 Neut % (Auto) 77.4 % 06/07/24 06:22 Lymph % (Auto) 9.6 % 06/07/24 06:22 [place] % (Auto) 8.6 % 06/07/24 06:22 Eos % (Auto) 3.0 % 06/07/24 06:22 Baso % (Auto) 0.4 % 06/07/24 06:22 Neut # (Auto) 6.09 10^3/uL (1.8-7.7) 06/07/24 06:22 Lymph # (Auto) 0.8 10^3/uL (0.8-4.8) 06/07/24 06:22 [place] # (Auto) 0.7 10^3/uL (0.2-0.9) 06/07/24 06:22 Eos # (Auto) 0.2 10^3/uL (0.0-0.8) 06/07/24 06:22 Baso # (Auto) 0.0 10^3/uL (0.0-0.1) 06/07/24 06:22 Nucleated RBC % (auto) 0 % 06/07/24 06:22 Nucleated RBCs # 0.0 /100WBC 06/07/24 06:22 Sodium 141 mmol/L (136-145) 06/07/24 06:22 Potassium 4.2 mmol/L (3.5-5.1) 06/07/24 06:22 Chloride 99 mmol/L (98-107) 06/07/24 06:22 Carbon Dioxide 37 mmol/L (22-29) H 06/07/24 06:22 Anion Gap 9.2 (5-19) 06/07/24 06:22 BUN 11 mg/dL (6-20) 06/07/24 06:22 Creatinine 0.5 mg/dL (0.5-0.9) 06/07/24 06:22 GFR Calculation 129.1 mL/min (90-130) 06/07/24 06:22 Glucose 112 mg/dL (65-115) 06/07/24 06:22 Calculated Osmolality 292 mOsm/kg (285-295) 06/07/24 06:22 Calcium 8.6 mg/dL (8.5-10.5) 06/07/24 06:22 Magnesium 2.3 mg/dL (1.7-2.3) 06/07/24 06:22 Total Bilirubin 0.4 mg/dL (0.15-1.2) 06/07/24 06:22 AST 15 U/L (0-32) 06/07/24 06:22 ALT 24 U/L (0-33) 06/07/24 06:22 Alkaline Phosphatase 78 U/L (35-105) 06/07/24 06:22 C-Reactive Protein 22.7 mg/L (0.0-4.9) H 06/06/24 13:37 Total Protein 6.8 g/dL (6.6-8.7) 06/07/24 06:22 Albumin 3.6 g/dL (3.5-5.2) 06/07/24 06:22 Globulin 3.2 g/dL (1.3-4.6) 06/07/24 06:22 Lipase 22 U/L (13-60) 06/06/24 13:37 A&P Assessment and plan (1) Lymphedema: Chronic longstanding lymphedema affecting bilateral lower extremities and abdominal pannus. Lower extremity lymphedema is thought to be related to venous reflux. We will consult with her occupational therapy services and attempt to place patient back on lymphedema wraps. Will additionally establish care with wound care and therapy services as outpatient for continued lymphedema care Patient may need eventual panniculectomy for which she may need a plastic surgery referral. Patient states on the last admission she was referred to see someone in [place] however is yet to hear with regards to the referral. Today I did not see any gross signs of cellulitis. The abdominal wall is showing several changes of stasis dermatitis. There is some intertrigo in the crural folds for which we will start her on clotrimazole ointment. Discussed with her the possibility of recurrent cellulitis as with lymphedema she is very prone. Instructed to watch out for any skin breakdown. Showed abdominal cellulitis occur more than twice a year, she may be a candidate for chronic suppressive antibiotics with either a pill in pocket approach or chronic daily chronic suppression. For now we will start her on clotrimazole ointment. Add fluconazole 100 mg p.o. daily, needs lymphedema wraps and establishment of care as outpatient for continued care. Continue her home dose of Lasix 40 mg p.o. daily. Patient states she has had an extensive evaluation in the past for heart failure which has been negative (2) Venous reflux: PDMP PDMP Reviewed: Not Reviewed Attestations 2 Medical Necessity Statement*: less than 2 midnight stay is anticipated Coding Level of Care Code Acute Code for Chg Fwd Diagnoses Lymphedema I89.0 Venous reflux I87.2
[2024-06-06] MEDS: enoxaparin 40 mg/0.4 mL Syringe SUBCUT (21:59)
[2024-06-06] MEDS: acetaminophen 325 mg Tablet 650 MG PO (22:02)
[2024-06-07] VITALS (7 sets, daily range): BP systolic 116–159; BP diastolic 66–83; PULSE 76–86; RESP 16–18; TEMP 36.7–37.3; O2SAT 92–97
[2024-06-07 06:53] LABS: Basophils % 0.4 %; Eosinophils # 0.2 10^3/uL (0.0-0.8); Hematocrit 43.4 % (36-47); Lymphocytes # 0.8 10^3/uL (0.8-4.8); Lymphocytes % 9.6 %; Mean Corpuscular HGB Conc 27.6 g/dL (30-55); Mean Corpuscular Hemoglobin 26.7 pg (27-33); Mean Corpuscular Volume 96.7 fl (85-98); Mean Platelet Volume 9.1 fL (7.4-10.4); Monocytes # 0.7 10^3/uL (0.2-0.9); Monocytes % 8.6 %; Neutrophils # 6.09 10^3/uL (1.8-7.7); Neutrophils % 77.4 %; Nucleated Red Blood Cells % 0 %; Platelet Count 234 10^3/cmm (157-399); Red Blood Count 4.49 10^6/uL (3.85-5.65); Red Cell Distribution Width 15.9 % (12.1-15.1); White Blood Count 7.88 10^3/uL (3.29-11.43)
[2024-06-07 07:21] LABS: Alanine Aminotransferase 24 U/L (0-33); Albumin Level 3.6 g/dL (3.5-5.2); Alkaline Phosphatase 78 U/L (35-105); Anion Gap 9.2 (5-19); Aspartate Amino Transferase 15 U/L (0-32); Blood Urea Nitrogen 11 mg/dL (6-20); Calcium 8.6 mg/dL (8.5-10.5); Carbon Dioxide 37 mmol/L (22-29); Chloride 99 mmol/L (98-107); Creatinine Clr Calc Pharmacy 212.5085; Globulin 3.2 g/dL (1.3-4.6); Glomerular Filtration Rate 129.1 mL/min (90-130); Glucose 112 mg/dL (65-115); Magnesium 2.3 mg/dL (1.7-2.3); Osmolality Calculated 292 mOsm/kg (285-295); Potassium 4.2 mmol/L (3.5-5.1); Sodium 141 mmol/L (136-145); Total Bilirubin 0.4 mg/dL (0.15-1.2); Total Protein 6.8 g/dL (6.6-8.7)
[2024-06-07] MEDS: FUROsemide 40 mg Tablet PO (08:52)
[2024-06-07] MEDS: thyroid 60 mg Tablet 120 MG PO (08:52)
[2024-06-07] MEDS: pantoprazole DR 40 mg Tablet PO (08:52)
[2024-06-07] MEDS: duloxetine 30 mg Capsule PO (08:52)
[2024-06-07] MEDS: acetaminophen 325 mg Tablet 650 MG PO (08:59)
[2024-06-07] MEDS: clotrimazole 1% cream 30 gm 1 APPLIC TOPICAL (09:56)
--- NOTE | 2024-06-07 17:08 | PM.DCS ---
Discharge Providers Date of Admission: 06/06/24 16:56 Date of Discharge: June 07, 2024 Attending Provider at Admission: Abena Fair MD Attending Provider at Discharge: Abena Fair MD Primary Care Provider: TUCKER Wasserman Diagnoses at Discharge Discharge Diagnosis (1) Lymphedema: Status: Acute (2) Venous reflux: Status: Acute Reason for Visit Reason for Visit: dr mchugh, fluid coming out of abd Brief History: Alina Pascual is a 53 year old female With a history of chronic lower extremity and abdominal wall lymphedema with a large pannus who is presenting to the hospital after recent discharge on May 26, 2024 when she was treated for panniculitis and treated with IV vancomycin, transition to cefdinir and doxycycline. She returned to the emergency room due to increased in swelling and drainage from her pannus. Pannus was closely inspected and as such no gross signs of cellulitis were found. She was noted to have candidal infection affecting the intercrurual regions. She was started on clotrimazole for local application and also fluconazole 100 mg p.o. daily for 7 days. Due to her lymphedema she remains at her high risk of recurrent cellulitis. This was discussed with her. Should she develop more than 2 episodes of cellulitis a year, she would likely need to consider chronic suppression with either pill in pocket approach with daily suppressive antibiotic. In the interim lymphedema wraps were placed by Occupational Therapy. Arrangements have been made to continue lymphedema therapy as outpatient with our PT department. Additionally referral provided to wound care. Physical Exam Narrative: General: No acute distress, AO x3 HEENT: PERRLA, pupils bilaterally equal and reactive, pallors not present Chest: Normal vesicular breath sounds, no added sounds, equal good air entry bilaterally CVS: S1-S2 regular, no murmurs, no tachycardia, no gallops, no rubs Abdomen: Soft, nontender, no organomegaly, bowel sounds present Neuro: No focal deficits, no facial deformity, AO x3, power 5/5 in all limbs Discharge Data Studies Completed and Pending Laboratory Results WBC 7.88 10^3/uL (3.29-11.43) 06/07/24 06:22 RBC 4.49 10^6/uL (3.85-5.65) 06/07/24 06:22 Hgb 12.00 g/dL (11.27-16.99) 06/07/24 06:22 Hct 43.4 % (36-47) 06/07/24 06:22 MCV 96.7 fl (85-98) 06/07/24 06:22 MCH 26.7 pg (27-33) L 06/07/24 06:22 MCHC 27.6 g/dL (30-55) L 06/07/24 06:22 RDW 15.9 % (12.1-15.1) H 06/07/24 06:22 Plt Count 234 10^3/cmm (157-399) 06/07/24 06:22 MPV 9.1 fL (7.4-10.4) 06/07/24 06:22 Neut % (Auto) 77.4 % 06/07/24 06:22 Lymph % (Auto) 9.6 % 06/07/24 06:22 [place] % (Auto) 8.6 % 06/07/24 06:22 Eos % (Auto) 3.0 % 06/07/24 06:22 Baso % (Auto) 0.4 % 06/07/24 06:22 Neut # (Auto) 6.09 10^3/uL (1.8-7.7) 06/07/24 06:22 Lymph # (Auto) 0.8 10^3/uL (0.8-4.8) 06/07/24 06:22 [place] # (Auto) 0.7 10^3/uL (0.2-0.9) 06/07/24 06:22 Eos # (Auto) 0.2 10^3/uL (0.0-0.8) 06/07/24 06:22 Baso # (Auto) 0.0 10^3/uL (0.0-0.1) 06/07/24 06:22 Nucleated RBC % (auto) 0 % 06/07/24 06:22 Nucleated RBCs # 0.0 /100WBC 06/07/24 06:22 Sodium 141 mmol/L (136-145) 06/07/24 06:22 Potassium 4.2 mmol/L (3.5-5.1) 06/07/24 06:22 Chloride 99 mmol/L (98-107) 06/07/24 06:22 Carbon Dioxide 37 mmol/L (22-29) H 06/07/24 06:22 Anion Gap 9.2 (5-19) 06/07/24 06:22 BUN 11 mg/dL (6-20) 06/07/24 06:22 Creatinine 0.5 mg/dL (0.5-0.9) 06/07/24 06:22 GFR Calculation 129.1 mL/min (90-130) 06/07/24 06:22 Glucose 112 mg/dL (65-115) 06/07/24 06:22 Calculated Osmolality 292 mOsm/kg (285-295) 06/07/24 06:22 Calcium 8.6 mg/dL (8.5-10.5) 06/07/24 06:22 Magnesium 2.3 mg/dL (1.7-2.3) 06/07/24 06:22 Total Bilirubin 0.4 mg/dL (0.15-1.2) 06/07/24 06:22 AST 15 U/L (0-32) 06/07/24 06:22 ALT 24 U/L (0-33) 06/07/24 06:22 Alkaline Phosphatase 78 U/L (35-105) 06/07/24 06:22 C-Reactive Protein 22.7 mg/L (0.0-4.9) H 06/06/24 13:37 Total Protein 6.8 g/dL (6.6-8.7) 06/07/24 06:22 Albumin 3.6 g/dL (3.5-5.2) 06/07/24 06:22 Globulin 3.2 g/dL (1.3-4.6) 06/07/24 06:22 Lipase 22 U/L (13-60) 06/06/24 13:37 Vitals Last Vital Signs Temp 98.7 F 06/07/24 16:12 Pulse 80 06/07/24 16:12 Resp 16 06/07/24 16:12 BP 120/66 06/07/24 16:12 Pulse Ox 93 06/07/24 16:12 O2 Del Method Nasal Cannula 06/07/24 15:44 O2 Flow Rate 3 06/07/24 09:13 Discharge Plan Discharge Patient Disposition: Home Condition: Stable Prescriptions: New furosemide 40 mg Tablet 40 mg PO DAILY@0800 30 Days Qty: 30 0RF clotrimazole 1 % Cream 1 applic topical BID 30 Days Qty: 30 0RF fluconazole 100 mg tablet 100 mg PO DAILY 7 Days Qty: 7 0RF cefdinir 300 mg capsule 300 mg PO BID PRN (Reason: cellulitis) 10 Days Qty: 20 0RF Rx Instructions: start if you notice any signs of cellulitis and inform your doctor Continued duloxetine 30 mg capsule,delayed release(DR/EC) 30 mg PO DAILY 30 Days Qty: 30 11RF thyroid (pork) [[place] Thyroid] 120 mg tablet 120 mg PO DAILY 30 Days Qty: 30 5RF ipratropium-albuterol 0.5 mg-3 mg(2.5 mg base)/3 mL solution for nebulization 3 ml inhalation QID Qty: 180 0RF Discharge Orders: Discharge Order (Routine); Ordered 06/07/24 Ordered By: Abena Fair Other Ambulatory Orders: Physical Therapy Eval and Treat Outpatient (Order) Timeframe: 2 Weeks Facility: [facility] - Location: Physical Therapy Ordered By: Abena Fair Referrals: [facility], [Staff Physician] - 06/13/24 10:20 am [facility], [Staff Physician[facility] - 06/12/24 1:00 pm (needs lymph wraps) Patient Instructions: Furosemide (By mouth), Betamethasone/Clotrimazole (On the skin), Fluconazole (By mouth), Lymphedema (GEN), Opioid Safety Activity Restrictions/Additional Instructions: It is very important to avoid injury or infections of your affected limb. To avoid injury: ?Keep your skin clean. Wash with a mild soap every day. ?Be careful with your nails. Don't pick at the skin around your nails or cut your cuticles. ?Use lotion to keep your skin from getting dry and cracked ?Use an electric razor instead of a razor blade to shave ?If a leg is affected, wear hard-soled shoes when outside ?If you do get a small cut, scrape, or bite on your arm, hand, leg, or foot, clean it well with soap and water. Then use an antibiotic cream, such as bacitracin. Call your doctor or nurse if it does not heal quickly or if you have signs of an infection. ?When possible, avoid shots, blood draws, or IV lines in the limb with lymphedema. Avoid other procedures that puncture the skin, like acupuncture or tattooing. ?Avoid saunas, steam baths, and hot tubs To help reduce the amount of swelling: ?Wear loose-fitting clothes and jewelry, unless it is a special garment or bandage your doctor or nurse gives you ?Keep your weight under control Discharge Attestations Time Spent in Discharge Care*: greater than 30 min Quality Metrics Clinical Quality Measures [ No reported AMI, CVA or VTE this stay] Coding Level of Care Code Acute Code for Chg Fwd Diagnoses Lymphedema I89.0 Venous reflux I87.2
== END 2024-06-07 16:12 | disposition home or self-care (01) ==
LOC: ER 16:27 → MEDSURG 16:56
PROVIDERS: Emergency Medicine; Admitting Provider Student in an Organized Health Care Education/Training Program; Emergency Provider Physician Assistant; PCP Nurse Practitioner Family; Visit Provider Student in an Organized Health Care Education/Training Program
DX: I89.0 Lymphedema, not elsewhere classified (principal); I87.2 Venous insufficiency (chronic) (peripheral); R22.9 Localized swelling, mass and lump, unspecified; E66.01 Morbid (severe) obesity due to excess calories; Z68.45 Body mass index [BMI] 70 or greater, adult; Z86.718 Personal history of other venous thrombosis and embolism; L03.90 Cellulitis, unspecified; R09.02 Hypoxemia; R06.00 Dyspnea, unspecified; I26.99 Other pulmonary embolism without acute cor pulmonale; Z86.16 Personal history of COVID-19; J44.9 Chronic obstructive pulmonary disease, unspecified; E78.2 Mixed hyperlipidemia; G47.33 Obstructive sleep apnea (adult) (pediatric); I10 Essential (primary) hypertension; Z86.73 Personal history of transient ischemic attack (TIA), and cerebral infarction without residual deficits; E06.3 Autoimmune thyroiditis; Z82.49 Family history of ischemic heart disease and other diseases of the circulatory system; L98.7 Excessive and redundant skin and subcutaneous tissue; B37.9 Candidiasis, unspecified
CPT/HCPCS: 36415; 80053; 83690; 83735; 85025; 86140; 96372; 97124; 97167; 99285; G0378; J1650; J9999

== ENCOUNTER 2024-08-23 10:34 | Outpatient (RCR) | payer OTHER, SELFPAY | END 2024-09-04 23:59 | disposition home or self-care (01) | LOC: SPT 10:34 | PROVIDERS: Visit Provider Student in an Organized Health Care Education/Training Program | DX: I89.0 Lymphedema, not elsewhere classified (principal) | CPT/HCPCS: 97161 ==

== ENCOUNTER 2024-08-27 12:47 | Inpatient (IN) | payer OTHER, SELFPAY ==
[2024-08-27] VITALS (20 sets, daily range): BP systolic 125–167; BP diastolic 78–108; PULSE 64–94; RESP 16–36; TEMP 36.8; O2SAT 85–100; BMI 68.6
--- NOTE | 2024-08-27 13:16 | USR_ITS ---
PROCEDURE INFORMATION: Exam: US Duplex Lower Extremity Veins, Bilateral Exam date and time: 08/27/2024 1:48 PM Age: 54 years old Clinical indication: Edema, localized and swelling (edema) of limb; Lower extremity, bilateral; Additional info: Edema, redness TECHNIQUE: Imaging protocol: Real-time duplex ultrasound of the bilateral extremities with 2-D whiting scale, color Doppler flow and spectral waveform analysis including responses to compression and other maneuvers (when performed) with image documentation. Complete exam focused on the lower extremity veins. COMPARISON: US renal BI* [id number] 01/02/2024 2:04 PM FINDINGS: Right deep veins: Unremarkable. The common femoral, femoral, proximal profunda femoral and popliteal veins are patent without thrombus. Normal Doppler waveforms. Normal compressibility and/or augmentation response. Left deep veins: Unremarkable. The common femoral, femoral, proximal profunda femoral and popliteal veins are patent without thrombus. Normal Doppler waveforms. Normal compressibility and/or augmentation response. Superficial veins: Greater saphenous veins at the saphenofemoral junctions are patent bilaterally without thrombus. Soft tissues: Mild bilateral calf edema. US/[place] [id number] IMPRESSION: 1. No evidence of deep vein thrombosis. 2. Mild bilateral calf edema.
--- NOTE | 2024-08-27 13:19 | W.ED.EXTPRO ---
HPI - Extremity Problem General: Chief complaint: Extremity Problem,Nontraumatic Stated complaint: bernarda knee pain Time Seen by Provider: 08/27/24 12:50 History of Present Illness: Patient is a 54-year-old female chronically on 2 L with history of COPD, hypothyroid, obesity, presents due to fall x 2. The last 1 was yesterday. She stated she rolled out of bed. Complains of bilateral knee pain and redness. She also notes that she is having difficulty with staying awake. Has been increased oxygen to 4 L/min at home. She states her knees are giving out. She is chronically on 40 mg of furosemide, and appears to have chronic lymphedema. No fevers. Denies chest pain. Admits to chronic shortness of breath, however mainly lower extremity weakness bilaterally, redness, and edema. She is sedentary in nature. is now at bedside and gives a history relating that she fell out of bed 3 times, and a rolling action. Believes that her legs are not supportive and weak bilaterally. notes patient was to be tested for sleep apnea 2 years ago, however due to loss of insurance, unable to have this accomplished. She now has insurance and has an appointment outpatient set up for this coming Wednesday. notes that she is sleeping all the time, chronically sedentary, and falls asleep during the day. She has not had a cough, or fever, illness. Associated symptoms: Deny chest pain, fever(s) or rash Related Data Previous Rx's ?Medication ?Instructions ?Recorded duloxetine 30 mg capsule,delayed 30 mg PO DAILY 30 days #30 caps 06/08/24 release thyroid (pork) 120 mg tablet 120 mg PO DAILY 30 days #30 tabs 06/08/24 ([place] [facility]) furosemide 40 mg tablet 40 mg PO DAILY@0800 30 days #30 06/19/24 tabs potassium chloride 10 mEq 10 meq PO DAILY #30 tabs 06/19/24 tablet,extended release (Klor-Con) Allergies Allergy/AdvReac Type Severity Reaction Status Date / Time Penicillins Allergy Severe ALGY-Difficulty Verified 06/19/24 10:05 Swallowing Sulfa (Sulfonamide Allergy Severe ALGY-Difficulty Verified 06/19/24 10:05 Antibiotics) Breathing zolpidem (From Ambien) Allergy Severe ALGY-Difficulty Verified 06/19/24 10:05 Swallowing gluten Allergy ADR-Gastrointestinal Verified 06/19/24 10:05 Upset levothyroxine sodium (From Allergy narcolepsy Verified 06/19/24 10:05 Synthroid) Review of Systems General: Reports: 10 or more systems reviewed and unremarkable except in HPI and below Const: Reports: fatigue, malaise, change in sleep pattern and daytime sleepiness; Denies: fever(s) or chills Eyes: Denies: change in vision or blurry vision ENMT: Denies: throat pain or mouth pain Card: Denies: chest pain or palpitations Resp: Denies: dyspnea, productive cough, non-productive cough, wheezing or chest congestion GI: Denies: abdominal pain, nausea or vomiting : Denies: flank pain or difficulty voiding Musc: Denies: neck pain, back pain or extremity pain Skin/Breast: Denies: rash or pruritus Neuro: Denies: headache(s) or numbness in extremities Psych: Denies: anxiety or depression Endo: Denies: polyuria or polydipsia Александр/Lymph: Denies: easy bruising or easy bleeding All/Imm: Denies: urticaria or throat swelling PFSH ED PFSH: Medical History Obesity hypoventilation syndrome Cellulitis Arthritis of both knees Hypoxia Obesity, morbid, BMI 50 or higher Dyspnea Lymphedema Pulmonary edema Dyspnea Obesity, morbid, BMI 50 or higher Hypoxia COVID-19 Stiffness of joints of both hands Exertional shortness of breath Chronic interstitial lung disease Open wound of left lower extremity Elevated brain natriuretic peptide (BNP) level Myalgia Arthralgia Hyperglycemia Stress incontinence 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 COPD (chronic obstructive pulmonary disease) Mixed hyperlipidemia TONIO (obstructive sleep apnea) Orthopnea SOB (shortness of breath) HTN (hypertension) Hypothyroidism Former smoker (~2014) Tilted uterus History of pneumonia TIA (transient ischemic attack) Lymphedema associated with obesity Magaly's disease Asthma Surgical History History of bronchoscopy Family History Other CAD (coronary artery disease) Congestive heart failure (CHF) Diabetes Former smoker Hypertension Hypothyroidism Social History Smoking and tobacco/nicotine status: former use of tobacco/nicotine (quit 2013) Quit status (tobacco/nicotine): has quit using Year quit tobacco: 2014 Former quit date comment: 0.5 ppd X 20 years Physical Exam Const: COMMON NORMALS: patient oriented x3 and well nourished EXAM LIMITATIONS: altered mental status GENERAL APPEARANCE: cooperative, lethargic (falls asleep during questions) and well hydrated NUTRITIONAL APPEARANCE: obese morbidly obese ORIENTATION/CONSCIOUSNESS: Yes awake (awakes with stimuli), Yes oriented to person, Yes oriented to place, Yes oriented to time and Yes lethargic (falls asleep during questions) HENMT: COMMON NORMALS: normocephalic, atraumatic, hearing grossly normal bilaterally, external ears normal, TM's normal bilaterally and Normal external nose present HEAD & SCALP: normocephalic and atraumatic FACE & SINUS: normal facial exam NOSE: Normal external nose present EXTERNAL EAR: Yes external ears normal TYMPANIC MEMBRANE: TM's normal bilaterally MOUTH: Normal oral and palatal mucosa present THROAT: posterior oropharynx normal Eye: COMMON NORMALS: Equal, round and reactive pupils present and EOMs intact bilaterally VISUAL ACUITY: Yes acuity normal SCLERA: sclerae normal PUPIL: Yes Equal, round and reactive pupils present Neck/C-Spine: COMMON NORMALS: full ROM and no lymphadenopathy CERVICAL SPINE: Yes cervical ROM normal Lymph: LYMPHATIC: no lymphadenopathy noted Chest: COMMONS NORMALS: normal inspection of the chest and normal palpation of entire chest wall Resp: COMMON NORMALS: normal respiratory effort, No use of accessory muscles, clear to auscultation bilaterally and percussion normal EFFORT & INSPECTION: Yes able to speak in complete sentences, No respiratory distress, No pursed lip breathing, No Actively coughing and No audible wheezes AUSCULTATION: clear to auscultation bilaterally PERCUSSION: percussion normal Cardio: COMMON NORMALS: regular rate, regular rhythm, S1 normal heart sound present, S2 normal heart sound present and Peripheral pulses 2+ throughout RATE: regular rate RHYTHM: regular rhythm HEART SOUNDS: S1 normal heart sound present and S2 normal heart sound present PERIPHERAL PULSES: Peripheral pulses 2+ throughout GI: COMMON NORMALS: Normal to inspection, nondistended, normoactive bowel sounds present, Soft to palpation, non-tender, No hepatosplenomegaly present and no masses INSPECTION: Yes normal to inspection AUSCULTATION: Yes normoactive bowel sounds PALPATION: Yes Soft to palpation and Yes No hepatosplenomegaly present : COMMON NORMALS: Yes no CVA tenderness BLADDER/KIDNEY EXAM: Yes no CVA tenderness Back/Pelvis: COMMON NORMALS: no CVA tenderness Extremity: COMMON NORMALS: full ROM GENERAL: Yes edema and Yes hypertrophy Neuro: COMMON NORMALS: patient oriented x3, CN's II-XII intact bilaterally, moves all extremities, no focal motor deficits and no sensory deficits noted SENSORIUM/ORIENTATION: Yes oriented to person, Yes oriented to place, Yes oriented to time and Yes lethargic (falls asleep during questions) SPEECH: speech normal GAIT: Yes Unable to assess gait MOTOR EXAM: 5/5 motor strength present throughout and Pronator motor function not present Psych: COMMON NORMALS: mental status grossly normal and cooperative APPEARANCE: Yes grossly normal ATTITUDE: Yes calm ACTIVITY/MOTOR BEHAVIOR: Yes appropriate eye contact Skin: GENERAL SKIN EXAM: erythema and hypertrophy LESIONS: no lesions RASHES: no rashes TRAUMA: no lacerations or abrasions Course Reevaluation(s): Reevaluation #1: Improved on Bipap Consultations: Consultation #1: D/w Dr. Tan. Accepted admission / ICU Vital Signs: Vital signs: Vital Signs Temperature 98.3 F 08/27/24 12:48 Pulse Rate 74 08/27/24 16:32 Respiratory Rate 26 H 08/27/24 16:32 Blood Pressure 135/78 08/27/24 16:32 Pulse Oximetry 92 08/27/24 16:32 Oxygen Delivery Me thod BiPAP 08/27/24 16:32 Oxygen Flow Rate 3 08/27/24 13:16 Fraction of Inspir ed Oxygen 32 08/27/24 14:04 MDM - Extremity (Nontraumatic) Medical Decision Making Patient is 54-year-old female that had difficulty staying awake while obtaining history. She would fall asleep and then wake up abruptly during my interview and try to answer my questions. You can tell the patient did not want to keep falling asleep. ABG shows an acid-base with respiratory acidosis and acute respiratory failure. She is COVID-positive, however unknown time of exposure. Her chest x-ray shows a large cardiomegaly which I suspect is right-sided pressure/secondary pulmonary hypertension for acute on chronic respiratory failure. I have elected to treat her with dexamethasone plus antibiotic coverage. She does not qualify for antiviral since she is out of the window of treatment with unknown time. I do believe her increasing weakness over the last 3-5 days is most likely associated with COVID however. She has improved on BiPAP and her acid-base with pH of 7.39 in range, however pCO2 is 63, most likely associated with pickwickian/chronic hypoventilation syndrome. Ultrasound of lower extremities is negative. I did discuss the case with primary hospitalist that is on that has excepted admission to intensive care. Differential Diagnosis Likely lower extremity edema and deep vein thrombosis of lower extremity Medical Records I reviewed the patient's medical records. Lab Data I reviewed the patient's lab results. 08/27/24 13:53 08/27/24 13:53 Radiology Impressions Venous Duplex 08/27/24 13:16 IMPRESSION: 1. No evidence of deep vein thrombosis. 2. Mild bilateral calf edema. Chest X-Ray 08/27/24 13:48 IMPRESSION: 1. Ill-defined opacities in the peripheral right lower lung are similar compared to multiple prior exams suggesting atelectasis and/or scarring. 2. Stable mild cardiomegaly and sequela likely related to pulmonary arterial hypertension. Laboratory Results WBC 9.49 10^3/uL (3.29-11.43) 08/27/24 13:53 RBC 4.41 10^6/uL (3.85-5.65) 08/27/24 13:53 Hgb 11.70 g/dL (11.27-16.99) 08/27/24 13:53 Hct 41.2 % (36-47) 08/27/24 13:53 MCV 93.4 fl (85-98) 08/27/24 13:53 MCH 26.5 pg (27-33) L 08/27/24 13:53 MCHC 28.4 g/dL (30-55) L 08/27/24 13:53 RDW 15.8 % (12.1-15.1) H 08/27/24 13:53 Plt Count 219 10^3/cmm (157-399) 08/27/24 13:53 MPV 9.4 fL (7.4-10.4) 08/27/24 13:53 Neut % (Auto) 77.2 % 08/27/24 13:53 Lymph % (Auto) 12.1 % 08/27/24 13:53 [place] % (Auto) 9.8 % 08/27/24 13:53 Eos % (Auto) 0.2 % 08/27/24 13:53 Baso % (Auto) 0.2 % 08/27/24 13:53 Neut # (Auto) 7.32 10^3/uL (1.8-7.7) 08/27/24 13:53 Lymph # (Auto) 1.2 10^3/uL (0.8-4.8) 08/27/24 13:53 [place] # (Auto) 0.9 10^3/uL (0.2-0.9) 08/27/24 13:53 Eos # (Auto) 0.0 10^3/uL (0.0-0.8) 08/27/24 13:53 Baso # (Auto) 0.0 10^3/uL (0.0-0.1) 08/27/24 13:53 Nucleated RBC % (auto) 0 % 08/27/24 13:53 Nucleated RBCs # 0.0 /100WBC 08/27/24 13:53 Specimen Type Arterial 08/27/24 15:44 Sample Site Radial, right 08/27/24 15:44 ABG pH 7.39 (7.35-7.45) 08/27/24 15:44 ABG pCO2 64.5 mmHg (35-45) H* 08/27/24 15:44 ABG pO2 59.6 mmHg (80.0-100.0) L 08/27/24 15:44 ABG PO2/FiO2 Ratio 248 08/27/24 15:44 ABG HCO3 38.7 mmol/L (22-26) H 08/27/24 15:44 ABG O2 Saturation 87.9 08/27/24 13:30 ABG Base Excess 11.3 mmol/L (-2.0-2.0) H 08/27/24 15:44 [place] Test Pos 08/27/24 15:44 A-a O2 Gradient 14.2 mmHg (5-10) H 08/27/24 13:30 Hematocrit 36.4 % (37-47) L 08/27/24 15:44 Hgb O2 Saturation 85.9 % (95-100) L 08/27/24 13:30 Carboxyhemoglobin 2.1 %THgb (0.4-20.1) 08/27/24 13:30 Methemoglobin 0.2 % (0.4-1.5) L 08/27/24 13:30 Total Hemoglobin 12.3 g/dL (12-16) 08/27/24 13:30 Sodium 142.0 mmol/L (131-143) 08/27/24 13:30 Potassium 4.0 mmol/L (3.5-5.0) 08/27/24 13:30 Glucose 112.0 mg/dL (70-115) 08/27/24 13:30 Ionized Calcium 1.2 mmol/L (1.1-1.4) 08/27/24 13:30 O2 Delivery Device Bipap 08/27/24 15:44 O2 Liters/Min 3.0 % 08/27/24 13:30 FiO2 24.0 % 08/27/24 15:44 Ob/Gyn Physician ID glc 08/27/24 15:44 Blood Gas Notified Time 1557 08/27/24 15:44 Sodium 142 mmol/L (136-145) 08/27/24 13:53 Potassium 4.3 mmol/L (3.5-5.1) 08/27/24 13:53 Chloride 99 mmol/L (98-107) 08/27/24 13:53 Carbon Dioxide 33 mmol/L (22-29) H 08/27/24 13:53 Anion Gap 14.3 (5-19) 08/27/24 13:53 BUN 9 mg/dL (6-20) 08/27/24 13:53 Creatinine 0.4 mg/dL (0.5-0.9) L 08/27/24 13:53 GFR Calculation 166.3 mL/min (90-130) H 08/27/24 13:53 Glucose 110 mg/dL (65-115) 08/27/24 13:53 Calculated Osmolality 293 mOsm/kg (285-295) 08/27/24 13:53 Lactic Acid 1.0 mmol/L (0.5-2.2) 08/27/24 13:53 Calcium 8.7 mg/dL (8.5-10.5) 08/27/24 13:53 Magnesium 2.2 mg/dL (1.7-2.3) 08/27/24 13:53 Total Bilirubin 0.6 mg/dL (0.15-1.2) 08/27/24 13:53 AST 19 U/L (0-32) 08/27/24 13:53 ALT 21 U/L (0-33) 08/27/24 13:53 Alkaline Phosphatase 87 U/L (35-105) 08/27/24 13:53 Ammonia 34 umol/L (11-51) 08/27/24 15:38 Troponin T Baseline 11 ng/L (0-10) H 08/27/24 13:53 C-Reactive Protein 33.0 mg/L (0.0-4.9) H 08/27/24 13:53 Total Protein 6.9 g/dL (6.6-8.7) 08/27/24 13:53 Albumin 3.9 g/dL (3.5-5.2) 08/27/24 13:53 Globulin 3.0 g/dL (1.3-4.6) 08/27/24 13:53 TSH 10.60 uIU/mL (0.27-4.20) H 08/27/24 13:53 Urine Color Yellow (Yellow) 08/27/24 15:19 Urine Appearance Clear (CLEAR) 08/27/24 15:19 Urine pH 6.0 (5-7) 08/27/24 15:19 Ur Specific [place] 1.026 (1.005-1.030) 08/27/24 15:19 Urine Protein 1+ (Negative) A 08/27/24 15:19 Urine Glucose (UA) Negative (Normal) 08/27/24 15:19 Urine Ketones Trace (Negative) 08/27/24 15:19 Urine Blood Negative (Negative) 08/27/24 15:19 Urine Nitrate Negative (Negative) 08/27/24 15:19 Urine Bilirubin Negative (Negative) 08/27/24 15:19 Urine Urobilinogen 1.0 mg/dL (Negative) 08/27/24 15:19 Ur Leukocyte Esterase Negative (Negative) 08/27/24 15:19 Urine RBC 0-2 /hpf (0-2) 08/27/24 15:19 Urine WBC 0-5 /hpf (0-5) 08/27/24 15:19 Ur Squamous Epith Cells 0-5 /hpf (0-5) 08/27/24 15:19 Amorphous Sediment Not Reportable 08/27/24 15:19 Urine Bacteria None seen /hpf (NONE) 08/27/24 15:19 Hyaline Casts 1.65 /lpf 08/27/24 15:19 Urine Opiates Screen Negative ng/mL (Negative) 08/27/24 15:19 Ur Barbiturates Screen Negative ng/mL (Negative) 08/27/24 15:19 Ur Phencyclidine Scrn Negative ng/mL (Negative) 08/27/24 15:19 Ur Amphetamines Screen Negative ng/mL (Negative) 08/27/24 15:19 U Benzodiazepines Scrn Negative ng/mL (Negative) 08/27/24 15:19 Urine Cocaine Screen Negative ng/mL (Negative) 08/27/24 15:19 U Marijuana (THC) Screen Positive ng/mL (Negative) H 08/27/24 15:19 XR interpretation done by ED provider, pending radiology final review ED provider radiology interpretation(s): cardiomegaly, density rml, compared to prev, no change on my view ABG Data ABG Interpretation 1: ABG results: acute resp failure ABG Interpretation 2: ABG results: chronic, compensated resp failure on bipap Discharge Plan Discharge Patient Disposition: Admitted As Inpatient Admit Provider: Felice Goldberg Clinical Impression: Acute and chronic respiratory failure, COVID-19, Cardiomegaly Condition: Stable Discharge Diet: Low Salt Discharge Activity: Limit activity as instructed Coding Level of Care Code 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
[2024-08-27 13:39] LABS: ABG PH Result 7.31 (7.35-7.45); Alveolar-Arterial Oxygen Gradi 14.2 mmHg (5-10); Arterial Blood Gas Hematocrit 37.6 % (37-47); Base Excess ABG 7.9 mmol/L (-2.0-2.0); Blood Gas Allen Test Pos; Blood Gas Operator Identificat glc; Blood Gas Sample Site Radial, right; Blood Gas Sample Type Arterial; Carboxyhemoglobin 2.1 %THgb (0.4-20.1); HCO3 ABG 36.7 mmol/L (22-26); HGB O2 Sat 85.9 % (95-100); Ionized Calcium Level - ABG 1.2 mmol/L (1.1-1.4); Methemoglobin 0.2 % (0.4-1.5); Oxygen Device NC; Oxygen Saturation ABG 87.9; PO2 ABG 61.6 mmHg (80.0-100.0); PO2 FiO2 Ratio Arterial Blood 171; Total Hemoglobin 12.3 g/dL (12-16)
--- NOTE | 2024-08-27 13:47 | ECG_ITS ---
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 Measurements Intervals [place] Rate: 92 P: 87 WV: 177 QRS: 102 QRSD: 88 T: 74 QT: 360 QTc: 445 Interpretive Statements SINUS RHYTHM WITH SINUS ARRHYTHMIA RIGHT AXIS DEVIATION [QRS AXIS > 100] Compared to ECG 05/23/2024 19:52:50 Right-axis deviation now present Electronically Signed On 08-27-2024 19:17:32 CDT by Luis Alberto Solares M.D. [email or web address]
--- NOTE | 2024-08-27 13:48 | XRR_ITS ---
PROCEDURE INFORMATION: Exam: XR Chest Exam date and time: 08/27/2024 2:11 PM Age: 54 years old Clinical indication: Shortness of breath; Additional info: Short of breath TECHNIQUE: Imaging protocol: Radiologic exam of the chest. Views: 1 view. COMPARISON: CR XR chest 1V portable [id number] 05/23/2024 7:24 PM FINDINGS: Lungs: Similar ill-defined opacities in the peripheral right lower lung. Pleural spaces: No large pleural effusion. No sizable pneumothorax. Heart/Mediastinum: The cardiomediastinal silhouette is stable and mildly enlarged. Enlargement of the pulmonary artery suggesting pulmonary arterial hypertension. Bones/joints: Unremarkable. XR/XR chest 1V portable [id number] IMPRESSION: 1. Ill-defined opacities in the peripheral right lower lung are similar compared to multiple prior exams suggesting atelectasis and/or scarring. 2. Stable mild cardiomegaly and sequela likely related to pulmonary arterial hypertension.
[2024-08-27 14:00] LABS: Basophils % 0.2 %; Eosinophils % 0.2 %; Hematocrit 41.2 % (36-47); Lymphocytes # 1.2 10^3/uL (0.8-4.8); Lymphocytes % 12.1 %; Mean Corpuscular HGB Conc 28.4 g/dL (30-55); Mean Corpuscular Hemoglobin 26.5 pg (27-33); Mean Corpuscular Volume 93.4 fl (85-98); Mean Platelet Volume 9.4 fL (7.4-10.4); Monocytes # 0.9 10^3/uL (0.2-0.9); Monocytes % 9.8 %; Neutrophils # 7.32 10^3/uL (1.8-7.7); Neutrophils % 77.2 %; Nucleated Red Blood Cells % 0 %; Platelet Count 219 10^3/cmm (157-399); Red Blood Count 4.41 10^6/uL (3.85-5.65); Red Cell Distribution Width 15.8 % (12.1-15.1); White Blood Count 9.49 10^3/uL (3.29-11.43)
[2024-08-27 14:25] LABS: Troponin(5th) Baseline 11 ng/L (0-10)
[2024-08-27 14:33] LABS: Influenza A NEGATIVE (Negative); Influenza B NEGATIVE (Negative); Respiratory Syncytial Virus Ce NEGATIVE (Negative)
[2024-08-27 14:35] LABS: Alanine Aminotransferase 21 U/L (0-33); Albumin Level 3.9 g/dL (3.5-5.2); Alkaline Phosphatase 87 U/L (35-105); Anion Gap 14.3 (5-19); Aspartate Amino Transferase 19 U/L (0-32); Blood Urea Nitrogen 9 mg/dL (6-20); Calcium 8.7 mg/dL (8.5-10.5); Carbon Dioxide 33 mmol/L (22-29); Chloride 99 mmol/L (98-107); Creatinine Clr Calc Pharmacy 267.5125; Glomerular Filtration Rate 166.3 mL/min (90-130); Glucose 110 mg/dL (65-115); Magnesium 2.2 mg/dL (1.7-2.3); Osmolality Calculated 293 mOsm/kg (285-295); Potassium 4.3 mmol/L (3.5-5.1); Sodium 142 mmol/L (136-145); Total Bilirubin 0.6 mg/dL (0.15-1.2); Total Protein 6.9 g/dL (6.6-8.7)
[2024-08-27] MEDS: FUROsemide 10 mg/mL SDV 10mL 80 MG IVP (15:16)
[2024-08-27 15:30] LABS: Bilirubin Urine Negative (Negative); Blood Urine Negative (Negative); Glucose Urine UA Negative (Normal); Ketones Urine Trace (Negative); Leukocyte Esterase Urine Negative (Negative); Nitrate Urine Negative (Negative); Protein Urine 1+ (Negative); Specific Gravity, Urine 1.026 (1.005-1.030); Urine Appearance Clear (CLEAR); Urine Color Yellow (Yellow)
[2024-08-27 15:35] LABS: Add Urine Microscopic? YES; Bacteria Urine None Seen /hpf; Hyaline Casts Urine 1.65 /lpf; RBC Urine 0-2 /hpf (0-2); Squamous Epithelial Cell Urine 0-5 /hpf (0-5); WBC Urine 0-5 /hpf (0-5)
[2024-08-27 15:37] LABS: Amphetamines Screen Urine Negative (Negative); Barbiturates Screen Urine Negative (Negative); Benzodiazepines Screen Urine Negative (Negative); Cocaine Screen Urine Negative (Negative); Opiate Screen Urine Negative (Negative); PCP Screen Urine Negative (Negative); THC Screen Urine Positive (Negative)
[2024-08-27 15:46] LABS: SARS-CoV-2 PCR Positive (Negative)
[2024-08-27 15:56] LABS: ABG PH Result 7.39 (7.35-7.45); Arterial Blood Gas Hematocrit 36.4 % (37-47); Base Excess ABG 11.3 mmol/L (-2.0-2.0); Blood Gas Allen Test Pos; Blood Gas Operator Identificat glc; Blood Gas Sample Site Radial, right; Blood Gas Sample Type Arterial; HCO3 ABG 38.7 mmol/L (22-26); Oxygen Device BIPAP; PO2 ABG 59.6 mmHg (80.0-100.0); PO2 FiO2 Ratio Arterial Blood 248
[2024-08-27 15:57] LABS: ABG PCO2 64.5 mmHg (35-45); Blood Gas CCRB Time 1557
[2024-08-27 16:06] LABS: Ammonia 34 umol/L (11-51)
[2024-08-27] MEDS: cefTRIAXone 1,000 mg SDV 1000 MG IVP (16:13)
[2024-08-27] MEDS: dexamethasone 4 mg/mL INJ 8 MG IVP (16:13)
[2024-08-27] MEDS: doxycycline 100 MG in sodium chloride 0.9% (plus) 100 ML IV (16:13)
--- NOTE | 2024-08-27 16:47 | CTR_ITS ---
PROCEDURE INFORMATION: Exam: CTA Chest With Contrast Exam date and time: 08/27/2024 5:56 PM Age: 54 years old Clinical indication: Shortness of breath; SOB with hypoxia TECHNIQUE: Imaging protocol: Computed tomographic angiography of the chest with contrast. Exam focused on the arteries. 3D rendering (Not supervised by radiologist): MIP and/or 3D reconstructed images were created by the technologist. Radiation optimization: All CT scans at this facility use at least one of these dose optimization techniques: automated exposure control; mA and/or kV adjustment per patient size (includes targeted exams where dose is matched to clinical indication); or iterative reconstruction. Contrast material: OMNI 350; Contrast volume: 85 ml; Contrast route: INTRAVENOUS (IV); COMPARISON: CT angio chest PE protcl [id number] 09/27/2023 11:47 PM RADIATION DOSE METRICS: Total DLP (mGy-cm): 587.7 FINDINGS: Pulmonary arteries: The main pulmonary artery is markedly enlarged measuring 4.5 cm. There is no central or lobar pulmonary embolism. Evaluation of distal segmental and subsegmental pulmonary arteries is limited due to respiratory motion artifact and contrast phase timing. Aorta: Unremarkable. No aortic aneurysm. No aortic dissection. Thyroid: No visualized thyroid nodule. Lungs: Perihilar and diffuse patchy ground-glass opacities and mosaic attenuation in the lungs bilaterally. Findings are not significantly changed from prior exam. Mild left basilar atelectasis. Pleural spaces: Unremarkable. No pneumothorax. No pleural effusion. Heart: Stable moderate cardiomegaly. No pericardial effusion. Lymph nodes: Unremarkable. No enlarged lymph nodes. Adrenal glands: Nonspecific nodular thickening of the left adrenal gland. Bones/joints: Mild multilevel degenerative disease of the thoracic spine. Soft tissues: Unremarkable. CT/CT angio chest PE protcl [id number] IMPRESSION: 1. No acute central or lobar pulmonary embolism. Evaluation segmental and subsegmental pulmonary arteries is limited secondary to respiratory motion artifact and contrast phase timing. 2. Stable marked enlargement of the main pulmonary artery compatible with pulmonary hypertension. 3. Redemonstrated mosaic attenuation in the lungs bilaterally which may reflect chronic air trapping. This appearance has been stable for several years. No focal consolidation or new airspace opacity.
--- NOTE | 2024-08-27 16:50 | P.HP_ITS ---
Providers/Chief Complaint 2 Admitting Physician: Felice Goldberg MD Primary Care Provider: Ashley Torrez MD Chief Complaint: bernarda knee pain History of Present Illness Alina Pascual is a 54 year old female with a past medical history of morbid obesity, COPD, BMI 68.7, pannus present, obesity hypoventilation syndrome, history of edema, hypothyroidism, who presents to [facility] for bilateral lower extremity pain, shortness of breath, difficulty staying awake. Currently patient is alert to person, not to place, to time she easily falls back asleep, currently on BiPAP, she does withdraw from pain does localize pain, her GCS score is 10, no family members at bedside, according to ER provider nursing staff, patient was falling frequently asleep yesterday, there has been concerns for sleep apnea, she is due for a sleep study, has been reported to nursing staff that she had fell out of bed 3 times, due to spontaneously falling asleep, she is on 4 L at home chronically, does have chronic lymphedema, during interviews patient would quite easily fall asleep, ABG obtained showed hypercarbic respiratory failure, placed on BiPAP, she is comfortable on BiPAP, found to be COVID-19 positive, hospitalist team called for admission Review of Systems 2 General: Reports: ROS unobtainable due to mental status Medications/Allergies Home Medications ?Medication ?Instructions ?Recorded ?Confirmed ?Last Taken ?Type duloxetine 30 mg capsule,delayed 30 mg PO DAILY 30 day s #30 caps 06/08/24 08/27/24 08/27/24 Rx release thyroid (pork) 120 mg tablet 120 mg PO DAILY 30 days # 30 tabs 06/08/24 08/27/24 08/27/24 Rx (Bertram Thyroid) furosemide 40 mg tablet 40 mg PO DAILY@0800 30 days #30 06/19/24 08/27/24 08/27/24 Rx tabs potassium chloride 10 mEq 10 meq PO DAILY #30 tabs 08/27/24 08/27/24 Rx tablet,extended release (Klor-Con) Allergies Allergy/AdvReac Type Severity Reaction Status Date / Time Penicillins Allergy Severe ALGY-Difficulty Verified 06/19/24 10:05 Swallowing Sulfa (Sulfonamide Allergy Severe ALGY-Difficulty Verified 06/19/24 10:05 Antibiotics) Breathing zolpidem (From Ambien) Allergy Severe ALGY-Difficulty Verified 06/19/24 10:05 Swallowing gluten Allergy ADR-Gastrointestinal Verified 06/19/24 10:05 Upset levothyroxine sodium (From Allergy narcolepsy Verified 06/19/24 10:05 Synthroid) PFSH Acute 2 PFSH: Medical History Obesity hypoventilation syndrome Cellulitis Arthritis of both knees Hypoxia Obesity, morbid, BMI 50 or higher Dyspnea Lymphedema Pulmonary edema Dyspnea Obesity, morbid, BMI 50 or higher Hypoxia COVID-19 Stiffness of joints of both hands Exertional shortness of breath Chronic interstitial lung disease Open wound of left lower extremity Elevated brain natriuretic peptide (BNP) level Myalgia Arthralgia Hyperglycemia Stress incontinence 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 COPD (chronic obstructive pulmonary disease) Mixed hyperlipidemia TONIO (obstructive sleep apnea) Orthopnea SOB (shortness of breath) HTN (hypertension) Hypothyroidism Former smoker (~2014) Tilted uterus History of pneumonia TIA (transient ischemic attack) Lymphedema associated with obesity Magaly's disease Asthma Surgical History History of bronchoscopy Family History Other CAD (coronary artery disease) Congestive heart failure (CHF) Diabetes Former smoker Hypertension Hypothyroidism Social History Smoking and tobacco/nicotine status: former use of tobacco/nicotine (quit 2013) Quit status (tobacco/nicotine): has quit using Year quit tobacco: 2014 Former quit date comment: 0.5 ppd X 20 years Vitals/I&O/Wt Last Vital Signs Temp 98.3 F 08/27/24 12:48 Pulse 74 08/27/24 16:32 Resp 26 H 08/27/24 16:32 BP 135/78 08/27/24 16:32 Pulse Ox 92 08/27/24 16:32 O2 Del Method BiPAP 08/27/24 16:32 O2 Flow Rate 3 08/27/24 13:16 FiO2 32 08/27/24 14:04 Weight last 48 hrs Weight 181.437 kg Physical Exam 2 Const: COMMON NORMALS: no acute distress EXAM LIMITATIONS: altered mental status ORIENTATION/CONSCIOUSNESS: Yes awake, Yes oriented to person and Yes confused; not oriented to place and not oriented to time HENMT: COMMON NORMALS: normocephalic HEAD & SCALP: normocephalic Eye: COMMON NORMALS: Equal, round and reactive pupils present Lymph: LYMPHATIC: no lymphadenopathy noted Resp: OTHER: Wheezing and crackles on all lung sanchez, nasopharynx, slight suprasternal retractions, tachypnea Cardio: COMMON NORMALS: no JVD, regular rate, regular rhythm, S1 normal heart sound present and S2 normal heart sound present RATE: regular rate RHYTHM: regular rhythm HEART SOUNDS: S1 normal heart sound present and S2 normal heart sound present GI: COMMON NORMALS: Normal to inspection, nondistended, normoactive bowel sounds present, Soft to palpation and non-tender OTHER: Anasarca, pannus present, with overlying skin changes Extremity: OTHER: 2+ pitting edema Bilateral knees, no significant overlying skin changes Skin: NARRATIVE SKIN EXAM: Has yeast infection under bilateral breasts, skin folds under pannus Urinary Catheter Management: Heard: Cath Placed During This Visit: yes Urinary Catheter Date of Insertion: 08/27/24 Urinary Catheter Time of Insertion: 15:00 Data 08/27/24 13:53 08/27/24 13:53 Micro: Microbiology 08/27/24 13:40 Blood Culture - Preliminary Blood SPECIMEN COLLECTED 08/27/24 13:53 Blood Culture - Preliminary Blood SPECIMEN COLLECTED A&P Assessment and plan (1) Acute hypercapnic respiratory failure: (2) COVID-19: (3) COPD exacerbation: (4) CHF exacerbation: (5) Sepsis: (6) Hypothyroidism: (7) Lymphedema: (8) Morbid obesity: (9) TONIO (obstructive sleep apnea): (10) Acute encephalopathy: Plan Acute hypercarbic respiratory failure - Multifactorial - COPD exacerbation - Fluid overload, diastolic CHF exacerbation - COVID-19 pneumonia, -with concerns for secondary bacterial pneumonia, right lower lobe infiltrates - Obesity hypoventilation syndrome, obstructive sleep apnea Plan - Monitor in ICU - Continue BiPAP - Isolation precautions - CT angiogram of the chest - Sputum culture - Blood cultures - Rocephin - Azithromycin - Decadron 6 mg IV push every 24 hours - Remdesivir - Lovenox 40 mg IV push every 24 hours - Monitor respiratory status closely - Full code - Lovenox for DVT prophylaxis Sepsis, sepsis features but given encephalopathy, respiratory failure Acute encephalopathy - Multifactorial, metabolic - COVID-19, hypercarbia, - Marijuana use Morbid obesity, BMI 60.7 Lymphedema PDMP PDMP Reviewed: Not Reviewed Attestations 2 Medical Necessity Statement*: Patient requires hospitalization, inpatient, greater than 2 midnights for acute hypercarbic respiratory failure, secondary to COPD, CHF, COVID-19 pneumonia, with sepsis, with acute encephalopathy Diagnoses Acute hypercapnic respiratory failure J96.02 COVID-19 U07.1 COPD exacerbation J44.1 CHF exacerbation I50.9 Sepsis A41.9 Hypothyroidism E03.9 Lymphedema I89.0 Morbid obesity E66.01 TONIO (obstructive sleep apnea) G47.33 Acute encephalopathy G93.40 Sepsis Event Note Evaluation Current stage of sepsis: sepsis Possible source: pulmonary Focused Exam Vital Signs Temp Pulse Resp BP Pulse Ox O2 Del Method O2 Flow Rate 08/27/24 16:32 74 26 H 135/78 92 BiPAP 08/27/24 15:30 73 29 H 161/101 100 BiPAP 08/27/24 14:30 76 36 H 142/80 98 BiPAP 08/27/24 14:21 82 28 H 153/103 96 BiPAP 08/27/24 14:04 89 98 08/27/24 13:16 94 28 H 141/107 85 L Nasal Cannula 3 08/27/24 12:48 98.3 F 85 16 161/107 94 Nasal Cannula 4 FiO2 08/27/24 16:32 08/27/24 15:30 08/27/24 14:30 08/27/24 14:21 08/27/24 14:04 32 08/27/24 13:16 08/27/24 12:48 Respiratory exam: Present accessory muscle use, respiratory distress and wheezes Cardiovascular exam: Present S1 and S2 Capillary refill: < 3 Seconds Peripheral pulse strength: 2+ Slightly Diminished Peripheral pulse location: Pedal Skin exam: normal turgor Date exam was performed: 08/27/24 Time exam was performed: 17:00
[2024-08-27 17:06] LABS: Troponin(5th) Baseline 11 ng/L (0-10)
[2024-08-27 17:22] LABS: NT Pro B Type Natriuretic Pept 362 pg/mL (0-125)
--- NOTE | 2024-08-27 17:25 | ECG_ITS ---
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 Measurements Intervals [place] Rate: 63 P: 0 RI: 0 QRS: 107 QRSD: 101 T: 90 QT: 430 QTc: 441 Interpretive Statements SINUS RHYTHM WITH SINUS ARRHYTHMIA RIGHT AXIS DEVIATION [QRS AXIS > 100] LOW QRS VOLTAGE IN PRECORDIAL LEADS [QRS DEFLECTION < 1.0 mV IN CHEST LEADS] MODERATE ST DEPRESSION [0.05+ mV ST DEPRESSION] Compared to ECG 08/27/2024 13:47:36 Low QRS voltage now present ST (T wave) deviation now present Electronically Signed On 08-29-2024 17:52:23 CDT by Sebastien Coleman M.D. [id number]
--- NOTE | 2024-08-27 17:25 | ECG_ITS ---
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 Measurements Intervals [place] Rate: 63 P: 0 OK: 0 QRS: 107 QRSD: 101 T: 90 QT: 430 QTc: 441 Interpretive Statements ATRIAL FLUTTER/TACHYCARDIA RIGHT AXIS DEVIATION [QRS AXIS > 100] LOW QRS VOLTAGE IN PRECORDIAL LEADS [QRS DEFLECTION < 1.0 mV IN CHEST LEADS] MODERATE ST DEPRESSION [0.05+ mV ST DEPRESSION] Compared to ECG 08/27/2024 13:47:36 Low QRS voltage now present ST (T wave) deviation now present Sinus rhythm no longer present Sinus arrhythmia no longer present Electronically Signed On 08-29-2024 17:29:42 CDT by Sebastien Coleman M.D. [id number]
[2024-08-27] MEDS: iohexol 350 mg/mL 500 mL Btl (per mL) IV (18:04)
--- NOTE | 2024-08-27 18:26 | CTR_ITS ---
PROCEDURE INFORMATION: Exam: CT Head Without Contrast Exam date and time: 08/27/2024 10:49 PM Age: 54 years old Clinical indication: Altered mental status/memory loss; Lethargy with transient unresponsiveness. ; Additional info: AMS TECHNIQUE: Imaging protocol: Computed tomography of the head without contrast. Radiation optimization: All CT scans at this facility use at least one of these dose optimization techniques: automated exposure control; mA and/or kV adjustment per patient size (includes targeted exams where dose is matched to clinical indication); or iterative reconstruction. COMPARISON: CT head wo con* [id number] 05/25/2024 9:48 AM RADIATION DOSE METRICS: Total DLP (mGy-cm): 1208.78 FINDINGS: Brain: There is no acute intracranial hemorrhage or abnormal extra-axial fluid collection identified. There is no intracranial mass effect or shift of midline structures. The whiting-white differentiation is preserved throughout. There is no sulcal effacement. The basilar cisterns are open. Cerebral ventricles: No hydrocephalus or ventricular effacement. Paranasal sinuses: There is minimal sinus mucosal disease, with no air-fluid level identified. Mastoid air cells: There is no mastoid effusion detected. Orbital cavities: Bilateral proptosis is noted. Correlate with clinical information regarding thyroid function. Bones: No calvarial fracture or destructive osseous lesions are seen. Soft tissues: Unremarkable. CT/CT head wo con* [id number] IMPRESSION: No acute intracranial pathology identified by CT.
[2024-08-27] MEDS: AZITHROMYCIN ADD-Vantage 500 MG in 0.9% NaCl ADD-Vantage 250 ML 250 MG IV (19:04)
[2024-08-27] MEDS: enoxaparin 40 mg/0.4 mL Syringe SUBCUT (19:05)
[2024-08-27] MEDS: pantoprazole 40 mg SDV IVP (19:09)
[2024-08-27 19:17] LABS: D Dimer 0.42 ug/mLFEU (0-0.59)
[2024-08-27 19:20] LABS: Troponin 5 2HR 11.99 ng/L (0-10); Troponin 5 2HR Delta 0.99 ABS# (0-10)
[2024-08-27 19:21] LABS: Alcohol Level < 10 mg/dL (0-10)
[2024-08-27] MEDS: ipratropium-albuterol 3 mL Neb INHALATION (19:22)
[2024-08-27] MEDS: budesonide 0.5 mg/2 mL Neb INHALATION (19:22)
[2024-08-27 19:26] LABS: Procalcitonin 0.05 ng/mL (0-0.5)
[2024-08-27 19:43] LABS: Estmated Average Glucose 131; Hemoglobin A1C 6.2 % (4.0-6.0)
[2024-08-27 19:52] LABS: Free T4 Free Thyroxine 0.62 ng/dL (0.82-1.77); T3 Free 1.9 PG/ML (2.0-4.4)
[2024-08-27] MEDS: remdesivir 200 MG in sodium chloride 0.9% (100 ml) 60 ML 100 MG IV (20:02)
[2024-08-27] MEDS: nystatin powder 15 gm Btl 1 APPLIC TOPICAL (21:07)
[2024-08-27 23:10] LABS: Troponin 5 6HR 8.78 ng/L (0-10); Troponin 5 6HR Delta -2.22 ng/L (0-12)
--- NOTE | 2024-08-27 23:11 | PC.NURSE ---
Patient taken to Ct on 4l nc. Pt tolerated well and maintaining sats at 93-94%. Pt A/O x 4 at this time. Pt requesting water and a sandwich. Pt has ordered for NPO Status at this time. Contact Dr Hart re: approval to give patient water/ food at this time. Verbal given for patient to have water and diet order change to cardiac diet.
[2024-08-28] VITALS (144 sets, daily range): BP systolic 114–205; BP diastolic 66–144; PULSE 71–120; RESP 12–36; TEMP 36.9–37.1; O2SAT 76–97; BMI 77.5
--- NOTE | 2024-08-28 00:31 | XRR_ITS ---
PROCEDURE INFORMATION: Exam: XR Left Knee Exam date and time: 08/28/2024 12:56 AM Age: 54 years old Clinical indication: C/O bilateral knee pain; Additional info: Fall, pain TECHNIQUE: Imaging protocol: Radiologic exam of the left knee. Views: 1 or 2 views. COMPARISON: [place] [id number] 08/27/2024 1:48 PM FINDINGS: Bones/joints: Mild chronic osteoarthritic changes of the knee. No acute fracture or dislocation. No significant knee joint effusion. Soft tissues: No large obvious soft tissue abnormality. XR/XR knee LT 1-2V [id number] IMPRESSION: No acute fracture or dislocation visualized on radiograph. If there is concern for occult fracture, consider CT.
--- NOTE | 2024-08-28 00:31 | XRR_ITS ---
PROCEDURE INFORMATION: Exam: XR Right Knee Exam date and time: 08/28/2024 12:51 AM Age: 54 years old Clinical indication: C/O bilateral knee pain; Additional info: Fall, pain TECHNIQUE: Imaging protocol: Radiologic exam of the right knee. Views: 1 or 2 views. COMPARISON: [place] [id number] 08/27/2024 1:48 PM FINDINGS: Bones/joints: Mild chronic osteoarthritic changes of the knee. No acute fracture or dislocation. No significant knee joint effusion. Soft tissues: No large obvious soft tissue abnormality. XR/XR knee RT 1-2V [id number] IMPRESSION: No acute fracture or dislocation.
[2024-08-28] MEDS: ipratropium-albuterol 3 mL Neb INHALATION ×4 (01:17→19:28)
[2024-08-28 04:19] LABS: ABG PCO2 61.6 mmHg (35-45); Arterial Blood Gas Hematocrit 34.8 % (37-47); Blood Gas Operator Identificat AMH; Blood Gas Sample Site Brachial, right; Blood Gas Sample Type Arterial; HCO3 ABG 37.9 mmol/L (22-26); Oxygen Device BIPAP; PO2 ABG 89.7 mmHg (80.0-100.0); PO2 FiO2 Ratio Arterial Blood 299
[2024-08-28] MEDS: FUROsemide 10 mg/mL SDV 4mL 40 MG IVP ×2 (04:33→16:25)
[2024-08-28 06:27] LABS: Basophils % 0.2 %; Hematocrit 39.6 % (36-47); Lymphocytes # 0.8 10^3/uL (0.8-4.8); Lymphocytes % 9.5 %; Mean Corpuscular HGB Conc 27.8 g/dL (30-55); Mean Corpuscular Hemoglobin 26.4 pg (27-33); Mean Corpuscular Volume 95.2 fl (85-98); Mean Platelet Volume 9.3 fL (7.4-10.4); Monocytes # 0.6 10^3/uL (0.2-0.9); Monocytes % 6.9 %; Neutrophils # 6.65 10^3/uL (1.8-7.7); Neutrophils % 82.9 %; Nucleated Red Blood Cells % 0 %; Platelet Count 210 10^3/cmm (157-399); Red Blood Count 4.16 10^6/uL (3.85-5.65); Red Cell Distribution Width 15.7 % (12.1-15.1); White Blood Count 8.02 10^3/uL (3.29-11.43)
[2024-08-28 06:43] LABS: Alanine Aminotransferase 16 U/L (0-33); Albumin Level 3.2 g/dL (3.5-5.2); Alkaline Phosphatase 68 U/L (35-105); Aspartate Amino Transferase 15 U/L (0-32); Blood Urea Nitrogen 9 mg/dL (6-20); C Reactive Protein 28.1 mg/L (0.0-4.9); Calcium 8.4 mg/dL (8.5-10.5); Carbon Dioxide 31 mmol/L (22-29); Chloride 98 mmol/L (98-107); Creatinine Clr Calc Pharmacy 386.1562; Globulin 3.2 g/dL (1.3-4.6); Glomerular Filtration Rate 231.8 mL/min (90-130); Glucose 118 mg/dL (65-115); Magnesium 2.1 mg/dL (1.7-2.3); Osmolality Calculated 292 mOsm/kg (285-295); Phosphorus 3.3 mg/dL (2.5-4.5); Sodium 141 mmol/L (136-145); Total Bilirubin 0.4 mg/dL (0.15-1.2); Total Protein 6.4 g/dL (6.6-8.7)
[2024-08-28] MEDS: dexamethasone 10 mg/mL INJ 6 MG IVP (07:03)
[2024-08-28 07:15] LABS: NT Pro B Type Natriuretic Pept 397 pg/mL (0-125)
[2024-08-28] MEDS: budesonide 0.5 mg/2 mL Neb INHALATION ×2 (07:51→19:28)
[2024-08-28] MEDS: thyroid 60 mg Tablet 120 MG PO (08:20)
[2024-08-28] MEDS: duloxetine 30 mg Capsule PO (08:46)
[2024-08-28] MEDS: nystatin powder 15 gm Btl 1 APPLIC TOPICAL ×2 (08:46→17:13)
--- NOTE | 2024-08-28 15:43 | P.PN_ITS ---
Subjective 2 Subjective: Patient was seen this morning, currently alert oriented x 3, following all commands, denies any fevers, no chills, no cough, no nausea, no vomiting, does report shortness of breath recently, shortness of breath with exertion, she tells me that she does walk but recently with even minimal exertion she has been short of breath, increased lower extremity edema, reports a couple episodes in which she fell to her knees, does not report passing out, but she does report falling asleep, Vitals/I&O/Wt Last Vital Signs Temp 98.8 F 08/28/24 08:32 Pulse 76 08/28/24 14:05 Resp 18 08/28/24 14:05 BP 146/83 08/28/24 13:00 Pulse Ox 95 08/28/24 14:05 O2 Del Method Nasal Cannula 08/28/24 14:05 O2 Flow Rate 3 08/28/24 14:05 FiO2 30 08/28/24 03:40 08/28/24 08/28/24 08/28/24 06:59 14:59 22:59 Intake Total 350 / 450 240 / 240 Output Total 1999 / 1999 Balance 350 / -3600 -1760 / -1760 Weight last 48 hrs Weight 198.447 kg Weight 203.209 kg Weight 181.437 kg Physical Exam 2 Const: COMMON NORMALS: no acute distress and patient oriented x3 Resp: COMMON NORMALS: normal respiratory effort, No retractions, No use of accessory muscles and clear to auscultation bilaterally AUSCULTATION: clear to auscultation bilaterally Cardio: COMMON NORMALS: regular rate, regular rhythm, S1 normal heart sound present and S2 normal heart sound present RATE: regular rate RHYTHM: r egular rhythm HEART SOUNDS: S1 normal heart sound present and S2 normal heart sound present GI: COMMON NORMALS: Normal to inspection, nondistended, normoactive bowel sounds present and non-tender OTHER: Pannus present Extremity: NARRATIVE EXTREMITY EXAM: 2+ pitting edema Neuro: COMMON NORMALS: patient oriented x3 Psych: COMMON NORMALS: mental status grossly normal Urinary Catheter Management: Heard: Cath Placed During This Visit: yes Reason for Continuing Indwelling Catheter: Accurate Measurement of Urinary Output in Critically Ill Patients Urinary Catheter Date of Insertion: 08/27/24 Urinary Catheter Time of Insertion: 15:00 Data 08/28/24 06:14 08/28/24 06:14 Micro: Microbiology 08/27/24 13:40 Blood Culture - Preliminary Blood NEGATIVE TO DATE 08/27/24 13:53 Blood Culture - Preliminary Blood NEGATIVE TO DATE A&P Assessment and plan (1) Acute hypercapnic respiratory failure: (2) COVID-19: (3) COPD exacerbation: (4) CHF exacerbation: (5) Sepsis: (6) Hypothyroidism: (7) Lymphedema: (8) Morbid obesity: (9) TONIO (obstructive sleep apnea): (10) Acute encephalopathy: Plan Acute hypercarbic respiratory failure - Multifactorial - COPD exacerbation - Fluid overload, diastolic CHF exacerbation - COVID-19 pneumonia, -with concerns for secondary bacterial pneumonia, right lower lobe infiltrates - Obesity hypoventilation syndrome, obstructive sleep apnea ct angio CT/CT angio chest PE protcl [id number] IMPRESSION: 1. No acute central or lobar pulmonary embolism. Evaluation segmental and subsegmental pulmonary arteries is limited secondary to respiratory motion artifact and contrast phase timing. 2. Stable marked enlargement of the main pulmonary artery compatible with pulmonary hypertension. 3. Redemonstrated mosaic attenuation in the lungs bilaterally which may reflect chronic air trapping. This appearance has been stable for several years. No focal consolidation or new airspace opacity. Plan - Moved to medical floors, will order a overnight pulse ox -ABG shows pCO2 of 61 - Continue BiPAP - Isolation precautions - Sputum culture - Blood cultures - Rocephin - Azithromycin - Decadron 6 mg IV push every 24 hours - Remdesivir - Lovenox 40 mg IV push every 24 hours - Monitor respiratory status closely - Full code - Lovenox for DVT prophylaxis Sepsis, sepsis features but given encephalopathy, respiratory failure Acute encephalopathy, resolved - Multifactorial, metabolic - COVID-19, hypercarbia, - Marijuana use Morbid obesity, BMI 60.7 Lymphedema PDMP PDMP Reviewed: Not Reviewed Attestations 2 Medical Necessity Statement*: Patient requires hospitalization for acute hypoxic respiratory failure sec to COPD, CHF, COVID-19 Diagnoses Acute hypercapnic respiratory failure J96.02 COVID-19 U07.1 COPD exacerbation J44.1 CHF exacerbation I50.9 Sepsis A41.9 Hypothyroidism E03.9 Lymphedema I89.0 Morbid obesity E66.01 TONIO (obstructive sleep apnea) G47.33 Acute encephalopathy G93.40
[2024-08-28] MEDS: cefTRIAXone 1,000 mg SDV 1000 MG IVP (16:25)
--- NOTE | 2024-08-28 17:13 | PC.NURSE ---
Patient refused remdisvir. Yusuf notified.
[2024-08-28] MEDS: pantoprazole 40 mg SDV IVP (17:30)
[2024-08-28] MEDS: AZITHROMYCIN ADD-Vantage 500 MG in 0.9% NaCl ADD-Vantage 250 ML 250 MG IV (17:32)
[2024-08-28] MEDS: enoxaparin 40 mg/0.4 mL Syringe SUBCUT (17:32)
[2024-08-28] MEDS: morphine 4 mg/mL SDV 1 mL 2 MG IVP (20:24)
[2024-08-28] MEDS: trazodone 150 mg Tablet 75 MG PO (23:39)
[2024-08-29] VITALS (219 sets, daily range): BP systolic 109–177; BP diastolic 74–111; PULSE 73–99; RESP 13–59; TEMP 36.5–37.5; O2SAT 77–98; BMI 77.8
--- NOTE | 2024-08-29 01:02 | PC.NURSE ---
Patient hit call light complaining of feeling anxious and unable to sleep. She asked if there was any medications I could administer to help her rest. Provider notified and placed order for Trazadone.
[2024-08-29] MEDS: ipratropium-albuterol 3 mL Neb INHALATION ×4 (02:24→20:03)
[2024-08-29 03:49] LABS: Basophils % 0.2 %; Eosinophils % 0.5 %; Hematocrit 40.6 % (36-47); Lymphocytes # 0.9 10^3/uL (0.8-4.8); Lymphocytes % 10.4 %; Mean Corpuscular HGB Conc 28.3 g/dL (30-55); Mean Corpuscular Hemoglobin 26.1 pg (27-33); Mean Corpuscular Volume 92.1 fl (85-98); Mean Platelet Volume 9.1 fL (7.4-10.4); Monocytes # 0.9 10^3/uL (0.2-0.9); Monocytes % 10.2 %; Neutrophils # 6.77 10^3/uL (1.8-7.7); Neutrophils % 77.8 %; Nucleated Red Blood Cells % 0 %; Platelet Count 233 10^3/cmm (157-399); Red Blood Count 4.41 10^6/uL (3.85-5.65); Red Cell Distribution Width 15.9 % (12.1-15.1); White Blood Count 8.71 10^3/uL (3.29-11.43)
[2024-08-29 04:16] LABS: NT Pro B Type Natriuretic Pept 435 pg/mL (0-125)
[2024-08-29] MEDS: FUROsemide 10 mg/mL SDV 4mL 40 MG IVP ×2 (04:16→15:35)
[2024-08-29 04:20] LABS: Alanine Aminotransferase 16 U/L (0-33); Albumin Level 3.6 g/dL (3.5-5.2); Alkaline Phosphatase 72 U/L (35-105); Anion Gap 11.9 (5-19); Aspartate Amino Transferase 13 U/L (0-32); Blood Urea Nitrogen 14 mg/dL (6-20); C Reactive Protein 18.2 mg/L (0.0-4.9); Calcium 8.5 mg/dL (8.5-10.5); Carbon Dioxide 36 mmol/L (22-29); Chloride 98 mmol/L (98-107); Creatinine Clr Calc Pharmacy 225.0237; Globulin 2.9 g/dL (1.3-4.6); Glomerular Filtration Rate 128.6 mL/min (90-130); Glucose 120 mg/dL (65-115); Magnesium 2.1 mg/dL (1.7-2.3); Osmolality Calculated 296 mOsm/kg (285-295); Phosphorus 4.5 mg/dL (2.5-4.5); Potassium 3.9 mmol/L (3.5-5.1); Sodium 142 mmol/L (136-145); Total Bilirubin 0.3 mg/dL (0.15-1.2); Total Protein 6.5 g/dL (6.6-8.7)
[2024-08-29] MEDS: dexamethasone 10 mg/mL INJ 6 MG IVP (06:10)
[2024-08-29] MEDS: morphine 4 mg/mL SDV 1 mL 2 MG IVP (06:10)
[2024-08-29] MEDS: budesonide 0.5 mg/2 mL Neb INHALATION ×2 (07:53→20:02)
[2024-08-29] MEDS: thyroid 60 mg Tablet 120 MG PO (08:26)
[2024-08-29] MEDS: duloxetine 30 mg Capsule PO (08:26)
[2024-08-29] MEDS: nystatin powder 15 gm Btl 1 APPLIC TOPICAL ×2 (08:27→18:12)
[2024-08-29] MEDS: cefTRIAXone 1,000 mg SDV 1000 MG IVP (15:28)
--- NOTE | 2024-08-29 15:45 | CTR_ITS ---
PROCEDURE INFORMATION: Exam: CT Left Lower Extremity Without Contrast, Knee Exam date and time: 08/29/2024 9:50 PM Age: 54 years old Clinical indication: Pain; Swelling or effusion of joint; Knee; Left; Additional info: Pain, swelling TECHNIQUE: Imaging protocol: CT of the left lower extremity without contrast was performed. Exam focused on the knee. Radiation optimization: All CT scans at this facility use at least one of these dose optimization techniques: automated exposure control; mA and/or kV adjustment per patient size (includes targeted exams where dose is matched to clinical indication); or iterative reconstruction. COMPARISON: CR XR knee LT 1-2V [id number] 08/28/2024 12:56 AM RADIATION DOSE METRICS: Total DLP (mGy-cm): 328.51 FINDINGS: Bones/joints: Severe tricompartmental osteoarthritis with prominent marginal osteophytes and [id number] in the medial femorotibial compartment. No evidence of acute fracture or subluxation. Moderate joint effusion. Suspected extrusion and tear of the medial meniscus. Suspected discoid lateral meniscus. Soft tissues: Prominent soft tissue edema, particularly of the medial distal thigh with a large region of unorganized fluid. Superficial venous varicosities are noted. CT/CT knee LT wo con* [id number] IMPRESSION: 1. Severe osteoarthritis without evidence of acute fracture or subluxation. 2. Prominent soft tissue edema with large region of unorganized subcutaneous fluid in the medial aspect of the distal thigh.
--- NOTE | 2024-08-29 15:47 | P.PN_ITS ---
Subjective 2 Subjective: Patient was seen this morning, currently oriented x 3, following commands, her shortness of breath is improving, she diuresed over 7 L yesterday, she does not complain of severe left knee pain, her left knee tends to buckle on her, she has fallen on it a couple of times Vitals/I&O/Wt Last Vital Signs Temp 97.7 F 08/29/24 07:44 Pulse 75 08/29/24 13:13 Resp 16 08/29/24 13:11 BP 154/79 08/29/24 12:00 Pulse Ox 92 08/29/24 13:11 O2 Del Method Nasal Cannula 08/29/24 13:11 O2 Flow Rate 2 08/29/24 13:11 FiO2 30 08/28/24 03:40 08/29/24 08/29/24 08/29/24 06:59 14:59 22:59 Intake Total 120 / 610 480 / 480 Output Total 1750 / 7750 1600 / 1600 Balance -1630 / -7140 480 / 480 -1600 / -1120 Weight last 48 hrs Weight 208.335 kg Weight 199.23 kg Weight 198.447 kg Weight 203.209 kg Physical Exam 2 Const: COMMON NORMALS: no acute distress and patient oriented x3 Resp: COMMON NORMALS: normal respiratory effort, No retractions and No use of accessory muscles AUSCULTATION: crackles and wheezes Cardio: COMMON NORMALS: regular rate, regular rhythm, S1 normal heart sound present and S2 normal heart sound present RATE: regular rate RHYTHM: r egular rhythm HEART SOUNDS: S1 normal heart sound present and S2 normal heart sound present GI: COMMON NORMALS: Normal to inspection, nondistended, normoactive bowel sounds present and non-tender OTHER: pannus present Extremity: NARRATIVE EXTREMITY EXAM: 2+ edema Neuro: COMMON NORMALS: patient oriented x3 Psych: COMMON NORMALS: mental status grossly normal Urinary Catheter Management: Heard: Cath Placed During This Visit: yes Reason for Continuing Indwelling Catheter: Accurate Measurement of Urinary Output in Critically Ill Patients Urinary Catheter Date of Insertion: 08/27/24 Urinary Catheter Time of Insertion: 15:00 Data 08/29/24 03:22 08/29/24 03:22 Micro: Microbiology 08/27/24 13:40 Blood Culture - Preliminary Blood NEGATIVE TO DATE 08/27/24 13:53 Blood Culture - Preliminary Blood NEGATIVE TO DATE A&P Assessment and plan (1) Acute hypercapnic respiratory failure: (2) COVID-19: (3) COPD exacerbation: (4) CHF exacerbation: (5) Sepsis: (6) Hypothyroidism: (7) Lymphedema: (8) Morbid obesity: (9) TONIO (obstructive sleep apnea): (10) Acute encephalopathy: Plan Acute hypercarbic respiratory failure - Multifactorial - COPD exacerbation - Fluid overload, diastolic CHF exacerbation - COVID-19 pneumonia, -with concerns for secondary bacterial pneumonia, right lower lobe infiltrates - Obesity hypoventilation syndrome, obstructive sleep apnea ct angio CT/CT angio chest PE protcl [id number] IMPRESSION: 1. No acute central or lobar pulmonary embolism. Evaluation segmental and subsegmental pulmonary arteries is limited secondary to respiratory motion artifact and contrast phase timing. 2. Stable marked enlargement of the main pulmonary artery compatible with pulmonary hypertension. 3. Redemonstrated mosaic attenuation in the lungs bilaterally which may reflect chronic air trapping. This appearance has been stable for several years. No focal consolidation or new airspace opacity. Plan - Move to medical floors, will order a overnight pulse ox -ABG shows pCO2 of 61 - Continue BiPAP as needed, scheduled during the night - Isolation precautions - Sputum culture - Blood cultures - Rocephin - Azithromycin - Decadron 6 mg IV push every 24 hours - Remdesivir - Lovenox 40 mg IV push every 24 hours, -7 L so far - Monitor respiratory status closely - Full code - Lovenox for DVT prophylaxis Sepsis, sepsis features but given encephalopathy, respiratory failure Acute encephalopathy, resolved - Multifactorial, metabolic - COVID-19, hypercarbia, - Marijuana use Morbid obesity, BMI 60.7 Lymphedema Left knee pain, CT left knee PDMP PDMP Reviewed: Not Reviewed Attestations 2 Medical Necessity Statement*: Patient requires hospitalization for acute hypercarbic respiratory failure secondary to COVID-19, fluid overload, CHF Diagnoses Acute hypercapnic respiratory failure J96.02 COVID-19 U07.1 COPD exacerbation J44.1 CHF exacerbation I50.9 Sepsis A41.9 Hypothyroidism E03.9 Lymphedema I89.0 Morbid obesity E66.01 TONIO (obstructive sleep apnea) G47.33 Acute encephalopathy G93.40
[2024-08-29] MEDS: potassium chloride ER 20 mEq Tablet 40 MEQ PO (16:06)
[2024-08-29] MEDS: pantoprazole 40 mg SDV IVP (18:11)
[2024-08-29] MEDS: AZITHROMYCIN ADD-Vantage 500 MG in 0.9% NaCl ADD-Vantage 250 ML 250 MG IV (18:12)
[2024-08-29] MEDS: enoxaparin 40 mg/0.4 mL Syringe SUBCUT (18:12)
--- NOTE | 2024-08-29 18:30 | PC.NURSE ---
Tube feedings started 1829
[2024-08-29] MEDS: trazodone 150 mg Tablet 75 MG PO (21:39)
[2024-08-30] VITALS (40 sets, daily range): BP systolic 102–143; BP diastolic 52–88; PULSE 69–98; RESP 9–38; TEMP 36.8–37.2; O2SAT 85–98
[2024-08-30] MEDS: ipratropium-albuterol 3 mL Neb INHALATION ×4 (02:52→19:40)
[2024-08-30 05:37] LABS: Basophils % 0.3 %; Eosinophils # 0.1 10^3/uL (0.0-0.8); Eosinophils % 1.9 %; Hematocrit 40.1 % (36-47); Lymphocytes # 0.7 10^3/uL (0.8-4.8); Lymphocytes % 10.8 %; Mean Corpuscular HGB Conc 28.2 g/dL (30-55); Mean Corpuscular Hemoglobin 26.1 pg (27-33); Mean Corpuscular Volume 92.6 fl (85-98); Mean Platelet Volume 9.5 fL (7.4-10.4); Monocytes # 0.7 10^3/uL (0.2-0.9); Monocytes % 9.9 %; Neutrophils # 5.09 10^3/uL (1.8-7.7); Neutrophils % 76.2 %; Nucleated Red Blood Cells % 0 %; Platelet Count 223 10^3/cmm (157-399); Red Blood Count 4.33 10^6/uL (3.85-5.65); Red Cell Distribution Width 15.9 % (12.1-15.1); White Blood Count 6.68 10^3/uL (3.29-11.43)
[2024-08-30] MEDS: dexamethasone 10 mg/mL INJ 6 MG IVP (05:43)
[2024-08-30 05:54] LABS: Alanine Aminotransferase 19 U/L (0-33); Albumin Level 3.1 g/dL (3.5-5.2); Alkaline Phosphatase 69 U/L (35-105); Anion Gap 10.9 (5-19); Aspartate Amino Transferase 10 U/L (0-32); Blood Urea Nitrogen 13 mg/dL (6-20); Calcium 8.6 mg/dL (8.5-10.5); Carbon Dioxide 39 mmol/L (22-29); Chloride 95 mmol/L (98-107); Creatinine Clr Calc Pharmacy 273.9575; Globulin 3.2 g/dL (1.3-4.6); Glomerular Filtration Rate 166.3 mL/min (90-130); Glucose 96 mg/dL (65-115); Magnesium 2.1 mg/dL (1.7-2.3); Osmolality Calculated 292 mOsm/kg (285-295); Phosphorus 4.2 mg/dL (2.5-4.5); Potassium 3.9 mmol/L (3.5-5.1); Sodium 141 mmol/L (136-145); Total Bilirubin 0.5 mg/dL (0.15-1.2); Total Protein 6.3 g/dL (6.6-8.7)
[2024-08-30 06:05] LABS: NT Pro B Type Natriuretic Pept 301 pg/mL (0-125)
[2024-08-30] MEDS: budesonide 0.5 mg/2 mL Neb INHALATION ×2 (08:09→19:40)
[2024-08-30] MEDS: duloxetine 30 mg Capsule PO (08:22)
[2024-08-30] MEDS: potassium chloride ER 20 mEq Tablet 40 MEQ PO (08:22)
[2024-08-30] MEDS: thyroid 60 mg Tablet 120 MG PO (08:22)
[2024-08-30] MEDS: FUROsemide 10 mg/mL SDV 4mL 40 MG IVP (08:23)
[2024-08-30] MEDS: nystatin powder 15 gm Btl 1 APPLIC TOPICAL (08:24)
[2024-08-30] MEDS: cefTRIAXone 1,000 mg SDV 1000 MG IVP (14:40)
--- NOTE | 2024-08-30 16:33 | P.PN_ITS ---
Subjective 2 Subjective: Patient was seen this morning, she is alert oriented x 3, following all commands, denies any fevers, chills, has a cough, does report shortness of breath, shortness of breath with exertion, edema, anasarca although significantly improved, she is -10 L so far Vitals/I&O/Wt Last Vital Signs Temp 98.3 F 08/30/24 04:00 Pulse 87 08/30/24 15:30 Resp 9 L 08/30/24 15:30 BP 126/81 08/30/24 16:00 Pulse Ox 90 08/30/24 16:00 O2 Del Method Nasal Cannula 08/30/24 13:59 O2 Flow Rate 2 08/30/24 13:59 FiO2 30 08/30/24 03:01 08/30/24 08/30/24 08/30/24 06:59 14:59 22:59 Intake Total 480 / 480 Output Total 1950 / 9200 3650 / 3650 Balance -1950 / -8230 -3170 / -3170 Weight last 48 hrs Weight 191.235 kg Weight 208.335 kg Weight 199.23 kg Physical Exam 2 Const: COMMON NORMALS: no acute distress and patient oriented x3 Resp: COMMON NORMALS: normal respiratory effort, No retractions, No use of accessory muscles and clear to auscultation bilaterally AUSCULTATION: clear to auscultation bilaterally Cardio: COMMON NORMALS: regular rate, regular rhythm, S1 normal heart sound present and S2 normal heart sound present RATE: regular rate RHYTHM: r egular rhythm HEART SOUNDS: S1 normal heart sound present and S2 normal heart sound present GI: COMMON NORMALS: Normal to inspection, nondistended, normoactive bowel sounds present and non-tender Extremity: NARRATIVE EXTREMITY EXAM: 2+ edema, anasarca, crackles Neuro: COMMON NORMALS: patient oriented x3 Psych: COMMON NORMALS: mental status grossly normal Urinary Catheter Management: Heard: Cath Placed During This Visit: yes Reason for Continuing Indwelling Catheter: Accurate Measurement of Urinary Output in Critically Ill Patients Urinary Catheter Date of Insertion: 08/27/24 Urinary Catheter Time of Insertion: 15:00 Data 08/30/24 04:07 08/30/24 04:07 A&P Assessment and plan (1) Acute hypercapnic respiratory failure: (2) COVID-19: (3) COPD exacerbation: (4) CHF exacerbation: (5) Sepsis: (6) Hypothyroidism: (7) Lymphedema: (8) Morbid obesity: (9) TONIO (obstructive sleep apnea): (10) Acute encephalopathy: Plan Acute hypercarbic respiratory failure - Multifactorial - COPD exacerbation - Fluid overload, diastolic CHF exacerbation - COVID-19 pneumonia, -with concerns for secondary bacterial pneumonia, right lower lobe infiltrates - Obesity hypoventilation syndrome, obstructive sleep apnea ct angio CT/CT angio chest PE protcl [id number] IMPRESSION: 1. No acute central or lobar pulmonary embolism. Evaluation segmental and subsegmental pulmonary arteries is limited secondary to respiratory motion artifact and contrast phase timing. 2. Stable marked enlargement of the main pulmonary artery compatible with pulmonary hypertension. 3. Redemonstrated mosaic attenuation in the lungs bilaterally which may reflect chronic air trapping. This appearance has been stable for several years. No focal consolidation or new airspace opacity. Plan - Move to medical floors, will order a overnight pulse ox -ABG shows pCO2 of 61 - Continue BiPAP as needed, scheduled during the night - Isolation precautions - Sputum culture - Blood cultures - Rocephin - Azithromycin - Decadron 6 mg IV push every 24 hours - Remdesivir, stopped as patient has declined - Lovenox 40 mg IV push every 24 hours, -10 L so far - Monitor respiratory status closely - Full code - Lovenox for DVT prophylaxis Sepsis, sepsis features but given encephalopathy, respiratory failure Acute encephalopathy, resolved - Multifactorial, metabolic - COVID-19, hypercarbia, - Marijuana use Morbid obesity, BMI 60.7 Lymphedema Left knee pain, CT left knee CT/CT knee LT wo con* [id number] IMPRESSION: 1. Severe osteoarthritis without evidence of acute fracture or subluxation. 2. Prominent soft tissue edema with large region of unorganized subcutaneous fluid in the medial aspect of the distal thigh. PDMP PDMP Reviewed: Not Reviewed Attestations 2 Medical Necessity Statement*: patient requires hospitalization for fluid overload, chf, covid 19 Diagnoses Acute hypercapnic respiratory failure J96.02 COVID-19 U07.1 COPD exacerbation J44.1 CHF exacerbation I50.9 Sepsis A41.9 Hypothyroidism E03.9 Lymphedema I89.0 Morbid obesity E66.01 TONIO (obstructive sleep apnea) G47.33 Acute encephalopathy G93.40
[2024-08-30 17:35] LABS: Anion Gap 14.4 (5-19); Blood Urea Nitrogen 19 mg/dL (6-20); Calcium 8.9 mg/dL (8.5-10.5); Carbon Dioxide 32 mmol/L (22-29); Chloride 99 mmol/L (98-107); Glomerular Filtration Rate 57.8 mL/min (90-130); Glucose 118 mg/dL (65-115); Osmolality Calculated 295 mOsm/kg (285-295); Potassium 4.4 mmol/L (3.5-5.1); Sodium 141 mmol/L (136-145)
[2024-08-30] MEDS: azithromycin 250 mg Tablet PO (18:05)
[2024-08-30] MEDS: enoxaparin 40 mg/0.4 mL Syringe SUBCUT (18:06)
[2024-08-30] MEDS: pantoprazole 40 mg SDV IVP (18:06)
[2024-08-30] MEDS: trazodone 150 mg Tablet 75 MG PO (21:49)
[2024-08-31] VITALS (14 sets, daily range): BP systolic 126–152; BP diastolic 74–81; PULSE 71–96; RESP 15–19; TEMP 36.6–37.2; O2SAT 92–97
[2024-08-31] MEDS: ipratropium-albuterol 3 mL Neb INHALATION ×4 (03:16→20:48)
[2024-08-31] MEDS: dexamethasone 10 mg/mL INJ 6 MG IVP (05:40)
[2024-08-31 06:06] LABS: Basophils % 0.2 %; Eosinophils # 0.1 10^3/uL (0.0-0.8); Eosinophils % 0.8 %; Hematocrit 38.2 % (36-47); Lymphocytes # 0.9 10^3/uL (0.8-4.8); Lymphocytes % 10.9 %; Mean Corpuscular HGB Conc 29.1 g/dL (30-55); Mean Corpuscular Hemoglobin 26.6 pg (27-33); Mean Corpuscular Volume 91.4 fl (85-98); Mean Platelet Volume 9.2 fL (7.4-10.4); Monocytes # 0.7 10^3/uL (0.2-0.9); Monocytes % 8.7 %; Neutrophils # 6.57 10^3/uL (1.8-7.7); Neutrophils % 78.6 %; Nucleated Red Blood Cells % 0 %; Platelet Count 239 10^3/cmm (157-399); Red Blood Count 4.18 10^6/uL (3.85-5.65); Red Cell Distribution Width 15.7 % (12.1-15.1); White Blood Count 8.37 10^3/uL (3.29-11.43)
[2024-08-31 06:28] LABS: Alanine Aminotransferase 11 U/L (0-33); Albumin Level 3.2 g/dL (3.5-5.2); Alkaline Phosphatase 62 U/L (35-105); Anion Gap 11.8 (5-19); Aspartate Amino Transferase 8 U/L (0-32); Blood Urea Nitrogen 17 mg/dL (6-20); Calcium 8.4 mg/dL (8.5-10.5); Carbon Dioxide 32 mmol/L (22-29); Chloride 99 mmol/L (98-107); Creatinine Clr Calc Pharmacy 268.6151; Globulin 3.1 g/dL (1.3-4.6); Glomerular Filtration Rate 166.3 mL/min (90-130); Glucose 107 mg/dL (65-115); Osmolality Calculated 290 mOsm/kg (285-295); Potassium 3.8 mmol/L (3.5-5.1); Sodium 139 mmol/L (136-145); Total Bilirubin 0.4 mg/dL (0.15-1.2); Total Protein 6.3 g/dL (6.6-8.7)
[2024-08-31] MEDS: budesonide 0.5 mg/2 mL Neb INHALATION ×2 (08:34→20:48)
[2024-08-31] MEDS: FUROsemide 10 mg/mL SDV 4mL 40 MG IVP (08:39)
[2024-08-31] MEDS: thyroid 60 mg Tablet 120 MG PO (08:40)
[2024-08-31] MEDS: duloxetine 30 mg Capsule PO (08:40)
[2024-08-31] MEDS: potassium chloride ER 20 mEq Tablet 40 MEQ PO (08:40)
[2024-08-31] MEDS: nystatin powder 15 gm Btl 1 APPLIC TOPICAL ×2 (08:44→17:25)
--- NOTE | 2024-08-31 11:08 | PM.DCS ---
Discharge Providers Date of Admission: 08/27/24 16:09 Date of Discharge: August 31, 2024 Attending Provider at Admission: Felice Goldberg MD Attending Provider at Discharge: Felice Goldberg MD Primary Care Provider: Ashley Torrez MD Diagnoses at Discharge Discharge Diagnosis (1) Acute hypercapnic respiratory failure: Status: Acute (2) COVID-19: Status: Acute (3) COPD exacerbation: Status: Acute (4) CHF exacerbation: Status: Acute (5) Sepsis: Status: Resolved (6) Hypothyroidism: Status: Inactive (7) Lymphedema: Status: Inactive (8) Morbid obesity: Status: Inactive (9) TONIO (obstructive sleep apnea): Status: Inactive (10) Acute encephalopathy: Status: Acute Reason for Visit Reason for Visit: bernarda knee pain Hospital Course Hospital Course Alina Pascual is a 54 year old female with a past medical history of morbid obesity, COPD, BMI 68.7, pannus present, obesity hypoventilation syndrome, history of edema, hypothyroidism, who presents to [facility] for bilateral lower extremity pain, shortness of breath, difficulty staying awake. Currently patient is alert to person, not to place, to time she easily falls back asleep, currently on BiPAP, she does withdraw from pain does localize pain, her GCS score is 10, no family members at bedside, according to ER provider nursing staff, patient was falling frequently asleep yesterday, there has been concerns for sleep apnea, she is due for a sleep study, has been reported to nursing staff that she had fell out of bed 3 times, due to spontaneously falling asleep, she is on 4 L at home chronically, does have chronic lymphedema, during interviews patient would quite easily fall asleep, ABG obtained showed hypercarbic respiratory failure, placed on BiPAP, she is comfortable on BiPAP, found to be COVID-19 positive, hospitalist team called for admission Patient was admitted to [facility] for acute hypercarbic respiratory failure - Multifactorial from COPD, fluid overload and diastolic CHF exacerbation, COVID-19 pneumonia, concern for secondary bacterial pneumonia - With concerns for underlying obstructive sleep apnea, obesity hypoventilation syndrome ct angio CT/CT angio chest PE protcl [id number] IMPRESSION: 1. No acute central or lobar pulmonary embolism. Evaluation segmental and subsegmental pulmonary arteries is limited secondary to respiratory motion artifact and contrast phase timing. 2. Stable marked enlargement of the main pulmonary artery compatible with pulmonary hypertension. 3. Redemonstrated mosaic attenuation in the lungs bilaterally which may reflect chronic air trapping. This appearance has been stable for several years. No focal consolidation or new airspace opacity. - Patient was monitored in the intensive care unit - Received BiPAP therapy - Patient is hypercarbic respiratory failure significantly improved with BiPAP therapy, significantly helped her with her sleep apnea, she tells me it helped with her breathing, helped with her sleep, patient would clinically benefit from BiPAP therapy as outpatient for her chronic hypercarbic respiratory failure For patient's COVID-19 pneumonia - She declined remdesivir - Manage on Decadron - Overall clinically improved - On 2 L - We discussed her hypercoagulable risk given her BMI 72, her mobility is improving, - Discussed discharging her aspirin 81 mg due to her hypercoagulable risk, discussed risk and benefits, she voiced understanding, agreed to proceed - Discussed with her that if she developed sudden onset shortness of breath, hemoptysis, calf pain or swelling to immediately call 911. For her secondary bacterial pneumonia she was managed with IV antibiotics, remains afebrile, overall clinically improved, discharged on doxycycline For her COPD exacerbation, received IV steroids during hospitalization, overall clinically improved, completed her steroid therapy during her hospitalization For her sepsis secondary to respiratory failure, COVID-19, pneumonia, resolved For acute encephalopathy second hypercarbia, COVID-19, resolved on discharge she is alert oriented x 3, following all commands For her morbid obesity, we discussed weight loss strategies, follow-up with primary care provider for consideration of Ozempic or GLP-1 analog She does have prediabetes A1c 6.2, monitor blood sugars outpatient, consider Jardiance or Ozempic or metformin For lymphedema, consider lymphedema wraps as outpatient For her left knee pain Left knee pain, CT left knee CT/CT knee LT wo con* [id number] IMPRESSION: 1. Severe osteoarthritis without evidence of acute fracture or subluxation. 2. Prominent soft tissue edema with large region of unorganized subcutaneous fluid in the medial aspect of the distal thigh. - Continue range of motion exercises, follow-up with Dr. Melo as outpatient For patient's diastolic CHF exacerbation - Chronic hypercarbic respiratory failure - Patient was diuresed over 25 L negative during her hospitalization - Her shortness of breath has significantly improved, shortness of breath with exertion significantly improved - Discharged on Lasix 40 mg daily with potassium replacement therapy - In terms of BiPAP - Patient is supposed to have a sleep study done however she missed her appointment during her hospitalization and it is difficult for her to follow-up as outpatient given her current state to do a sleep study - She does have morbid obesity - During her hospitalization her hypercarbic respiratory failure, CHF significantly improved with BiPAP - Patient felt significantly better with having the BiPAP, using it scheduled during the night, as needed during the day - Patient had an overnight pulse oximeter test during her hospitalization -She had 119 desat episodes, total desat time was at 113 minutes, shortest duration 10 seconds, longest duration 1114a, average desat time was 57 seconds - Discussed with her that BiPAP she did qualify for BiPAP - Discussed with patient that classically we require overnight sleep study to see if patient qualifies for CPAP or BiPAP - However given her severe respiratory failure, hypercarbic respiratory failure, diastolic CHF, history of chronic interstitial lung disease, history of COPD we could use her overnight pulse oximeter test her ABGs to help her qualify for BiPAP - Discussed risk and benefits of having a BiPAP, with her Diastolic CHF, or interstitial lung disease, her hypercarbic respiratory failure; shared decision making, she voiced understanding, all questions answered, agreed to proceed - She is compliant with BiPAP and feels that it significantly helps with her respiratory failure, and patient has clinically benefited with BiPAP during her hospitalization, in terms of her diastolic CHF, with her hypercarbic respiratory failure, with underlying COPD and history of interstitial lung disease - Follow-up with pulmonary as outpatient Physical Exam Const: COMMON NORMALS: no acute distress and patient oriented x3 Resp: COMMON NORMALS: normal respiratory effort, No retractions, No use of accessory muscles and clear to auscultation bilaterally AUSCULTATION: clear to auscultation bilaterally Cardio: COMMON NORMALS: regular rate, regular rhythm, S1 normal heart sound present and S2 normal heart sound present RATE: regular rate RHYTHM: regular rhythm HEART SOUNDS: S1 normal heart sound present and S2 normal heart sound present GI: COMMON NORMALS: Normal to inspection, nondistended, normoactive bowel sounds present and non-tender OTHER: Pannus present Extremity: NARRATIVE EXTREMITY EXAM: 1+ edema Neuro: COMMON NORMALS: patient oriented x3 Psych: COMMON NORMALS: mental status grossly normal Urinary Catheter Management: Heard: Cath Placed During This Visit: yes Reason for Continuing Indwelling Catheter: Other Urinary Catheter Date of Insertion: 08/27/24 Urinary Catheter Time of Insertion: 15:00 Discharge Data Studies Completed and Pending Completed Studies During Hospitalization Category Date Time Status CT angio chest PE protcl [id number] Stat Cat Scan 08/27/24 16:[address] head wo con* [id number] Routine Cat Scan 08/27/24 18:[address] knee LT wo con* [id number] Routine Cat Scan 08/29/24 15:45 Completed XR chest 1V portable [id number] Stat Exams 08/27/24 13:48 Completed XR knee LT 1-2V [id number] Routine Exams 08/28/24 00:31 Completed XR knee RT 1-2V [id number] Routine Exams 08/28/24 00:31 Completed US venous duplex lower extremity bilat [CV venous Ultrasound 08/27/24 13:16 [place] [id number]] Stat Pending at discharge Category Date Time Status Blood Culture Stat Lab 08/27/24 13:40 Results Complete Blood Count w/Auto AM LABS Lab 09/01/24 04:00 Ordered Complete Blood Count w/Auto AM LABS Lab 09/02/24 04:00 Ordered Comprehensive Metabolic Panel AM LABS Lab 09/01/24 04:00 Ordered Comprehensive Metabolic Panel AM LABS Lab 09/02/24 04:00 Ordered Radiology Impressions Venous Duplex 08/27/24 13:16 IMPRESSION: 1. No evidence of deep vein thrombosis. 2. Mild bilateral calf edema. Chest X-Ray 08/27/24 13:48 IMPRESSION: 1. Ill-defined opacities in the peripheral right lower lung are similar compared to multiple prior exams suggesting atelectasis and/or scarring. 2. Stable mild cardiomegaly and sequela likely related to pulmonary arterial hypertension. Chest CTA 08/27/24 16:47 IMPRESSION: 1. No acute central or lobar pulmonary embolism. Evaluation segmental and subsegmental pulmonary arteries is limited secondary to respiratory motion artifact and contrast phase timing. 2. Stable marked enlargement of the main pulmonary artery compatible with pulmonary hypertension. 3. Redemonstrated mosaic attenuation in the lungs bilaterally which may reflect chronic air trapping. This appearance has been stable for several years. No focal consolidation or new airspace opacity. Head CT 08/27/24 18:26 IMPRESSION: No acute intracranial pathology identified by CT. Knee X-Ray 08/28/24 00:31 IMPRESSION: No acute fracture or dislocation. Knee CT 08/29/24 15:45 IMPRESSION: 1. Severe osteoarthritis without evidence of acute fracture or subluxation. 2. Prominent soft tissue edema with large region of unorganized subcutaneous fluid in the medial aspect of the distal thigh. Laboratory Results WBC 8.37 10^3/uL (3.29-11.43) 08/31/24 05:17 RBC 4.18 10^6/uL (3.85-5.65) 08/31/24 05:17 Hgb 11.10 g/dL (11.27-16.99) L 08/31/24 05:17 Hct 38.2 % (36-47) 08/31/24 05:17 MCV 91.4 fl (85-98) 08/31/24 05:17 MCH 26.6 pg (27-33) L 08/31/24 05:17 MCHC 29.1 g/dL (30-55) L 08/31/24 05:17 RDW 15.7 % (12.1-15.1) H 08/31/24 05:17 Plt Count 239 10^3/cmm (157-399) 08/31/24 05:17 MPV 9.2 fL (7.4-10.4) 08/31/24 05:17 Neut % (Auto) 78.6 % 08/31/24 05:17 Lymph % (Auto) 10.9 % 08/31/24 05:17 Schley % (Auto) 8.7 % 08/31/24 05:17 Eos % (Auto) 0.8 % 08/31/24 05:17 Baso % (Auto) 0.2 % 08/31/24 05:17 Neut # (Auto) 6.57 10^3/uL (1.8-7.7) 08/31/24 05:17 Lymph # (Auto) 0.9 10^3/uL (0.8-4.8) 08/31/24 05:17 Schley # (Auto) 0.7 10^3/uL (0.2-0.9) 08/31/24 05:17 Eos # (Auto) 0.1 10^3/uL (0.0-0.8) 08/31/24 05:17 Baso # (Auto) 0.0 10^3/uL (0.0-0.1) 08/31/24 05:17 Nucleated RBC % (auto) 0 % 08/31/24 05:17 Nucleated RBCs # 0.0 /100WBC 08/31/24 05:17 D-Dimer 0.42 ug/mLFEU (0-0.59) 08/27/24 18:51 Specimen Type Arterial 08/28/24 04:08 Sample Site Brachial, right 08/28/24 04:08 ABG pH 7.40 (7.35-7.45) 08/28/24 04:08 ABG pCO2 61.6 mmHg (35-45) H* 08/28/24 04:08 ABG pO2 89.7 mmHg (80.0-100.0) 08/28/24 04:08 ABG PO2/FiO2 Ratio 299 08/28/24 04:08 ABG HCO3 37.9 mmol/L (22-26) H 08/28/24 04:08 ABG O2 Saturation 87.9 08/27/24 13:30 ABG Base Excess 11.0 mmol/L (-2.0-2.0) H 08/28/24 04:08 Glen Test N/a 08/28/24 04:08 A-a O2 Gradient 14.2 mmHg (5-10) H 08/27/24 13:30 Hematocrit 34.8 % (37-47) L 08/28/24 04:08 Hgb O2 Saturation 85.9 % (95-100) L 08/27/24 13:30 Carboxyhemoglobin 2.1 %THgb (0.4-20.1) 08/27/24 13:30 Methemoglobin 0.2 % (0.4-1.5) L 08/27/24 13:30 Total Hemoglobin 12.3 g/dL (12-16) 08/27/24 13:30 Sodium 142.0 mmol/L (131-143) 08/27/24 13:30 Potassium 4.0 mmol/L (3.5-5.0) 08/27/24 13:30 Glucose 112.0 mg/dL (70-115) 08/27/24 13:30 Ionized Calcium 1.2 mmol/L (1.1-1.4) 08/27/24 13:30 O2 Delivery Device Bipap 08/28/24 04:08 O2 Liters/Min 3.0 % 08/27/24 13:30 FiO2 30.0 % 08/28/24 04:08 Biofuels Production Technician ID Amh 08/28/24 04:08 Blood Gas Notified Time 1557 08/27/24 15:44 Sodium 139 mmol/L (136-145) 08/31/24 05:17 Potassium 3.8 mmol/L (3.5-5.1) 08/31/24 05:17 Chloride 99 mmol/L (98-107) 08/31/24 05:17 Carbon Dioxide 32 mmol/L (22-29) H 08/31/24 05:17 Anion Gap 11.8 (5-19) 08/31/24 05:17 BUN 17 mg/dL (6-20) 08/31/24 05:17 Creatinine 0.4 mg/dL (0.5-0.9) L 08/31/24 05:17 GFR Calculation 166.3 mL/min (90-130) H 08/31/24 05:17 Glucose 107 mg/dL (65-115) 08/31/24 05:17 Estimat Average Glucose 131 08/27/24 18:51 Hemoglobin A1c 6.2 % (4.0-6.0) H 08/27/24 18:51 Calculated Osmolality 290 mOsm/kg (285-295) 08/31/24 05:17 Lactic Acid 1.0 mmol/L (0.5-2.2) 08/27/24 13:53 Calcium 8.4 mg/dL (8.5-10.5) L 08/31/24 05:17 Phosphorus 4.2 mg/dL (2.5-4.5) 08/30/24 04:07 Magnesium 2.1 mg/dL (1.7-2.3) 08/30/24 04:07 Total Bilirubin 0.4 mg/dL (0.15-1.2) 08/31/24 05:17 AST 8 U/L (0-32) 08/31/24 05:17 ALT 11 U/L (0-33) 08/31/24 05:17 Alkaline Phosphatase 62 U/L (35-105) 08/31/24 05:17 Ammonia 34 umol/L (11-51) 08/27/24 15:38 Troponin T Baseline 11 ng/L (0-10) H 08/27/24 15:38 Troponin T 120 Minute 11.99 ng/L (0-10) H 08/27/24 18:51 Delta Troponin T 0.99 ABS# (0-10) 08/27/24 18:51 Troponin T Hi Sens 6Hr 8.78 ng/L (0-10) 08/27/24 22:33 Troponin T Hi Sens 6Hr Delta -2.22 ng/L (0-12) L 08/27/24 22:33 C-Reactive Protein 20.0 mg/L (0.0-4.9) H 08/30/24 04:07 NT-Pro-B Natriuret Pep 301 pg/mL (0-125) H 08/30/24 04:07 Total Protein 6.3 g/dL (6.6-8.7) L 08/31/24 05:17 Albumin 3.2 g/dL (3.5-5.2) L 08/31/24 05:17 Globulin 3.1 g/dL (1.3-4.6) 08/31/24 05:17 Procalcitonin 0.05 ng/mL (0-0.5) 08/27/24 18:51 TSH 10.60 uIU/mL (0.27-4.20) H 08/27/24 13:53 Free T4 0.62 ng/dL (0.82-1.77) L 08/27/24 18:51 Free T3 1.9 PG/ML (2.0-4.4) L 08/27/24 18:51 Urine Color Yellow (Yellow) 08/27/24 15:19 Urine Appearance Clear (CLEAR) 08/27/24 15:19 Urine pH 6.0 (5-7) 08/27/24 15:19 Ur Specific [place] 1.026 (1.005-1.030) 08/27/24 15:19 Urine Protein 1+ (Negative) A 08/27/24 15:19 Urine Glucose (UA) Negative (Normal) 08/27/24 15:19 Urine Ketones Trace (Negative) 08/27/24 15:19 Urine Blood Negative (Negative) 08/27/24 15:19 Urine Nitrate Negative (Negative) 08/27/24 15:19 Urine Bilirubin Negative (Negative) 08/27/24 15:19 Urine Urobilinogen 1.0 mg/dL (Negative) 08/27/24 15:19 Ur Leukocyte Esterase Negative (Negative) 08/27/24 15:19 Urine RBC 0-2 /hpf (0-2) 08/27/24 15:19 Urine WBC 0-5 /hpf (0-5) 08/27/24 15:19 Ur Squamous Epith Cells 0-5 /hpf (0-5) 08/27/24 15:19 Amorphous Sediment Not Reportable 08/27/24 15:19 Urine Bacteria None seen /hpf (NONE) 08/27/24 15:19 Hyaline Casts 1.65 /lpf 08/27/24 15:19 Urine Opiates Screen Negative ng/mL (Negative) 08/27/24 15:19 Ur Barbiturates Screen Negative ng/mL (Negative) 08/27/24 15:19 Ur Phencyclidine Scrn Negative ng/mL (Negative) 08/27/24 15:19 Ur Amphetamines Screen Negative ng/mL (Negative) 08/27/24 15:19 U Benzodiazepines Scrn Negative ng/mL (Negative) 08/27/24 15:19 Urine Cocaine Screen Negative ng/mL (Negative) 08/27/24 15:19 U Marijuana (THC) Screen Positive ng/mL (Negative) H 08/27/24 15:19 Ethyl Alcohol < 10 mg/dL (0-10) 08/27/24 18:51 Influenza A (PCR) Negative (Negative) 08/27/24 Unknown Influenza Type B (PCR) Negative (Negative) 08/27/24 Unknown RSV (PCR) Negative (Negative) 08/27/24 Unknown SARS-CoV-2 (PCR) Positive (Negative) A 08/27/24 Unknown Vitals Last Vital Signs Temp 97.9 F 08/31/24 07:29 Pulse 71 08/31/24 08:00 Resp 16 08/31/24 08:00 BP 129/80 08/31/24 07:29 Pulse Ox 97 08/31/24 08:00 O2 Del Method Nasal Cannula 08/31/24 08:00 O2 Flow Rate 2 08/31/24 08:00 FiO2 30 08/31/24 03:19 Discharge Plan Discharge Patient Disposition: Home Condition: Stable Prescriptions: New albuterol sulfate [Ventolin HFA] 90 mcg/actuation HFA aerosol inhaler 1 inh inhalation 6XD PRN (Reason: shortness of breath or wheezing) Qty: 8.5 0RF aspirin 81 mg tablet 81 mg PO DAILY 30 Days Qty: 30 0RF doxycycline hyclate 100 mg tablet 100 mg PO BID 5 Days Qty: 10 0RF Continued thyroid (pork) [[place] Thyroid] 120 mg tablet 120 mg PO DAILY 30 Days Qty: 30 5RF duloxetine 30 mg capsule,delayed release(DR/EC) 30 mg PO DAILY 30 Days Qty: 30 11RF potassium chloride [Klor-Con 10] 10 mEq tablet extended release 10 meq PO DAILY Qty: 30 2RF furosemide 40 mg tablet 40 mg PO DAILY@0800 30 Days Qty: 30 2RF Discharge Orders: Discharge Order (Routine); Ordered 08/31/24 Ordered By: Felice Goldberg Referrals: Zbigniew Schmitt MD [Physician, Pulmonology] - 1 week Referral Note: copd, obesity hypoventilation, sleep apnea Sebastien Coleman M.D [Physician, Cardiology] - 1 month Referral Note: chf Ashley Torrez MD [Primary Care Provider, Family Practice] David Melo DO [Physician, Orthopedics] - 2 weeks Referral Note: left knee pain Discharge Diet: Low Salt Discharge Activity: Increase activity as tolerated Patient Instructions: Opioid Safety, Patient Portal & Jason Instructions Activity Restrictions/Additional Instructions: - Limit fluid intake to 1 to 1.5 L of fluid a day - Recheck kidney function tomorrow, and Wednesday - Monitor potassium - Follow-up with [facility] pulmonary - Follow-up with cardiology Discharge Attestations Time Spent in Discharge Care*: greater than 30 min Quality Metrics Clinical Quality Measures [ No reported AMI, CVA or VTE this stay] Coding Level of Care Code 93220 Total time (in minutes) for Discharge: 45 Diagnoses Acute hypercapnic respiratory failure J96.02 COVID-19 U07.1 COPD exacerbation J44.1 CHF exacerbation I50.9 Sepsis A41.9 Hypothyroidism E03.9 Lymphedema I89.0 Morbid obesity E66.01 TONIO (obstructive sleep apnea) G47.33 Acute encephalopathy G93.40
--- NOTE | 2024-08-31 14:58 | P.PN_ITS ---
Subjective 2 Subjective: Patient was seen this morning, currently alert oriented x 3, following all commands, her breathing has significantly improved, edema is improving, anasarca is improving, denies any fevers, no chills Vitals/I&O/Wt Last Vital Signs Temp 98.2 F 08/31/24 11:59 Pulse 85 08/31/24 13:58 Resp 18 08/31/24 13:58 BP 152/81 08/31/24 11:59 Pulse Ox 96 08/31/24 13:58 O2 Del Method Nasal Cannula 08/31/24 13:58 O2 Flow Rate 2 08/31/24 13:58 FiO2 30 08/31/24 03:19 08/30/24 08/31/24 08/31/24 22:59 06:59 14:59 Intake Total 720 / 1200 840 / 840 Output Total 0 / 3650 750 / 4400 5600 / 5600 Balance 720 / -2450 -750 / -3200 -4760 / -4760 Weight last 48 hrs Weight 185.973 kg Weight 191.235 kg Physical Exam 2 Const: COMMON NORMALS: no acute distress and patient oriented x3 Resp: COMMON NORMALS: normal respiratory effort, No retractions, No use of accessory muscles and clear to auscultation bilaterally AUSCULTATION: clear to auscultation bilaterally Cardio: COMMON NORMALS: regular rate, regular rhythm, S1 normal heart sound present and S2 normal heart sound present RATE: regular rate RHYTHM: r egular rhythm HEART SOUNDS: S1 normal heart sound present and S2 normal heart sound present GI: COMMON NORMALS: Normal to inspection, nondistended, normoactive bowel sounds present and non-tender Extremity: COMMON NORMALS: no pedal edema Neuro: COMMON NORMALS: patient oriented x3 Psych: COMMON NORMALS: mental status grossly normal Urinary Catheter Management: Heard: Cath Placed During This Visit: yes Reason for Continuing Indwelling Catheter: Other Urinary Catheter Date of Insertion: 08/27/24 Urinary Catheter Time of Insertion: 15:00 Data 08/31/24 05:17 08/31/24 05:17 A&P Assessment and plan (1) Acute hypercapnic respiratory failure: (2) COVID-19: (3) COPD exacerbation: (4) CHF exacerbation: (5) Sepsis: (6) Hypothyroidism: (7) Lymphedema: (8) Morbid obesity: (9) TONIO (obstructive sleep apnea): (10) Acute encephalopathy: Plan Acute hypercarbic respiratory failure - Multifactorial - COPD exacerbation - Fluid overload, diastolic CHF exacerbation - COVID-19 pneumonia, -with concerns for secondary bacterial pneumonia, right lower lobe infiltrates - Obesity hypoventilation syndrome, obstructive sleep apnea ct angio CT/CT angio chest PE protcl [id number] IMPRESSION: 1. No acute central or lobar pulmonary embolism. Evaluation segmental and subsegmental pulmonary arteries is limited secondary to respiratory motion artifact and contrast phase timing. 2. Stable marked enlargement of the main pulmonary artery compatible with pulmonary hypertension. 3. Redemonstrated mosaic attenuation in the lungs bilaterally which may reflect chronic air trapping. This appearance has been stable for several years. No focal consolidation or new airspace opacity. For patient's diastolic CHF exacerbation - Chronic hypercarbic respiratory failure - Patient has been diuresed over 25 L negative during her hospitalization - Her shortness of breath has significantly improved, shortness of breath with exertion significantly improved - In terms of BiPAP - Patient is supposed to have a sleep study done however she missed her appointment during her hospitalization and it is difficult for her to follow-up as outpatient given her current state to do a sleep study - She does have morbid obesity - During her hospitalization her hypercarbic respiratory failure, CHF significantly improved with BiPAP - Patient felt significantly better with having the BiPAP, using it scheduled during the night, as needed during the day - Patient had an overnight pulse oximeter test during her hospitalization -She had 119 desat episodes, total desat time was at 113 minutes, shortest duration 10 seconds, longest duration 1114a, average desat time was 57 seconds - Discussed with her that BiPAP she did qualify for BiPAP - Discussed with patient that classically we require overnight sleep study to see if patient qualifies for CPAP or BiPAP - However given her severe respiratory failure, hypercarbic respiratory failure, diastolic CHF, history of chronic interstitial lung disease, history of COPD we could use her overnight pulse oximeter test her ABGs to help her qualify for BiPAP - Discussed risk and benefits of having a BiPAP, with her Diastolic CHF, or interstitial lung disease, her hypercarbic respiratory failure; shared decision making, she voiced understanding, all questions answered, agreed to proceed - She is compliant with BiPAP and feels that it significantly helps with her respiratory failure, and patient has clinically benefited with BiPAP during her hospitalization, in terms of her diastolic CHF, with her hypercarbic respiratory failure, with underlying COPD and history of interstitial lung disease - Follow-up with pulmonary as outpatient Plan - Move to medical floors, -ABG shows pCO2 of 61 - Continue BiPAP as needed, scheduled during the night - Isolation precautions - Sputum culture - Blood cultures - Rocephin - Azithromycin - Decadron 6 mg IV push every 24 hours stopped today - Remdesivir, stopped as patient has declined - Lasix mg IV push every 24 hours, -22 L so far - Monitor respiratory status closely - Full code - Lovenox for DVT prophylaxis Sepsis, sepsis features but given encephalopathy, respiratory failure Acute encephalopathy, resolved - Multifactorial, metabolic - COVID-19, hypercarbia, - Marijuana use Morbid obesity, BMI 60.7 Lymphedema Left knee pain, CT left knee CT/CT knee LT wo con* [id number] IMPRESSION: 1. Severe osteoarthritis without evidence of acute fracture or subluxation. 2. Prominent soft tissue edema with large region of unorganized subcutaneous fluid in the medial aspect of the distal thigh. PDMP PDMP Reviewed: Not Reviewed Attestations 2 Medical Necessity Statement*: Patient requires hospitalization for respiratory failure, CHF Diagnoses Acute hypercapnic respiratory failure J96.02 COVID-19 U07.1 COPD exacerbation J44.1 CHF exacerbation I50.9 Sepsis A41.9 Hypothyroidism E03.9 Lymphedema I89.0 Morbid obesity E66.01 TONIO (obstructive sleep apnea) G47.33 Acute encephalopathy G93.40
--- NOTE | 2024-08-31 15:52 | PC.OT ---
OT treatment attempted at 14:35, however, patient was having a lengthy conversation on the phone
[2024-08-31] MEDS: cefTRIAXone 1,000 mg SDV 1000 MG IVP (16:03)
[2024-08-31] MEDS: azithromycin 250 mg Tablet PO (17:20)
[2024-08-31] MEDS: enoxaparin 40 mg/0.4 mL Syringe SUBCUT (17:21)
[2024-08-31] MEDS: pantoprazole 40 mg SDV IVP (17:21)
[2024-08-31] MEDS: trazodone 150 mg Tablet 75 MG PO (20:31)
[2024-09-01] VITALS (8 sets, daily range): BP systolic 125–141; BP diastolic 70–82; PULSE 77–89; RESP 4–18; TEMP 36.6–36.7; O2SAT 94–95
[2024-09-01] MEDS: ipratropium-albuterol 3 mL Neb INHALATION ×2 (01:56→08:23)
[2024-09-01 06:51] LABS: Basophils % 0.3 %; Eosinophils # 0.1 10^3/uL (0.0-0.8); Eosinophils % 0.7 %; Hematocrit 38.5 % (36-47); Lymphocytes # 1.1 10^3/uL (0.8-4.8); Mean Corpuscular HGB Conc 28.8 g/dL (30-55); Mean Corpuscular Hemoglobin 25.9 pg (27-33); Mean Platelet Volume 8.9 fL (7.4-10.4); Monocytes # 0.8 10^3/uL (0.2-0.9); Monocytes % 9.5 %; Neutrophils # 6.58 10^3/uL (1.8-7.7); Neutrophils % 75.4 %; Nucleated Red Blood Cells % 0 %; Platelet Count 244 10^3/cmm (157-399); Red Blood Count 4.28 10^6/uL (3.85-5.65); Red Cell Distribution Width 15.9 % (12.1-15.1); White Blood Count 8.74 10^3/uL (3.29-11.43)
[2024-09-01 07:23] LABS: Alanine Aminotransferase 12 U/L (0-33); Albumin Level 3.2 g/dL (3.5-5.2); Alkaline Phosphatase 63 U/L (35-105); Aspartate Amino Transferase 9 U/L (0-32); Blood Urea Nitrogen 16 mg/dL (6-20); Calcium 8.7 mg/dL (8.5-10.5); Carbon Dioxide 31 mmol/L (22-29); Chloride 99 mmol/L (98-107); Creatinine Clr Calc Pharmacy 264.2108; Globulin 3.4 g/dL (1.3-4.6); Glomerular Filtration Rate 166.3 mL/min (90-130); Glucose 105 mg/dL (65-115); Osmolality Calculated 292 mOsm/kg (285-295); Sodium 140 mmol/L (136-145); Total Bilirubin 0.4 mg/dL (0.15-1.2); Total Protein 6.6 g/dL (6.6-8.7)
[2024-09-01] MEDS: docusate sodium 100 mg Capsule PO (07:55)
[2024-09-01] MEDS: thyroid 60 mg Tablet 120 MG PO (07:55)
[2024-09-01] MEDS: duloxetine 30 mg Capsule PO (07:55)
[2024-09-01] MEDS: nystatin powder 15 gm Btl 1 APPLIC TOPICAL (07:57)
[2024-09-01] MEDS: budesonide 0.5 mg/2 mL Neb INHALATION (08:24)
[2024-09-01] MEDS: FUROsemide 40 mg Tablet PO (11:07)
--- NOTE | 2024-09-01 12:36 | PC.NURSE ---
Called report to Tamiko at [facility] and called Aftab Gonzalez. Awaiting the ambulance ride. Patient has Covid and is not a candidate for the waiting room.
--- NOTE | 2024-09-01 13:40 | PC.NURSE ---
Patient transfered by [facility] ambulance at 1330.
== END 2024-09-01 13:41 | DRG 871 ==
LOC: ER 13:25 → ER IP 16:17 → ICU 08-28 06:53 → MEDSURG 08-30 20:08
PROVIDERS: Admitting Provider Family Medicine; Emergency Provider Physician Assistant; PCP Family Medicine; Visit Provider Family Medicine
DX: A41.9 Sepsis, unspecified organism (principal); I50.33 Acute on chronic diastolic (congestive) heart failure; J12.82 Pneumonia due to coronavirus disease 2019; J96.02 Acute respiratory failure with hypercapnia; U07.1 COVID-19; J44.1 Chronic obstructive pulmonary disease with (acute) exacerbation; Z68.44 Body mass index [BMI] 60.0-69.9, adult; E66.2 Morbid (severe) obesity with alveolar hypoventilation; G93.40 Encephalopathy, unspecified; R65.20 Severe sepsis without septic shock; E03.9 Hypothyroidism, unspecified; R73.03 Prediabetes; M17.12 Unilateral primary osteoarthritis, left knee; Z99.81 Dependence on supplemental oxygen; Z87.891 Personal history of nicotine dependence
CPT/HCPCS: 36415; 36600; 51702; 70450; 71045; 71275; 73560; 73700; 80048; 80051; 80053; 80306; 80307; 81001; 82140; 82330; 82803; 82805; 83036; 83605; 83735; 83880; 84100; 84145; 84439; 84443; 84481; 84484; 85025; 85378; 86140; 87040; 87637; 93005; 93970; 94640; 94660; 94664; 96365; 96372; 96374; 96375; 96376; 97110; 97116; 97162; 97167; 97530; 97535; 99285; J0248; J0456; J0696; J1100; J1650; J1938; J2270; J2470; J3490; J7050; J7626; J9999; Q0144

== ENCOUNTER → 2024-09-20 09:13 | Outpatient (BNVA) | payer OTHER, SELFPAY | PROVIDERS: PCP Nurse Practitioner Family; Visit Provider Student in an Organized Health Care Education/Training Program | DX: M25.562 Pain in left knee (principal); M17.12 Unilateral primary osteoarthritis, left knee | CPT/HCPCS: 73560; 73565 ==

== ENCOUNTER → 2024-09-21 12:42 | Outpatient (BNVA) | payer OTHER, SELFPAY | PROVIDERS: PCP Nurse Practitioner Family; Visit Provider Nurse Practitioner Family | DX: I50.9 Heart failure, unspecified (principal) | CPT/HCPCS: 80053; 84443; 85025 ==

== ENCOUNTER 2024-10-06 05:00 | Outpatient (RCR) | payer OTHER, SELFPAY | END 2024-11-05 23:59 | disposition home or self-care (01) | LOC: SPT 05:00 | PROVIDERS: Visit Provider Nurse Practitioner Family | DX: M62.81 Muscle weakness (generalized) (principal) | CPT/HCPCS: 97110; 97161; 97530 ==

== ENCOUNTER 2024-10-06 06:30 | Outpatient (RCR) | payer OTHER, SELFPAY | END 2024-11-05 23:59 | disposition home or self-care (01) | LOC: SPT 06:30 | PROVIDERS: PCP Nurse Practitioner Family; Visit Provider Student in an Organized Health Care Education/Training Program | DX: I89.0 Lymphedema, not elsewhere classified (principal) | CPT/HCPCS: 97140 ==

== ENCOUNTER → 2024-11-01 11:00 | Outpatient (BNVA) | payer OTHER, SELFPAY | PROVIDERS: PCP Nurse Practitioner Family; Visit Provider Nurse Practitioner Family | DX: I50.9 Heart failure, unspecified (principal); I89.0 Lymphedema, not elsewhere classified; R73.03 Prediabetes | CPT/HCPCS: 80053; 80061; 83036; 84443; 86003; 86008 ==

== ENCOUNTER 2024-11-06 05:00 | Outpatient (RCR) | payer OTHER, SELFPAY | END 2024-12-05 23:59 | disposition home or self-care (01) | LOC: SPT 05:00 | PROVIDERS: PCP Nurse Practitioner Family; Visit Provider Nurse Practitioner Family | DX: M62.81 Muscle weakness (generalized) (principal) | CPT/HCPCS: 97530 ==

== ENCOUNTER → 2024-12-06 10:21 | Outpatient (BNVA) | payer OTHER, SELFPAY | PROVIDERS: PCP Nurse Practitioner Family; Visit Provider Physician Assistant | DX: M17.12 Unilateral primary osteoarthritis, left knee (principal) | CPT/HCPCS: 73560; 73565 ==

== ENCOUNTER → 2024-12-19 11:27 | Outpatient (BNVA) | payer OTHER, SELFPAY | PROVIDERS: PCP Nurse Practitioner Family; Visit Provider Physician Assistant | DX: G56.01 Carpal tunnel syndrome, right upper limb (principal); G56.02 Carpal tunnel syndrome, left upper limb | CPT/HCPCS: 73130 ==

== ENCOUNTER → 2024-12-20 12:09 | Outpatient (BNVA) | payer OTHER, SELFPAY | PROVIDERS: PCP Nurse Practitioner Family; Visit Provider Nurse Practitioner Family | DX: I28.8 Other diseases of pulmonary vessels (principal); R09.89 Other specified symptoms and signs involving the circulatory and respiratory systems; R60.0 Localized edema; R06.02 Shortness of breath | CPT/HCPCS: 71046; 80053; 83880 ==

== ENCOUNTER 2024-12-22 12:05 | Outpatient (RCR) | payer OTHER, SELFPAY | END 2024-12-26 10:26 | disposition home or self-care (01) | LOC: SPT 12:05 | PROVIDERS: PCP Nurse Practitioner Family; Visit Provider Nurse Practitioner Family | DX: M62.81 Muscle weakness (generalized) (principal) | CPT/HCPCS: 97530 ==

== ENCOUNTER → 2024-12-25 13:36 | Outpatient (BNVA) | payer OTHER, SELFPAY | PROVIDERS: PCP Nurse Practitioner Family; Visit Provider Nurse Practitioner Family | DX: I50.9 Heart failure, unspecified (principal) | CPT/HCPCS: 80053 ==

== ENCOUNTER 2025-01-12 07:54 | Day surgery (SDC) | payer OTHER, SELFPAY ==
[2025-01-12] VITALS (10 sets, daily range): BP systolic 114–135; BP diastolic 54–90; PULSE 72–84; RESP 15–20; TEMP 36.4–36.9; O2SAT 90–97; BMI 59.3
--- NOTE | 2025-01-12 08:04 | P.ANESASSM_ITS ---
Pre-Anesthetic Assessment Height/Weight: Height 5 ft 3 in Preop Diagnosis: Carpal tunnel syndrome Operation Date: 01/12/25 09:25 Proposed Procedures p RIGHT Carpal Tunnel Release(Right) - David Melo DO Was Beta Marcella taken within 24 hours: N/A Was Clonidine taken within 24 hours: N/A Social No alcohol and No tobacco Exam alert, oriented x 3, clear to auscultation bilaterally and regular rate & rhythm Airway Submandibular: within normal limits Cervical ROM: within normal limits Mallampati: Class II Dentition: full Anesthetic Plan ASA status: 3 Anesthesia: Choice Other: No prior issues with anesthesia NPO since yesterday evening History of Magaly's thyroiditis. Patient takes thyroid tablets Chronic Lasix BMI 59.3 Labs reviewed from 12/25/2024 and acceptable for procedure today EKG sinus rhythm with sinus arrhythmia. Medications/Allergies Home Medications ?Medication ?Instructions ?Recorded ?Confirmed ?Last Taken ?Type albuterol sulfate 90 mcg/actuation 1 inh inhalation 6X D PRN shortness 11/01/24 01/12/25 Unknown Rx aerosol inhaler (Ventolin HFA) of breath or wheezing # 8.5 grams duloxetine 30 mg capsule,delayed 30 mg PO DAILY 30 day s #30 caps 11/01/24 01/12/25 01/11/25 Rx release furosemide 40 mg tablet 40 mg PO DAILY@0800 30 days #30 11/01/24 01/12/25 01/11/25 Rx tabs potassium chloride 10 mEq 10 meq PO DAILY #30 tabs 01/12/25 01/11/25 Rx tablet,extended release (Klor-Con) thyroid (pork) 120 mg tablet 120 mg PO DAILY 30 days # 30 tabs 11/01/24 01/12/25 01/11/25 Rx ([facility] Thyroid) Allergies Allergy/AdvReac Type Severity Reaction Status Date / Time Penicillins Allergy Severe ALGY-Difficulty Verified 01/12/25 08:13 Swallowing Sulfa (Sulfonamide Allergy Severe ALGY-Difficulty Verified 01/12/25 08:13 Antibiotics) Breathing zolpidem (From Ambien) Allergy Severe ALGY-Difficulty Verified 01/12/25 08:13 Swallowing gluten Allergy ADR-Gastrointestinal Verified 01/12/25 08:13 Upset levothyroxine sodium (From Allergy narcolepsy Verified 01/12/25 08:13 Synthroid) [facility] Anesthesia Medical History Obesity hypoventilation syndrome Cellulitis Arthritis of both knees Hypoxia Obesity, morbid, BMI 50 or higher Dyspnea Lymphedema Pulmonary edema Dyspnea Obesity, morbid, BMI 50 or higher Hypoxia COVID-19 Stiffness of joints of both hands Exertional shortness of breath Chronic interstitial lung disease Open wound of left lower extremity Elevated brain natriuretic peptide (BNP) level Myalgia Arthralgia Hyperglycemia Stress incontinence 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 COPD (chronic obstructive pulmonary disease) Mixed hyperlipidemia TONIO (obstructive sleep apnea) Orthopnea SOB (shortness of breath) HTN (hypertension) Hypothyroidism Former smoker (~2014) Tilted uterus History of pneumonia TIA (transient ischemic attack) Lymphedema associated with obesity Magaly's disease Asthma Surgical History History of bronchoscopy Family History Other CAD (coronary artery disease) Congestive heart failure (CHF) Diabetes Former smoker Hypertension Hypothyroidism Social History Smoking and tobacco/nicotine status: former use of tobacco/nicotine Quit status (tobacco/nicotine): has quit using Year quit tobacco: 2014 Former quit date comment: 0.5 ppd X 20 years Data Anesthesia Cardiac Studies: Echocardiogram 01/17/23
[2025-01-12] MEDS: acetaminophen 1,000 MG/100 ML PIGGYBACK 400 MG IV (08:40)
--- NOTE | 2025-01-12 08:46 | W.PM.OPSUD ---
Surgery/Procedure H&P Update DATE OF PROCEDURE: January 12, 2025 DATE H&P PERFORMED: 12/19/24 H&P UPDATE INFORMATION: I have reviewed H&P completed within last 30 days, I have examined patient prior to procedure and No changes to prior documentation PREOP DIAGNOSIS: Right Carpal tunnel syndrome PRIMARY INDICATION FOR PROCEDURE: Right carpal tunnel syndrome PLANNED PROCEDURE: Operation Date: 01/12/25 09:25 Proposed Procedures p RIGHT Carpal Tunnel Release(Right) - David Melo DO
[2025-01-12] MEDS: ROPivacaine 0.5% SDV 30 mL 25 MG INJECTION (09:20)
[2025-01-12] MEDS: lidocaine-epi 1% 20 mL INJ 5 ML INJECTION (09:21)
--- NOTE | 2025-01-12 09:25 | W.PM.BPON ---
Date of Procedure: 01/12/2025 Surgeon: David Melo DO Applied Statistician(s): None Procedure(s) performed: Right carpal tunnel release Findings of the procedure(s): Patient underwent procedure as planned without issues or complications taken recovery in stable condition Estimated blood loss: 3 mL Specimen(s) removed: None Post-operative diagnosis: Right carpal tunnel syndrome
--- NOTE | 2025-01-12 09:26 | P.OP_ITS ---
Operative Report Date of procedure: January 12, 2025 Surgeon: David Melo DO Procedure: Preop Diagnosis: Right Carpal Tunnel Syndrome Post-op diagnosis: Same Procedure done: 1. Right carpal tunnel release Surgeon: David Melo DO Anesthesia: General/LMA Estimated blood loss: 3 mL Tourniquet time 6 minutes IV fluids: See anesthesia record Complications: None Findings: See operative report narrative Condition: stable Disposition: same day Brief History: Patient is a pleasant 54 year-old female with right carpal tunnel syndrome. Patient has been worked up in the outpatient setting findings and physical exa mination consistent with this. Patient nerve conduction studies consistent with carpal tunnel syndrome. We detailed out patient's risk benefits complication alternatives with surgical and nonsurgical treatment options. Through shared decision making, patient agrees to proceed with surgical intervention of the right carpal tunnel release . Patient understands and agrees with current plan. All questions answered. Patient elects to proceed with surgical intervention with carpal tunnel release. Procedure: Patient seen and evaluated in the preoperative holding area. Consent was reviewed and signed with patient. Correct extremity was marked. Patient was seen evaluated by the anesthesia department once cleared for surgery was brought back to the operative suite. Patient was kept on [facility] in supine position all bony prominences were well-padded patient properly secured to the bed. Right upper extremity was then placed onto an armboard. A nonsterile tourniquet was applied to the Right upper arm. Patient underwent anesthesia per the anesthesia department. Patient's Right upper extremity was then prepped and draped in standard orthopedic fashion. Final timeout performed. Patient received appropriate preoperative antibiotics. Under sterile aseptic technique patient received local anesthesia over the preplanned carpal tunnel incision site. Esmarch was used to exsanguinate the Right upper extremity and tourniquet was insufflated to 250 mmHg. A standard mini open Right carpal tunnel incision was made. Starting distally at Clark's cardinal line in line with the fourth ray extending proximally distal to the wrist crease centered over the carpal tunnel. Sharp scalpel incision was made through skin and subcutaneous tissue. Self-retaining retractor was placed and the palmar fascia was identified. This was then split longitudinally and direct visualization of the transverse carpal ligament was then made. I then utilizing scalpel feathered through the transverse carpal ligament until I entered the floor of the transverse carpal tunnel ligament into the carpal tunnel. Next I switched to dissection scissors and completed my release of the transverse carpal ligament distally with care to protect the recurrent motor branch. I completely released into the palmar fat and until no entrapment was noted distally. Care was made to protect the superficial palmar arch during my distal dissection. Next I utilized a nasal speculum placed on top of the transverse carpal ligament and utilize this to retract the subcutaneous fat and tissue and under direct loupe magnification was able to identify the transverse carpal ligament. Next I then protected the contents of the carpal tunnel and subsequently utilizing dissection scissors under loupe magnification completely released the transverse carpal ligament proximally into the antebrachial fascia. Care was made to protect the palmar cutaneous branch by keeping my scissors curved ulnarly. Once completely released, I then placed my [place] and had appropriate decompression of the carpal tunnel proximally as well as distally. I then inspected the contents of the carpal tunnel which showed an hourglass shape of the median nerve showing its compression. No masses were noted. Tendons appeared healthy. Wound was then thoroughly irrigated. Tourniquet deflated. Hemostasis satisfactory with bipolar electrocautery. I then closed the incision with interrupted nylon stitches. Xeroform 4 x 4's and a bulky soft dressing was applied. Patient was then awakened from anesthesia and taken to PACU in stable condition. Patient tolerated procedure without complications. Disposition: Patient taken to PACU in stable condition recovering well. Dressing clean dry and intact. Patient will receive appropriate discharge instructions as well as pain medication postoperatively. Patient to follow-up with me in the office in 2 weeks. They understand they may be weightbearing as tolerated to the right hand. Patient should keep incision clean dry and intact. Patient understands if any questions or concerns may contact the office.
--- NOTE | 2025-01-12 09:46 | SUR.PHASEI ---
09:35 RECEIVED PT FROM OR STAFF. AIRWAY IN PLACE WITH O2. NSR ON MONITOR. WARM BLANKETS APPLIED. 09:40 LMA DC'ED .PT ABLE TO SPIT BLOOD TINGED SPUTUM UPON COMMAND. REMAINS ON O2. AIRWAY PATENT. ABLE TO COUGH UPON COMMAND AND WIGGLE FINGERS OF RIGHT HAND. RESPONDS TO VERBAL.
--- NOTE | 2025-01-12 10:03 | SUR.PHASEI ---
09:55 TOLERATED ICE CHIPS. A+O X 3.
--- NOTE | 2025-01-12 10:20 | ANE.PACU2 ---
Inpatient post-anesthesia follow up: Airway intact: Yes Vital signs: Temperature 98.5 F Pulse Rate 72 Respiratory Rate 15 Blood Pressure 127/54 Pulse Oximetry 91 Oxygen Delivery Me thod Nasal Cannula Oxygen Flow Rate 2 Fraction of Inspir ed Oxygen Hydration adequate: Yes Nausea and vomiting: No Pain level: 1 Mental status: Baseline
== END 2025-01-12 12:18 | disposition home or self-care (01) ==
PROVIDERS: PCP Nurse Practitioner Family; Visit Provider Student in an Organized Health Care Education/Training Program
PROC: (CPT 64721; principal; 2025-01-12 09:15)
DX: G56.01 Carpal tunnel syndrome, right upper limb (principal); E06.3 Autoimmune thyroiditis; E66.01 Morbid (severe) obesity due to excess calories; Z68.43 Body mass index [BMI] 50.0-59.9, adult; J81.1 Chronic pulmonary edema; J44.9 Chronic obstructive pulmonary disease, unspecified; G47.33 Obstructive sleep apnea (adult) (pediatric); E78.2 Mixed hyperlipidemia; I10 Essential (primary) hypertension; Z86.73 Personal history of transient ischemic attack (TIA), and cerebral infarction without residual deficits; Z87.891 Personal history of nicotine dependence
CPT/HCPCS: 64721; J0131; J1885; J2250; J2405; J2704; J2795; J3010; J3490; J7030; J9999

== ENCOUNTER 2025-02-02 10:00 | Outpatient (RCR) | payer OTHER, SELFPAY | END 2025-02-04 23:59 | disposition home or self-care (01) | LOC: TPT 10:00 | PROVIDERS: Visit Provider Nurse Practitioner Family | DX: M79.606 Pain in leg, unspecified (principal); R06.09 Other forms of dyspnea | CPT/HCPCS: 97110; 97161 ==

== ENCOUNTER 2025-03-02 07:30 | Outpatient (RCR) | payer OTHER, SELFPAY | END 2025-03-07 23:59 | disposition home or self-care (01) | LOC: TPT 07:30 | PROVIDERS: PCP Nurse Practitioner Family; Visit Provider Nurse Practitioner Family | DX: M79.606 Pain in leg, unspecified (principal); R06.09 Other forms of dyspnea | CPT/HCPCS: 97110 ==